=== PATIENT | female | born 1955 | race Caucasian/White ===

== ENCOUNTER 2020-05-04 14:34 | Emergency (ER) | payer MEDICARE, OTHER, SELFPAY ==
[2020-05-04 14:57] VITALS: BP 131/70; PULSE 69; RESP 28; TEMP 36.8; O2SAT 97; BMI 29.0
--- NOTE | 2020-05-04 15:19 | HMH.EDUTC ---
[facility] [place] Disposition Clinical Impression: Nausea UTI (urinary tract infection) Qualifiers: Urinary tract infection type: site unspecified Hematuria presence: with hematuria Qualified Code(s): N39.0 - Urinary tract infection, site not specified Disposition: Home, Self-Care Condition on Discharge: Good Instructions: Urinary Tract Infection, DI for Urinary Tract Infection (UTI) Additional Instructions: Drink plenty of fluids. Take tylenol or ibuprofen for pain or fever. Take the medications as directed. Follow up with your regular doctor. GO TO THE ER FOR ANY WORSENING SYMPTOMS IF YOU ARE NOT DOING BETTER WITH IN 24 TO 48 HOURS, THEN PLEASE RETURN MIR OR FOLLOW UP WITH YOUR REGULAR DOCTOR. IF YOUR SYMPTOMS GET ANY WORSE, GO TO THE ER. Prescriptions: Ciprofloxacin HCl [Cipro 500mg Tab] 500 mg PO BID 7 Days #14 tab Transmission Status: Received by [facility] #[id number] Referrals: Janes Clay PA [Primary Care Provider] - Time of Disposition: 15:50 Medical Decision Making - Medical Records Medical records reviewed: No: I reviewed the patient's medical records. - Mario Inquiry Pt receiving controlled substance: No Vital Signs: 05/04/20 14:57 05/04/20 16:06 Temperature 98.2 F 98.2 F Temperature Source Oral Oral Pulse Rate 70 Pulse Rate [Left Brachial] 69 Respiratory Rate 28 H 16 Blood Pressure 132/72 Blood Pressure [Left Arm] 131/70 Blood Pressure Mean [Left Arm] 90 Blood Pressure Source Automatic Cuff Blood Pressure Source [Left Arm] Automatic Cuff Blood Pressure Position Sitting Blood Pressure Position [Left Arm] Sitting 02 Sat by Pulse Oximetry 97 Oxygen Delivery Method Room Air Room Air - Lab Data Lab results reviewed: Yes: I reviewed the patient's lab results. Lab Results 05/04/20 15:48: Urine Color Yellow, Urine Appearance Clear, Urine pH 6.0, Ur Specific [place] 1.020, Urine Protein Negative, Urine Glucose (UA) Negative, Urine Ketones Negative, Urine Blood Trace, Urine Nitrate Positive A, Urine Bilirubin Negative, Urine Urobilinogen 0.2, Ur Leukocyte Esterase 1+ A [facility] [place] HPI - General Stated complaint: up set stomach Time Seen by Provider: 05/04/20 15:19 Mode of Arrival: Ambulatory Source of Information: Patient HEENT Symptoms (Recalled from RN notes): No Resp Symptoms (Recalled from RN notes): No Skin Symptoms (Recalled from RN notes): No MS Symptoms (Recalled from RN notes): No Functional Status (Recalled from RN notes): NA - History of Present Illness Provider Complaint: She c/o feeling bad and nauseated off and on over the past week. She denies any fever or chills. - Related Data Home Medications Medication Instructions Recorded Confirmed baclofen 10 mg tablet 10 mg PO BID PRN 30 Days tab 11/22/18 12/01/19 budesonide-formoterol HFA 160 2 puff INHALATION BID 11/22/18 12/01/19 mcg-4.5 mcg/actuation aerosol inhaler gabapentin 300 mg capsule 300 mg PO TID 30 Days cap 11/22/18 12/01/19 hydrocodone 7.5 mg-acetaminophen 1 tab PO QID 30 Days tab 11/22/18 12/01/19 325 mg tablet hydrocortisone acetate 25 mg 25 mg [place] DAILY PRN 11/22/18 12/01/19 rectal suppository hydrocortisone acetate 25 mg 25 mg [place] DAILY PRN 11/22/18 12/01/19 rectal suppository ibuprofen 800 mg tablet 800 mg PO TID 90 Days tab 11/22/18 12/01/19 levothyroxine 50 mcg tablet 50 mcg PO DAILY 90 Days tab 11/22/18 12/01/19 lidocaine 5 % topical patch 1 patch TRANSDERMA BID PRN 7 Days 11/22/18 12/01/19 #30 each montelukast 10 mg tablet 10 mg PO HS 90 Days tab 11/22/18 12/01/19 pantoprazole 40 mg tablet,delayed 40 mg PO DAILY 90 Days #90 tab 11/22/18 12/01/19 release simvastatin 20 mg tablet 20 mg PO DAILY 90 Days tab 11/22/18 12/01/19 terconazole 0.4 % vaginal cream 1 appful VAGINAL QHS PRN 11/22/18 12/01/19 metoprolol succinate 25 mg 25 mg PO DAILY #90 tab 06/25/19 12/01/19 tablet,extended release 24 hr Phenazopyridine HCl [Pyridium 200 pow PO
[2020-05-04 15:50] LABS: Apearance,Urine Clear (Clear); Blood, Urine Trace (Negative); Color,Urine Yellow (Yellow); Glucose,Urine (UA) Negative (Negative); Ketones,Urine Negative (Negative); Protein,Urine Negative (Negative)
[2020-05-04 15:51] LABS: Bilirubin,Urine Negative (Negative); UTC Leukocyte Esterase,Urine 1+ (Negative); UTC Nitrate,Urine Positive (Negative); Urobilinogen,Urine 0.2 EU/dl (0.2)
[2020-05-04 16:06] VITALS: BP 132/72; PULSE 70; RESP 16; TEMP 36.8; O2SAT 98
== END 2020-05-04 16:07 | disposition home or self-care (01) ==
PROVIDERS: Emergency Provider Nurse Practitioner Family; PCP Physician Assistant
DX: N30.00 Acute cystitis without hematuria (principal); J45.909 Unspecified asthma, uncomplicated; E78.5 Hyperlipidemia, unspecified; Z90.79 Acquired absence of other genital organ(s)
CPT/HCPCS: 81003; 87086; 87088; 87186; 99201

== ENCOUNTER 2020-05-09 14:42 | Emergency (ER) | payer MEDICARE, OTHER, SELFPAY ==
[2020-05-09 15:13] VITALS: BP 119/70; PULSE 67; RESP 20; TEMP 36.6; O2SAT 100; BMI 29.8
--- NOTE | 2020-05-09 15:19 | HMH.EDUTC ---
[facility] [place] Clinical Impression: UTI (urinary tract infection) Qualifiers: Urinary tract infection type: site unspecified Hematuria presence: with hematuria Qualified Code(s): N39.0 - Urinary tract infection, site not specified Disposition: Home, Self-Care Condition on Discharge: Good Instructions: DI for Urinary Tract Infection (UTI) Additional Instructions: Drink plenty of fluids. Take tylenol or ibuprofen for pain or fever. Take the medications as directed. Follow up with your regular doctor. GO TO THE ER FOR ANY WORSENING SYMPTOMS Prescriptions: Fluconazole [Diflucan 150mg tab] 150 mg PO ONCE #1 tab Transmission Status: Received by [facility] #[id number] Cefdinir [Omnicef 300mg Capsule] 300 mg PO BID #20 cap Transmission Status: Received by [facility] # Referrals: Janes Clay PA [Primary Care Provider] - Time of Disposition: 15:25 Medical Decision Making - Medical Records Medical records reviewed: No: I reviewed the patient's medical records. - Mario Inquiry Pt receiving controlled substance: No Vital Signs: 05/09/20 15:13 05/09/20 15:27 Temperature 97.9 F 97.9 F Temperature Source Oral Pulse Rate 67 Pulse Rate [Right Brachial] 67 Respiratory Rate 20 20 Blood Pressure 119/70 Blood Pressure [Right Arm] 119/70 Blood Pressure Mean [Right Arm] 86 Blood Pressure Source [Right Arm] Automatic Cuff Blood Pressure Position [Right Arm] Sitting 02 Sat by Pulse Oximetry 100 Oxygen Delivery Method Room Air - Lab Data Lab results reviewed: Yes: I reviewed the patient's lab results. Lab Results 05/09/20 15:05: Urine Color Yellow, Urine Appearance Clear, Urine pH 5.5, Ur Specific [place] 1.020, Urine Protein Negative, Urine Glucose (UA) Negative, Urine Ketones Negative, Urine Blood Trace, Urine Nitrate Negative, Urine Bilirubin Negative, Urine Urobilinogen 0.2, Ur Leukocyte Esterase Negative Orders (Tests/Meds): ORDERS Category Date Time Status Urine Culture Stat Micro 05/09/20 14:50 Received [facility] [place] - General Stated complaint: Bladder infection Time Seen by Provider: 05/09/20 15:19 Mode of Arrival: Ambulatory Source of Information: Patient Limitations: No Limitations Description of Symptoms (Recalled from Triage Doc. by RN): PATIENT RECENTLY TREATED FOR UTI, STATES IT IS NOT BETTER. C/O WORSENING BILATERAL FLANK AND PELVIC PAIN. HEENT Symptoms (Recalled from RN notes): No Resp Symptoms (Recalled from RN notes): No Skin Symptoms (Recalled from RN notes): No MS Symptoms (Recalled from RN notes): No Functional Status (Recalled from RN notes): WNL - History of Present Illness Provider Complaint: She is here with chief complaint of burning with urination. She states that in the past there were several antibiotics that would not help her utis. - Related Data Home Medications Medication Instructions Recorded Confirmed baclofen 10 mg tablet 10 mg PO BID PRN 30 Days tab 11/22/18 12/01/19 budesonide-formoterol HFA 160 2 puff INHALATION BID 11/22/18 12/01/19 mcg-4.5 mcg/actuation aerosol inhaler gabapentin 300 mg capsule 300 mg PO TID 30 Days cap 11/22/18 12/01/19 hydrocodone 7.5 mg-acetaminophen 1 tab PO QID 30 Days tab 11/22/18 12/01/19 325 mg tablet hydrocortisone acetate 25 mg 25 mg [place] DAILY PRN 11/22/18 12/01/19 rectal suppository hydrocortisone acetate 25 mg 25 mg [place] DAILY PRN 11/22/18 12/01/19 rectal suppository ibuprofen 800 mg tablet 800 mg PO TID 90 Days tab 11/22/18 12/01/19 levothyroxine 50 mcg tablet 50 mcg PO DAILY 90 Days tab 11/22/18 12/01/19 lidocaine 5 % topical patch 1 patch TRANSDERMA BID PRN 7 Days 11/22/18 12/01/19 #30 each montelukast 10 mg tablet 10 mg PO HS 90 Days tab 11/22/18 12/01/19 pantoprazole 40 mg tablet,delayed 40 mg PO DAILY 90 Days #90 tab 11/22/18 12/01/19 release simvastatin 20 mg tablet 20 mg PO DAILY 90 Days tab 11/22/18 12/01/19 terconazole 0.4 % vagina
[2020-05-09 15:27] VITALS: BP 119/70; PULSE 67; RESP 20; TEMP 36.6; O2SAT 100
[2020-05-09 16:48] LABS: Apearance,Urine Clear (Clear); Color,Urine Yellow (Yellow); Glucose,Urine (UA) Negative (Negative); PH,Urine 5.5 (5.0-8.5); Protein,Urine Negative (Negative)
[2020-05-09 16:49] LABS: Bilirubin,Urine Negative (Negative); Blood, Urine Trace (Negative); Ketones,Urine Negative (Negative); UTC Leukocyte Esterase,Urine Negative (Negative); UTC Nitrate,Urine Negative (Negative); Urobilinogen,Urine 0.2 EU/dl (0.2)
== END 2020-05-09 15:32 | disposition home or self-care (01) ==
PROVIDERS: Emergency Provider Nurse Practitioner Family; PCP Physician Assistant
DX: N30.00 Acute cystitis without hematuria (principal); E78.5 Hyperlipidemia, unspecified; J45.909 Unspecified asthma, uncomplicated; Z90.79 Acquired absence of other genital organ(s)
CPT/HCPCS: 81003; 87086; 99201

== ENCOUNTER 2020-05-30 15:45 | Emergency (ER) | payer MEDICARE, OTHER, SELFPAY ==
[2020-05-30 16:08] VITALS: BP 125/75; PULSE 72; RESP 14; TEMP 36.7; O2SAT 100; BMI 29.8
--- NOTE | 2020-05-30 16:47 | HMH.EDUTC ---
[facility] [place] Disposition Clinical Impression: Otitis media Qualifiers: Otitis media type: suppurative Chronicity: acute Laterality: bilateral Recurrence: non-recurrent Spontaneous tympanic membrane rupture: without spontaneous rupture Qualified Code(s): H66.003 - Acute suppurative otitis media without spontaneous rupture of ear drum, bilateral Disposition: Home, Self-Care Condition on Discharge: Good Instructions: Middle Ear Infection Additional Instructions: Drink plenty of fluids. Take tylenol or ibuprofen for pain or fever. Finish the antibiotics that you are on. Start the oral steroids tomorrow. Follow up with your regular doctor. GO TO THE ER FOR ANY WORSENING SYMPTOMS Don't start the oral steroids until tomorrow, since you had the shot here today. Prescriptions: predniSONE [Deltasone 10mg tablet] 10 mg PO BID 4 Days #8 tab Transmission Status: Received by [employer] [facility] #[id number] Referrals: Janes Clay PA [Primary Care Provider] - Time of Disposition: 16:55 Medical Decision Making - Medical Records Medical records reviewed: No: I reviewed the patient's medical records. - Mario Inquiry Pt receiving controlled substance: No Vital Signs: 05/30/20 16:08 05/30/20 17:14 Temperature 98.1 F 98.1 F Temperature Source Oral Pulse Rate 72 Pulse Rate [Right Brachial] 72 Respiratory Rate 14 14 Blood Pressure 125/75 Blood Pressure [Right Arm] 125/75 Blood Pressure Mean [Right Arm] 91 Blood Pressure Source [Right Arm] Automatic Cuff Blood Pressure Position [Right Arm] Sitting 02 Sat by Pulse Oximetry 100 Oxygen Delivery Method Room Air Orders (Tests/Meds): ED MEDICATIONS Discontinued Medications Generic Name Dose Route Start Last Admin Trade Name [place] PRN Reason Stop Dose Admin Ceftriaxone Sodium 1 gm 05/30/20 16:48 05/30/20 17:05 Rocephin 1gm Vial IM 05/30/20 16:49 1 gm ONCE ONE Administration Protocol Lidocaine HCl 0 ml 05/30/20 16:48 05/30/20 17:05 Lidocaine 1% 10ml Mdv IM 05/30/20 16:49 2.1 ml ONCE ONE Administration Methylprednisolone Sodium Succinate 125 mg 05/30/20 16:48 05/30/20 17:05 Solu-Medrol 125mg/2ml Vial IM 05/30/20 16:49 125 mg ONCE ONE Administration [facility] [place] HPI - General Stated complaint: ear pain, wheezing Time Seen by Provider: 05/30/20 16:30 Mode of Arrival: Ambulatory Source of Information: Patient Limitations: No Limitations Description of Symptoms (Recalled from Triage Doc. by RN): PATIENT C/O WHEEZING AND BILATERAL EAR PAIN HEENT Symptoms (Recalled from RN notes): Yes Resp Symptoms (Recalled from RN notes): Yes Skin Symptoms (Recalled from RN notes): No MS Symptoms (Recalled from RN notes): No Functional Status (Recalled from RN notes): WNL - History of Present Illness Provider Complaint: She c/o bilateral ear pain for the past 1 week. She is on augmentin for an ear infection. She states that it has helped some but not enough. - Related Data Home Medications Medication Instructions Recorded Confirmed baclofen 10 mg tablet 10 mg PO BID PRN 30 Days tab 11/22/18 12/01/19 budesonide-formoterol HFA 160 2 puff INHALATION BID 11/22/18 12/01/19 mcg-4.5 mcg/actuation aerosol inhaler gabapentin 300 mg capsule 300 mg PO TID 30 Days cap 11/22/18 12/01/19 hydrocodone 7.5 mg-acetaminophen 1 tab PO QID 30 Days tab 11/22/18 12/01/19 325 mg tablet hydrocortisone acetate 25 mg 25 mg [place] DAILY PRN 11/22/18 12/01/19 rectal suppository hydrocortisone acetate 25 mg 25 mg [place] DAILY PRN 11/22/18 12/01/19 rectal suppository ibuprofen 800 mg tablet 800 mg PO TID 90 Days tab 11/22/18 12/01/19 levothyroxine 50 mcg tablet 50 mcg PO DAILY 90 Days tab 11/22/18 12/01/19 lidocaine 5 % topical patch 1 patch TRANSDERMA BID PRN 7 Days 11/22/18 12/01/19 #30 each montelukast 10 mg tablet 10 mg PO HS 90 Days tab 11/22/18 12/01/19 pantoprazole 40 mg tablet,delayed 40 mg PO DAILY 90 Days #90 tab 11/22/18
[2020-05-30 17:14] VITALS: BP 125/75; PULSE 72; RESP 14; TEMP 36.7; O2SAT 100
== END 2020-05-30 17:20 | disposition home or self-care (01) ==
PROVIDERS: Emergency Provider Nurse Practitioner Family; PCP Physician Assistant
DX: H66.003 Acute suppurative otitis media without spontaneous rupture of ear drum, bilateral (principal); J45.909 Unspecified asthma, uncomplicated; E78.5 Hyperlipidemia, unspecified; Z90.79 Acquired absence of other genital organ(s); Z79.899 Other long term (current) drug therapy
CPT/HCPCS: G0463; 96372; 99201

== ENCOUNTER 2020-06-10 14:52 | Emergency (ER) | payer MEDICARE, OTHER, SELFPAY ==
[2020-06-10 15:07] VITALS: BP 133/70; PULSE 62; RESP 20; TEMP 36.6; O2SAT 97; BMI 29.0
--- NOTE | 2020-06-10 15:25 | HMH.EDUTC ---
[facility] [place] Disposition Clinical Impression: Bilateral serous otitis media Qualifiers: Chronicity: acute Recurrence: non-recurrent Qualified Code(s): H65.03 - Acute serous otitis media, bilateral Disposition: Home, Self-Care Condition on Discharge: Good Instructions: Middle Ear Infection Additional Instructions: You need to follow up with ENT. You are having too many issues with your ears recently. Follow up with your primary care physician. Take the medications as directed. Take a probiotic to help combat the side effects of all the antibiotics that you have been having to take. GO TO THE ER FOR ANY WORSENING SYMPTOMS OR CONCERNS Prescriptions: Amoxicillin [Amoxicillin 500mg Tab] 500 mg PO TID 10 Days #30 tab Transmission Status: Received by [facility] # predniSONE [Deltasone 10mg tablet] 10 mg PO DAILY 9 Days #21 tab Transmission Status: Received by [facility] # Referrals: Janes Clay PA [Primary Care Provider] - Ryan Jesus MD [Staff Physician] - Time of Disposition: 15:35 Medical Decision Making - Medical Records Medical records reviewed: No: I reviewed the patient's medical records. - Mario Inquiry Pt receiving controlled substance: No Vital Signs: 06/10/20 15:07 06/10/20 15:44 Temperature 97.8 F 97.8 F Temperature Source Oral Pulse Rate 62 Pulse Rate [Right Brachial] 62 Respiratory Rate 20 20 Blood Pressure 133/70 Blood Pressure [Right Arm] 133/70 Blood Pressure Mean [Right Arm] 91 Blood Pressure Source [Right Arm] Automatic Cuff Blood Pressure Position [Right Arm] Sitting 02 Sat by Pulse Oximetry 97 Oxygen Delivery Method Room Air Orders (Tests/Meds): ED MEDICATIONS Discontinued Medications Generic Name Dose Route Start Last Admin Trade Name Magdielq PRN Reason Stop Dose Admin Ceftriaxone Sodium 1 gm 06/10/20 15:25 06/10/20 15:36 Rocephin 1gm Vial IM 06/10/20 15:26 1 gm ONCE ONE Administration Protocol Lidocaine HCl 0 ml 06/10/20 15:25 06/10/20 15:36 Lidocaine 1% 10ml Mdv IM 06/10/20 15:26 2.1 ml ONCE ONE Administration Methylprednisolone Sodium Succinate 125 mg 06/10/20 15:25 06/10/20 15:36 Solu-Medrol 125mg/2ml Vial IM 06/10/20 15:26 125 mg ONCE ONE Administration [facility] [place] HPI - General Stated complaint: ear pain Time Seen by Provider: 06/10/20 15:25 Mode of Arrival: Ambulatory Source of Information: Patient Limitations: No Limitations Description of Symptoms (Recalled from Triage Doc. by RN): PATIENT C/O BILATERAL EAR PAIN. STATES SHE WAS RECENTLY TREATED FOR AN EAR INFECTION, HOWEVER IT HAS NOT GOTTEN BETTER HEENT Symptoms (Recalled from RN notes): Yes Resp Symptoms (Recalled from RN notes): No Skin Symptoms (Recalled from RN notes): No MS Symptoms (Recalled from RN notes): No Functional Status (Recalled from RN notes): WNL - History of Present Illness Provider Complaint: She c/o ear pain and pressure. She states that since the last time she was here she had got better for a few days, but the ear complaints are coming back now. She denies any dizziness. She denies headache, focal weakness, and chest pain or neck pain. - Related Data Home Medications Medication Instructions Recorded Confirmed baclofen 10 mg tablet 10 mg PO BID PRN 30 Days tab 11/22/18 12/01/19 budesonide-formoterol HFA 160 2 puff INHALATION BID 11/22/18 12/01/19 mcg-4.5 mcg/actuation aerosol inhaler gabapentin 300 mg capsule 300 mg PO TID 30 Days cap 11/22/18 12/01/19 hydrocodone 7.5 mg-acetaminophen 1 tab PO QID 30 Days tab 11/22/18 12/01/19 325 mg tablet hydrocortisone acetate 25 mg 25 mg [place] DAILY PRN 11/22/18 12/01/19 rectal suppository hydrocortisone acetate 25 mg 25 mg [place] DAILY PRN 11/22/18 12/01/19 rectal suppository ibuprofen 800 mg tablet 800 mg PO TID 90 Days tab 11/22/18 12/01/19 levothyroxine 50 mcg tablet 50 mcg PO DAILY 90 Days tab 11/22/18 12/01/19 lidocaine 5 % to
[2020-06-10 15:44] VITALS: BP 133/70; PULSE 62; RESP 20; TEMP 36.6; O2SAT 97
== END 2020-06-10 15:48 | disposition home or self-care (01) ==
PROVIDERS: Emergency Provider Nurse Practitioner; PCP Physician Assistant
DX: H65.03 Acute serous otitis media, bilateral (principal); J45.909 Unspecified asthma, uncomplicated; E78.5 Hyperlipidemia, unspecified; Z79.899 Other long term (current) drug therapy
CPT/HCPCS: G0463; 96372; 99201

== ENCOUNTER 2020-06-24 16:22 | Emergency (ER) | payer MEDICARE, OTHER, SELFPAY ==
[2020-06-24 17:08] VITALS: BP 143/71; PULSE 77; RESP 20; O2SAT 99; BMI 29.7
[2020-06-24 17:13] LABS: Apearance,Urine Clear (Clear); Color,Urine Yellow (Yellow)
[2020-06-24 17:14] LABS: Bilirubin,Urine Negative (Negative); Blood, Urine Trace (Negative); Glucose,Urine (UA) Negative (Negative); Ketones,Urine Negative (Negative); PH,Urine 5.5 (5.0-8.5); Protein,Urine Negative (Negative); Specific Gravity, Urine 1.025 (1.005-1.030); UTC Leukocyte Esterase,Urine Negative (Negative); UTC Nitrate,Urine Negative (Negative); Urobilinogen,Urine 0.2 EU/dl (0.2)
--- NOTE | 2020-06-24 17:36 | HMH.EDUTC ---
[facility] [place] Clinical Impression: Cystitis Left otitis media Qualifiers: Otitis media type: suppurative Chronicity: acute Recurrence: non-recurrent Spontaneous tympanic membrane rupture: without spontaneous rupture Qualified Code(s): H66.002 - Acute suppurative otitis media without spontaneous rupture of ear drum, left ear Disposition: Home, Self-Care Condition on Discharge: Good Instructions: DI for Interstitial Cystitis Additional Instructions: Drink plenty of fluids. Take tylenol or ibuprofen for pain or fever. Take the medications as directed. Follow up with your regular doctor. GO TO THE ER FOR ANY WORSENING SYMPTOMS Prescriptions: levoFLOXacin [Levaquin 500mg tab] 500 mg PO DAILY #7 tab Transmission Status: Received by [employer] #[id number] Referrals: Janes Clay PA [Primary Care Provider] - Time of Disposition: 17:46 Medical Decision Making - Medical Records Medical records reviewed: No: I reviewed the patient's medical records. - Mario Inquiry Pt receiving controlled substance: No Vital Signs: 06/24/20 17:08 06/24/20 17:49 Temperature 98.0 F Pulse Rate 77 Pulse Rate [Right Brachial] 77 Respiratory Rate 20 20 Blood Pressure 143/71 H Blood Pressure [Right Arm] 143/71 H Blood Pressure Mean [Right Arm] 95 Blood Pressure Source [Right Arm] Automatic Cuff Blood Pressure Position [Right Arm] Sitting 02 Sat by Pulse Oximetry 99 Oxygen Delivery Method Room Air - Lab Data Lab results reviewed: Yes: I reviewed the patient's lab results. Lab Results 06/24/20 17:12: Urine Color Yellow, Urine Appearance Clear, Urine pH 5.5, Ur Specific [place] 1.025, Urine Protein Negative, Urine Glucose (UA) Negative, Urine Ketones Negative, Urine Blood Trace, Urine Nitrate Negative, Urine Bilirubin Negative, Urine Urobilinogen 0.2, Ur Leukocyte Esterase Negative [facility] [place] - General Stated complaint: Possible bladder infection Time Seen by Provider: 06/24/20 17:38 Mode of Arrival: Ambulatory Source of Information: Patient Limitations: No Limitations Description of Symptoms (Recalled from Triage Doc. by RN): PATIENT C/O BURNING AND PAIN WITH URINATION AND LEFT FLANK PAIN X APPROX 1 WEEK. SHE WAS ALSO RECENTLY TREATED FOR AN EAR INFECTION AND CONTINUES TO HAVE PAIN IN RIGHT EAR HEENT Symptoms (Recalled from RN notes): Yes Resp Symptoms (Recalled from RN notes): No Skin Symptoms (Recalled from RN notes): No MS Symptoms (Recalled from RN notes): No Functional Status (Recalled from RN notes): WNL - History of Present Illness Provider Complaint: She states that she is having burning and urinary frequency. She states that she has a history of cystitis and frequent uti's. She thinks that this is a flareup of her cystitis, but usually it takes antibiotics and pyridiuim to get her symptoms to feeling better. She has also been having right ear pain for the past 3 days. - Related Data Home Medications Medication Instructions Recorded Confirmed baclofen 10 mg tablet 10 mg PO BID PRN 30 Days tab 11/22/18 12/01/19 budesonide-formoterol HFA 160 2 puff INHALATION BID 11/22/18 12/01/19 mcg-4.5 mcg/actuation aerosol inhaler gabapentin 300 mg capsule 300 mg PO TID 30 Days cap 11/22/18 12/01/19 hydrocodone 7.5 mg-acetaminophen 1 tab PO QID 30 Days tab 11/22/18 12/01/19 325 mg tablet hydrocortisone acetate 25 mg 25 mg [place] DAILY PRN 11/22/18 12/01/19 rectal suppository hydrocortisone acetate 25 mg 25 mg [place] DAILY PRN 11/22/18 12/01/19 rectal suppository ibuprofen 800 mg tablet 800 mg PO TID 90 Days tab 11/22/18 12/01/19 levothyroxine 50 mcg tablet 50 mcg PO DAILY 90 Days tab 11/22/18 12/01/19 lidocaine 5 % topical patch 1 patch TRANSDERMA BID PRN 7 Days 11/22/18 12/01/19 #30 each montelukast 10 mg tablet 10 mg PO HS 90 Days tab 11/22/18 12/01/19 pantoprazole 40 mg tablet,delayed 40 mg PO DAILY 90 Days #90 tab 11/22/18 12/01/19 release simvastatin 2
[2020-06-24 17:49] VITALS: BP 143/71; PULSE 77; RESP 20; TEMP 36.7; O2SAT 99
== END 2020-06-24 17:53 | disposition home or self-care (01) ==
PROVIDERS: Emergency Provider Nurse Practitioner Family; PCP Physician Assistant
DX: N30.01 Acute cystitis with hematuria (principal); H66.002 Acute suppurative otitis media without spontaneous rupture of ear drum, left ear; E78.5 Hyperlipidemia, unspecified; Z90.79 Acquired absence of other genital organ(s); Z79.899 Other long term (current) drug therapy
CPT/HCPCS: G0463; 81003; 99201

== ENCOUNTER 2020-07-13 16:29 | Emergency (ER) | payer MEDICARE, OTHER, SELFPAY ==
[2020-07-13 16:50] VITALS: BP 115/57; PULSE 74; RESP 19; TEMP 36.6; O2SAT 96; BMI 29.7
--- NOTE | 2020-07-13 17:18 | HMH.EDUTC ---
[facility] [place] Clinical Impression: Asthma Qualifiers: Asthma severity: moderate Asthma persistence: unspecified Asthma complication type: unspecified Qualified Code(s): J45.909 - Unspecified asthma, uncomplicated Disposition: Home, Self-Care Condition on Discharge: Good Instructions: DI for Asthma -- Adult Additional Instructions: Continue to take your inhalers and your medications. If you get worse, please follow up. Follow up with your primary care provider. GO TO THE ER FOR ANY WORSENING SYMPTOMS OR CONCERNS Referrals: Janes Clay PA [Primary Care Provider] - Time of Disposition: 17:29 Medical Decision Making - Medical Records Medical records reviewed: No: I reviewed the patient's medical records. - Mario Inquiry Pt receiving controlled substance: No Vital Signs: 07/13/20 16:50 07/13/20 17:28 Temperature 97.9 F 97.9 F Temperature Source Oral Pulse Rate 74 Pulse Rate [Left] 74 Respiratory Rate 19 19 Blood Pressure 115/57 L Blood Pressure [Right Arm] 115/57 L Blood Pressure Mean [Right Arm] 76 Blood Pressure Source [Right Arm] Automatic Cuff Blood Pressure Position [Right Arm] Sitting 02 Sat by Pulse Oximetry 96 Oxygen Delivery Method Room Air [facility] [place] - General Stated complaint: SOB Time Seen by Provider: 07/13/20 17:18 Mode of Arrival: Ambulatory Source of Information: Patient Limitations: No Limitations Description of Symptoms (Recalled from Triage Doc. by RN): Chest cold and asthma for 1 week HEENT Symptoms (Recalled from RN notes): No Resp Symptoms (Recalled from RN notes): Yes Skin Symptoms (Recalled from RN notes): No MS Symptoms (Recalled from RN notes): No Functional Status (Recalled from RN notes): stable - History of Present Illness Provider Complaint: She c/o of mild increase in her asthma symptoms for the past 2 days. She is worried because she has cataract surgery coming up in 3 days and she doesn't want to be sick and mess that up. She denies any fever or chills. She is coughing some but she states that it feels like her asthma symptoms. - Related Data Home Medications Medication Instructions Recorded Confirmed baclofen 10 mg tablet 10 mg PO BID PRN 30 Days tab 11/22/18 12/01/19 budesonide-formoterol HFA 160 2 puff INHALATION BID 11/22/18 12/01/19 mcg-4.5 mcg/actuation aerosol inhaler gabapentin 300 mg capsule 300 mg PO TID 30 Days cap 11/22/18 12/01/19 hydrocodone 7.5 mg-acetaminophen 1 tab PO QID 30 Days tab 11/22/18 12/01/19 325 mg tablet hydrocortisone acetate 25 mg 25 mg [place] DAILY PRN 11/22/18 12/01/19 rectal suppository hydrocortisone acetate 25 mg 25 mg [place] DAILY PRN 11/22/18 12/01/19 rectal suppository ibuprofen 800 mg tablet 800 mg PO TID 90 Days tab 11/22/18 12/01/19 levothyroxine 50 mcg tablet 50 mcg PO DAILY 90 Days tab 11/22/18 12/01/19 lidocaine 5 % topical patch 1 patch TRANSDERMA BID PRN 7 Days 11/22/18 12/01/19 #30 each montelukast 10 mg tablet 10 mg PO HS 90 Days tab 11/22/18 12/01/19 pantoprazole 40 mg tablet,delayed 40 mg PO DAILY 90 Days #90 tab 11/22/18 12/01/19 release simvastatin 20 mg tablet 20 mg PO DAILY 90 Days tab 11/22/18 12/01/19 terconazole 0.4 % vaginal cream 1 appful VAGINAL QHS PRN 11/22/18 12/01/19 metoprolol succinate 25 mg 25 mg PO DAILY #90 tab 06/25/19 12/01/19 tablet,extended release 24 hr Phenazopyridine HCl [Pyridium 200 pow PO TID PRN 12/01/19 12/01/19 200mg Tablet] Previous Rx's Medication Instructions Recorded Albuterol Sulfate [Albuterol 2.5 mg IH Q6HP PRN #120 neb 02/20/19 0.083% 2.5mg/3mL neb] Cefdinir [Omnicef 300mg Capsule] 300 mg PO BID #20 cap 12/01/19 predniSONE [Prednisone 5mg Tab 5 mg PO UD DOSE PK 6 Days #21 pack 12/09/19 Dose-Pack] Ciprofloxacin HCl [Cipro 500mg 500 mg PO BID 7 Days #14 tab 05/04/20 Tab] Cefdinir [Omnicef 300mg Capsule] 300 mg PO BID #20 cap 05/09/20 Fluconazole [Diflucan 150mg tab] 150 mg PO ONC
[2020-07-13 17:28] VITALS: BP 115/57; PULSE 74; RESP 19; TEMP 36.6; O2SAT 96
== END 2020-07-13 18:22 | disposition home or self-care (01) ==
PROVIDERS: Emergency Provider Nurse Practitioner Family; PCP Physician Assistant
DX: J45.909 Unspecified asthma, uncomplicated (principal); E78.5 Hyperlipidemia, unspecified; Z79.899 Other long term (current) drug therapy; Z90.79 Acquired absence of other genital organ(s)
CPT/HCPCS: 99201

== ENCOUNTER → 2020-07-18 11:37 | Outpatient (CLI) | payer MEDICARE, OTHER, SELFPAY ==
[2020-07-18 14:26] LABS: Coronavirus 19 IgG Antibody Negative (Negative); Coronavirus 19 IgM Antibody Negative (Negative)
== END ==
PROVIDERS: Visit Provider Ophthalmology
DX: Z01.818 Encounter for other preprocedural examination (principal)
CPT/HCPCS: 36415; 86328

== ENCOUNTER 2020-07-19 06:42 | Day surgery (SDC) | payer MEDICARE, OTHER, SELFPAY ==
[2020-07-14 10:52] VITALS: BMI 30.7
[2020-07-19 07:14] VITALS: BP 137/62; PULSE 78; RESP 18; O2SAT 96
[2020-07-19 08:18] VITALS: BP 131/60; PULSE 66; RESP 16; O2SAT 100
[2020-07-19 08:23] VITALS: BP 136/59; PULSE 66; RESP 16; O2SAT 100
[2020-07-19 08:28] VITALS: BP 112/60; PULSE 65; RESP 16; O2SAT 100
[2020-07-19 08:33] VITALS: BP 115/60; PULSE 66; RESP 16; O2SAT 100
[2020-07-19 08:38] VITALS: BP 126/63; PULSE 71; RESP 18; TEMP 36.4; O2SAT 94
== END 2020-07-19 08:42 | disposition home or self-care (01) ==
LOC: OR 06:47
PROVIDERS: PCP Physician Assistant; Visit Provider Ophthalmology
DX: H25.813 Combined forms of age-related cataract, bilateral (principal); H53.149 Visual discomfort, unspecified; Z79.899 Other long term (current) drug therapy; J44.9 Chronic obstructive pulmonary disease, unspecified
CPT/HCPCS: 66984; V2632

== ENCOUNTER 2020-07-27 15:07 | Emergency (ER) | payer MEDICARE, OTHER, SELFPAY ==
[2020-07-27 15:38] VITALS: BP 119/64; PULSE 76; RESP 18; TEMP 36.8; O2SAT 99; BMI 29.0
--- NOTE | 2020-07-27 16:11 | HMH.EDUTC ---
[facility] [place] Disposition Clinical Impression: Thrush Asthma exacerbation Qualifiers: Asthma severity: unspecified severity Asthma persistence: unspecified Qualified Code(s): J45.901 - Unspecified asthma with (acute) exacerbation Disposition: Home, Self-Care Condition on Discharge: Good Instructions: DI for Asthma -- Adult, DI for Thrush Additional Instructions: Drink plenty of fluids. Take tylenol for pain or fever. Take the medications as directed. Follow up with your regular doctor. GO TO THE ER FOR ANY WORSENING SYMPTOMS Referrals: Janes Clay PA [Primary Care Provider] - Time of Disposition: 16:25 Medical Decision Making - Medical Records Medical records reviewed: No: I reviewed the patient's medical records. - Mario Inquiry Pt receiving controlled substance: No Vital Signs: 07/27/20 15:38 07/27/20 16:47 Temperature 98.2 F 98.2 F Temperature Source Oral Oral Pulse Rate 76 Pulse Rate [Radial] 76 Respiratory Rate 18 18 Blood Pressure 119/64 Blood Pressure [Right Arm] 119/64 Blood Pressure Mean [Right Arm] 82 Blood Pressure Source Automatic Cuff Blood Pressure Source [Right Arm] Automatic Cuff Blood Pressure Position Sitting Blood Pressure Position [Right Arm] Sitting 02 Sat by Pulse Oximetry 99 Oxygen Delivery Method Room Air Room Air [facility] [place] HPI - General Stated complaint: Asthma flare up Time Seen by Provider: 07/27/20 16:11 Mode of Arrival: Ambulatory Source of Information: Patient Limitations: No Limitations Description of Symptoms (Recalled from Triage Doc. by RN): asthma flare up. wheezing HEENT Symptoms (Recalled from RN notes): No Resp Symptoms (Recalled from RN notes): Yes Skin Symptoms (Recalled from RN notes): No MS Symptoms (Recalled from RN notes): No Functional Status (Recalled from RN notes): wnl - History of Present Illness Provider Complaint: She c/o more wheezing and shortness of breath than normal. She thinks that her asthma is acting up. She has been taking her inhalers and other asthma medications as directed. - Related Data Home Medications Medication Instructions Recorded Confirmed baclofen 10 mg tablet 10 mg PO BID PRN 30 Days tab 11/22/18 07/28/20 budesonide-formoterol HFA 160 2 puff INHALATION BID 11/22/18 07/28/20 mcg-4.5 mcg/actuation aerosol inhaler gabapentin 300 mg capsule 300 mg PO TID 30 Days cap 11/22/18 07/28/20 hydrocodone 7.5 mg-acetaminophen 1 tab PO QID 30 Days tab 11/22/18 07/28/20 325 mg tablet ibuprofen 800 mg tablet 800 mg PO TIDP PRN 90 Days tab 11/22/18 07/28/20 levothyroxine 50 mcg tablet 50 mcg PO DAILY 90 Days tab 11/22/18 07/28/20 lidocaine 5 % topical patch 1 patch TRANSDERMA BID PRN 7 Days 11/22/18 07/28/20 #30 each montelukast 10 mg tablet 10 mg PO HS 90 Days tab 11/22/18 07/28/20 pantoprazole 40 mg tablet,delayed 40 mg PO DAILY 90 Days #90 tab 11/22/18 07/28/20 release simvastatin 20 mg tablet 20 mg PO DAILY 90 Days tab 11/22/18 07/28/20 metoprolol succinate 25 mg 25 mg PO DAILY #90 tab 06/25/19 07/28/20 tablet,extended release 24 hr Albuterol Sulfate [Proair 90 mcg IH TIDP PRN 07/28/20 07/28/20 Digihaler] Estrogens, Conjugated [Premarin] 1 appful * BID 07/28/20 07/28/20 Levocetirizine Dihydrochloride 5 mg PO DAILY 07/28/20 07/28/20 [Xyzal] Nystatin [Nystatin Susp 500,000 5 ml PO BID 07/28/20 07/28/20 Units/5mL Udc] Tiotropium [place] [Spiriva 2 puffs IH BID 07/28/20 07/28/20 18mcg/puff inhaler] Zolpidem Tartrate [Ambien 10mg 10 mg PO HS 07/28/20 07/28/20 tablet] bisacodyL [Dulcolax 5mg Tab] 5 mg PO DAILYP PRN 07/28/20 07/28/20 methylPREDNISolone [Medrol] 4 mg PO DIRECTED 07/28/20 07/28/20 Allergies Allergy/AdvReac Type Severity Reaction Status Date / Time No Known Allergies Allergy Verified 07/28/20 10:36 - Worker's Comp Is this a Worker's Comp case?: No [facility] History - Hepatitis A Screen Drug use history?: No High risk sexual behaviors
[2020-07-27 16:47] VITALS: BP 119/64; PULSE 76; RESP 18; TEMP 36.8; O2SAT 99
== END 2020-07-27 16:47 | disposition home or self-care (01) ==
PROVIDERS: Emergency Provider Nurse Practitioner Family; PCP Physician Assistant
DX: B37.0 Candidal stomatitis (principal); J45.901 Unspecified asthma with (acute) exacerbation; E78.5 Hyperlipidemia, unspecified; E03.9 Hypothyroidism, unspecified; Z90.79 Acquired absence of other genital organ(s); Z79.899 Other long term (current) drug therapy
CPT/HCPCS: G0463; 99201

== ENCOUNTER → 2020-08-08 14:21 | Outpatient (CLI) | payer MEDICARE, OTHER, SELFPAY ==
[2020-08-08 15:53] LABS: Coronavirus 19 IgG Antibody Negative (Negative); Coronavirus 19 IgM Antibody Negative (Negative)
== END ==
PROVIDERS: Visit Provider Ophthalmology
DX: Z01.89 Encounter for other specified special examinations (principal); H25.11 Age-related nuclear cataract, right eye
CPT/HCPCS: 36415; 86328

== ENCOUNTER 2020-08-09 06:27 | Day surgery (SDC) | payer MEDICARE, OTHER, SELFPAY ==
[2020-07-28 11:11] VITALS: BMI 29.0
[2020-08-09] VITALS (8 sets, daily range): BP systolic 101–124; BP diastolic 53–70; PULSE 63–78; RESP 18; TEMP 36.1–36.6; O2SAT 95–100
== END 2020-08-09 08:35 | disposition home or self-care (01) ==
LOC: OR 06:29
PROVIDERS: PCP Physician Assistant; Visit Provider Ophthalmology
DX: H25.813 Combined forms of age-related cataract, bilateral (principal); H53.149 Visual discomfort, unspecified; M19.90 Unspecified osteoarthritis, unspecified site; J45.909 Unspecified asthma, uncomplicated; E78.5 Hyperlipidemia, unspecified; E03.9 Hypothyroidism, unspecified; K21.9 Gastro-esophageal reflux disease without esophagitis
CPT/HCPCS: 66984; V2632

== ENCOUNTER 2020-10-04 15:27 | Emergency (ER) | payer MEDICARE, OTHER, SELFPAY ==
[2020-10-04 16:04] VITALS: BP 146/71; PULSE 68; RESP 18; O2SAT 98; BMI 30.8
--- NOTE | 2020-10-04 16:22 | HMH.EDUTC ---
[facility] [place]position Clinical Impression: Encounter for laboratory testing for COVID-19 virus Otitis media Qualifiers: Otitis media type: unspecified Laterality: bilateral Qualified Code(s): H66.93 - Otitis media, unspecified, bilateral Disposition: Home, Self-Care Condition on Discharge: Good Instructions: Middle Ear Infection, Cefdinir Additional Instructions: Start Cefdinir tomorrow Follow up with Family Doctor if no improvement or any worsening of symptoms Return if needed Straight to ER if any life threatening symptoms Prescriptions: Fluconazole [Diflucan 150mg tab] 150 mg PO ONCE #1 tab Transmission Status: Received by [facility] # Cefdinir [Omnicef 300mg Capsule] 300 mg PO BID #20 cap Transmission Status: Received by [facility] # Referrals: Janes Clay PA [Primary Care Provider] - Time of Disposition: 16:37 Medical Decision Making - Mario Inquiry Pt receiving controlled substance: No Mario was queried for this patient: No Vital Signs: 10/04/20 16:04 Pulse Rate [Radial] 68 Respiratory Rate 18 Blood Pressure [Right Arm] 146/71 H Blood Pressure Mean [Right Arm] 96 Blood Pressure Source [Right Arm] Automatic Cuff Blood Pressure Position [Right Arm] Sitting 02 Sat by Pulse Oximetry 98 Oxygen Delivery Method Room Air Orders (Tests/Meds): ED MEDICATIONS Discontinued Medications Generic Name Dose Route Start Last Admin Trade Name Magdielq PRN Reason Stop Dose Admin Ceftriaxone Sodium 1 gm 10/04/20 16:29 10/04/20 16:39 Ceftriaxone 1gm Vial IM 10/04/20 16:30 1 gm ONCE ONE Administration Protocol Lidocaine HCl 0 ml 10/04/20 16:29 10/04/20 16:40 Lidocaine 1% 5ml Pf Vial IM 10/04/20 16:30 2.1 ml ONCE ONE Administration ORDERS Category Date Time Status Covid-19 Nasal PCR Sendout [facility] 10/04/20 16:34 Ordered [facility] [place] HPI - General Stated complaint: covid exposure Time Seen by Provider: 10/04/20 16:23 Mode of Arrival: Ambulatory Source of Information: Patient Limitations: No Limitations Description of Symptoms (Recalled from Triage Doc. by RN): RASCON EAR PAIN HEENT Symptoms (Recalled from RN notes): Yes Resp Symptoms (Recalled from RN notes): No Skin Symptoms (Recalled from RN notes): No MS Symptoms (Recalled from RN notes): No Functional Status (Recalled from RN notes): WNL - History of Present Illness Provider Complaint: Patient states she was recently around family members that have tested positive for COVID States that she was tested about a week ago and was negative and was placed on azithromycin for ear infection States that her ears are no better and she takes her last dose of medication tomorrow and wants to have her ears rechecked and another COVID test - Related Data Home Medications Medication Instructions Recorded Confirmed baclofen 10 mg tablet 10 mg PO BID PRN 30 Days tab 11/22/18 07/28/20 budesonide-formoterol HFA 160 2 puff INHALATION BID 11/22/18 07/28/20 mcg-4.5 mcg/actuation aerosol inhaler gabapentin 300 mg capsule 300 mg PO TID 30 Days cap 11/22/18 07/28/20 hydrocodone 7.5 mg-acetaminophen 1 tab PO QID 30 Days tab 11/22/18 07/28/20 325 mg tablet ibuprofen 800 mg tablet 800 mg PO TIDP PRN 90 Days tab 11/22/18 07/28/20 levothyroxine 50 mcg tablet 50 mcg PO DAILY 90 Days tab 11/22/18 07/28/20 lidocaine 5 % topical patch 1 patch TRANSDERMA BID PRN 7 Days 11/22/18 07/28/20 #30 each montelukast 10 mg tablet 10 mg PO HS 90 Days tab 11/22/18 07/28/20 pantoprazole 40 mg tablet,delayed 40 mg PO DAILY 90 Days #90 tab 11/22/18 07/28/20 release simvastatin 20 mg tablet 20 mg PO DAILY 90 Days tab 11/22/18 07/28/20 metoprolol succinate 25 mg 25 mg PO DAILY #90 tab 06/25/19 07/28/20 tablet,extended release 24 hr Albuterol Sulfate [Proair 90 mcg IH TIDP PRN 07/28/20 07/28/20 Digihaler] Estrogens, Conjugated [Premarin] 1 appful * BID 07/28/20 07/28/20 Levocetirizine Dihydroc
[2020-10-04 17:06] VITALS: BP 146/71; PULSE 68; RESP 18; TEMP 36.7; O2SAT 98
[2020-10-06 12:34] LABS: Covid-19 Nasal PCR Sendout Lex Not Detected
== END 2020-10-04 17:07 | disposition home or self-care (01) ==
PROVIDERS: Emergency Provider Nurse Practitioner; PCP Physician Assistant
DX: Z20.828 Contact with and (suspected) exposure to other viral communicable diseases (principal); H66.93 Otitis media, unspecified, bilateral; J45.909 Unspecified asthma, uncomplicated; E78.5 Hyperlipidemia, unspecified; Z79.899 Other long term (current) drug therapy; Z90.79 Acquired absence of other genital organ(s)
CPT/HCPCS: G0463; 96372; 99202; U0004

== ENCOUNTER 2020-10-10 17:04 | Emergency (ER) | payer MEDICARE, OTHER, SELFPAY ==
[2020-10-10 17:15] VITALS: BP 125/63; PULSE 65; RESP 20; TEMP 36.4; O2SAT 99; BMI 30.8
--- NOTE | 2020-10-10 17:24 | HMH.EDUTC ---
[facility] [place] Clinical Impression: Otitis media Qualifiers: Otitis media type: suppurative Chronicity: acute Laterality: bilateral Recurrence: non-recurrent Spontaneous tympanic membrane rupture: without spontaneous rupture Qualified Code(s): H66.003 - Acute suppurative otitis media without spontaneous rupture of ear drum, bilateral Disposition: Home, Self-Care Condition on Discharge: Good Instructions: Middle Ear Infection Additional Instructions: Drink plenty of fluids. Take tylenol for pain or fever. Take the medications as directed. Follow up with your regular doctor. GO TO THE ER FOR ANY WORSENING SYMPTOMS Don't start the oral steroids until tomorrow, since you had the shot here today. Prescriptions: predniSONE [Prednisone 20mg Tab] 20 mg PO BID 4 Days #8 tab Transmission Status: Received by [facility] #[id number] Referrals: PCP,No [Primary Care Provider] - Time of Disposition: 18:33 Medical Decision Making - Medical Records Medical records reviewed: No: I reviewed the patient's medical records. - Mario Inquiry Pt receiving controlled substance: No Vital Signs: 10/10/20 17:15 10/10/20 18:40 Temperature 97.6 F 97.6 F Temperature Source Oral Pulse Rate 65 Pulse Rate [Left Brachial] 65 Respiratory Rate 20 20 Blood Pressure 125/63 Blood Pressure [Left Arm] 125/63 Blood Pressure Mean [Left Arm] 83 Blood Pressure Source [Left Arm] Automatic Cuff Blood Pressure Position [Left Arm] Sitting 02 Sat by Pulse Oximetry 99 Oxygen Delivery Method Room Air Orders (Tests/Meds): ED MEDICATIONS Discontinued Medications Generic Name Dose Route Start Last Admin Trade Name Magdielq PRN Reason Stop Dose Admin Methylprednisolone Sodium Succinate 125 mg 10/10/20 18:07 10/10/20 18:11 Methylprednisolone Sod Succ 125mg Vial IM 10/10/20 18:08 125 mg ONCE ONE Administration [facility] [place] HPI - General Stated complaint: wants ears checked Time Seen by Provider: 10/10/20 17:24 - History of Present Illness Provider Complaint: She c/o bilateral ear pain. She is on antibiotics for an ear infection, but she states that her ear pain and pressure is getting worse instead of better. - Related Data Home Medications Medication Instructions Recorded Confirmed baclofen 10 mg tablet 10 mg PO BID PRN 30 Days tab 11/22/18 07/28/20 budesonide-formoterol HFA 160 2 puff INHALATION BID 11/22/18 07/28/20 mcg-4.5 mcg/actuation aerosol inhaler gabapentin 300 mg capsule 300 mg PO TID 30 Days cap 11/22/18 07/28/20 hydrocodone 7.5 mg-acetaminophen 1 tab PO QID 30 Days tab 11/22/18 07/28/20 325 mg tablet ibuprofen 800 mg tablet 800 mg PO TIDP PRN 90 Days tab 11/22/18 07/28/20 levothyroxine 50 mcg tablet 50 mcg PO DAILY 90 Days tab 11/22/18 07/28/20 lidocaine 5 % topical patch 1 patch TRANSDERMA BID PRN 7 Days 11/22/18 07/28/20 #30 each montelukast 10 mg tablet 10 mg PO HS 90 Days tab 11/22/18 07/28/20 pantoprazole 40 mg tablet,delayed 40 mg PO DAILY 90 Days #90 tab 11/22/18 07/28/20 release simvastatin 20 mg tablet 20 mg PO DAILY 90 Days tab 11/22/18 07/28/20 metoprolol succinate 25 mg 25 mg PO DAILY #90 tab 06/25/19 07/28/20 tablet,extended release 24 hr Albuterol Sulfate [Proair 90 mcg IH TIDP PRN 07/28/20 07/28/20 Digihaler] Estrogens, Conjugated [Premarin] 1 appful * BID 07/28/20 07/28/20 Levocetirizine Dihydrochloride 5 mg PO DAILY 07/28/20 07/28/20 [Xyzal] Nystatin [Nystatin Susp 500,000 5 ml PO BID 07/28/20 07/28/20 Units/5mL Udc] Tiotropium [place] [Spiriva 2 puffs IH BID 07/28/20 07/28/20 18mcg/puff inhaler] Zolpidem Tartrate [Ambien 10mg 10 mg PO HS 07/28/20 07/28/20 tablet] bisacodyL [Dulcolax 5mg Tab] 5 mg PO DAILYP PRN 07/28/20 07/28/20 methylPREDNISolone [Medrol] 4 mg PO DIRECTED 07/28/20 07/28/20 Previous Rx's Medication Instructions Recorded Cefdinir [Omnicef 300mg Capsule] 300 mg PO BID #20 cap 10/04/20
[2020-10-10 18:40] VITALS: BP 125/63; PULSE 65; RESP 20; TEMP 36.4; O2SAT 99
== END 2020-10-10 18:48 | disposition home or self-care (01) ==
PROVIDERS: Emergency Provider Nurse Practitioner Family
DX: H66.003 Acute suppurative otitis media without spontaneous rupture of ear drum, bilateral (principal); J45.909 Unspecified asthma, uncomplicated; E78.5 Hyperlipidemia, unspecified; Z79.899 Other long term (current) drug therapy
CPT/HCPCS: G0463; 96372; 99201

== ENCOUNTER 2020-10-19 10:55 | Outpatient (CLI) | payer MEDICARE, OTHER, SELFPAY ==
[2020-10-19 11:30] VITALS: BP 146/75; PULSE 72; RESP 18; TEMP 35.9; O2SAT 98
== END 2020-10-19 11:50 | disposition home or self-care (01) ==
LOC: INF 11:00
PROVIDERS: Visit Provider Allergy & Immunology
DX: J45.909 Unspecified asthma, uncomplicated (principal)
CPT/HCPCS: 96372; J2182

== ENCOUNTER 2020-10-27 14:12 | Emergency (ER) | payer MEDICARE, OTHER, SELFPAY ==
[2020-10-27 14:20] VITALS: BP 141/53; PULSE 71; RESP 20; TEMP 36.4; O2SAT 100; BMI 29.7
--- NOTE | 2020-10-27 14:44 | HMH.EDUTC ---
[facility] [place] Clinical Impression: Urinary problem in female Disposition: Home, Self-Care Condition on Discharge: Good Instructions: DI for Urinary Tract Infection (UTI), Phenazopyridine Additional Instructions: Make sure that you are drinking plenty of water *Take macrobid as prescribed Follow up with Family doctor if no improvement or immediately if any worsening of symptoms Return if needed Straight to ER if any life threatening symptoms Referrals: Janes Clay PA [Primary Care Provider] - As needed Time of Disposition: 14:53 Medical Decision Making - Mario Inquiry Pt receiving controlled substance: No Mario was queried for this patient: No Vital Signs: 10/27/20 14:20 Temperature 97.6 F Temperature Source Oral Pulse Rate [Right Brachial] 71 Respiratory Rate 20 Blood Pressure [Right Arm] 141/53 H Blood Pressure Mean [Right Arm] 82 Blood Pressure Source [Right Arm] Automatic Cuff Blood Pressure Position [Right Arm] Sitting 02 Sat by Pulse Oximetry 100 Oxygen Delivery Method Room Air - Lab Data Lab results reviewed: Yes: I reviewed the patient's lab results. [facility] [place]PI - General Stated complaint: bladder infection Time Seen by Provider: 10/27/20 14:44 Mode of Arrival: Ambulatory Source of Information: Patient Limitations: No Limitations Description of Symptoms (Recalled from Triage Doc. by RN): PATIENT C/O LOWER BACK AND PELVIC PAIN WITH URINATION X 2 WEEKS HEENT Symptoms (Recalled from RN notes): No Resp Symptoms (Recalled from RN notes): No Skin Symptoms (Recalled from RN notes): No MS Symptoms (Recalled from RN notes): No Functional Status (Recalled from RN notes): WNL - History of Present Illness Provider Complaint: Patient states that she had been having burning with urination and pressure like feeling in her lower abdomen area when she would urinate State that she took Macrobid and it is feeling better but wanted to come in and get her urine checked to make sure she still didnt have UTI Denies fever, denies chills, denies abdominal pain - Related Data Home Medications Medication Instructions Recorded Confirmed baclofen 10 mg tablet 10 mg PO BID PRN 30 Days tab 11/22/18 10/19/20 budesonide-formoterol HFA 160 2 puff INHALATION BID 11/22/18 10/19/20 mcg-4.5 mcg/actuation aerosol inhaler gabapentin 300 mg capsule 300 mg PO TID 30 Days cap 11/22/18 10/19/20 hydrocodone 7.5 mg-acetaminophen 1 tab PO QID 30 Days tab 11/22/18 10/19/20 325 mg tablet ibuprofen 800 mg tablet 800 mg PO TIDP PRN 90 Days tab 11/22/18 10/19/20 levothyroxine 50 mcg tablet 25 mcg PO DAILY 90 Days tab 11/22/18 10/19/20 lidocaine 5 % topical patch 1 patch TRANSDERMA BID PRN 7 Days 11/22/18 10/19/20 #30 each montelukast 10 mg tablet 10 mg PO HS 90 Days tab 11/22/18 10/19/20 pantoprazole 40 mg tablet,delayed 40 mg PO DAILY 90 Days #90 tab 11/22/18 10/19/20 release simvastatin 20 mg tablet 20 mg PO DAILY 90 Days tab 11/22/18 10/19/20 metoprolol succinate 25 mg 25 mg PO DAILY #90 tab 06/25/19 10/19/20 tablet,extended release 24 hr Albuterol Sulfate [Proair 90 mcg IH TIDP PRN 07/28/20 10/19/20 Digihaler] Levocetirizine Dihydrochloride 5 mg PO DAILY 07/28/20 10/19/20 [Xyzal] Tiotropium [place] [Spiriva 2 puffs IH BID 07/28/20 10/19/20 18mcg/puff inhaler] Zolpidem Tartrate [Ambien 10mg 10 mg PO HS PRN 07/28/20 10/19/20 tablet] bisacodyL [Dulcolax 5mg Tab] 5 mg PO DAILYP PRN 07/28/20 10/19/20 Azelastine HCl [Azelastine Nasal 137 mcg NS BID 10/19/20 10/19/20 [place] 30mL Bottle] Estrogens, Conjugated [Premarin 0.625 mg PO DIRECTED 10/19/20 10/19/20 0.625mg tablet] Fluticasone Propionate [Flovent 50 mcg IH DAILY 10/19/20 10/19/20 Diskus] Nitrofurantoin Monohyd/M-Cryst 100 mg PO BIDP PRN 10/19/20 10/19/20 [Nitrofurantoin Granite-Mcr 100 mg] Phenazopyridine HCl [Pyridium] 200 mg PO BIDP PRN 10/19/20 10/19/20 terbinafine HCL [Terbinafine HCl] 250 mg PO DAILY 10/19/20 1
[2020-10-27 14:59] VITALS: BP 141/53; PULSE 71; RESP 20; TEMP 36.4; O2SAT 100
[2020-10-27 17:43] LABS: Color,Urine Yellow (Yellow)
[2020-10-27 17:44] LABS: Apearance,Urine Clear (Clear); Blood, Urine 1+ (Negative); Glucose,Urine (UA) Negative (Negative); Ketones,Urine Negative (Negative); Protein,Urine Negative (Negative)
[2020-10-27 17:45] LABS: Bilirubin,Urine Negative (Negative); UTC Leukocyte Esterase,Urine Negative (Negative); UTC Nitrate,Urine Negative (Negative); Urobilinogen,Urine 0.2 EU/dl (0.2)
== END 2020-10-27 15:00 | disposition home or self-care (01) ==
PROVIDERS: Emergency Provider Nurse Practitioner; PCP Physician Assistant
DX: N30.00 Acute cystitis without hematuria (principal); R10.2 Pelvic and perineal pain; E78.5 Hyperlipidemia, unspecified; E03.9 Hypothyroidism, unspecified; J45.909 Unspecified asthma, uncomplicated; Z79.899 Other long term (current) drug therapy
CPT/HCPCS: G0463; 81003; 99202

== ENCOUNTER 2020-11-16 10:55 | Outpatient (CLI) | payer MEDICARE, OTHER, SELFPAY ==
[2020-11-16 11:14] VITALS: BP 149/75; PULSE 78; RESP 18; TEMP 36.2; O2SAT 94
== END 2020-11-16 11:30 | disposition home or self-care (01) ==
LOC: INF 10:59
PROVIDERS: Visit Provider Allergy & Immunology
DX: J45.40 Moderate persistent asthma, uncomplicated (principal)
CPT/HCPCS: 96372; J2182

== ENCOUNTER 2020-12-14 12:43 | Outpatient (CLI) | payer MEDICARE, OTHER, SELFPAY ==
[2020-12-14 12:55] VITALS: BP 126/67; PULSE 62; RESP 18; TEMP 36.1; O2SAT 98
== END 2020-12-14 13:15 | disposition home or self-care (01) ==
LOC: INF 12:43
PROVIDERS: Visit Provider Allergy & Immunology
DX: J45.40 Moderate persistent asthma, uncomplicated (principal)
CPT/HCPCS: 96372; J2182

== ENCOUNTER 2021-01-03 13:49 | Emergency (ER) | payer MEDICARE, OTHER, SELFPAY ==
[2021-01-03 13:50] VITALS: BP 119/70; PULSE 74; RESP 20; TEMP 36.4; O2SAT 97; BMI 30.8
--- NOTE | 2021-01-03 14:19 | HMH.EDUTC ---
[facility] [place] Disposition Clinical Impression: Asthma exacerbation Qualifiers: Asthma severity: unspecified severity Asthma persistence: unspecified Qualified Code(s): J45.901 - Unspecified asthma with (acute) exacerbation Otitis media Qualifiers: Otitis media type: suppurative Chronicity: acute Laterality: bilateral Recurrence: non-recurrent Spontaneous tympanic membrane rupture: without spontaneous rupture Qualified Code(s): H66.003 - Acute suppurative otitis media without spontaneous rupture of ear drum, bilateral Disposition: Home, Self-Care Condition on Discharge: Good Instructions: DI for Asthma -- Adult Additional Instructions: Drink plenty of fluids. Take tylenol for pain or fever. Return if you begin to have difficulty breathing. Follow up with your regular doctor. GO TO THE ER FOR ANY WORSENING SYMPTOMS Don't start the oral steroids until tomorrow, since you had the shot here today. Prescriptions: cephALEXin [cephALEXin 500mg capsule] 500 mg PO Q6H 10 Days #40 cap Transmission Status: Received by [facility] #[id number] methylPREDNISolone [Medrol] 4 mg PO DIRECTED 6 Days #21 tab.ds.pk Transmission Status: Received by [facility] #[id number] Referrals: Janes Clay PA [Primary Care Provider] - Time of Disposition: 14:51 Medical Decision Making - Medical Records Medical records reviewed: No: I reviewed the patient's medical records. - Mario Inquiry Pt receiving controlled substance: No Vital Signs: 01/03/21 13:50 01/03/21 15:01 Temperature 97.5 F L 97.5 F L Temperature Source Oral Pulse Rate 74 Pulse Rate [Right Brachial] 74 Respiratory Rate 20 20 Blood Pressure 119/70 Blood Pressure [Right Arm] 119/70 Blood Pressure Mean [Right Arm] 86 Blood Pressure Source [Right Arm] Automatic Cuff Blood Pressure Position [Right Arm] Sitting 02 Sat by Pulse Oximetry 97 Oxygen Delivery Method Room Air Orders (Tests/Meds): ED MEDICATIONS Discontinued Medications Generic Name Dose Route Start Last Admin Trade Name Freq PRN Reason Stop Dose Admin Ceftriaxone Sodium 1 gm 01/03/21 14:34 01/03/21 14:40 Ceftriaxone 1gm Vial IM 01/03/21 14:35 1 gm ONCE ONE Administration Protocol Lidocaine HCl 0 ml 01/03/21 14:34 01/03/21 14:45 Lidocaine 1% 5ml Pf Vial IM 01/03/21 14:35 2.1 ml ONCE ONE Administration Methylprednisolone Sodium Succinate 125 mg 01/03/21 14:34 01/03/21 14:45 Methylprednisolone Sod Succ 125mg Vial IM 01/03/21 14:35 125 mg ONCE ONE Administration [facility] [place] HPI - General Stated complaint: Asthma Time Seen by Provider: 01/03/21 14:19 Mode of Arrival: Ambulatory Source of Information: Patient Limitations: No Limitations Description of Symptoms (Recalled from Triage Doc. by RN): PATIENT C/O SOA, STOPPED UP EARS, AND COUGH X 2 WEEKS HEENT Symptoms (Recalled from RN notes): Yes Resp Symptoms (Recalled from RN notes): Yes Skin Symptoms (Recalled from RN notes): No MS Symptoms (Recalled from RN notes): No Functional Status (Recalled from RN notes): WNL - History of Present Illness Provider Complaint: She reports that she has has worsening asthma symptoms (wheezing, shortness of breath) for the past 2 weeks. She has also had ear pain. - Related Data Home Medications Medication Instructions Recorded Confirmed baclofen 10 mg tablet 10 mg PO BID PRN 30 Days tab 11/22/18 12/14/20 budesonide-formoterol HFA 160 2 puff INHALATION BID 11/22/18 12/14/20 mcg-4.5 mcg/actuation aerosol inhaler gabapentin 300 mg capsule 300 mg PO TID 30 Days cap 11/22/18 12/14/20 hydrocodone 7.5 mg-acetaminophen 1 tab PO QID 30 Days tab 11/22/18 12/14/20 325 mg tablet ibuprofen 800 mg tablet 800 mg PO TIDP PRN 90 Days tab 11/22/18 12/14/20 levothyroxine 50 mcg tablet 25 mcg PO DAILY 90 Days tab 11/22/18 12/14/20 lidocaine 5 % topical patch 1 patch TRANSDERMA BID PRN 7 Days 11/22/18 12/14/20 #30 each montelukast 10 mg t
[2021-01-03 15:01] VITALS: BP 119/70; PULSE 74; RESP 20; TEMP 36.4; O2SAT 97
== END 2021-01-03 15:05 | disposition home or self-care (01) ==
PROVIDERS: Emergency Provider Nurse Practitioner Family; PCP Physician Assistant
DX: J45.901 Unspecified asthma with (acute) exacerbation (principal); H66.003 Acute suppurative otitis media without spontaneous rupture of ear drum, bilateral; E78.5 Hyperlipidemia, unspecified
CPT/HCPCS: G0463; 96372; 99202

== ENCOUNTER 2021-01-11 10:11 | Outpatient (CLI) | payer MEDICARE, OTHER, SELFPAY ==
[2021-01-11 10:33] VITALS: BP 128/62; PULSE 70; RESP 18; TEMP 36.4; O2SAT 99
== END 2021-01-11 10:50 | disposition home or self-care (01) ==
LOC: INF 10:11
PROVIDERS: Visit Provider Allergy & Immunology
DX: J45.40 Moderate persistent asthma, uncomplicated (principal)
CPT/HCPCS: 96372; J2182

== ENCOUNTER 2021-01-16 15:34 | Emergency (ER) | payer MEDICARE, OTHER, SELFPAY ==
[2021-01-16 15:50] VITALS: BP 119/65; PULSE 102; RESP 20; TEMP 36.7; O2SAT 99; BMI 29.7
[2021-01-16 16:09] LABS: Apearance,Urine Cloudy (Clear); Color,Urine Yellow (Yellow); PH,Urine 6.5 (5.0-8.5); Specific Gravity, Urine 1.025 (1.005-1.030)
[2021-01-16 16:10] LABS: Bilirubin,Urine Negative (Negative); Blood, Urine 3+ (Negative); Glucose,Urine (UA) Negative (Negative); Ketones,Urine Negative (Negative); Protein,Urine 2+ (Negative); UTC Leukocyte Esterase,Urine 1+ (Negative); UTC Nitrate,Urine Positive (Negative); Urobilinogen,Urine 0.2 EU/dl (0.2)
--- NOTE | 2021-01-16 16:20 | HMH.EDUTC ---
[facility] [place] Impression: UTI (urinary tract infection) Qualifiers: Urinary tract infection type: site unspecified Hematuria presence: with hematuria Qualified Code(s): N39.0 - Urinary tract infection, site not specified Disposition: Home, Self-Care Condition on Discharge: Good Instructions: Urinary Tract Infection, DI for Urinary Tract Infection (UTI) Additional Instructions: Drink plenty of fluids. Take tylenol for pain or fever. Take the medications as directed. Follow up with your regular doctor. GO TO THE ER FOR ANY WORSENING SYMPTOMS The pyridium will make your urine turn orange, this is an expected side effect. It will stain your clothes if it comes into contact with them. Prescriptions: Fluconazole [Diflucan 150mg tab] 150 mg PO ONCE #1 tab Transmission Status: Received by [facility] #[id number] levoFLOXacin [Levaquin 500mg tab] 500 mg PO DAILY #7 tab Transmission Status: Received by [facility] #[id number] Phenazopyridine HCl [Pyridium 200mg Tablet] 200 pow PO TID #6 tab Transmission Status: Received by [facility] #[id number] Referrals: Janes Clay PA [Primary Care Provider] - Time of Disposition: 16:37 Medical Decision Making - Medical Records Medical records reviewed: No: I reviewed the patient's medical records. - Mario Inquiry Pt receiving controlled substance: No Vital Signs: 01/16/21 15:50 01/16/21 16:38 Temperature 98.1 F 98.1 F Temperature Source Oral Pulse Rate 102 H Pulse Rate [Right Brachial] 102 H Respiratory Rate 20 20 Blood Pressure 119/65 Blood Pressure [Right Arm] 119/65 Blood Pressure Mean [Right Arm] 83 Blood Pressure Source [Right Arm] Automatic Cuff Blood Pressure Position [Right Arm] Sitting 02 Sat by Pulse Oximetry 99 Oxygen Delivery Method Room Air - Lab Data Lab results reviewed: Yes: I reviewed the patient's lab results. Lab Results 01/16/21 16:04: Urine Color Yellow, Urine Appearance Cloudy, Urine pH 6.5, Ur Specific [place] 1.025, Urine Protein 2+, Urine Glucose (UA) Negative, Urine Ketones Negative, Urine Blood 3+, Urine Nitrate Positive A, Urine Bilirubin Negative, Urine Urobilinogen 0.2, Ur Leukocyte Esterase 1+ A Orders (Tests/Meds): ORDERS Category Date Time Status Urine Culture Routine Micro 01/16/21 15:55 [place] [facility] [place] General Stated complaint: Possible bladder inf Time Seen by Provider: 01/16/21 16:20 Mode of Arrival: Ambulatory Source of Information: Patient Limitations: No Limitations Description of Symptoms (Recalled from Triage Doc. by RN): PATIENT C/O PAIN WITH URINATION AND FEELING SLUGGISH X 2 DAYS HEENT Symptoms (Recalled from RN notes): No Resp Symptoms (Recalled from RN notes): No Skin Symptoms (Recalled from RN notes): No MS Symptoms (Recalled from RN notes): No Functional Status (Recalled from RN notes): WNL - History of Present Illness Provider Complaint: She states that she has had low back pain, dysuria and feeling bad for the past 2 days. - Related Data Home Medications Medication Instructions Recorded Confirmed baclofen 10 mg tablet 10 mg PO BID PRN 30 Days tab 11/22/18 01/11/21 budesonide-formoterol HFA 160 2 puff INHALATION BID 11/22/18 01/11/21 mcg-4.5 mcg/actuation aerosol inhaler gabapentin 300 mg capsule 300 mg PO TID 30 Days cap 11/22/18 01/11/21 hydrocodone 7.5 mg-acetaminophen 1 tab PO QID 30 Days tab 11/22/18 01/11/21 325 mg tablet ibuprofen 800 mg tablet 800 mg PO TIDP PRN 90 Days tab 11/22/18 01/11/21 levothyroxine 50 mcg tablet 25 mcg PO DAILY 90 Days tab 11/22/18 01/11/21 lidocaine 5 % topical patch 1 patch TRANSDERMA BID PRN 7 Days 11/22/18 01/11/21 #30 each montelukast 10 mg tablet 10 mg PO HS 90 Days tab 11/22/18 01/11/21 pantoprazole 40 mg tablet,delayed 40 mg PO DAILY 90 Days #90 tab 11/22/18 01/11/21 release simvastatin 20 mg tablet 20 mg PO DAILY 90 Days tab 11/22/18 01/11/21
[2021-01-16 16:38] VITALS: BP 119/65; PULSE 102; RESP 20; TEMP 36.7; O2SAT 99
== END 2021-01-16 16:40 | disposition home or self-care (01) ==
PROVIDERS: Emergency Provider Nurse Practitioner Family; PCP Physician Assistant
DX: N30.00 Acute cystitis without hematuria (principal); E78.5 Hyperlipidemia, unspecified; J45.909 Unspecified asthma, uncomplicated; E03.9 Hypothyroidism, unspecified; Z79.899 Other long term (current) drug therapy
CPT/HCPCS: 81003; 87086; 87088; 87186; 99202; G0463

== ENCOUNTER 2021-01-21 18:05 | Outpatient (CLI) | payer MEDICARE, OTHER, SELFPAY ==
[2021-01-21 18:43] VITALS: BMI 37.4
== END 2021-01-21 18:32 | disposition home or self-care (01) ==
PROVIDERS: PCP Physician Assistant; Visit Provider Nurse Practitioner Family
DX: N39.0 Urinary tract infection, site not specified (principal)
CPT/HCPCS: 96372

== ENCOUNTER 2021-02-23 14:31 | Emergency (ER) | payer MEDICARE, OTHER, SELFPAY ==
[2021-02-23 14:39] VITALS: BP 127/68; PULSE 77; RESP 19; TEMP 36.9; O2SAT 98; BMI 29.0
--- NOTE | 2021-02-23 15:14 | HMH.EDUTC ---
[facility] [place] Disposition Clinical Impression: UTI (urinary tract infection) Qualifiers: Urinary tract infection type: site unspecified Hematuria presence: with hematuria Qualified Code(s): N39.0 - Urinary tract infection, site not specified Disposition: Home, Self-Care Condition on Discharge: Good Instructions: Urinary Tract Infection Additional Instructions: Drink plenty of fluids. Take tylenol or ibuprofen for pain or fever. Take the medications as directed. Follow up with your regular doctor. GO TO THE ER FOR ANY WORSENING SYMPTOMS Prescriptions: Fluconazole [Diflucan 150mg tab] 150 mg PO ONCE #1 tab Transmission Status: Received by [facility] # Cefdinir [Omnicef 300mg Capsule] 300 mg PO BID #20 cap Transmission Status: Received by [facility] # Referrals: Janes Clay PA [Primary Care Provider] - Time of Disposition: 15:22 Medical Decision Making - Medical Records Medical records reviewed: No: I reviewed the patient's medical records. - Mario Inquiry Pt receiving controlled substance: No Vital Signs: 02/23/21 14:39 02/23/21 15:34 Temperature 98.4 F 98 F Temperature Source Oral Pulse Rate 74 Pulse Rate [Right] 77 Respiratory Rate 19 14 Blood Pressure 122/72 Blood Pressure [Right Arm] 127/68 Blood Pressure Mean [Right Arm] 87 Blood Pressure Source [Right Arm] Automatic Cuff Blood Pressure Position [Right Arm] Sitting 02 Sat by Pulse Oximetry 98 Oxygen Delivery Method Room Air - Lab Data Lab results reviewed: Yes: I reviewed the patient's lab results. Lab Results 02/23/21 14:32: Urine Color Dark yellow, Urine Appearance Cloudy, Urine pH 5.5, Ur Specific [place] 1.030, Urine Protein 1+, Urine Glucose (UA) Negative, Urine Ketones Negative, Urine Blood 2+, Urine Nitrate Positive A, Urine Bilirubin Negative, Urine Urobilinogen 0.2, Ur Leukocyte Esterase 2+ A Orders (Tests/Meds): ED MEDICATIONS Discontinued Medications Generic Name Dose Route Start Last Admin Trade Name Freq PRN Reason Stop Dose Admin Ceftriaxone Sodium 1 gm 02/23/21 15:17 02/23/21 15:24 Ceftriaxone 1gm Vial IM 02/23/21 15:18 1 gm ONCE ONE Administration Protocol Lidocaine HCl 0 ml 02/23/21 15:17 02/23/21 15:24 Lidocaine 1% 5ml Pf Vial IM 02/23/21 15:18 2 ml ONCE ONE Administration ORDERS Category Date Time Status Urine Culture Stat Micro 02/23/21 14:50 Results [facility] [place] HPI - General Stated complaint: hurts when urinates,pain all over Time Seen by Provider: 02/23/21 15:14 Mode of Arrival: Ambulatory Source of Information: Patient Limitations: No Limitations Description of Symptoms (Recalled from Triage Doc. by RN): PT C/O PAIN WITH URINATION. X 3 DAYS HEENT Symptoms (Recalled from RN notes): No Resp Symptoms (Recalled from RN notes): No Skin Symptoms (Recalled from RN notes): No MS Symptoms (Recalled from RN notes): No Functional Status (Recalled from RN notes): NA - History of Present Illness Provider Complaint: She c/o dysuria and low back pain for the past 3 days. She has been getting very frequent uti's recently. She is being followed by urology. - Related Data Home Medications Medication Instructions Recorded Confirmed baclofen 10 mg tablet 10 mg PO BID PRN 30 Days tab 11/22/18 01/11/21 budesonide-formoterol HFA 160 2 puff INHALATION BID 11/22/18 01/11/21 mcg-4.5 mcg/actuation aerosol inhaler gabapentin 300 mg capsule 300 mg PO TID 30 Days cap 11/22/18 01/11/21 hydrocodone 7.5 mg-acetaminophen 1 tab PO QID 30 Days tab 11/22/18 01/11/21 325 mg tablet ibuprofen 800 mg tablet 800 mg PO TIDP PRN 90 Days tab 11/22/18 01/11/21 levothyroxine 50 mcg tablet 25 mcg PO DAILY 90 Days tab 11/22/18 01/11/21 lidocaine 5 % topical patch 1 patch TRANSDERMA BID PRN 7 Days 11/22/18 01/11/21 #30 each montelukast 10 mg tablet 10 mg PO HS 90 Days tab 11/22/18 01/11/21 pantoprazole 40 mg tablet,delayed 4
[2021-02-23 15:19] LABS: Apearance,Urine Cloudy (Clear); Bilirubin,Urine Negative (Negative); Blood, Urine 2+ (Negative); Color,Urine Dark Yellow (Yellow); Glucose,Urine (UA) Negative (Negative); Ketones,Urine Negative (Negative); PH,Urine 5.5 (5.0-8.5); Protein,Urine 1+ (Negative); UTC Leukocyte Esterase,Urine 2+ (Negative); UTC Nitrate,Urine Positive (Negative); Urobilinogen,Urine 0.2 EU/dl (0.2)
[2021-02-23 15:34] VITALS: BP 122/72; PULSE 74; RESP 14; TEMP 36.6
== END 2021-02-23 15:32 | disposition home or self-care (01) ==
PROVIDERS: Emergency Provider Nurse Practitioner Family; PCP Physician Assistant
DX: N30.00 Acute cystitis without hematuria (principal); B96.20 Unspecified Escherichia coli [E. coli] as the cause of diseases classified elsewhere; E78.5 Hyperlipidemia, unspecified; J45.909 Unspecified asthma, uncomplicated; E03.9 Hypothyroidism, unspecified; Z79.899 Other long term (current) drug therapy
CPT/HCPCS: G0463; 81003; 87086; 87088; 87186; 96372; 99202

== ENCOUNTER → 2021-03-23 14:12 | Outpatient (CLI) | payer MEDICARE, OTHER, SELFPAY | PROVIDERS: Visit Provider Nurse Practitioner Family | DX: R82.90 Unspecified abnormal findings in urine (principal) | CPT/HCPCS: 87086; 87088; 87186 ==

== ENCOUNTER 2021-03-26 18:45 | Emergency (ER) | payer MEDICARE, OTHER, SELFPAY ==
[2021-03-26 19:00] VITALS: BP 125/63; PULSE 86; RESP 19; TEMP 36.8; O2SAT 99; BMI 28.5
[2021-03-26 19:12] LABS: Apearance,Urine Clear (Clear); Bilirubin,Urine 1+ (Negative); Blood, Urine Negative (Negative); Color,Urine Dark Yellow (Yellow); Glucose,Urine (UA) Negative (Negative); Ketones,Urine Negative (Negative); Protein,Urine Trace (Negative); UTC Leukocyte Esterase,Urine Negative (Negative); UTC Nitrate,Urine Negative (Negative); Urobilinogen,Urine 0.2 EU/dl (0.2)
--- NOTE | 2021-03-26 19:41 | HMH.EDUTC ---
[facility] [place] Clinical Impression: Burning with urination Disposition: Home, Self-Care Condition on Discharge: Good Instructions: Levofloxacin Additional Instructions: *Increase fluids. Water not Soda or Tea *Continue taking prescribed Medication Make sure to drink plenty of fluids Return if needed Call your doctor office and make appointment for 48 hours (2 days from today) to follow up and get the results of your urine culture and further treatment Referrals: Chapincito Espinoza APRN [Primary Care Provider] - As needed Time of Disposition: 19:49 Medical Decision Making - Mario Inquiry Pt receiving controlled substance: No Mario was queried for this patient: No Vital Signs: 03/26/21 19:00 Temperature 98.3 F Temperature Source Oral Pulse Rate [Right Brachial] 86 Respiratory Rate 19 Blood Pressure [Right Arm] 125/63 Blood Pressure Mean [Right Arm] 83 Blood Pressure Source [Right Arm] Automatic Cuff Blood Pressure Position [Right Arm] Sitting 02 Sat by Pulse Oximetry 99 Oxygen Delivery Method Room Air - Lab Data Lab results reviewed: Yes: I reviewed the patient's lab results. Lab Results 03/26/21 18:47: Urine Color Dark yellow, Urine Appearance Clear, Urine pH 6.0, Ur Specific [place] 1.030, Urine Protein Trace, Urine Glucose (UA) Negative, Urine Ketones Negative, Urine Blood Negative, Urine Nitrate Negative, Urine Bilirubin 1+ A, Urine Urobilinogen 0.2, Ur Leukocyte Esterase Negative Medical Decision Narrative: Discussed urine culture with patient and informed her that her infection is susceptible to Levaquin and she no longer has Nitrates or Leukocytes so infection is clearing discussed with patient and she advised that sometimes she gets yeast infections that have burning and she has medication at home for it Declined physical exam Patient advised to follow up with PCP as planned no changes in treatment and continue taking Levaquin as prescribed [facility] [place] HPI - General Stated complaint: burning,frequency,hurting in bladder Time Seen by Provider: 03/26/21 19:41 Mode of Arrival: Ambulatory Source of Information: Patient Limitations: No Limitations Description of Symptoms (Recalled from Triage Doc. by RN): PATIENT C/O BLADDER PAIN AND BURNING WITH URINATION. CURRENTLY TAKING LEVAQUIN AND PYRIDIUM FOR UTI HEENT Symptoms (Recalled from RN notes): No Resp Symptoms (Recalled from RN notes): No Skin Symptoms (Recalled from RN notes): No MS Symptoms (Recalled from RN notes): No Functional Status (Recalled from RN notes): WNL - History of Present Illness Provider Complaint: Patient states that she had a UTI on 03/23 and they did a urine culture States that she come in today to make sure she was on the right medication State that she is feeling a little better but still having some burning at times with urination and wasnt sure if the medication wasnt treating the infection or if she may have just been irritated - Related Data Home Medications Medication Instructions Recorded Confirmed baclofen 10 mg tablet 10 mg PO BID PRN 30 Days tab 11/22/18 03/23/21 budesonide-formoterol HFA 160 2 puff INHALATION BID 11/22/18 03/23/21 mcg-4.5 mcg/actuation aerosol inhaler gabapentin 300 mg capsule 300 mg PO TID 30 Days cap 11/22/18 03/23/21 hydrocodone 7.5 mg-acetaminophen 1 tab PO QID 30 Days tab 11/22/18 03/23/21 325 mg tablet lidocaine 5 % topical patch 1 patch TRANSDERMA BID PRN 7 Days 11/22/18 03/23/21 #30 each metoprolol succinate 25 mg 25 mg PO DAILY #90 tab 06/25/19 03/23/21 tablet,extended release 24 hr Levocetirizine Dihydrochloride 5 mg PO DAILY 07/28/20 03/23/21 [Xyzal] Zolpidem Tartrate [Ambien 10mg 10 mg PO HS PRN 07/28/20 03/23/21 tablet] bisacodyL [Dulcolax 5mg Tab] 5 mg PO DAILYP PRN 07/28/20 03/23/21 Azelastine HCl [Azelastine Nasal 137 mcg NS BID 10/19/20 03/23/21 [place] 30mL Bottle] Fluticasone Propionate [Flovent 50 mcg IH DAILY 10/19/20 03/23/21 Diskus] ti
[2021-03-26 19:50] VITALS: BP 125/63; PULSE 86; RESP 19; TEMP 36.8; O2SAT 99
== END 2021-03-26 19:55 | disposition home or self-care (01) ==
PROVIDERS: Emergency Provider Nurse Practitioner; PCP Nurse Practitioner Family
DX: N30.00 Acute cystitis without hematuria (principal); E11.9 Type 2 diabetes mellitus without complications; E78.5 Hyperlipidemia, unspecified; E03.9 Hypothyroidism, unspecified; Z79.899 Other long term (current) drug therapy
CPT/HCPCS: G0463; 81003; 99202

== ENCOUNTER → 2021-05-10 12:29 | Outpatient (CLI) | payer MEDICARE, OTHER, SELFPAY ==
[2021-05-10 13:28] LABS: Basophils % 0.7 % (0.1-2.0); Eosinophils # 0.1 K/mm3 (0.0-0.4); Hemoglobin 12.2 g/dL (12.2-16.2); Lymphocytes # 2.5 K/mm3 (0.7-4.5); Lymphocytes % 44.7 % (10-50); Mean Corpuscular Hemoglobin 28.2 pg (27.0-31.2); Mean Corpuscular Volume 85.6 fl (81-99); Mean Platelet Volume 8.8 fl (7.4-10.4); Monocytes # 0.3 K/mm3 (0.1-1.0); Monocytes % 4.5 % (1.7-9.3); Neutrophils # 2.7 K/mm3 (1.8-7.8); Neutrophils % 49.2 % (37.0-80.0); Platelet Count 217 K/mm3 (142-424); Red Blood Count 4.33 M/mm3 (4.20-5.40); White Blood Count 5.6 K/mm3 (4.8-10.8)
[2021-05-10 13:53] LABS: Chloride 104 mmol/L (98-107); Potassium 4.2 mmoL/L (3.5-5.1); Sodium 141 mmol/L (136-145)
[2021-05-10 13:56] LABS: Alanine Aminotransferase 31 U/L (12-78); Albumin Level 4.5 g/dl (3.5-5.0); Albumin/Globulin Ratio 1.5 (1.1-1.8); Alkaline Phosphatase 113 U/L (38-126); Anion Gap 12.2 mEq/L (5-15); Aspartate Amino Transferase 42 U/L (14-36); Bilirubin,Total 0.4 mg/dl (0.2-1.3); Blood Urea Nitrogen 10 mg/dl (7-17); Carbon Dioxide 29 mmol/L (22.0-30.0); Cholesterol 200 mg/dl (140-200); Estimated Glomerular Filt Rate 84 ml/min (>60); GFR (African American) 101 ML/MIN (>60); Total Protein,Serum 7.5 g/dl (6.3-8.2); Triglycerides 314 mg/dl (30-150); VLDL Cholesterol 63 mg/dL (0-40)
[2021-05-10 13:57] LABS: Calcium 9.5 mg/dl (8.4-10.2); Chol/HDL Ratio 4.3 (1-3.5); Glucose 103 mg/dl (74-100); HDL Cholesterol 46 mg/dl (40-60)
[2021-05-10 14:11] LABS: Direct LDL Cholesterol 92.37 mg/dL (100-129)
[2021-05-10 14:15] LABS: 25-OH Vitamin D, Total 21.3 ng/mL (30-100); T4 (Thyroxine) 13.3 ug/dl (5.53-11.0)
[2021-05-10 14:28] LABS: Thyroid Stimulating Hormone 1.66 uIU/mL (0.465-4.68)
== END ==
PROVIDERS: Visit Provider Nurse Practitioner Family
DX: E03.9 Hypothyroidism, unspecified (principal); E55.9 Vitamin D deficiency, unspecified; E78.5 Hyperlipidemia, unspecified; I10 Essential (primary) hypertension
CPT/HCPCS: 36415; 80053; 80061; 82306; 84436; 84443; 85025

== ENCOUNTER → 2021-05-23 18:39 | Outpatient (CLI) | payer MEDICARE, OTHER, SELFPAY ==
[2021-05-23 19:01] LABS: Magnesium 1.9 mg/dl (1.6-2.3)
[2021-05-23 19:35] LABS: Hemoglobin A1C 6.2 % (4.0-6.0)
[2021-05-23 19:51] LABS: Vitamin B12 354 pg/mL (239-931)
== END ==
PROVIDERS: Nurse Practitioner Family; Visit Provider Family Medicine
DX: R73.09 Other abnormal glucose (principal); R53.83 Other fatigue
CPT/HCPCS: 82607; 83036; 83735

== ENCOUNTER → 2021-07-07 18:06 | Outpatient (CLI) | payer MEDICARE, OTHER, SELFPAY | PROVIDERS: Visit Provider Nurse Practitioner Family | DX: R10.9 Unspecified abdominal pain (principal) | CPT/HCPCS: 87086; 87088; 87186 ==

== ENCOUNTER 2021-08-04 09:25 | Outpatient (CLI) | payer MEDICARE, OTHER, SELFPAY ==
[2021-08-04 09:45] VITALS: BP 119/63; PULSE 63; RESP 18; O2SAT 97
== END 2021-08-04 10:05 | disposition home or self-care (01) ==
LOC: INF 09:26
PROVIDERS: PCP Nurse Practitioner Family; Visit Provider Allergy & Immunology
DX: J45.50 Severe persistent asthma, uncomplicated (principal)
CPT/HCPCS: 96372; J2182

== ENCOUNTER 2021-08-04 10:13 | Emergency (ER) | payer MEDICARE, OTHER, SELFPAY ==
[2021-08-04 10:15] VITALS: BP 123/65; PULSE 70; RESP 20; TEMP 36.6; O2SAT 98; BMI 29.5
[2021-08-04 11:05] VITALS: BP 123/65; PULSE 70; RESP 20; TEMP 36.6; O2SAT 98
--- NOTE | 2021-08-04 11:22 | HMH.EDUTC ---
[facility] Disposition Clinical Impression: Otitis media Qualifiers: Otitis media type: suppurative Chronicity: acute Laterality: bilateral Recurrence: non-recurrent Spontaneous tympanic membrane rupture: without spontaneous rupture Qualified Code(s): H66.003 - Acute suppurative otitis media without spontaneous rupture of ear drum, bilateral UTI (urinary tract infection) Qualifiers: Urinary tract infection type: acute cystitis Hematuria presence: with hematuria Qualified Code(s): N30.01 - Acute cystitis with hematuria Disposition: Home, Self-Care Condition on Discharge: Good Instructions: Middle Ear Infection, DI for Urinary Tract Infection (UTI) Additional Instructions: Drink plenty of fluids. Take tylenol or ibuprofen for pain or fever. Take the medications as directed. Follow up with your regular doctor. GO TO THE ER FOR ANY WORSENING SYMPTOMS The pyridium will make your urine turn orange, this is an expected side effect. It will stain your clothes if it comes into contact with them. Referrals: Chapincito Espinoza APRN [Primary Care Provider] - Time of Disposition: 11:27 Medical Decision Making - Medical Records Medical records reviewed: No: I reviewed the patient's medical records. - Mario Inquiry Pt receiving controlled substance: No Vital Signs: 08/04/21 10:15 08/04/21 11:05 Temperature 97.8 F 97.8 F Temperature Source Oral Pulse Rate 70 Pulse Rate [Right Brachial] 70 Respiratory Rate 20 20 Blood Pressure 123/65 Blood Pressure [Right Arm] 123/65 Blood Pressure Mean [Right Arm] 84 Blood Pressure Source [Right Arm] Automatic Cuff Blood Pressure Position [Right Arm] Sitting 02 Sat by Pulse Oximetry 98 Oxygen Delivery Method Room Air - Lab Data Lab results reviewed: Yes: I reviewed the patient's lab results. Lab Results 08/04/21 10:48: Urine Color Yellow, Urine Appearance Clear, Urine pH 6.0, Ur Specific [place] 1.020, Urine Protein Negative, Urine Glucose (UA) Negative, Urine Ketones Negative, Urine Blood Trace, Urine Nitrate Negative, Urine Bilirubin Negative, Urine Urobilinogen 0.2, Ur Leukocyte Esterase Negative Orders (Tests/Meds): ED MEDICATIONS Discontinued Medications Generic Name Dose Route Start Last Admin Trade Name Freq PRN Reason Stop Dose Admin Ceftriaxone Sodium 1 gm 08/04/21 10:54 08/04/21 11:03 Ceftriaxone 1gm Vial IM 08/04/21 10:55 1 gm ONCE ONE Administration Lidocaine HCl 0 ml 08/04/21 10:54 08/04/21 11:03 Lidocaine 1% 5ml Pf Vial IM 08/04/21 10:55 2.1 ml ONCE ONE Administration ORDERS Category Date Time Status Urine Culture Stat Micro 08/03/21 11:23 Ordered [facility] HPI - General Stated complaint: ear pain, bladder issue Time Seen by Provider: 08/04/21 10:30 Mode of Arrival: Ambulatory Source of Information: Patient Limitations: No Limitations Description of Symptoms (Recalled from Triage Doc. by RN): PATIENT C/O HEADACHE, EARS FEEL FULL, AND LOWER BACK PAIN X 1 WEEK HEENT Symptoms (Recalled from RN notes): Yes Resp Symptoms (Recalled from RN notes): No Skin Symptoms (Recalled from RN notes): No MS Symptoms (Recalled from RN notes): No Functional Status (Recalled from RN notes): WNL - History of Present Illness Provider Complaint: She states she is having bilateral ear pain, sinus congestion and pressure for the past 3 days. She is also having some low back pain and dysuria. She does get uti's kind of frequently. - Related Data Home Medications Medication Instructions Recorded Confirmed baclofen 10 mg tablet 10 mg PO BID PRN 30 Days tab 11/22/18 08/02/21 gabapentin 300 mg capsule 300 mg PO TID 30 Days cap 11/22/18 08/02/21 hydrocodone 7.5 mg-acetaminophen 1 tab PO QID 30 Days tab 11/22/18 08/02/21 325 mg tablet lidocaine 5 % topical patch 1 patch TRANSDERMA BID PRN 7 Days 11/22/18 08/02/21 #30 each Levocetirizine Dihydrochloride 5 mg PO DAILY 07/28/20 08/02/21 [Xyzal] Zolpidem Tartr
[2021-08-04 11:40] LABS: Apearance,Urine Clear (Clear); Color,Urine Yellow (Yellow)
[2021-08-04 11:41] LABS: Bilirubin,Urine Negative (Negative); Blood, Urine Trace (Negative); Glucose,Urine (UA) Negative (Negative); Ketones,Urine Negative (Negative); Protein,Urine Negative (Negative); UTC Leukocyte Esterase,Urine Negative (Negative); UTC Nitrate,Urine Negative (Negative); Urobilinogen,Urine 0.2 EU/dl (0.2)
== END 2021-08-04 11:30 | disposition home or self-care (01) ==
PROVIDERS: Emergency Provider Nurse Practitioner Family; PCP Nurse Practitioner Family
DX: H66.003 Acute suppurative otitis media without spontaneous rupture of ear drum, bilateral (principal); N30.01 Acute cystitis with hematuria; E11.9 Type 2 diabetes mellitus without complications; E78.5 Hyperlipidemia, unspecified; E03.9 Hypothyroidism, unspecified; Z79.899 Other long term (current) drug therapy
CPT/HCPCS: G0463; 81003; 87086; 96372; 99202; J2182

== ENCOUNTER → 2021-08-09 07:46 | Outpatient (CLI) | payer MEDICARE, OTHER, SELFPAY ==
[2021-08-09 08:40] VITALS: PULSE 55; PULSE 63
[2021-08-09 11:37] LABS: 25-OH Vitamin D, Total 33.6 ng/mL (30-100)
== END ==
PROVIDERS: PCP Nurse Practitioner Family; Visit Provider Internal Medicine Pulmonary Disease
DX: R06.00 Dyspnea, unspecified (principal); E66.3 Overweight; Z68.29 Body mass index [BMI] 29.0-29.9, adult
CPT/HCPCS: 36415; 82306; 94060; 94618; 94640; 94727; 94729

== ENCOUNTER → 2021-08-14 13:19 | Outpatient (CLI) | payer MEDICARE, OTHER, SELFPAY | PROVIDERS: Visit Provider Orthopaedic Surgery | DX: Z01.818 Encounter for other preprocedural examination (principal); Z11.52 Encounter for screening for COVID-19 | CPT/HCPCS: C9803; U0003; U0005 ==

== ENCOUNTER 2021-09-01 09:52 | Outpatient (CLI) | payer MEDICARE, OTHER, SELFPAY ==
[2021-09-01 10:36] VITALS: BP 107/64; PULSE 74; RESP 18; O2SAT 98
== END 2021-09-01 10:36 | disposition home or self-care (01) ==
LOC: INF 09:54
PROVIDERS: PCP Nurse Practitioner Family; Visit Provider Allergy & Immunology
DX: J45.50 Severe persistent asthma, uncomplicated (principal)
CPT/HCPCS: 96372; J2182

== ENCOUNTER 2021-09-29 08:55 | Outpatient (CLI) | payer MEDICARE, OTHER, SELFPAY ==
[2021-09-29 09:30] VITALS: BP 114/54; PULSE 69; RESP 18; TEMP 36.8; O2SAT 97
== END 2021-09-29 09:30 | disposition home or self-care (01) ==
LOC: INF 08:57
PROVIDERS: PCP Nurse Practitioner Family; Visit Provider Allergy & Immunology
DX: J45.50 Severe persistent asthma, uncomplicated (principal)
CPT/HCPCS: 96372; J2182

== ENCOUNTER → 2021-10-19 14:30 | Outpatient (CLI) | payer MEDICARE, OTHER, SELFPAY ==
[2021-10-25 15:25] LABS: D001-IgE D pteronyssinus <0.10 kU/L (Class 0); D002-IgE D farinae <0.10 kU/L (Class 0); E001-IgE Cat Dander <0.10 kU/L (Class 0); E005-IgE Dog Dander <0.10 kU/L (Class 0); E072-IgE Mouse Urine <0.10 kU/L (Class 0); G002-IgE Bermuda Grass <0.10 kU/L (Class 0); G006-IgE Timothy Grass <0.10 kU/L (Class 0); I006-IgE Cockroach, German <0.10 kU/L (Class 0); Immunoglobulin E, Total 7 IU/mL (6-495); M001-IgE Penicillium chrysogen <0.10 kU/L (Class 0); M002-IgE Cladosporium herbarum <0.10 kU/L (Class 0); M003-IgE Aspergillus fumigatus <0.10 kU/L (Class 0); M006-IgE Alternaria alternata <0.10 kU/L (Class 0); T001-IgE Maple/Box Elder <0.10 kU/L (Class 0); T003-IgE Common Silver Birch <0.10 kU/L (Class 0); T006-IgE Cedar, Mountain <0.10 kU/L (Class 0); T007-IgE Oak, White <0.10 kU/L (Class 0); T008-IgE Elm, American <0.10 kU/L (Class 0); T010-IgE Walnut <0.10 kU/L (Class 0); T011-IgE Maple Leaf Sycamore <0.10 kU/L (Class 0); T014-IgE Cottonwood <0.10 kU/L (Class 0); T015-IgE Ash, White <0.10 kU/L (Class 0); T022-IgE Pecan, Hickory <0.10 kU/L (Class 0); T070-IgE White Mulberry <0.10 kU/L (Class 0); W001-IgE Ragweed, Short <0.10 kU/L (Class 0); W011-IgE Thistle, Russian <0.10 kU/L (Class 0); W014-IgE Pigweed, Common <0.10 kU/L (Class 0); W018-IgE Sheep Sorrel <0.10 kU/L (Class 0)
== END ==
PROVIDERS: Visit Provider Internal Medicine Pulmonary Disease
DX: J45.909 Unspecified asthma, uncomplicated (principal)
CPT/HCPCS: 36415; 82785; 86003

== ENCOUNTER 2021-11-03 11:04 | Outpatient (CLI) | payer MEDICARE, OTHER, SELFPAY ==
[2021-11-03 11:35] VITALS: BP 150/74; PULSE 70; RESP 18; O2SAT 97
== END 2021-11-03 11:50 | disposition home or self-care (01) ==
LOC: INF 11:05
PROVIDERS: PCP Nurse Practitioner Family; Visit Provider Allergy & Immunology
DX: J45.50 Severe persistent asthma, uncomplicated (principal)
CPT/HCPCS: 96372; J2182

== ENCOUNTER 2021-11-28 17:37 | Emergency (ER) | payer MEDICARE, OTHER, SELFPAY ==
[2021-11-28 18:30] VITALS: BP 112/76; PULSE 76; RESP 19; TEMP 36.8; O2SAT 100; BMI 29.8
--- NOTE | 2021-11-28 18:51 | HMH.EDUTC ---
[facility] [place] Disposition Clinical Impression: Burning with urination Asthma exacerbation Qualifiers: Asthma severity: unspecified severity Asthma persistence: unspecified Qualified Code(s): J45.901 - Unspecified asthma with (acute) exacerbation Disposition: Home, Self-Care Condition on Discharge: Good Additional Instructions: Make sure that you are drinking plenty of water to help to flush out kidneys Continue to use your Inhalers as prescribed Watch urine for worsening of symptoms and return or follow up with your Family Doctor if symptoms worsen Straight to ER if any life threatening symptoms Prescriptions: predniSONE [Deltasone 10mg tablet] 10 mg PO BID 5 Days #10 tab Transmission Status: Received by [id number] Phenazopyridine HCl [Pyridium 200mg Tablet] 200 pow PO TID #6 tab Transmission Status: Received by [id number] Referrals: Chapincito Espinoza APRN [Primary Care Provider] - As needed Time of Disposition: 19:09 Medical Decision Making - Mario Inquiry Pt receiving controlled substance: No Mario was queried for this patient: No Vital Signs: 11/28/21 18:30 11/28/21 19:07 Temperature 98.3 F 98.3 F Temperature Source Oral Pulse Rate 76 Pulse Rate [Right Brachial] 76 Respiratory Rate 19 19 Blood Pressure 112/76 Blood Pressure [Right Arm] 112/76 Blood Pressure Mean [Right Arm] 88 Blood Pressure Source [Right Arm] Automatic Cuff Blood Pressure Position [Right Arm] Sitting 02 Sat by Pulse Oximetry 100 Oxygen Delivery Method Room Air - Lab Data Lab results reviewed: Yes: I reviewed the patient's lab results. Lab Results 11/28/21 18:29: Urine Color Yellow, Urine Appearance Clear, Urine pH 6.0, Ur Specific [place] 1.020, Urine Protein Negative, Urine Glucose (UA) Negative, Urine Ketones Negative, Urine Blood Trace, Urine Nitrate Negative, Urine Bilirubin Negative, Urine Urobilinogen 0.2, Ur Leukocyte Esterase Negative Medical Decision Narrative: Patient states that she has taken prednisone and pyridium in the past without complications or reactions [facility] [place] HPI - General Stated complaint: chest congestion,achey,? bladder infection Time Seen by Provider: 11/28/21 18:51 Mode of Arrival: Ambulatory Source of Information: Patient Limitations: No Limitations Description of Symptoms (Recalled from Triage Doc. by RN): PATIENT C/O POSSIBLE BLADDER INFECTION, BODY ACHES, AND ASTHMA FLARE UP HEENT Symptoms (Recalled from RN notes): No Resp Symptoms (Recalled from RN notes): Yes Skin Symptoms (Recalled from RN notes): No MS Symptoms (Recalled from RN notes): No Functional Status (Recalled from RN notes): WNL - History of Present Illness Provider Complaint: Patient state that she has history of UTI States that she started having some burning when she urinates and feeling of urgency and frequency States that she feels like she does when she has a UTI States that also she thinks she is having an asthma flare States that when this happens she usually gets some prednisone and it helps with the use of inhalers - Related Data Home Medications Medication Instructions Recorded Confirmed baclofen 10 mg tablet 10 mg PO BID PRN 30 Days tab 11/22/18 11/03/21 gabapentin 300 mg capsule 300 mg PO TID 30 Days cap 11/22/18 11/03/21 hydrocodone 7.5 mg-acetaminophen 1 tab PO QID 30 Days tab 11/22/18 11/03/21 325 mg tablet lidocaine 5 % topical patch 1 patch TRANSDERMA BID PRN 7 Days 11/22/18 11/03/21 #30 each Levocetirizine Dihydrochloride 5 mg PO DAILY 07/28/20 11/03/21 [Xyzal] Zolpidem Tartrate [Ambien 10mg 10 mg PO HS PRN 07/28/20 11/03/21 tablet] bisacodyL [Dulcolax 5mg Tab] 5 mg PO DAILYP PRN 07/28/20 11/03/21 Azelastine HCl [Azelastine Nasal 137 mcg NS BID 10/19/20 11/03/21 [place] 30mL Bottle] fluticasone fur. 200 mcg-umeclid 1 inh INHALATION DIRECTED each 08/02/21 11/03/21 62.5 mcg-vilant 25 mcg inhalat.powder mepolizumab 100 mg/mL subcutaneous 100 mg SQ Q
[2021-11-28 18:53] LABS: Apearance,Urine Clear (Clear); Color,Urine Yellow (Yellow)
[2021-11-28 18:54] LABS: Bilirubin,Urine Negative (Negative); Blood, Urine Trace (Negative); Glucose,Urine (UA) Negative (Negative); Ketones,Urine Negative (Negative); Protein,Urine Negative (Negative); UTC Leukocyte Esterase,Urine Negative (Negative); UTC Nitrate,Urine Negative (Negative); Urobilinogen,Urine 0.2 EU/dl (0.2)
[2021-11-28 19:07] VITALS: BP 112/76; PULSE 76; RESP 19; TEMP 36.8; O2SAT 100
== END 2021-11-28 19:10 | disposition home or self-care (01) ==
PROVIDERS: Emergency Provider Nurse Practitioner; PCP Nurse Practitioner Family
DX: R05.9 Cough, unspecified (principal); Z79.899 Other long term (current) drug therapy; E11.9 Type 2 diabetes mellitus without complications; E03.9 Hypothyroidism, unspecified; Z79.890 Hormone replacement therapy; J45.901 Unspecified asthma with (acute) exacerbation; Z79.51 Long term (current) use of inhaled steroids
CPT/HCPCS: G0463; 81003; 99202

== ENCOUNTER 2021-12-06 13:33 | Outpatient (CLI) | payer MEDICARE, OTHER, SELFPAY ==
[2021-12-06 13:54] VITALS: BP 127/69; PULSE 58; RESP 18; TEMP 36.3; O2SAT 98
== END 2021-12-06 13:54 | disposition home or self-care (01) ==
LOC: INF 13:34
PROVIDERS: PCP Nurse Practitioner Family; Visit Provider Allergy & Immunology
DX: J45.50 Severe persistent asthma, uncomplicated (principal)
CPT/HCPCS: 96372; J2182

== ENCOUNTER 2021-12-23 15:45 | Emergency (ER) | payer MEDICARE, OTHER, SELFPAY ==
[2021-12-23 16:39] VITALS: BP 136/61; PULSE 78; RESP 18; TEMP 36.4; O2SAT 95; BMI 30.3
--- NOTE | 2021-12-23 17:53 | HMH.EDUTC ---
[facility] [place] Disposition Clinical Impression: Otitis media Qualifiers: Otitis media type: suppurative Chronicity: acute Laterality: bilateral Recurrence: recurrent Spontaneous tympanic membrane rupture: without spontaneous rupture Qualified Code(s): H66.006 - Acute suppurative otitis media without spontaneous rupture of ear drum, recurrent, bilateral Disposition: Home, Self-Care Condition on Discharge: Good Instructions: Middle Ear Infection Additional Instructions: Drink plenty of fluids. Take tylenol for pain or fever. Follow up with your regular doctor. GO TO THE ER FOR ANY WORSENING SYMPTOMS Referrals: Chapincito Espinoza APRN [Primary Care Provider] - Time of Disposition: 18:30 Medical Decision Making - Medical Records Medical records reviewed: No: I reviewed the patient's medical records. - Mario Inquiry Pt receiving controlled substance: No Vital Signs: 12/23/21 16:39 12/23/21 18:37 Temperature 97.6 F 97.6 F Temperature Source Oral Pulse Rate 78 Pulse Rate [Left] 78 Respiratory Rate 18 18 Blood Pressure 136/61 Blood Pressure [Right Arm] 136/61 Blood Pressure Mean [Right Arm] 86 02 Sat by Pulse Oximetry 95 Orders (Tests/Meds): ED MEDICATIONS Discontinued Medications Generic Name Dose Route Start Last Admin Trade Name Freq PRN Reason Stop Dose Admin Ceftriaxone Sodium 1 gm 12/23/21 18:05 12/23/21 18:13 Ceftriaxone 1gm Vial IM 12/23/21 18:06 1 gm ONCE ONE Administration Lidocaine HCl 0 ml 12/23/21 18:05 12/23/21 18:14 Lidocaine 1% 5ml Pf Vial IM 12/23/21 18:06 2 ml ONCE ONE Administration Methylprednisolone Sodium Succinate 125 mg 12/23/21 18:05 12/23/21 18:09 Methylprednisolone Sod Succ 125mg Vial IM 12/23/21 18:06 125 mg ONCE ONE Administration [facility] [place] HPI - General Stated complaint: both ears pain Time Seen by Provider: 12/23/21 17:53 Mode of Arrival: Ambulatory Source of Information: Patient Limitations: No Limitations Description of Symptoms (Recalled from Triage Doc. by RN): pt c/o a severe RASCON, wheezing, and bilateral ear aches. pt was seen here two weeks ago for her ears but they never got all the way better. HEENT Symptoms (Recalled from RN notes): Yes Resp Symptoms (Recalled from RN notes): Yes Skin Symptoms (Recalled from RN notes): No MS Symptoms (Recalled from RN notes): No Functional Status (Recalled from RN notes): wnl - History of Present Illness Provider Complaint: She states that for the past 2 days she has had worsening bilateral ear pain. She was treated for an ear infection around 2 weeks ago. It got better while she was on the medication, but returned once she finished the meds. - Related Data Home Medications Medication Instructions Recorded Confirmed baclofen 10 mg tablet 10 mg PO BID PRN 30 Days tab 11/22/18 11/03/21 gabapentin 300 mg capsule 300 mg PO TID 30 Days cap 11/22/18 11/03/21 hydrocodone 7.5 mg-acetaminophen 1 tab PO QID 30 Days tab 11/22/18 11/03/21 325 mg tablet lidocaine 5 % topical patch 1 patch TRANSDERMA BID PRN 7 Days 11/22/18 11/03/21 #30 each Levocetirizine Dihydrochloride 5 mg PO DAILY 07/28/20 11/03/21 [Xyzal] Zolpidem Tartrate [Ambien 10mg 10 mg PO HS PRN 07/28/20 11/03/21 tablet] bisacodyL [Dulcolax 5mg Tab] 5 mg PO DAILYP PRN 07/28/20 11/03/21 Azelastine HCl [Azelastine Nasal 137 mcg NS BID 10/19/20 11/03/21 [place] 30mL Bottle] fluticasone fur. 200 mcg-umeclid 1 inh INHALATION DIRECTED each 08/02/21 11/03/21 62.5 mcg-vilant 25 mcg inhalat.powder mepolizumab 100 mg/mL subcutaneous 100 mg SQ Q4W 08/02/21 11/03/21 auto-injector Flash Glucose Scanning [place] See Rx Instructions MISCELLANE 11/03/21 11/03/21 [FreeStyle Carm[place] 14 Day [place]] .MEDSUPPLY Flash Glucose Sensor [FreeStyle See Rx Instructions MISCELLANE 11/03/21 11/03/21 [place] 14 Day Sensor] .MEDSUPPLY Metoprolol Succinate [Metoprolol See Rx Instructions .ROUTE .COMPLEX 11/03/21
[2021-12-23 18:37] VITALS: BP 136/61; PULSE 78; RESP 18; TEMP 36.4
== END 2021-12-23 18:40 | disposition home or self-care (01) ==
PROVIDERS: Emergency Provider Nurse Practitioner Family; PCP Nurse Practitioner Family
DX: H66.006 Acute suppurative otitis media without spontaneous rupture of ear drum, recurrent, bilateral (principal); E11.9 Type 2 diabetes mellitus without complications; E78.5 Hyperlipidemia, unspecified; Z79.899 Other long term (current) drug therapy
CPT/HCPCS: G0463; 96372; 99202; J0696

== ENCOUNTER 2022-01-05 10:23 | Outpatient (CLI) | payer MEDICARE, OTHER, SELFPAY ==
[2022-01-05 10:45] VITALS: BP 134/73; PULSE 79; RESP 20; TEMP 36.9; O2SAT 95
[2022-01-05 11:06] LABS: Basophils # 0.1 K/mm3 (0-0.2); Eosinophils # 0.1 K/mm3 (0.0-0.4); Eosinophils % 1.3 % (0.1-12.0); Hematocrit 39.3 % (37.0-47.0); Hemoglobin 12.4 g/dL (12.2-16.2); Lymphocytes # 2.6 K/mm3 (0.7-4.5); Lymphocytes % 41.6 % (10-50); Mean Corpuscular HGB Conc 31.6 g/dL (31.8-35.4); Mean Corpuscular Hemoglobin 30.1 pg (27.0-31.2); Mean Corpuscular Volume 95.1 fl (81-99); Mean Platelet Volume 9.5 fl (7.4-10.4); Monocytes # 0.3 K/mm3 (0.1-1.0); Monocytes % 4.3 % (1.7-9.3); Neutrophils # 3.2 K/mm3 (1.8-7.8); Neutrophils % 51.9 % (37.0-80.0); Platelet Count 198 K/mm3 (142-424); Red Blood Count 4.13 M/mm3 (4.20-5.40); Red Cell Distribution Width 13.8 % (11.5-17.5); White Blood Count 6.1 K/mm3 (4.8-10.8)
--- NOTE | 2022-01-05 11:07 | ECG_ITS ---
APPROVED REPORT Exam: Resting ECG HR:72 bpm ECG Measurements Heart Rate 72 AXES CA 187 P 54 QRSd 90 QRS -23 QT 382 T 59 QTc 406 Conclusion SINUS RHYTHM LOW QRS VOLTAGE IN PRECORDIAL LEADS [QRS DEFLECTION < 1.0 mV IN CHEST LEADS] POSSIBLE ANTERIOR MYOCARDIAL INFARCTION , PROBABLY OLD [30 ms Q WAVE IN V3/V4, OR R < 0.2 mV IN V4] BORDERLINE ECG UNCONFIRMED REPORT Electronically signed by : Bayron Armenta MD 01/05/2022 15:01:00
[2022-01-05 11:24] LABS: Chloride 99 mmol/L (98-107); Potassium 4.2 mmoL/L (3.5-5.1); Sodium 136 mmol/L (136-145)
[2022-01-05 11:26] LABS: Blood Urea Nitrogen 10 mg/dl (7-17); Creatinine Clearance Estimated 2 mL/min (50-200); Estimated Glomerular Filt Rate 84 ml/min (>60); GFR (African American) 101 ML/MIN (>60)
[2022-01-05 11:27] LABS: Alanine Aminotransferase 50 U/L (12-78); Albumin Level 4.2 g/dl (3.5-5.0); Albumin/Globulin Ratio 1.3 (1.1-1.8); Alkaline Phosphatase 102 U/L (38-126); Aspartate Amino Transferase 67 U/L (14-36); Bilirubin,Total 0.4 mg/dl (0.2-1.3); Carbon Dioxide 31 mmol/L (22.0-30.0); Globulin 3.2 g/dL (1.3-3.2); Total Protein,Serum 7.4 g/dl (6.3-8.2)
[2022-01-05 11:28] LABS: Calcium 8.4 mg/dl (8.4-10.2); Glucose 112 mg/dl (74-100)
[2022-01-05 11:31] LABS: Anion Gap 10.2 mEq/L (5-15)
== END 2022-01-05 11:00 | disposition home or self-care (01) ==
LOC: INF 10:25
PROVIDERS: Student in an Organized Health Care Education/Training Program; PCP Nurse Practitioner Family; Visit Provider Allergy & Immunology
DX: Z01.818 Encounter for other preprocedural examination (principal); J45.50 Severe persistent asthma, uncomplicated
CPT/HCPCS: 80053; 85025; 93005; 96372; J2182

== ENCOUNTER 2022-01-18 19:25 | Emergency (ER) | payer MEDICARE, OTHER, SELFPAY ==
[2022-01-18 20:00] VITALS: BP 115/59; PULSE 78; RESP 22; TEMP 36.6; O2SAT 97; BMI 32.3
[2022-01-18 20:53] VITALS: BP 115/59; PULSE 78; RESP 22; TEMP 36.6; O2SAT 97
--- NOTE | 2022-01-18 21:01 | HMH.EDUTC ---
[facility] [place] Clinical Impression: Encounter for laboratory testing for COVID-19 virus Disposition: Home, Self-Care Condition on Discharge: Good Instructions: DI for COVID-19 (Suspected or Confirmed ), Preventing the Spread of Coronavirus Discharge Instructions Referrals: Chapincito Espinoza APRN [Primary Care Provider] - As needed Time of Disposition: 21:03 Medical Decision Making - Mario Inquiry Pt receiving controlled substance: No Mario was queried for this patient: No Vital Signs: 01/18/22 20:00 01/18/22 20:53 Temperature 97.9 F 97.9 F Temperature Source Oral Pulse Rate 78 Pulse Rate [Left Brachial] 78 Respiratory Rate 22 22 Blood Pressure 115/59 L Blood Pressure [Left Arm] 115/59 L Blood Pressure Mean [Left Arm] 77 Blood Pressure Source [Left Arm] Automatic Cuff Blood Pressure Position [Left Arm] Sitting 02 Sat by Pulse Oximetry 97 Oxygen Delivery Method Room Air Orders (Tests/Meds): ORDERS Category Date Time Status Covid-19 Nasal PCR ([facility]) Routine Lab 01/18/22 19:39 Received [facility] [place] HPI - General Stated complaint: covid test Time Seen by Provider: 01/18/22 21:01 Mode of Arrival: Ambulatory Source of Information: Patient Limitations: No Limitations Description of Symptoms (Recalled from Triage Doc. by RN): NEEDS COVID TEST FOR PROCEDURE HEENT Symptoms (Recalled from RN notes): No Resp Symptoms (Recalled from RN notes): No Skin Symptoms (Recalled from RN notes): No MS Symptoms (Recalled from RN notes): No Functional Status (Recalled from RN notes): WNL - History of Present Illness Provider Complaint: Patient state that she just needs to get COVID test for procedure that she is having Saturday States that she is not having any symptoms just needed a negative test - Related Data Home Medications Medication Instructions Recorded Confirmed baclofen 10 mg tablet 10 mg PO BID PRN 30 Days tab 11/22/18 01/05/22 gabapentin 300 mg capsule 300 mg PO TID 30 Days cap 11/22/18 01/05/22 hydrocodone 7.5 mg-acetaminophen 1 tab PO QID 30 Days tab 11/22/18 01/05/22 325 mg tablet lidocaine 5 % topical patch 1 patch TRANSDERMA BID PRN 7 Days 11/22/18 01/05/22 #30 each Levocetirizine Dihydrochloride 5 mg PO DAILY 07/28/20 01/05/22 [Xyzal] Zolpidem Tartrate [Ambien 10mg 10 mg PO HS PRN 07/28/20 01/05/22 tablet] bisacodyL [Dulcolax 5mg Tab] 5 mg PO DAILYP PRN 07/28/20 01/05/22 Azelastine HCl [Azelastine Nasal 137 mcg NS BID 10/19/20 01/05/22 [place] 30mL Bottle] mepolizumab 100 mg/mL subcutaneous 100 mg SQ Q4W 08/02/21 01/05/22 auto-injector Flash Glucose Scanning [place] See Rx Instructions MISCELLANE 11/03/21 01/05/22 [FreeStyle Carmine 14 Day [place]] .MEDSUPPLY Flash Glucose Sensor [FreeStyle See Rx Instructions MISCELLANE 11/03/21 01/05/22 [place] 14 Day Sensor] .MEDSUPPLY Metoprolol Succinate [Metoprolol See Rx Instructions .ROUTE .COMPLEX 11/03/21 01/05/22 Succinate 25mg Tablet*] budesonide-formoterol HFA 160 2 inh INHALATION BID g 01/04/22 01/05/22 mcg-4.5 mcg/actuation aerosol inhaler Cefdinir [Omnicef 300mg Capsule] 300 mg PO Q12H 01/05/22 01/05/22 Flash Glucose Scanning [place] See Rx Instructions MISCELLANE 01/05/22 01/05/22 [FreeStyle [place]ine 14 Day [place]] .MEDSUPPLY Flash Glucose Sensor [FreeStyle See Rx Instructions MISCELLANE 01/05/22 01/05/22 [place] 14 Day Sensor] .MEDSUPPLY Phenazopyridine HCl [Pyridium 200 pow PO TID 01/05/22 01/05/22 200mg Tablet] predniSONE [Deltasone 20mg 20 mg PO BID 01/05/22 01/05/22 tablet] Previous Rx's Medication Instructions Recorded albuterol sulfate 90 mcg/actuation 90 mcg INHALATION TIDP PRN #1 each 03/08/21 breath activated powder inhaler,sensor conjugated estrogens 0.625 mg 0.625 mg PO DIRECTED #60 tab 03/08/21 tablet ibuprofen 800 mg tablet 800 mg PO TIDP PRN 90 Days #90 tab 03/08/21 levothyroxine 50 mcg tablet 50 mcg PO DAILY 90 Days #90 tab 03/08/21 montelukast 10 mg tabl
== END 2022-01-18 21:05 | disposition home or self-care (01) ==
PROVIDERS: Emergency Provider Nurse Practitioner; PCP Nurse Practitioner Family
DX: Z03.89 Encounter for observation for other suspected diseases and conditions ruled out (principal); I10 Essential (primary) hypertension; M54.2 Cervicalgia; G89.29 Other chronic pain; I49.9 Cardiac arrhythmia, unspecified; E78.5 Hyperlipidemia, unspecified; E11.9 Type 2 diabetes mellitus without complications; E03.9 Hypothyroidism, unspecified; M19.90 Unspecified osteoarthritis, unspecified site; J32.9 Chronic sinusitis, unspecified; J45.909 Unspecified asthma, uncomplicated; Z20.822 Contact with and (suspected) exposure to COVID-19; Z79.51 Long term (current) use of inhaled steroids; Z79.899 Other long term (current) drug therapy; Z82.49 Family history of ischemic heart disease and other diseases of the circulatory system; Z80.9 Family history of malignant neoplasm, unspecified; Z84.1 Family history of disorders of kidney and ureter; Z82.5 Family history of asthma and other chronic lower respiratory diseases
CPT/HCPCS: 99212; C9803; G0463; U0003; U0005

== ENCOUNTER → 2022-01-25 09:17 | Outpatient (CLI) | payer MEDICARE, OTHER, SELFPAY ==
[2022-01-25 10:08] LABS: Basophils % 0.4 % (0.1-2.0); Eosinophils # 0.1 K/mm3 (0.0-0.4); Eosinophils % 0.7 % (0.1-12.0); Hematocrit 39.7 % (37.0-47.0); Hemoglobin 12.7 g/dL (12.2-16.2); Lymphocytes # 3.7 K/mm3 (0.7-4.5); Lymphocytes % 37.9 % (10-50); Mean Corpuscular HGB Conc 32.1 g/dL (31.8-35.4); Mean Corpuscular Hemoglobin 29.8 pg (27.0-31.2); Mean Corpuscular Volume 93.1 fl (81-99); Mean Platelet Volume 10.2 fl (7.4-10.4); Monocytes # 0.5 K/mm3 (0.1-1.0); Monocytes % 5.3 % (1.7-9.3); Neutrophils # 5.4 K/mm3 (1.8-7.8); Neutrophils % 55.6 % (37.0-80.0); Platelet Count 203 K/mm3 (142-424); Red Blood Count 4.26 M/mm3 (4.20-5.40); Red Cell Distribution Width 13.9 % (11.5-17.5); White Blood Count 9.7 K/mm3 (4.8-10.8)
[2022-01-25 10:30] LABS: Chloride 105 mmol/L (98-107); Potassium 4.4 mmoL/L (3.5-5.1); Sodium 140 mmol/L (136-145)
[2022-01-25 10:32] LABS: Blood Urea Nitrogen 15 mg/dl (7-17); Estimated Glomerular Filt Rate 100 ml/min (>60); GFR (African American) 121 ML/MIN (>60)
[2022-01-25 10:33] LABS: Alanine Aminotransferase 56 U/L (12-78); Albumin Level 3.9 g/dl (3.5-5.0); Albumin/Globulin Ratio 1.4 (1.1-1.8); Alkaline Phosphatase 109 U/L (38-126); Anion Gap 12.4 mEq/L (5-15); Aspartate Amino Transferase 55 U/L (14-36); Bilirubin,Total 0.4 mg/dl (0.2-1.3); Carbon Dioxide 27 mmol/L (22.0-30.0); Cholesterol 175 mg/dl (140-200); Globulin 2.8 g/dL (1.3-3.2); Total Protein,Serum 6.7 g/dl (6.3-8.2); Triglycerides 258 mg/dl (30-150); VLDL Cholesterol 52 mg/dL (0-40)
[2022-01-25 10:34] LABS: Calcium 8.5 mg/dl (8.4-10.2); Chol/HDL Ratio 4.1 (1-3.5); Glucose 92 mg/dl (74-100); HDL Cholesterol 43 mg/dl (40-60); Hemoglobin A1C 6.2 % (4.0-6.0)
[2022-01-25 10:45] LABS: Direct LDL Cholesterol 85.18 mg/dL (100-129)
[2022-01-25 10:51] LABS: T4 (Thyroxine) 12.8 ug/dl (5.53-11.0)
[2022-01-25 11:05] LABS: Thyroid Stimulating Hormone 2.64 uIU/mL (0.465-4.68)
[2022-01-25 11:24] LABS: 25-OH Vitamin D, Total 20.7 ng/mL (30-100)
== END ==
PROVIDERS: PCP Nurse Practitioner Family; Visit Provider Physician Assistant
DX: E03.9 Hypothyroidism, unspecified (principal); E78.5 Hyperlipidemia, unspecified; I10 Essential (primary) hypertension; J44.1 Chronic obstructive pulmonary disease with (acute) exacerbation; I49.9 Cardiac arrhythmia, unspecified; E11.9 Type 2 diabetes mellitus without complications; E55.9 Vitamin D deficiency, unspecified; J06.9 Acute upper respiratory infection, unspecified
CPT/HCPCS: 36415; 80053; 80061; 82306; 83036; 84436; 84443; 85025; 93225

== ENCOUNTER 2022-01-26 12:50 | Outpatient (CLI) | payer MEDICARE, OTHER, SELFPAY ==
--- NOTE | 2022-01-26 12:52 | CA_ITS ---
APPROVED REPORT EXAM: Comprehensive 2D, Doppler, and color-flow Echocardiogram Web Production Artist: Zaynab Lincoln RVT Ht: 5 ft 6 in Wt: 188lbs BSA: 1.95 BP: 132/71 mmHg Indications: PALPS,ABN EKG,HTN,HLD 2D Dimensions LVOT 1.94 cm (M/F) 1.5-2.5 LA Volume 20.10 mL LA Volume Index 10.36 mL/m2 (M/F) 16-34 M-Mode Dimensions RVDd 2.54 cm (0.9-2.6) LA Diam 3.85 cm (1.9-4.0) LVDd 5.31 cm (3.5-5.7) Ao Diam 3.28 cm (2.0-3.7) LVDs 2.88 cm (3.5-5.7) IVSd 0.95 cm (0.6-1.1) PWd 0.76 cm (0.6-1.1) EF (Teich) 76.70% FS 45.80% EDV (Teich) 135.90 mL TAPSE 1.60 (<1.7) ESV (Teich) 31.70 mL LV Diastology E Decel Time 233.00 (160-240 msec) E/A Ratio 0.8 MED E' 6.20 (< 7 cm/sec) E'/MED E' Ratio 11.34 (>14) LAT E' 6.60 (<10 cm/sec) E/LAT E' Ratio 10.65 (>14) Aortic Valve AO Peak GR. 3.30 mmHg Mitral Valve MV E Max Refugio. 70.00 (40-130 cm/s) MV A Velocity 93.00 (40-130 cm/s) E/A Ratio 0.75 MV Decel. Time 233.00 (160-240 ms) MV PHT 68.00 ms Pulmonary Valve PV Peak Velocity 82.00 (50-150 cm/s) Tricuspid Valve TR P. Velocity 182.00 cm/s RAP Estimate 10.00 mmHg RVSP 23.20 mmHg Left Ventricle Left atrium is mildly enlarged, left ventricle is normal size, mild concentric left ventricular hypertrophy, estimated ejection fraction 55% with no regional wall motion abnormality, grade 1 diastolic dysfunction seen without tissue Doppler evidence of raise left atrial pressure. Right Ventricle Right atrium and right ventricle are mildly enlarged with normal contractility. Aortic Valve Aortic valve is minimally thickened and fibrosed, there is no aortic stenosis or aortic insufficiency. Mitral Valve Mitral valve grossly normal, there is trace mitral regurgitation. Tricuspid Valve Tricuspid grossly normal, there is trace tricuspid regurgitation. Tricuspid regurgitation jet velocity is inadequate for calculation of the right ventricular systolic pressure. Pulmonic Valve Pulmonic valve is poorly visualized. Great Vessels Aortic root is normal size. Inferior vena cava is poorly visualized. Pericardium No significant pericardial effusion noted. Conclusion 1. Mild biatrial enlargement, normal left ventricular size, mild concentric left ventricular hypertrophy, estimated ejection fraction 55% with no regional wall motion abnormality, grade 1 diastolic dysfunction seen without tissue Doppler evidence of raise left atrial pressure. 2. Mildly enlarged right ventricle with normal contractility. 3. Trace mitral and tricuspid regurgitation. 4. No significant pericardial effusion. 5. Inferior vena cava is poorly visualized. Electronically signed by : Balwinder Schilling MD 01/26/2022 16:06:37
[2022-01-26 13:15] VITALS: BP 142/70; PULSE 83; RESP 20; TEMP 36.9; O2SAT 95
== END 2022-01-26 13:30 | disposition home or self-care (01) ==
LOC: INF 12:52
PROVIDERS: PCP Nurse Practitioner Family; Referring Provider Allergy & Immunology; Visit Provider Physician Assistant
DX: E03.9 Hypothyroidism, unspecified (principal); E78.2 Mixed hyperlipidemia; I10 Essential (primary) hypertension; R00.2 Palpitations; R94.31 Abnormal electrocardiogram [ECG] [EKG]; J45.50 Severe persistent asthma, uncomplicated
CPT/HCPCS: 93306; 96372; J2182

== ENCOUNTER 2022-01-29 12:40 | Emergency (ER) | payer MEDICARE, OTHER, SELFPAY ==
[2022-01-29 12:41] VITALS: BP 152/78; PULSE 79; RESP 18; TEMP 36.8; O2SAT 94; BMI 30.3
[2022-01-29 13:33] LABS: UTC Influenza A Antigen Negative (Negative); UTC Influenza B Antigen Negative (Negative)
[2022-01-29 13:38] LABS: Strep Scrn Group A (Rapid) Negative (Negative)
--- NOTE | 2022-01-29 13:47 | HMH.EDUTC ---
[facility] [place] Clinical Impression: Thrush of mouth and esophagus Serous otitis media Qualifiers: Chronicity: acute Laterality: bilateral Recurrence: non-recurrent Qualified Code(s): H65.03 - Acute serous otitis media, bilateral Disposition: Home, Self-Care Condition on Discharge: Good Instructions: Nystatin, Thrush-Adult Additional Instructions: Drink plenty of fluids. Take tylenol for pain or fever. Take the medications as directed. Follow up with your regular doctor. GO TO THE ER FOR ANY WORSENING SYMPTOMS Prescriptions: methylPREDNISolone [Medrol] 4 mg PO DIRECTED 6 Days #21 packet Transmission Status: Received by [facility] # Nystatin [Nystatin Susp 500,000 Units/5mL Udc] 5 ml PO QID 14 Days #280 ml Transmission Status: Received by [facility] # Referrals: Chapincito Espinoza APRN [Primary Care Provider] - Time of Disposition: 14:15 Medical Decision Making - Medical Records Medical records reviewed: No: I reviewed the patient's medical records. - Mario Inquiry Pt receiving controlled substance: No Vital Signs: 01/29/22 12:41 01/29/22 14:30 Temperature 98.2 F 98.2 F Temperature Source Oral Oral Pulse Rate 79 Pulse Rate [Right Radial] 79 Respiratory Rate 18 19 Blood Pressure 152/78 H Blood Pressure [Right Arm] 152/78 H Blood Pressure Mean [Right Arm] 102 Blood Pressure Source Automatic Cuff Blood Pressure Source [Right Arm] Automatic Cuff Blood Pressure Position Sitting Blood Pressure Position [Right Arm] Sitting 02 Sat by Pulse Oximetry 94 L Oxygen Delivery Method Room Air Room Air - Lab Data Lab Results 01/29/22 13:17: Influenza Type A Ag Negative, Influenza Type B Ag Negative 01/29/22 13:19: Group A Strep Rapid Negative Orders (Tests/Meds): ED MEDICATIONS Discontinued Medications Generic Name Dose Route Start Last Admin Trade Name Freq PRN Reason Stop Dose Admin Methylprednisolone Sodium Succinate 125 mg 01/29/22 13:58 01/29/22 14:00 Methylprednisolone Sod Succ 125mg Vial IM 01/29/22 13:59 125 mg ONCE ONE Administration ORDERS Category Date Time Status Strep Screen Confirmation Stat Micro 01/29/22 13:19 Received [facility] [place] - General Stated complaint: bilateral ear ache, head congestion Time Seen by Provider: 01/29/22 13:47 Mode of Arrival: Ambulatory Source of Information: Patient Limitations: No Limitations Description of Symptoms (Recalled from Triage Doc. by RN): Pt states has bilateral ear pain, head cold, and has green nasal drainage HEENT Symptoms (Recalled from RN notes): Yes Resp Symptoms (Recalled from RN notes): No Skin Symptoms (Recalled from RN notes): No MS Symptoms (Recalled from RN notes): No Functional Status (Recalled from RN notes): n/a - History of Present Illness Provider Complaint: She states that for the past 3 days she has been having worsening bilateral ear pressure. She also has a white coating on her tongue and her tongue feel irritated. - Related Data Home Medications Medication Instructions Recorded Confirmed baclofen 10 mg tablet 10 mg PO BID PRN 30 Days tab 11/22/18 01/26/22 gabapentin 300 mg capsule 300 mg PO TID 30 Days cap 11/22/18 01/26/22 hydrocodone 7.5 mg-acetaminophen 1 tab PO QID 30 Days tab 11/22/18 01/26/22 325 mg tablet lidocaine 5 % topical patch 1 patch TRANSDERMA BID PRN 7 Days 11/22/18 01/26/22 #30 each Levocetirizine Dihydrochloride 5 mg PO DAILY 07/28/20 01/26/22 [Xyzal] Zolpidem Tartrate [Ambien 10mg 10 mg PO HS PRN 07/28/20 01/26/22 tablet] bisacodyL [Dulcolax 5mg Tab] 5 mg PO DAILYP PRN 07/28/20 01/26/22 Azelastine HCl [Azelastine Nasal 137 mcg NS BID 10/19/20 01/26/22 Lisman 30mL Bottle] mepolizumab 100 mg/mL subcutaneous 100 mg SQ Q4W 08/02/21 01/26/22 auto-injector Flash Glucose Scanning [place] See Rx Instructions MISCELLANE 11/03/21 01/26/22 [FreeStyle Carmine 14 Day [place]] .MEDSUPPLY Flash Gluc
[2022-01-29 14:30] VITALS: BP 152/78; PULSE 79; RESP 19; TEMP 36.8; O2SAT 94
== END 2022-01-29 14:30 | disposition home or self-care (01) ==
PROVIDERS: Emergency Provider Nurse Practitioner Family; PCP Nurse Practitioner Family
DX: H65.03 Acute serous otitis media, bilateral (principal); B37.9 Candidiasis, unspecified; E11.9 Type 2 diabetes mellitus without complications; E78.5 Hyperlipidemia, unspecified; E03.9 Hypothyroidism, unspecified; Z79.899 Other long term (current) drug therapy
CPT/HCPCS: 87430; 87804; 96372; 99213; G0463

== ENCOUNTER 2022-02-07 10:44 | Outpatient (CLI) | payer MEDICARE, OTHER, SELFPAY ==
[2022-02-07 11:02] VITALS: BP 120/61; PULSE 75; RESP 18; TEMP 36.2; O2SAT 95
== END 2022-02-07 11:19 | disposition home or self-care (01) ==
LOC: INF 10:45
PROVIDERS: PCP Nurse Practitioner Family; Visit Provider Allergy & Immunology
DX: J45.50 Severe persistent asthma, uncomplicated (principal)
CPT/HCPCS: 96372; J2182

== ENCOUNTER 2022-03-07 10:27 | Outpatient (CLI) | payer MEDICARE, OTHER, SELFPAY ==
--- NOTE | 2022-03-07 10:40 | PC.NURSE ---
1040-collected blood work via peripheral stick in right ac.
[2022-03-07 10:45] VITALS: BP 148/70; PULSE 72; RESP 18; TEMP 36.6; O2SAT 98
[2022-03-15 21:13] LABS: M003-IgE Aspergillus fumigatus <0.10 kU/L (Class 0)
== END 2022-03-07 10:45 | disposition home or self-care (01) ==
LOC: INF 10:28
PROVIDERS: PCP Nurse Practitioner Family; Referring Provider Internal Medicine Pulmonary Disease; Visit Provider Allergy & Immunology
DX: J44.9 Chronic obstructive pulmonary disease, unspecified (principal); J45.909 Unspecified asthma, uncomplicated
CPT/HCPCS: 36415; 86003; 96372; J2182

== ENCOUNTER 2022-04-04 10:27 | Outpatient (CLI) | payer MEDICARE, OTHER, SELFPAY ==
[2022-04-04 10:48] VITALS: BP 139/70; PULSE 67; RESP 18; O2SAT 100
[2022-04-04 10:51] VITALS: BP 128/69; PULSE 68; RESP 18; O2SAT 100
== END 2022-04-04 10:51 | disposition home or self-care (01) ==
LOC: INF 10:28
PROVIDERS: PCP Nurse Practitioner Family; Visit Provider Allergy & Immunology
DX: J45.50 Severe persistent asthma, uncomplicated (principal)
CPT/HCPCS: 96372; J2182

== ENCOUNTER 2022-05-09 09:53 | Outpatient (CLI) | payer MEDICARE, OTHER, SELFPAY ==
[2022-05-09 10:30] VITALS: BP 137/73; PULSE 72; RESP 18; TEMP 36.4; O2SAT 99
== END 2022-05-09 10:30 | disposition home or self-care (01) ==
LOC: INF 09:55
PROVIDERS: Visit Provider Allergy & Immunology
DX: J45.50 Severe persistent asthma, uncomplicated (principal)
CPT/HCPCS: 96372; J2182

== ENCOUNTER 2022-06-27 16:57 | Emergency (ER) | payer MEDICARE, OTHER, SELFPAY ==
--- NOTE | 2022-06-27 17:27 | EXP.UTC ---
Discharge Plan Disposition Patient Disposition: Home, Self-Care Condition: Good Prescriptions Prescriptions: New azithromycin [Zithromax] 250 mg tablet 250 mg PO UD DOSE PK Qty: 6 0RF Rx Instructions: Take two (2) tablets today, then one (1) tablet days #2 thru #5 methylprednisolone 4 mg Tablets,Dose Pack 4 mg PO DIRECTED Qty: 21 0RF No Action montelukast 10 mg tablet 10 mg PO HS 90 Days Qty: 90 2RF albuterol sulfate 90 mcg/actuation aero powdr breath act w/sensor 90 mcg INHALATION TIDP PRN (Reason: asthma) Qty: 1 3RF ergocalciferol (vitamin D2) 1,250 mcg (50,000 unit) capsule 1,250 mcg PO WEEKLY metoprolol succinate 25 mg tablet extended release 24 hr 37.5 mg PO DAILY Qty: 120 3RF ondansetron 4 mg tablet,disintegrating 4 mg PO Q8H PRN (Reason: nausea and vomiting) Qty: 30 0RF cholecalciferol (vitamin D3) 50 mcg (2,000 unit) capsule 50 mcg PO DAILY Qty: 30 4RF baclofen 10 mg tablet 10 mg PO BID PRN (Reason: PAIN) 30 Days Label Comments: TK 1 T PO Q 12 H gabapentin 300 mg capsule 300 mg PO TID 30 Days Label Comments: TK 1 C PO Q 8 H hydrocodone-acetaminophen 7.5-325 mg tablet 1 tab PO QID 30 Days lidocaine 5 % adhesive patch,medicated 1 patch TRANSDERMA BID PRN (Reason: PAIN) 7 Days Qty: 30 Label Comments: APPLY ONE PATCH Q 12 H AND LEAVE OFF FOR 12 H Nucala 100 mg/mL auto-injector 100 mg SQ Q4W Advair HFA 230-21 mcg/actuation HFA aerosol inhaler 2 puff IH BID budesonide-formoterol 160-4.5 mcg/actuation HFA aerosol inhaler 2 inh INHALATION BID levothyroxine [Synthroid] 50 mcg tablet See Rx Instructions .ROUTE .COMPLEX Qty: 90 3RF Dose Instruction: TAKE 1 TABLET DAILY FOR THYROID Rx Instructions: TAKE 1 TABLET DAILY FOR THYROID simvastatin 20 mg tablet See Rx Instructions .ROUTE .COMPLEX Qty: 90 3RF Dose Instruction: TAKE 1 TABLET DAILY FOR CHOLESTEROL Rx Instructions: TAKE 1 TABLET DAILY FOR CHOLESTEROL ibuprofen 800 mg tablet See Rx Instructions .ROUTE .COMPLEX Qty: 90 3RF Dose Instruction: TAKE 1 TABLET THREE TIMES A DAY NEEDED FOR PAIN Rx Instructions: TAKE 1 TABLET THREE TIMES A DAY NEEDED FOR PAIN pantoprazole 40 mg tablet,delayed release (DR/EC) See Rx Instructions .ROUTE .COMPLEX Qty: 90 3RF Dose Instruction: TAKE 1 TABLET DAILY FOR GASTROESOPHAGEAL REFLUX DISEASE Rx Instructions: TAKE 1 TABLET DAILY FOR GASTROESOPHAGEAL REFLUX DISEASE bisacodyl 5 MG tablet,delayed release (DR/EC) 5 mg PO DAILYP PRN (Reason: bowels) zolpidem 10 MG tablet 10 mg PO HS PRN (Reason: Sleep) levocetirizine 5 MG tablet 5 mg PO DAILY azelastine 137 MCG/0.137 ML bottle 137 mcg NS BID phenazopyridine 200 mg tablet 200 mg PO TID PRN (Reason: URINE) (DME) flash glucose sensor 1 EACH kit See Rx Instructions MISCELLANE .MEDSUPPLY Rx Instructions: As directed (DME) flash glucose scanning reader 1 EACH misc See Rx Instructions MISCELLANE .MEDSUPPLY Rx Instructions: As directed nystatin 500,000 UNIT/5 ML suspension 5 ml PO QID (DME) blood-glucose meter 1 EACH misc See Rx Instructions .Route NEEDED Rx Instructions: As directed (DME) blood sugar diagnostic 1 EACH strip See Rx Instructions .Route NEEDED Rx Instructions: As directed (DME) lancets 1 EACH misc 1 lancet SQ NEEDED Rx Instructions: As directed Referrals Follow up/Referrals: Félix Joshua APRN [Primary Care Provider] - See instructions Activity Restrictions/Add. Instructions Additional Instructions/Restrictions: Drink plenty of fluids. Take tylenol or ibuprofen for pain or fever. Take the medications as directed. Follow up with your regular doctor. GO TO THE ER FOR ANY WORSENING SYMPTOMS Don't start the oral steroids until tomorrow, si
[2022-06-27 17:32] VITALS: BP 112/60; PULSE 67; RESP 19; TEMP 36.4; O2SAT 97; BMI 29.5
[2022-06-27 17:56] VITALS: BP 112/60; PULSE 67; RESP 16; TEMP 36.4
== END 2022-06-27 18:05 | disposition home or self-care (01) ==
PROVIDERS: Emergency Provider Nurse Practitioner Family; PCP Nurse Practitioner Family
DX: H92.03 Otalgia, bilateral (principal); R09.81 Nasal congestion
CPT/HCPCS: 96372; 99212; G0463; J0696

== ENCOUNTER 2022-10-01 14:28 | Emergency (ER) | payer MEDICARE, OTHER, SELFPAY ==
[2022-10-01 15:35] VITALS: BP 141/70; PULSE 61; RESP 19; TEMP 36.5; O2SAT 98; BMI 29.8
--- NOTE | 2022-10-01 16:01 | EXP.UTC ---
Discharge Plan Disposition Patient Disposition: Home, Self-Care Condition: Good Prescriptions Prescriptions: New amoxicillin-pot clavulanate 875-125 mg Tablet 1 tab PO Q12H 5 Days Qty: 10 0RF No Action albuterol sulfate 90 mcg/actuation aero powdr breath act w/sensor 90 mcg INHALATION TIDP PRN (Reason: asthma) Qty: 1 3RF ondansetron 4 mg tablet,disintegrating 4 mg PO Q8H PRN (Reason: nausea and vomiting) Qty: 30 0RF albuterol sulfate 2.5 mg /3 mL (0.083 %) solution for nebulization 2.5 mg inhalation ONCE PRN nystatin 100,000 unit/mL suspension 5 ml PO QID PRN (Reason: yeast) metoprolol succinate 25 mg tablet extended release 24 hr 37.5 mg PO DAILY Qty: 120 3RF fluticasone propionate 50 mcg/actuation spray,suspension intranasal montelukast 10 mg tablet 10 mg PO HS 90 Days Qty: 90 2RF Premarin 0.625 mg tablet See Rx Instructions .ROUTE .COMPLEX Qty: 30 4RF Rx Instructions: two tablets every week; baclofen 10 mg tablet 10 mg PO BID PRN (Reason: PAIN) 30 Days Label Comments: TK 1 T PO Q 12 H gabapentin 300 mg capsule 300 mg PO TID 30 Days Label Comments: TK 1 C PO Q 8 H hydrocodone-acetaminophen 7.5-325 mg tablet 1 tab PO QID 30 Days lidocaine 5 % adhesive patch,medicated 1 patch TRANSDERMA BID PRN (Reason: PAIN) 7 Days Qty: 30 Label Comments: APPLY ONE PATCH Q 12 H AND LEAVE OFF FOR 12 H Nucala 100 mg/mL auto-injector 100 mg SQ Q4W Advair HFA 230-21 mcg/actuation HFA aerosol inhaler 2 puff IH BID levothyroxine [Synthroid] 50 mcg tablet See Rx Instructions .ROUTE .COMPLEX Qty: 90 3RF Dose Instruction: TAKE 1 TABLET DAILY FOR THYROID Rx Instructions: TAKE 1 TABLET DAILY FOR THYROID simvastatin 20 mg tablet See Rx Instructions .ROUTE .COMPLEX Qty: 90 3RF Dose Instruction: TAKE 1 TABLET DAILY FOR CHOLESTEROL Rx Instructions: TAKE 1 TABLET DAILY FOR CHOLESTEROL ibuprofen 800 mg tablet See Rx Instructions .ROUTE .COMPLEX Qty: 90 3RF Dose Instruction: TAKE 1 TABLET THREE TIMES A DAY NEEDED FOR PAIN Rx Instructions: TAKE 1 TABLET THREE TIMES A DAY NEEDED FOR PAIN pantoprazole 40 mg tablet,delayed release (DR/EC) See Rx Instructions .ROUTE .COMPLEX Qty: 90 3RF Dose Instruction: TAKE 1 TABLET DAILY FOR GASTROESOPHAGEAL REFLUX DISEASE Rx Instructions: TAKE 1 TABLET DAILY FOR GASTROESOPHAGEAL REFLUX DISEASE bisacodyl 5 MG tablet,delayed release (DR/EC) 5 mg PO DAILYP PRN (Reason: bowels) zolpidem 10 MG tablet 10 mg PO HS PRN (Reason: Sleep) levocetirizine 5 MG tablet 5 mg PO DAILY azelastine 137 MCG/0.137 ML bottle 137 mcg NS BID (DME) lancets 1 EACH misc 1 lancet SQ NEEDED Rx Instructions: As directed Referrals Follow up/Referrals: Jayden Atkinson MD [Primary Care Provider] - See instructions Activity Restrictions/Add. Instructions Additional Instructions/Restrictions: Stop the Amoxicillin and switch to the Augmentin for the next 5 days Use your Flonase as directed daily Follow up with ENT if no improvement or any worsening of symptoms Clinical Impressions Clinical Impression: Sinusitis Instructions Patient Instructions: DI for Sinusitis, DI for Ear Pain-Adult Discharge ED Provider: Leigh Hopper [facility] [place] HPI General Stated complaint: ear pain Mode of Arrival: Ambulatory Source of Information: Patient Limitations: No Limitations Time Seen by Provider: 10/01/22 16:01 Description of Symptoms (Recalled from Triage Doc. by RN): PATIENT C/O RUNNY NOSE, EAR PAIN AND HEADACHE X 3 DAYS HEENT Symptoms (Recalled from RN notes): Yes Resp Symptoms (Recalled from RN notes): No Skin Symptoms (Recalled from RN notes): No MS Symptoms (Recalled from RN notes): No Functional Status (Recalled from RN notes): WNL History of Present Illness Provider Complaint: Patient states that she
[2022-10-01 16:05] VITALS: BP 141/70; PULSE 61; RESP 19; TEMP 36.5; O2SAT 98
== END 2022-10-01 16:23 | disposition home or self-care (01) ==
PROVIDERS: Emergency Provider Nurse Practitioner; PCP Family Medicine
DX: J32.9 Chronic sinusitis, unspecified (principal)
CPT/HCPCS: 99212; G0463

== ENCOUNTER 2022-10-04 16:28 | Emergency (ER) | payer MEDICARE, OTHER, SELFPAY ==
--- NOTE | 2022-10-04 18:42 | EXP.UTC ---
Discharge Plan Disposition Patient Disposition: Home, Self-Care Condition: Good Prescriptions Prescriptions: New ofloxacin 0.3 % drops 10 drp otic (ear) DAILY 7 Days Qty: 5 0RF No Action albuterol sulfate 90 mcg/actuation aero powdr breath act w/sensor 90 mcg INHALATION TIDP PRN (Reason: asthma) Qty: 1 3RF ondansetron 4 mg tablet,disintegrating 4 mg PO Q8H PRN (Reason: nausea and vomiting) Qty: 30 0RF albuterol sulfate 2.5 mg /3 mL (0.083 %) solution for nebulization 2.5 mg inhalation ONCE PRN nystatin 100,000 unit/mL suspension 5 ml PO QID PRN (Reason: yeast) metoprolol succinate 25 mg tablet extended release 24 hr 37.5 mg PO DAILY Qty: 120 3RF fluticasone propionate 50 mcg/actuation spray,suspension intranasal montelukast 10 mg tablet 10 mg PO HS 90 Days Qty: 90 2RF Premarin 0.625 mg tablet See Rx Instructions .ROUTE .COMPLEX Qty: 30 4RF Rx Instructions: two tablets every week; baclofen 10 mg tablet 10 mg PO BID PRN (Reason: PAIN) 30 Days Label Comments: TK 1 T PO Q 12 H gabapentin 300 mg capsule 300 mg PO TID 30 Days Label Comments: TK 1 C PO Q 8 H hydrocodone-acetaminophen 7.5-325 mg tablet 1 tab PO QID 30 Days lidocaine 5 % adhesive patch,medicated 1 patch TRANSDERMA BID PRN (Reason: PAIN) 7 Days Qty: 30 Label Comments: APPLY ONE PATCH Q 12 H AND LEAVE OFF FOR 12 H Nucala 100 mg/mL auto-injector 100 mg SQ Q4W Advair HFA 230-21 mcg/actuation HFA aerosol inhaler 2 puff IH BID levothyroxine [Synthroid] 50 mcg tablet See Rx Instructions .ROUTE .COMPLEX Qty: 90 3RF Dose Instruction: TAKE 1 TABLET DAILY FOR THYROID Rx Instructions: TAKE 1 TABLET DAILY FOR THYROID simvastatin 20 mg tablet See Rx Instructions .ROUTE .COMPLEX Qty: 90 3RF Dose Instruction: TAKE 1 TABLET DAILY FOR CHOLESTEROL Rx Instructions: TAKE 1 TABLET DAILY FOR CHOLESTEROL ibuprofen 800 mg tablet See Rx Instructions .ROUTE .COMPLEX Qty: 90 3RF Dose Instruction: TAKE 1 TABLET THREE TIMES A DAY NEEDED FOR PAIN Rx Instructions: TAKE 1 TABLET THREE TIMES A DAY NEEDED FOR PAIN pantoprazole 40 mg tablet,delayed release (DR/EC) See Rx Instructions .ROUTE .COMPLEX Qty: 90 3RF Dose Instruction: TAKE 1 TABLET DAILY FOR GASTROESOPHAGEAL REFLUX DISEASE Rx Instructions: TAKE 1 TABLET DAILY FOR GASTROESOPHAGEAL REFLUX DISEASE bisacodyl 5 MG tablet,delayed release (DR/EC) 5 mg PO DAILYP PRN (Reason: bowels) zolpidem 10 MG tablet 10 mg PO HS PRN (Reason: Sleep) levocetirizine 5 MG tablet 5 mg PO DAILY azelastine 137 MCG/0.137 ML bottle 137 mcg NS BID (DME) lancets 1 EACH misc 1 lancet SQ NEEDED Rx Instructions: As directed amoxicillin-pot clavulanate 875-125 mg Tablet 1 tab PO Q12H 5 Days Qty: 10 0RF Referrals Follow up/Referrals: Jayden Atkinson MD [Primary Care Provider] - See instructions Activity Restrictions/Add. Instructions Additional Instructions/Restrictions: Drink plenty of fluids. Take tylenol or ibuprofen for pain or fever. Finish the medication that you are already on. Follow up with your regular doctor. GO TO THE ER FOR ANY WORSENING SYMPTOMS Clinical Impressions Clinical Impression: Otitis media Instructions Patient Instructions: Middle Ear Infection, How to Use Ear Drops Discharge ED Provider: Bill Mejía [facility] [place] General Stated complaint: ear pain, runny nose Time Seen by Provider: 10/04/22 18:42 History of Present Illness Provider Complaint: She states that for the past 2 days she has had sore throat, chills, body aches and low grade fever. Related Data Home Medications Medication Instructions Recorded Confirmed baclofen 10 mg tablet 10 mg PO BID PRN PAIN 30 days 11/22/18 08/13/22 gabapentin 300 mg capsule 300 mg PO TID Pain 30 days 11/22/18
[2022-10-04 18:44] VITALS: BP 115/60; PULSE 58; RESP 18; TEMP 36.6; O2SAT 98; BMI 29.0
[2022-10-04 19:11] VITALS: BP 115/60; PULSE 58; RESP 18; TEMP 36.6
[2022-10-04 19:46] LABS: Coronavirus 19, PCR Not Detected (NotDetected); Influenza A, PCR Not Detected (NotDetected); Influenza B, PCR Not Detected (NotDetected)
== END 2022-10-04 19:17 | disposition home or self-care (01) ==
PROVIDERS: Emergency Provider Nurse Practitioner Family; PCP Family Medicine
DX: J02.9 Acute pharyngitis, unspecified (principal); R50.9 Fever, unspecified; M79.10 Myalgia, unspecified site; R09.81 Nasal congestion; R11.2 Nausea with vomiting, unspecified; Z20.822 Contact with and (suspected) exposure to COVID-19; I10 Essential (primary) hypertension; K21.9 Gastro-esophageal reflux disease without esophagitis; E78.5 Hyperlipidemia, unspecified; E03.9 Hypothyroidism, unspecified; M54.2 Cervicalgia; G89.29 Other chronic pain; J45.30 Mild persistent asthma, uncomplicated; Z79.1 Long term (current) use of non-steroidal anti-inflammatories (NSAID); Z79.51 Long term (current) use of inhaled steroids; Z79.52 Long term (current) use of systemic steroids; Z79.899 Other long term (current) drug therapy; Z82.49 Family history of ischemic heart disease and other diseases of the circulatory system; Z82.5 Family history of asthma and other chronic lower respiratory diseases; Z80.9 Family history of malignant neoplasm, unspecified; Z84.1 Family history of disorders of kidney and ureter; Z79.890 Hormone replacement therapy
CPT/HCPCS: 96372; 99213; C9803; G0463; J0696; U0003; U0005

== ENCOUNTER 2023-02-21 15:40 | Emergency (ER) | payer MEDICARE, OTHER, SELFPAY ==
[2023-02-21 16:00] VITALS: BP 120/62; PULSE 75; RESP 18; TEMP 37.1; O2SAT 98; BMI 29.3
[2023-02-21 16:19] LABS: UTC Strep Screen (Rapid) Negative (Negative)
--- NOTE | 2023-02-21 16:39 | EXP.UTC ---
Discharge Plan Disposition Patient Disposition: Home, Self-Care Condition: Good Prescriptions Prescriptions: New amoxicillin [amoxicillin] 875 mg tablet 875 mg PO Q12H Qty: 20 0RF methylprednisolone 4 mg Tablets,Dose Pack 4 mg PO DIRECTED Qty: 21 0RF fluconazole [Diflucan] 150 mg tablet 150 mg PO ONCE Qty: 1 2RF No Action albuterol sulfate 90 mcg/actuation aero powdr breath act w/sensor 90 mcg INHALATION TIDP PRN (Reason: asthma) Qty: 1 3RF ondansetron 4 mg tablet,disintegrating 4 mg PO Q8H PRN (Reason: nausea and vomiting) Qty: 30 0RF albuterol sulfate 2.5 mg /3 mL (0.083 %) solution for nebulization 2.5 mg inhalation ONCE PRN fluticasone propionate 50 mcg/actuation spray,suspension 1 spray intranasal DAILY montelukast 10 mg tablet 10 mg PO HS 90 Days Qty: 90 2RF baclofen 10 mg tablet 10 mg PO BID PRN (Reason: PAIN) 30 Days Label Comments: TK 1 T PO Q 12 H gabapentin 300 mg capsule 300 mg PO TID 30 Days Label Comments: TK 1 C PO Q 8 H hydrocodone-acetaminophen 7.5-325 mg tablet 1 tab PO QID 30 Days lidocaine 5 % adhesive patch,medicated 1 patch TRANSDERMA BID PRN (Reason: PAIN) 7 Days Qty: 30 Label Comments: APPLY ONE PATCH Q 12 H AND LEAVE OFF FOR 12 H Nucala 100 mg/mL auto-injector 100 mg SQ Q4W Advair HFA 230-21 mcg/actuation HFA aerosol inhaler 2 puff IH BID metoprolol succinate 25 mg tablet extended release 24 hr 37.5 mg PO DAILY 180 Days Qty: 270 3RF bisacodyl 5 MG tablet,delayed release (DR/EC) 5 mg PO DAILYP PRN (Reason: bowels) zolpidem 10 MG tablet 10 mg PO HS PRN (Reason: Sleep) levocetirizine 5 MG tablet 5 mg PO DAILY azelastine 137 MCG/0.137 ML bottle 137 mcg NS BID ibuprofen 800 mg tablet See Rx Instructions .ROUTE .COMPLEX Rx Instructions: TAKE 1 TABLET THREE TIMES A DAY NEEDED FOR PAIN levothyroxine [Synthroid] 50 mcg tablet See Rx Instructions .ROUTE .COMPLEX Rx Instructions: TAKE 1 TABLET DAILY FOR THYROID pantoprazole 40 mg tablet,delayed release (DR/EC) See Rx Instructions .ROUTE .COMPLEX Rx Instructions: TAKE 1 TABLET DAILY FOR GASTROESOPHAGEAL REFLUX DISEASE simvastatin 20 mg tablet See Rx Instructions .ROUTE .COMPLEX Rx Instructions: TAKE 1 TABLET DAILY FOR CHOLESTEROL Premarin 0.625 mg tablet See Rx Instructions .ROUTE .COMPLEX Rx Instructions: two tablets every week; (DME) lancets 1 EACH misc 1 lancet SQ NEEDED Rx Instructions: As directed Referrals Follow up/Referrals: Jayden Atkinson MD [Primary Care Provider] - See instructions Activity Restrictions/Add. Instructions Additional Instructions/Restrictions: Drink plenty of fluids. Take tylenol or ibuprofen for pain or fever. Take the medications as directed. Follow up with your regular doctor. GO TO THE ER FOR ANY WORSENING SYMPTOMS Throw your tooth brush away and get a new one. Quarantine until you know the results of your covid-19 test. Notify your school or workplace of your results and follow their instructions regarding return to work/school. Don't start the oral steroids until tomorrow, since you had the shot here today. Clinical Impressions Clinical Impression: Pharyngitis Instructions Patient Instructions: DI for Pharyngitis/Tonsillopharyngitis -- Adult, Ceftriaxone Injection, Methylprednisolone Injection Discharge ED Provider: Bill Mejía [facility] General Stated complaint: sore throat, back pain Mode of Arrival: Ambulatory Source of Information: Patient Limitations: No Limitations Time Seen by Provider: 02/21/23 16:30 Description of Symptoms (Recalled from Triage Doc. by RN): sore throat, back pain HEENT Symptoms (Recalled from RN notes): Yes Resp Symptoms (Recalled from RN notes): No Skin Symptoms (Recalled from RN notes): No MS Symptoms (Recalled from R
[2023-02-21 17:33] VITALS: BP 120/62; PULSE 75; RESP 18; TEMP 37.1; O2SAT 98
== END 2023-02-21 17:33 | disposition home or self-care (01) ==
PROVIDERS: Emergency Provider Nurse Practitioner Family; PCP Family Medicine
DX: J02.9 Acute pharyngitis, unspecified (principal); M54.9 Dorsalgia, unspecified; I10 Essential (primary) hypertension; E78.5 Hyperlipidemia, unspecified; E03.9 Hypothyroidism, unspecified
CPT/HCPCS: 87880; 96372; 99212; 99214; G0463; J0696

== ENCOUNTER → 2023-04-15 15:07 | Outpatient (CLI) | payer MEDICARE, OTHER, SELFPAY ==
[2023-04-15 15:57] LABS: Basophils % 0.5 % (0.1-2.0); Eosinophils # 0.1 K/mm3 (0.0-0.4); Eosinophils % 0.9 % (0.1-12.0); Hematocrit 40.4 % (37.0-47.0); Hemoglobin 13.1 g/dL (12.2-16.2); Lymphocytes % 47.7 % (10-50); Mean Corpuscular HGB Conc 32.6 g/dL (31.8-35.4); Mean Corpuscular Hemoglobin 29.6 pg (27.0-31.2); Mean Corpuscular Volume 90.9 fl (81-99); Mean Platelet Volume 9.5 fl (7.4-10.4); Monocytes # 0.4 K/mm3 (0.1-1.0); Monocytes % 5.7 % (1.7-9.3); Neutrophils # 2.8 K/mm3 (1.8-7.8); Neutrophils % 45.2 % (37.0-80.0); Platelet Count 197 K/mm3 (142-424); Red Blood Count 4.44 M/mm3 (4.20-5.40); Red Cell Distribution Width 13.4 % (11.5-17.5); White Blood Count 6.2 K/mm3 (4.8-10.8)
[2023-04-15 16:16] LABS: Alanine Aminotransferase 86 U/L (12-78); Albumin Level 4.4 g/dl (3.5-5.0); Albumin/Globulin Ratio 1.4 (1.1-1.8); Alkaline Phosphatase 90 U/L (38-126); Anion Gap 14.5 mEq/L (5-15); Aspartate Amino Transferase 129 U/L (14-36); Bilirubin,Total 0.5 mg/dl (0.2-1.3); Blood Urea Nitrogen 12 mg/dl (7-17); Calcium 9.4 mg/dl (8.4-10.2); Carbon Dioxide 31 mmol/L (22.0-30.0); Chloride 100 mmol/L (98-107); Chol/HDL Ratio 3.5 (1-3.5); Cholesterol 188 mg/dl (140-200); Estimated Glomerular Filt Rate 99 ml/min (>60); GFR (African American) 120 ML/MIN (>60); Globulin 3.2 g/dL (1.3-3.2); Glucose 103 mg/dl (74-100); HDL Cholesterol 53 mg/dl (40-60); Potassium 4.5 mmoL/L (3.5-5.1); Sodium 141 mmol/L (136-145); Total Protein,Serum 7.6 g/dl (6.3-8.2); Triglycerides 230 mg/dl (30-150); VLDL Cholesterol 46 mg/dL (0-40)
[2023-04-15 16:27] LABS: Direct LDL Cholesterol 84.96 mg/dL (100-129)
[2023-04-15 16:35] LABS: 25-OH Vitamin D, Total 28.3 ng/mL (30-100)
[2023-04-15 16:48] LABS: Thyroid Stimulating Hormone 0.98 uIU/mL (0.465-4.68)
== END ==
PROVIDERS: PCP Family Medicine; Visit Provider Family Medicine
DX: E55.9 Vitamin D deficiency, unspecified (principal); E78.2 Mixed hyperlipidemia; R73.03 Prediabetes; E03.9 Hypothyroidism, unspecified
CPT/HCPCS: 36415; 80053; 80061; 82306; 83036; 84443; 85025

== ENCOUNTER → 2023-05-03 07:55 | Outpatient (CLI) | payer MEDICARE, OTHER, SELFPAY ==
--- NOTE | 2023-05-03 07:56 | US_ITS ---
FINAL REPORT CLINICAL HISTORY: elevated LFT s COMPARISON: None FINDINGS: Sonographic images of the right upper quadrant were obtained. The pancreas is partially obscured. There is mild fatty infiltration of the liver noted. There is echogenic material in the dependent part of the gallbladder on several images, which may represent tumefactive sludge versus stones with poor shadowing. There is no evidence of biliary ductal dilatation.The common duct measures 3 mm. Limited images of the right kidney are unremarkable. IMPRESSION: Echogenic material in the dependent portion of the gallbladder that poorly shadow, suggesting tumefactive sludge versus nonshadowing stones. Would consider repeat ultrasound for further evaluation. Fatty infiltration of the liver is present. Reviewed, Interpreted and Dictated by Marquez Graham III, MD Transcribed by Vanna Silva Authenticated and [facility]
== END ==
PROVIDERS: PCP Family Medicine; Visit Provider Family Medicine
DX: R79.89 Other specified abnormal findings of blood chemistry (principal); R94.5 Abnormal results of liver function studies
CPT/HCPCS: 76705

== ENCOUNTER → 2023-07-23 11:54 | Outpatient (CLI) | payer MEDICARE, OTHER, SELFPAY ==
[2023-07-23 13:42] LABS: 25-OH Vitamin D, Total 33.5 ng/mL (30-100)
== END ==
PROVIDERS: Nurse Practitioner; PCP Family Medicine; Visit Provider Allergy & Immunology
DX: E55.9 Vitamin D deficiency, unspecified (principal)
CPT/HCPCS: 36415; 82306

== ENCOUNTER 2023-09-09 14:59 | Emergency (ER) | payer MEDICARE, OTHER, SELFPAY ==
[2023-09-09 15:10] VITALS: BP 128/61; PULSE 66; RESP 18; TEMP 36.6; O2SAT 98; BMI 29.8
--- NOTE | 2023-09-09 15:21 | EXP.UTC ---
Discharge Plan Disposition Patient Disposition: Home, Self-Care Condition: Good Prescriptions Prescriptions: New fluconazole 150 mg tablet 150 mg PO ONCE 1 Days Qty: 1 2RF phenazopyridine [Pyridium] 200 mg tablet 200 mg PO Q8H 2 Days Qty: 6 0RF levofloxacin [levofloxacin] 500 mg tablet 500 mg PO DAILY Qty: 5 0RF methylprednisolone 4 mg Tablets,Dose Pack 4 mg PO DIRECTED Qty: 21 0RF No Action fluticasone propionate 50 mcg/actuation spray,suspension 1 spray intranasal DAILY ibuprofen 800 mg tablet See Rx Instructions .ROUTE .COMPLEX Qty: 90 6RF Rx Instructions: TAKE 1 TABLET THREE TIMES A DAY NEEDED FOR PAIN albuterol sulfate 90 mcg/actuation aero powdr breath act w/sensor 90 mcg INHALATION TIDP PRN (Reason: asthma) Qty: 4 10RF albuterol sulfate 2.5 mg /3 mL (0.083 %) solution for nebulization 2.5 mg inhalation Q4-6H PRN (Reason: shortness of breath or wheezing) Qty: 180 3RF azelastine 137 mcg (0.1 %) aerosol,spray 137 mcg NS BID Qty: 180 10RF baclofen 10 mg tablet 10 mg PO DAILY PRN (Reason: PAIN) 30 Days Qty: 90 3RF Premarin 0.625 mg tablet See Rx Instructions .ROUTE .COMPLEX Qty: 24 6RF Rx Instructions: two tablets every week; Advair HFA 230-21 mcg/actuation HFA aerosol inhaler 2 puff IH BID Qty: 72 3RF pantoprazole 40 mg tablet,delayed release (DR/EC) See Rx Instructions .ROUTE .COMPLEX Qty: 90 3RF Rx Instructions: TAKE 1 TABLET DAILY FOR GASTROESOPHAGEAL REFLUX DISEASE levocetirizine 5 mg tablet 5 mg PO DAILY Qty: 90 3RF nystatin 100,000 unit/mL suspension 5 ml PO DAILY Qty: 480 3RF Rx Instructions: swish and swallow ondansetron 4 mg tablet,disintegrating 4 mg PO Q8H PRN (Reason: nausea and vomiting) Qty: 45 6RF montelukast 10 mg tablet 10 mg PO HS 90 Days Qty: 90 2RF levothyroxine [Synthroid] 50 mcg tablet See Rx Instructions .ROUTE .COMPLEX Qty: 90 0RF Rx Instructions: TAKE 1 TABLET DAILY FOR THYROID metoprolol succinate 25 mg tablet extended release 24 hr 37.5 mg PO DAILY 180 Days Qty: 270 3RF ergocalciferol (vitamin D2) 1,250 mcg (50,000 unit) capsule 1,250 mcg PO DAILY fluticasone propion-salmeterol [Wixela Inhub] 500-50 mcg/dose blister with device 1 inh inhalation ONCE gabapentin 300 mg capsule 300 mg PO TID 30 Days Patient Comments: TK 1 C PO Q 8 H hydrocodone-acetaminophen 7.5-325 mg tablet 1 tab PO QID 30 Days lidocaine 5 % adhesive patch,medicated 1 patch TRANSDERMA BID PRN (Reason: PAIN) 7 Days Qty: 30 Patient Comments: APPLY ONE PATCH Q 12 H AND LEAVE OFF FOR 12 H Nucala 100 mg/mL auto-injector 100 mg SQ Q4W bisacodyl 5 MG tablet,delayed release (DR/EC) 5 mg PO DAILYP PRN (Reason: bowels) zolpidem 10 MG tablet 10 mg PO HS PRN (Reason: Sleep) (DME) lancets 1 EACH misc 1 lancet SQ NEEDED Rx Instructions: As directed Referrals Follow up/Referrals: Jayden Atkinson MD [Primary Care Provider] - See instructions Activity Restrictions/Add. Instructions Additional Instructions/Restrictions: Drink plenty of fluids. Take tylenol or ibuprofen for pain or fever. Take the medications as directed. Follow up with your regular doctor. GO TO THE ER FOR ANY WORSENING SYMPTOMS Don't start the oral steroids until tomorrow, since you had the shot here today. The pyridium will make your urine turn orange, this is an expected side effect. It will stain your clothes if it comes into contact with them. We will culture the urine. That will tell what bacteria is causing your infection and which antibiotics will treat it best. Sometimes the first antibiotic we prescribe turns out to not work against different bacteria. So, make sure you follow up within 3 days if you are not getting better. Clinical Impressions Clinical Impression: UTI (urinary tract infection) Instruc
[2023-09-09 15:52] LABS: Apearance,Urine Clear (Clear); Color,Urine Yellow (Yellow)
[2023-09-09 15:53] LABS: Bilirubin,Urine Negative (Negative); Blood, Urine Trace (Negative); Glucose,Urine (UA) Negative (Negative); Ketones,Urine Negative (Negative); Protein,Urine Negative (Negative); UTC Leukocyte Esterase,Urine Negative (Negative); UTC Nitrate,Urine Negative (Negative); Urobilinogen,Urine 0.2 EU/dl (0.2)
[2023-09-09 16:08] VITALS: BP 128/61; PULSE 66; RESP 18; TEMP 36.6; O2SAT 98
== END 2023-09-09 16:08 | disposition home or self-care (01) ==
PROVIDERS: Emergency Provider Nurse Practitioner Family; PCP Family Medicine
DX: N39.0 Urinary tract infection, site not specified (principal); B95.2 Enterococcus as the cause of diseases classified elsewhere; M54.59 Other low back pain; J01.90 Acute sinusitis, unspecified; R51.9 Headache, unspecified; H92.03 Otalgia, bilateral; R09.81 Nasal congestion; J45.909 Unspecified asthma, uncomplicated; I10 Essential (primary) hypertension; E78.5 Hyperlipidemia, unspecified; E03.9 Hypothyroidism, unspecified
CPT/HCPCS: 81003; 87086; 96372; 99212; 99214; G0463; J0696

== ENCOUNTER → 2023-09-26 07:54 | Outpatient (CLI) | payer MEDICARE, OTHER, SELFPAY ==
--- NOTE | 2023-09-26 07:54 | US_ITS ---
FINAL REPORT CLINICAL HISTORY: HX OF GALLSTONES COMPARISON: 05/03/2023 FINDINGS: Sonographic images of the right upper quadrant were obtained. The pancreas is partially obscured. Mild fatty infiltration of the liver is present. There are linear echogenic mural based hyperechoic foci, with poor shadowing, also present on the prior ultrasound of May 03. There is no evidence of biliary ductal dilatation.The common duct measures 5 mm. Limited images of the right kidney are unremarkable. IMPRESSION: Linear echogenic narrow based hyperechoic foci with poor acoustical shadowing, also seen on the prior ultrasound of May 03. Favor tumefactive sludge as the etiology rather than gallstones. Would recommend follow-up ultrasound in 6 to 12 months for further evaluation. Mild fatty infiltration of the liver. Reviewed, Interpreted and Dictated by Rogelio Marrero MD Transcribed by Vanna Silva Authenticated and [facility]
== END ==
PROVIDERS: PCP Family Medicine; Visit Provider Family Medicine
DX: R11.0 Nausea (principal)
CPT/HCPCS: 76705

== ENCOUNTER 2023-12-14 16:32 | Emergency (ER) | payer MEDICARE, OTHER, SELFPAY ==
[2023-12-14 16:50] VITALS: BP 144/69; PULSE 62; RESP 20; TEMP 36.4; O2SAT 98; BMI 30.7
--- NOTE | 2023-12-14 17:43 | EXP.UTC ---
Discharge Plan Disposition Patient Disposition: Home, Self-Care Condition: Good Prescriptions Prescriptions: New methylprednisolone [Medrol (Darci)] 4 mg tablets,dose pack See Rx Instructions .ROUTE .COMPLEX 6 Days Qty: 21 0RF Rx Instructions: 4 mg orally ;Medrol dose taper darci No Action fluticasone propionate 50 mcg/actuation spray,suspension 1 spray intranasal DAILY ibuprofen 800 mg tablet See Rx Instructions .ROUTE .COMPLEX Qty: 90 6RF Rx Instructions: TAKE 1 TABLET THREE TIMES A DAY NEEDED FOR PAIN albuterol sulfate 90 mcg/actuation aero powdr breath act w/sensor 90 mcg INHALATION TIDP PRN (Reason: asthma) Qty: 4 10RF azelastine 137 mcg (0.1 %) aerosol,spray 137 mcg NS BID Qty: 180 10RF Premarin 0.625 mg tablet See Rx Instructions .ROUTE .COMPLEX Qty: 24 6RF Rx Instructions: two tablets every week; Advair HFA 230-21 mcg/actuation HFA aerosol inhaler 2 puff IH BID Qty: 72 3RF pantoprazole 40 mg tablet,delayed release (DR/EC) See Rx Instructions .ROUTE .COMPLEX Qty: 90 3RF Rx Instructions: TAKE 1 TABLET DAILY FOR GASTROESOPHAGEAL REFLUX DISEASE levocetirizine 5 mg tablet 5 mg PO DAILY Qty: 90 3RF nystatin 100,000 unit/mL suspension 5 ml PO DAILY Qty: 480 3RF Rx Instructions: swish and swallow ondansetron 4 mg tablet,disintegrating 4 mg PO Q8H PRN (Reason: nausea and vomiting) Qty: 45 6RF albuterol sulfate 2.5 mg /3 mL (0.083 %) solution for nebulization 2.5 mg inhalation Q4-6H PRN (Reason: shortness of breath or wheezing) Qty: 180 3RF baclofen 10 mg tablet 10 mg PO DAILY PRN (Reason: PAIN) 30 Days Qty: 90 3RF levothyroxine [Synthroid] 50 mcg tablet See Rx Instructions .ROUTE .COMPLEX Qty: 90 0RF Rx Instructions: TAKE 1 TABLET DAILY FOR THYROID metoprolol succinate 25 mg tablet extended release 24 hr 37.5 mg PO DAILY 180 Days Qty: 270 3RF montelukast 10 mg tablet 10 mg PO HS 90 Days Qty: 90 2RF ergocalciferol (vitamin D2) 1,250 mcg (50,000 unit) capsule 1,250 mcg PO DAILY fluticasone propion-salmeterol [Wixela Inhub] 500-50 mcg/dose blister with device 1 inh inhalation ONCE gabapentin 300 mg capsule 300 mg PO TID 30 Days Patient Comments: TK 1 C PO Q 8 H hydrocodone-acetaminophen 7.5-325 mg tablet 1 tab PO QID 30 Days lidocaine 5 % adhesive patch,medicated 1 patch TRANSDERMA BID PRN (Reason: PAIN) 7 Days Qty: 30 Patient Comments: APPLY ONE PATCH Q 12 H AND LEAVE OFF FOR 12 H Nucala 100 mg/mL auto-injector 100 mg SQ Q4W bisacodyl 5 MG tablet,delayed release (DR/EC) 5 mg PO DAILYP PRN (Reason: bowels) (DME) lancets 1 EACH misc 1 lancet SQ NEEDED Rx Instructions: As directed Referrals Follow up/Referrals: Jayden Atkinson MD [Primary Care Provider] - See instructions Clinical Impressions Clinical Impression: Sinusitis, acute frontal Qualifiers: Recurrence: not specified as recurrent Qualified Code(s): J01.10 - Acute frontal sinusitis, unspecified Instructions Patient Instructions: DI for Sinusitis Discharge ED Provider: Amanda Lugo [facility] General Stated complaint: ear pain in both ears, headache , runny nose Mode of Arrival: Ambulatory Source of Information: Patient Limitations: No Limitations Time Seen by Provider: 12/14/23 17:42 Description of Symptoms (Recalled from Triage Doc. by RN): PATIENT C/O BILATERAL EAR PAIN/FULLNESS, HEADACHE, AND RUNNY NOSE X 5 DAYS HEENT Symptoms (Recalled from RN notes): Yes Resp Symptoms (Recalled from RN notes): No Skin Symptoms (Recalled from RN notes): No MS Symptoms (Recalled from RN notes): No Functional Status (Recalled from RN notes): WNL History of Present Illness Provider Complaint: Pt relates that she has had a horrible headache with ear pain and a runny nose for 5 days. She takes pain medication as prescribed, but relates that she is not getting any relief. Related Data Home Medications Medication Instructions Recorded Confirmed gabapentin 300 mg capsule 300 mg PO TID Pain 30 days 11/22/18 11/21/23 hydrocodone 7.5 mg-acetaminophen 1 tab PO QID Pain 30 days 11/22/18 11/21/23 325 mg tablet lidocaine 5 % topical patch 1 patch transdermal BID PRN PAIN 7 11/22/18 11/21/23 days #30 ea bisacodyl 5 mg tablet,delayed 5 mg PO DAILYP PRN bowels 07/28/20 11/21/23 release mepolizumab 100 mg/mL subcutaneous 100 mg SQ Q4W ASTHMA; ALLERGIES 08/02/21 11/21/23 auto-injector (Nucala) lancets 02/07/22 11/21/23 fluticasone propionate 50 1 spray intranasal DAILY allergies 07/10/22 11/21/23 mcg/actuation nasal spray,suspension ergocalciferol (vitamin D2) 1,250 1,250 mcg PO DAILY 08/15/23 11/21/23 mcg (50,000 unit) capsule fluticasone 500 mcg-salmeterol 50 1 inh inhalation ONCE 08/15/23 11/21/23 mcg/dose blistr powdr for inhalation (Wixela Inhub) Previous Rx's Medication Instructions Recorded albuterol sulfate 90 mcg/actuation 90 mcg inhalation TIDP PRN asthma 04/16/23 breath activated powder #4 ea inhaler,sensor azelastine 137 mcg (0.1 %) nasal 137 mcg (0.137 mL) intranasal BID 04/16/23 spray aerosol Asthma #180 mL conjugated estrogens 0.625 mg See Rx Instructions .Route 04/16/23 tablet (Premarin) .COMPLEX . #24 tabs fluticasone propionate 230 2 puff inhalation BID . #72 grams 04/16/23 mcg-salmeterol 21 mcg/actuation HFA inhaler (Advair HFA) ibuprofen 800 mg tablet See Rx Instructions .Route 04/16/23 .COMPLEX . #90 tabs levocetirizine 5 mg tablet 5 mg PO DAILY Allergy symptoms #90 04/16/23 tabs nystatin 100,000 unit/mL oral 5 ml PO DAILY #480 mL 04/16/23 suspension pantoprazole 40 mg tablet,delayed See Rx Instructions .Route 04/16/23 release .COMPLEX gerd #90 tabs ondansetron 4 mg disintegrating 4 mg PO Q8H PRN nausea and 05/29/23 tablet vomiting #45 tabs albuterol sulfate 2.5 mg/3 mL 2.5 mg (3 mL) inhalation Q4-6H PRN 09/23/23 (0.083 %) solution for nebulization shortness of breath or wheezing #180 mL baclofen 10 mg tablet 10 mg PO DAILY PRN PAIN 30 days 09/23/23 #90 tabs levothyroxine 50 mcg tablet See Rx Instructions .Route 09/23/23 (Synthroid) .COMPLEX thyroid #90 tabs metoprolol succinate 25 mg 37.5 mg PO DAILY Hypertension 6 09/23/23 tablet,extended release 24 hr months #270 tabs montelukast 10 mg tablet 10 mg PO HS ALLERGIES 90 days #90 09/23/23 tabs methylprednisolone 4 mg tablets in See Rx Instructions .Route 12/14/23 a dose pack (Medrol (Darci)) .COMPLEX 6 days #21 tabs Allergies Allergy/AdvReac Type Severity Reaction Status Date / Time No Known Allergies Allergy Verified 11/21/23 13:53 Worker's Comp Is this a Worker's Comp case?: No [facility] Disclaimer: The information contained in this section may have been updated after the patient was seen, as this information can be updated by other users. Medical History Allergic rhinitis, unspecified Asthma Basal cell carcinoma of helix Chronic neck pain Dyspnea on exertion Hyperlipidemia Hypertension Hypothyroidism Severe persistent asthma Surgical History History of arthroscopy of shoulder History of cataract surgery History of hysterectomy History of placement of ear tubes Previous back surgery Family History Other Asthma Cancer Coronary artery disease Kidney disease Stroke Social History Smoking Status: Never smoker second hand exposure: Yes alcohol intake: never substance use type: denies use current occupational status: disabled Travel in the last 8 weeks: None household members: spouse housing: house current occupational exposures/hazards: No caffeine: No ROS Obtained: Yes All systems reviewed & no additional complaints except as documented Constitutional Constitutional: Reports system reviewed and no additional complaints, except as documented and Reports headache(s) Eyes Eyes: Reports system reviewed and no additional complaints, except as documented ENT Ears, Nose, Mouth, and Throat: Reports system reviewed and no additional complaints, except as documented, Reports headache(s), Reports nasal discharge, Reports sinus pain and Reports sinus pressure Cardiovascular Cardiovascular: Reports system reviewed and no additional complaints, except as documented Respiratory Respiratory: Reports system reviewed and no additional complaints, except as documented Gastrointestinal Gastrointestingal: Reports system reviewed and no additional complaints, except as documented Genitourinary Female Genitourinary: Reports system reviewed and no additional complaints, except as documented Musculoskeletal Musculoskeletal: Reports system reviewed and no additional complaints, except as documented Integumentary/Breasts Skin/Breast: Reports system reviewed and no additional complaints, except as documented Neurologic Neurologic: Reports system reviewed and no additional complaints, except as documented and Reports headache(s) Endocrine Endocrine: Reports system reviewed and no additional complaints, except as documented Hematologic/Lymphatic Henatologic/Lymphatic: Reports system reviewed and no additional complaints, except as documented Allergic/Immunologic Allergic/Immunologic: Reports system reviewed and no additional complaints, except as documented Physical Exam General General appearance: alert and in no apparent distress Head Head exam: atraumatic and normocephalic Eye Eye exam: Present normal appearance ENT ENT exam: Present mucous membranes moist Expanded ENT Exam External ear exam: Present normal external inspection TM/Canal exam: Bilateral TM: foreign body (Tubes present and patent) Nose exam: Present sinus tenderness (frontal lobe) Nasal speculum exam: Bilateral: other (clear drainage noted) Mouth exam: Present normal external inspection Teeth exam: Present normal inspection Throat exam: Present normal inspection Neck Neck exam: Present normal inspection Chest Chest inspection: Present normal inspection and symmetric chest wall rise Respiratory Respiratory exam: Present normal lung sounds bilaterally Cardiovascular Cardiovascular exam: Present regular rate and normal rhythm Abdominal Exam Abdominal exam: Present soft and normal bowel sounds Extremities Exam Extremities exam: Present normal inspection Back Exam Back exam: Present normal inspection Neurological Exam Neurological exam: Present alert Psychiatric Psychiatric exam: Present normal affect and normal mood Skin Skin exam: Present warm, dry and intact Lymphatic Lymphatic Findings: no adenopathy Medical Decision Making Mario Inquiry Pt receiving controlled substance: No Mario was queried for this patient: No Vital Signs: 12/14/23 16:50 Temperature 97.6 F Temperature Source Oral Pulse Rate [Left Brachial] 62 Respiratory Rate 20 Blood Pressure [Left Arm] 144/69 H Blood Pressure Mean [Left Arm] 94 Blood Pressure Source [Left Arm] Automatic Cuff Blood Pressure Position [Left Arm] Sitting 02 Sat by Pulse Oximetry 98 Oxygen Delivery Method Room Air
[2023-12-14 17:55] VITALS: BP 144/69; PULSE 62; RESP 20; TEMP 36.4; O2SAT 98
== END 2023-12-14 17:58 | disposition home or self-care (01) ==
PROVIDERS: Emergency Provider Nurse Practitioner Family; PCP Family Medicine
DX: J01.10 Acute frontal sinusitis, unspecified (principal); R51.9 Headache, unspecified; R09.81 Nasal congestion; I10 Essential (primary) hypertension; E78.5 Hyperlipidemia, unspecified; E03.9 Hypothyroidism, unspecified
CPT/HCPCS: 99212; 99214; G0463

== ENCOUNTER 2024-01-02 13:33 | Emergency (ER) | payer MEDICARE, OTHER, SELFPAY ==
[2024-01-02 13:45] VITALS: BP 138/66; PULSE 63; RESP 20; TEMP 36.6; O2SAT 96; BMI 29.9
--- NOTE | 2024-01-02 14:15 | EXP.UTC ---
Discharge Plan Disposition Patient Disposition: Home, Self-Care Condition: Good Prescriptions Prescriptions: New amoxicillin 500 mg capsule 500 mg PO TID 7 Days Qty: 21 0RF No Action fluticasone propionate 50 mcg/actuation spray,suspension 1 spray intranasal DAILY ibuprofen 800 mg tablet See Rx Instructions .ROUTE .COMPLEX Qty: 90 6RF Rx Instructions: TAKE 1 TABLET THREE TIMES A DAY NEEDED FOR PAIN azelastine 137 mcg (0.1 %) aerosol,spray 137 mcg NS BID Qty: 180 10RF Premarin 0.625 mg tablet See Rx Instructions .ROUTE .COMPLEX Qty: 24 6RF Rx Instructions: two tablets every week; Advair HFA 230-21 mcg/actuation HFA aerosol inhaler 2 puff IH BID Qty: 72 3RF pantoprazole 40 mg tablet,delayed release (DR/EC) See Rx Instructions .ROUTE .COMPLEX Qty: 90 3RF Rx Instructions: TAKE 1 TABLET DAILY FOR GASTROESOPHAGEAL REFLUX DISEASE levocetirizine 5 mg tablet 5 mg PO DAILY Qty: 90 3RF nystatin 100,000 unit/mL suspension 5 ml PO DAILY Qty: 480 3RF Rx Instructions: swish and swallow ondansetron 4 mg tablet,disintegrating 4 mg PO Q8H PRN (Reason: nausea and vomiting) Qty: 45 6RF albuterol sulfate 2.5 mg /3 mL (0.083 %) solution for nebulization 2.5 mg inhalation Q4-6H PRN (Reason: shortness of breath or wheezing) Qty: 180 3RF baclofen 10 mg tablet 10 mg PO DAILY PRN (Reason: PAIN) 30 Days Qty: 90 3RF metoprolol succinate 25 mg tablet extended release 24 hr 37.5 mg PO DAILY 180 Days Qty: 270 3RF ergocalciferol (vitamin D2) 1,250 mcg (50,000 unit) capsule 1,250 mcg PO DAILY fluticasone propion-salmeterol [Wixela Inhub] 500-50 mcg/dose blister with device 1 inh inhalation ONCE gabapentin 300 mg capsule 300 mg PO TID 30 Days Patient Comments: TK 1 C PO Q 8 H hydrocodone-acetaminophen 7.5-325 mg tablet 1 tab PO QID 30 Days lidocaine 5 % adhesive patch,medicated 1 patch TRANSDERMA BID PRN (Reason: PAIN) 7 Days Qty: 30 Patient Comments: APPLY ONE PATCH Q 12 H AND LEAVE OFF FOR 12 H Nucala 100 mg/mL auto-injector 100 mg SQ Q4W montelukast 10 mg tablet 10 mg PO HS 90 Days Qty: 90 2RF fexofenadine [Allergy Relief (fexofenadine)] 180 mg tablet 180 mg PO DAILY Qty: 90 0RF albuterol sulfate 90 mcg/actuation aero powdr breath act w/sensor 90 mcg INHALATION TIDP PRN (Reason: asthma) Qty: 4 10RF levothyroxine [Synthroid] 50 mcg tablet See Rx Instructions .ROUTE .COMPLEX Qty: 90 0RF Rx Instructions: TAKE 1 TABLET DAILY FOR THYROID bisacodyl 5 MG tablet,delayed release (DR/EC) 5 mg PO DAILYP PRN (Reason: bowels) methylprednisolone [Medrol (Darci)] 4 mg tablets,dose pack See Rx Instructions .ROUTE .COMPLEX 6 Days Qty: 21 0RF Rx Instructions: 4 mg orally ;Medrol dose taper darci (DME) lancets 1 EACH misc 1 lancet SQ NEEDED Rx Instructions: As directed Referrals Follow up/Referrals: Jayden Atkinson MD [Primary Care Provider] - See instructions Activity Restrictions/Add. Instructions Additional Instructions/Restrictions: Start oral antibiotic tomorrow Use prescribed ear drops as prescribed Follow up with your Family Doctor and ENT for further evaluation and treatment Clinical Impressions Clinical Impression: Otitis media Qualifiers: Otitis media type: suppurative Chronicity: acute Laterality: right Recurrence: not specified as recurrent Spontaneous tympanic membrane rupture: without spontaneous rupture Qualified Code(s): H66.001 - Acute suppurative otitis media without spontaneous rupture of ear drum, right ear Instructions Patient Instructions: Middle Ear Infection Discharge ED Provider: Leigh Hopper [facility] General Stated complaint: Pain in both ears, headache Mode of Arrival: Ambulatory Source of Information: Patient Limitations: No Limitations Time Seen by Provider: 01/02/24 14:15 Description of Symptoms (Recalled from Triage Doc. by RN): PATIENT C/O EAR PAIN AND HEADACHE X 3-4 WEEKS HEENT Symptoms (Recalled from RN notes): Yes Resp Symptoms (Recalled from RN notes): No Skin Symptoms (Recalled from RN notes): No MS Symptoms (Recalled from RN notes): No Functional Status (Recalled from RN notes): WNL History of Present Illness Provider Complaint: Patient states that she has been having pain in both ears worse in her right that causes her to have a headache at times States that if she uses her ear drops she doesnt have a headache but is she doesnt use it the congestion and pressure builds up and causes her head to hurt Related Data Home Medications Medication Instructions Recorded Confirmed gabapentin 300 mg capsule 300 mg PO TID Pain 30 days 11/22/18 11/21/23 hydrocodone 7.5 mg-acetaminophen 1 tab PO QID Pain 30 days 11/22/18 11/21/23 325 mg tablet lidocaine 5 % topical patch 1 patch transdermal BID PRN PAIN 7 11/22/18 11/21/23 days #30 ea bisacodyl 5 mg tablet,delayed 5 mg PO DAILYP PRN bowels 07/28/20 11/21/23 release mepolizumab 100 mg/mL subcutaneous 100 mg SQ Q4W ASTHMA; ALLERGIES 08/02/21 11/21/23 auto-injector (Nucala) lancets 02/07/22 11/21/23 fluticasone propionate 50 1 spray intranasal DAILY allergies 07/10/22 11/21/23 mcg/actuation nasal spray,suspension ergocalciferol (vitamin D2) 1,250 1,250 mcg PO DAILY 08/15/23 11/21/23 mcg (50,000 unit) capsule fluticasone 500 mcg-salmeterol 50 1 inh inhalation ONCE 08/15/23 11/21/23 mcg/dose blistr powdr for inhalation (Wixela Inhub) Previous Rx's Medication Instructions Recorded azelastine 137 mcg (0.1 %) nasal 137 mcg (0.137 mL) intranasal BID 04/16/23 spray aerosol Asthma #180 mL conjugated estrogens 0.625 mg See Rx Instructions .Route 04/16/23 tablet (Premarin) .COMPLEX . #24 tabs fluticasone propionate 230 2 puff inhalation BID . #72 grams 04/16/23 mcg-salmeterol 21 mcg/actuation HFA inhaler (Advair HFA) ibuprofen 800 mg tablet See Rx Instructions .Route 04/16/23 .COMPLEX . #90 tabs levocetirizine 5 mg tablet 5 mg PO DAILY Allergy symptoms #90 04/16/23 tabs nystatin 100,000 unit/mL oral 5 ml PO DAILY #480 mL 04/16/23 suspension pantoprazole 40 mg tablet,delayed See Rx Instructions .Route 04/16/23 release .COMPLEX gerd #90 tabs ondansetron 4 mg disintegrating 4 mg PO Q8H PRN nausea and 05/29/23 tablet vomiting #45 tabs albuterol sulfate 2.5 mg/3 mL 2.5 mg (3 mL) inhalation Q4-6H PRN 09/23/23 (0.083 %) solution for nebulization shortness of breath or wheezing #180 mL baclofen 10 mg tablet 10 mg PO DAILY PRN PAIN 30 days 09/23/23 #90 tabs metoprolol succinate 25 mg 37.5 mg (1.5 x 25 mg) PO DAILY 09/23/23 tablet,extended release 24 hr Hypertension 6 months #270 tabs methylprednisolone 4 mg tablets in See Rx Instructions .Route 12/14/23 a dose pack (Medrol (Darci)) .COMPLEX 6 days #21 tabs montelukast 10 mg tablet 10 mg PO HS ALLERGIES 90 days #90 12/27/23 tabs fexofenadine 180 mg tablet 180 mg PO DAILY #90 tabs 01/01/24 (Allergy Relief (fexofenadine)) albuterol sulfate 90 mcg/actuation 90 mcg inhalation TIDP PRN asthma 01/02/24 breath activated powder #4 ea inhaler,sensor amoxicillin 500 mg capsule 500 mg PO TID 7 days #21 caps 01/02/24 levothyroxine 50 mcg tablet See Rx Instructions .Route 01/02/24 (Synthroid) .COMPLEX thyroid #90 tabs Allergies Allergy/AdvReac Type Severity Reaction Status Date / Time No Known Allergies Allergy Verified 11/21/23 13:53 Worker's Comp Is this a Worker's Comp case?: No [facility] Disclaimer: The information contained in this section may have been updated after the patient was seen, as this information can be updated by other users. Medical History Allergic rhinitis, unspecified Asthma Basal cell carcinoma of helix Chronic neck pain Dyspnea on exertion Hyperlipidemia Hypertension Hypothyroidism Severe persistent asthma Surgical History History of arthroscopy of shoulder History of cataract surgery History of hysterectomy History of placement of ear tubes Previous back surgery Family History Other Asthma Cancer Coronary artery disease Kidney disease Stroke Social History Smoking Status: Never smoker second hand exposure: Yes alcohol intake: never substance use type: denies use current occupational status: disabled Travel in the last 8 weeks: None household members: spouse housing: house current occupational exposures/hazards: No caffeine: No ROS Obtained: Yes All systems reviewed & no additional complaints except as documented and Yes Systems reviewed as appropriate & no additional complaints except as documented Constitutional Constitutional: Reports system reviewed and no additional complaints, except as documented, Reports as per HPI and Reports headache(s) ENT Ears, Nose, Mouth, and Throat: Reports system reviewed and no additional complaints, except as documented, Reports as per HPI, Reports otalgia and Reports headache(s) Cardiovascular Cardiovascular: Reports system reviewed and no additional complaints, except as documented and Reports as per HPI Respiratory Respiratory: Reports system reviewed and no additional complaints, except as documented and Reports as per HPI Gastrointestinal Gastrointestingal: Reports system reviewed and no additional complaints, except as documented and as per HPI Neurologic Neurologic: Reports headache(s) Physical Exam General General appearance: alert and in no apparent distress ENT ENT exam: Present mucous membranes moist Expanded ENT Exam TM/Canal exam: Right TM: erythema (tube noted) Respiratory Respiratory exam: Present normal lung sounds bilaterally; Absent respiratory distress or wheezes Cardiovascular Cardiovascular exam: Present regular rate, normal rhythm and normal heart sounds Neurological Exam Neurological exam: Present alert, oriented X3 and normal gait Medical Decision Making Mario Inquiry Pt receiving controlled substance: No Mario was queried for this patient: No Vital Signs: 01/02/24 13:45 Temperature 97.8 F Temperature Source Oral Pulse Rate [Right Brachial] 63 Respiratory Rate 20 Blood Pressure [Right Arm] 138/66 Blood Pressure Mean [Right Arm] 90 Blood Pressure Source [Right Arm] Automatic Cuff Blood Pressure Position [Right Arm] Sitting 02 Sat by Pulse Oximetry 96 Oxygen Delivery Method Room Air Medical Decision Narrative: Requesting injection
[2024-01-02 14:17] VITALS: BP 138/66; PULSE 63; RESP 20; TEMP 36.6; O2SAT 96
[2024-01-02] MEDS: LIDOCAINE 1% 5ML PF VIAL IM (14:36)
[2024-01-02] MEDS: cefTRIAXone 1GM VIAL 1 GM IM (14:36)
== END 2024-01-02 14:53 | disposition home or self-care (01) ==
PROVIDERS: Emergency Provider Nurse Practitioner; PCP Family Medicine
DX: H66.001 Acute suppurative otitis media without spontaneous rupture of ear drum, right ear (principal); R51.9 Headache, unspecified; R09.81 Nasal congestion; I10 Essential (primary) hypertension; E78.5 Hyperlipidemia, unspecified; E03.9 Hypothyroidism, unspecified
CPT/HCPCS: 96372; 99212; 99214; G0463; J0696

== ENCOUNTER 2024-03-09 07:30 | Outpatient (CLI) | payer MEDICARE, OTHER, SELFPAY ==
[2024-03-09] VITALS (7 sets, daily range): BP systolic 91–147; BP diastolic 50–79; PULSE 55–68; RESP 16–18; TEMP 36.6; O2SAT 97–98; BMI 30.7
--- NOTE | 2024-03-09 07:30 | CT_ITS ---
APPROVED REPORT [employer] Executive Director: CLINICAL INDICATION Chest Pain TECHNIQUE Image Acquisition: A 128 slice MDCT scanner ([employer]a View) was used for data acquisition. A noncontrast coronary calcium scan was performed. A CT attenuation threshold of 130 Hounsfield units (HU) was used for the detection of calcium in contiguous voxels of 1 sq mm in area to be counted as individual lesions. Bolus tracking in the ascending aorta with a threshold of 180 HU was performed. Immediately afterwards, ECG synchronized cardiac CT was then performed from the cardiac base to apex using retrospective gating with ECG tube current modulation. A total of 85 mL of Isovue 370 mg/mL contrast medium was administered at 5 mL/sec followed by a saline flush using a biphasic injection protocol. A tube voltage of 120 KVp was used. The patient received the following medications prior to the cardiac CT. 25 mg of oral metoprolol 0.8 mg of sublingual nitroglycerin The average heart rate at the time of acquisition was 49 bpm and regular. Image Reconstruction Transaxial images were reconstructed at 0.67 mm slide thickness. Data was reviewed interactively on an advanced workstation capable of 2 and 3-dimensional displays in all conventional reconstruction formats, including multiplanar reformations, maximum intensity projections, curved multiplanar reformations, and volume rendered reconstructions. When applicable, selected routine images describing the relevant coronary anatomy and pathology were saved and sent to PACS. Complications None Technical Quality Overall image quality was good. Coronary artery opacification was adequate. Total DLP (Dose-Length Product) is 3165.5 mGy-cm. The reported value represents the total of one or more individual components during the CT acquisition of this date and at this time, and as such, the same value may appear in more than one CT report depending on the interpreting/reporting physicians. COMPARISON None FINDINGS CT Coronary Calcium Scoring LMA (Left Main Artery) = 0 LAD (Left Anterior Descending) = 89 LCX (Left Coronary Circumflex) = 40 RCA (Right Coronary Artery) = 47 Total Calcium Score = 176 using the AJ-130 method. The observed calcium score of 176 is at 82nd percentile for subjects of the same age, sex, and race/ethnicity. The interpretation of the calcium heart score is based on the following continuum*: 0 = no calcified plaque detected (risk of coronary artery disease is very low ??? less than 5%) 1-10 = calcium detected in extremely minimal levels (risk of coronary diseases is still low ??? less than 10%) 11-100 = mild levels of plaque detected with certainty (mild or minimal narrowing of heart arteries is likely) 101-400 = definite,at least moderate levels of plaque detected (relatively high risk of a heart attack within 3-5 years) >401-999 = extensive levels of plaque detected (high risk of heart attack, high levels of vascular disease are present, high likelihood of at least one significant coronary narrowing) *The calcium heart score quantifies the burden of coronary calcification/plaque in the coronary arteries. The calcium heart score is not able to evaluate the presence or burden of non-calcified (i.e. soft) plaque. There is also calcification in the ascending and descending thoracic aorta. Coronary CT Angiography The coronary arterial system is right dominant. Quantitative Stenosis Grading: Left Main (LM): The left main originates normally from the left sinus of Valsalva. The LM bifurcates into the left anterior descending artery and left circumflex artery. The LM is patent with no evidence of atherosclerosis. Left Anterior Descending (LAD) and Diagonal Branches: The LAD gives off 2 diagonal branch(es). There is mixed calcified/noncalcified plaque in the proximal LAD and first diagonal branch, with 25-49% luminal stenosis. There is no evidence of LAD-myocardial bridge. Left Circumflex (LCX) and Obtuse Marginals (OM): The LCX gives off 2 Obtuse Marginal (OM) branch(es). There is mixed calcified/noncalcified plaque in the proximal LCx, with 25-49% luminal stenosis. Right Coronary Artery (RCA): The RCA originates normally from the right sinus of Valsalva. The RCA gives off a posterior descending artery (PDA) and posterolateral (PL) branches. There is calcified plaque noted in the proximal RCA, with no luminal stenosis. Non-Coronary Cardiac Findings: Analysis of the left ventricular (LV) structure and function was performed after 3-D reconstruction of the LV from axial images, with user-corrected automatic contouring for assessment of LV volumes and user-defined reconstruction from oblique planes for measurement of 3-D cardiac structure and function. -The left ventricle systolic function is normal. -There is no left atrial appendage filling defect. Two right pulmonary veins and two left pulmonary veins drain normally into the left atrium. -No pericardial thickening or calcification. -Central and branch pulmonary arteries in the [id number] are unremarkable. -Thoracic aorta within the visualized thoracic aortic-branches in the [id number] is unremarkable. Extracardiac Structures No significant extra-cardiac findings. Note, however, that this study is focused on the cardiac findings. IMPRESSION -Presence of coronary calcification with an Agatston score = 176 using the AJ-130 method. -The observed calcium score of 176 is at 82nd percentile for subjects of the same age, sex, and race/ethnicity. -Multivessel atherosclerosis present, but no evidence of significant flow-limiting atherosclerosis of the coronary arteries. -CAD-RADS 2 . Management recommendations per ACC/AHA guidelines*, as clinically appropriate. *Recommendations: CAD RADS 0: Reassurance. Consider non-atherosclerotic causes of chest pain. CAD RADS 1: Consider non-atherosclerotic causes of chest pain. Consider preventive therapy and risk factor modification. CAD RADS 2: Consider non-atherosclerotic causes of chest pain. Consider preventive therapy and risk factor modification, particularly for patients with nonobstructive plaque in multiple segments. CAD RADS 3: Consider further functional testing. Consider symptom-guided anti-ischemic and preventive pharmacotherapy as well as risk factor modification per published guideline statements. CAD RADS 4A: Consider further functional testing or invasive coronary angiography with revascularization per published guideline statements. Consider symptom-guided anti-ischemic and preventive pharmacotherapy as well as risk factor modification per published guideline statements. CAD RADS 4B: Invasive coronary angiography recommended with revascularization per published guideline statements. Consider symptom-guided anti-ischemic and preventive pharmacotherapy as well as risk factor modification per published guideline statements. CAD RADS 5: Consider invasive angiography and/or viability assessment with revascularization per published guideline statements. Consider symptom-guided anti-ischemic and preventive pharmacotherapy as well as risk factor modification per published guideline statements. CRITICAL RESULT None COMMUNICATION Per this written report The coronary and cardiac findings of this CCTA were reviewed, reported, and signed by Castillo Carreon MD (Truck Driver Instructor) Conclusion Electronically signed by : Earnestine Carreon MD 03/11/2024 12:40:15
[2024-03-09] MEDS: METOPROLOL TARTRATE 25MG TABLET 25 MG (07:59)
[2024-03-09 08:11] LABS: Blood Urea Nitrogen 13 mg/dl (7-17); Calcium 9.2 mg/dl (8.4-10.2); Carbon Dioxide 32 mmol/L (22.0-30.0); Chloride 100 mmol/L (98-107); Creatinine Clearance Estimated 72 mL/min (50-200); Estimated Glomerular Filt Rate 62 ml/min (>60); GFR (African American) 75 ML/MIN (>60); Glucose 103 mg/dl (74-100); Sodium 140 mmol/L (136-145)
[2024-03-09] MEDS: NITROGLYCERIN 0.4MG SL TABLET SL (08:40)
[2024-03-09] MEDS: 0.9 % SODIUM CHLORIDE 50 ML VIAL IV (08:51)
[2024-03-09] MEDS: SODIUM CHLORIDE 0.9% 10ML SYR (RAD ONLY) 10 ML IV (08:51)
[2024-03-09] MEDS: IOPAMIDOL-370 (76%);100ML BOTTLE 85 ML IV (08:51)
== END 2024-03-09 09:20 | disposition home or self-care (01) ==
PROVIDERS: PCP Family Medicine; Visit Provider Nurse Practitioner Family
DX: R07.89 Other chest pain (principal); Z13.6 Encounter for screening for cardiovascular disorders
CPT/HCPCS: 75571; 75574; 80048; Q9967

== ENCOUNTER 2024-03-19 09:44 | Outpatient (CLI) | payer MEDICARE, OTHER, SELFPAY ==
[2024-03-19 10:10] LABS: Basophils % 0.7 % (0.1-2.0); Eosinophils # 0.1 K/mm3 (0.0-0.4); Eosinophils % 0.8 % (0.1-12.0); Hematocrit 41.9 % (37.0-47.0); Hemoglobin 13.4 g/dL (12.2-16.2); Lymphocytes # 2.9 K/mm3 (0.7-4.5); Lymphocytes % 46.4 % (10-50); Mean Corpuscular Hemoglobin 30.4 pg (27.0-31.2); Mean Corpuscular Volume 94.8 fl (81-99); Mean Platelet Volume 10.8 fl (7.4-10.4); Monocytes # 0.4 K/mm3 (0.1-1.0); Monocytes % 5.7 % (1.7-9.3); Neutrophils # 2.9 K/mm3 (1.8-7.8); Neutrophils % 46.4 % (37.0-80.0); Platelet Count 201 K/mm3 (142-424); Red Blood Count 4.42 M/mm3 (4.20-5.40); White Blood Count 6.2 K/mm3 (4.8-10.8)
[2024-03-19 11:39] LABS: Alanine Aminotransferase 46 U/L (12-78); Albumin Level 4.1 g/dl (3.5-5.0); Albumin/Globulin Ratio 1.2 (1.1-1.8); Alkaline Phosphatase 84 U/L (38-126); Aspartate Amino Transferase 70 U/L (14-36); Bilirubin,Total 0.4 mg/dl (0.2-1.3); Blood Urea Nitrogen 12 mg/dl (7-17); Calcium 9.5 mg/dl (8.4-10.2); Carbon Dioxide 33 mmol/L (22.0-30.0); Chloride 100 mmol/L (98-107); Chol/HDL Ratio 5.1 (1-3.5); Cholesterol 277 mg/dl (140-200); Estimated Glomerular Filt Rate 71 ml/min (>60); GFR (African American) 86 ML/MIN (>60); Globulin 3.5 g/dL (1.3-3.2); Glucose 104 mg/dl (74-100); HDL Cholesterol 54 mg/dl (40-60); Sodium 140 mmol/L (136-145); Total Protein,Serum 7.6 g/dl (6.3-8.2); Triglycerides 233 mg/dl (30-150); VLDL Cholesterol 47 mg/dL (0-40)
[2024-03-19 12:09] LABS: Thyroid Stimulating Hormone 1.94 uIU/mL (0.465-4.68)
== END 2024-03-19 23:59 | disposition home or self-care (01) ==
LOC: LAB 09:45
PROVIDERS: PCP Family Medicine; Visit Provider Family Medicine
DX: K76.0 Fatty (change of) liver, not elsewhere classified (principal); E03.9 Hypothyroidism, unspecified
CPT/HCPCS: 36415; 80053; 80061; 84443; 85025

== ENCOUNTER 2024-06-17 12:38 | Outpatient (CLI) | payer MEDICARE, OTHER, SELFPAY ==
[2024-06-17 19:47] LABS: 25-OH Vitamin D, Total 23.2 ng/mL (30-100)
== END 2024-06-17 23:59 | disposition home or self-care (01) ==
LOC: LAB.DROPOF 06-18 12:47
PROVIDERS: PCP Family Medicine; Visit Provider Family Medicine
DX: E55.9 Vitamin D deficiency, unspecified (principal)
CPT/HCPCS: 82306

== ENCOUNTER 2024-09-17 14:24 | Outpatient (CLI) | payer MEDICARE, OTHER, SELFPAY ==
[2024-09-17 19:02] LABS: Erythrocyte Sedimentation Rate 18 mm/hr (0-30)
[2024-09-17 19:27] LABS: Chol/HDL Ratio 4.5 (1-3.5); Cholesterol 192 mg/dl (140-200); HDL Cholesterol 43 mg/dl (40-60); Triglycerides 302 mg/dl (30-150); Uric Acid 5.6 mg/dl (2.5-6.2); VLDL Cholesterol 60 mg/dL (0-40)
[2024-09-17 19:39] LABS: Direct LDL Cholesterol 104.89 mg/dL (100-129)
[2024-09-19 09:24] LABS: RA Latex Turbid. 17.5 IU/mL (<14.0)
[2024-09-23 10:18] LABS: Antinuclear Antibodies, IFA POSITIVE
== END 2024-09-17 23:59 | disposition home or self-care (01) ==
LOC: LAB.DROPOF 09-18 09:28
PROVIDERS: PCP Family Medicine; Visit Provider Family Medicine
DX: I10 Essential (primary) hypertension (principal)
CPT/HCPCS: 80061; 84550; 85651; 86038; 86431

== ENCOUNTER 2024-09-28 12:11 | Emergency (ER) | payer MEDICARE, OTHER, SELFPAY ==
[2024-09-28 12:25] VITALS: BP 139/72; PULSE 62; RESP 17; TEMP 37; O2SAT 97; BMI 31.7
[2024-09-28 12:44] LABS: UTC Strep Screen (Rapid) Negative (Negative)
--- NOTE | 2024-09-28 12:57 | EXP.UTC ---
Discharge Plan Disposition Patient Disposition: Home, Self-Care Condition: Good Prescriptions Prescriptions: New nystatin 100,000 unit/mL suspension 4 ml buccal QID 10 Days Qty: 160 0RF Rx Instructions: administer 1/2 of dose in each side of the mouth swish and spit No Action albuterol sulfate 2.5 mg /3 mL (0.083 %) solution for nebulization 2.5 mg inhalation Q4-6H PRN (Reason: shortness of breath or wheezing) Qty: 180 3RF levothyroxine [Synthroid] 50 mcg tablet See Rx Instructions .ROUTE .COMPLEX Qty: 90 3RF Rx Instructions: TAKE 1 TABLET DAILY FOR THYROID gabapentin 300 mg capsule 300 mg PO TID 30 Days Patient Comments: TK 1 C PO Q 8 H hydrocodone-acetaminophen 7.5-325 mg tablet 1 tab PO QID 30 Days lidocaine 5 % adhesive patch,medicated 1 patch TRANSDERMA BID PRN (Reason: PAIN) 7 Days Qty: 30 Patient Comments: APPLY ONE PATCH Q 12 H AND LEAVE OFF FOR 12 H fluticasone propion-salmeterol [Advair HFA] 230-21 mcg/actuation HFA aerosol inhaler 2 puff IH BID Qty: 72 3RF azelastine 137 mcg (0.1 %) aerosol,spray 137 mcg NS BID Qty: 180 10RF albuterol sulfate 90 mcg/actuation aero powdr breath act w/sensor 90 mcg INHALATION TIDP PRN (Reason: asthma) Qty: 4 10RF levocetirizine 5 mg tablet 5 mg PO DAILY Qty: 90 3RF aspirin [Adult Aspirin Regimen] 81 mg tablet,delayed release (DR/EC) 81 mg PO DAILY Qty: 90 1RF metoprolol succinate 50 mg tablet extended release 24 hr 50 mg PO DAILY Qty: 180 1RF pantoprazole 40 mg tablet,delayed release (DR/EC) See Rx Instructions .ROUTE .COMPLEX Qty: 90 3RF Rx Instructions: TAKE 1 TABLET DAILY FOR GASTROESOPHAGEAL REFLUX DISEASE ibuprofen 800 mg tablet See Rx Instructions .ROUTE .COMPLEX Qty: 90 6RF Rx Instructions: TAKE 1 TABLET THREE TIMES A DAY NEEDED FOR PAIN montelukast 10 mg tablet 10 mg PO HS 90 Days Qty: 90 2RF baclofen 10 mg tablet 10 mg PO DAILY PRN (Reason: PAIN) 30 Days Qty: 90 3RF Praluent Pen 75 mg/mL pen injector 75 mg SQ Q14D Qty: 9 2RF ergocalciferol (vitamin D2) [Drisdol] 1,250 mcg (50,000 unit) capsule 1,250 mcg PO WEEKLY Qty: 14 12RF ondansetron 4 mg tablet,disintegrating 4 mg PO Q8H PRN (Reason: nausea and vomiting) Qty: 45 6RF bisacodyl 5 MG tablet,delayed release (DR/EC) 5 mg PO DAILYP PRN (Reason: bowels) (DME) lancets 1 EACH misc 1 lancet SQ NEEDED Rx Instructions: As directed Referrals Follow up/Referrals: Jayden Atkinson MD [Primary Care Provider] - See instructions Activity Restrictions/Add. Instructions Additional Instructions/Restrictions: *Monitor Temp, Over the counter Motrin or Tylenol as directed/as needed Tylenol every 4 hours and Motrin every 6 hours (as long as your family doctor has told you that you can take it) for fever or pain. and straight to ER if unable to lower temp less than 101.0 after medication given *Warm salt water gargles may help to soothe the throat *Throat Lozenges? *Warm fluids like tea with honey may help to soothe the throat? *Sleep elevated *Humidifier/Vaporizer Use Nystatin as prescribed Your throat swab was sent for culture. Those results are typically sent to your primary care. Be sure to follow up in 2-3 days with your family doctor/primary care physician if no improvement so they can review those result and treat if necessary. If you don?t have a primary care doctor, I recommend you get one but in the mean time, you will have to return to a walk in clinic Follow up IMMEDIATELY for new or worsening symptoms or no Noticeable improvement over the next 48-72 hours. 911 for difficulty breathing or swallowing Clinical Impressions Clinical Impression: Thrush Instructions Patient Instructions: DI for Thrush, Sore Throat Print Language Print Language: Amharic Discharge ED Provider: Leigh Hopper [facility] [place] General Stated complaint: sore throat Mode of Arrival: Ambulatory Source of Information: Patient Limitations: No Limitations Time Seen by Provider: 09/28/24 13:03 Description of Symptoms (Recalled from Triage Doc. by RN): PATIENT C/O SORE THROAT WITH POSSIBLE YEAST FOR APPROX 1 WEEK HEENT Symptoms (Recalled from RN notes): Yes Resp Symptoms (Recalled from RN notes): No Skin Symptoms (Recalled from RN notes): No MS Symptoms (Recalled from RN notes): No Functional Status (Recalled from RN notes): WNL History of Present Illness Provider Complaint: Patient states that she has been having a sore scratchy throat for about a week States that she noticed white film on her tongue like she gets when she has yeast in her mouth from prednisone States that she wasnt sure if she may have yeast or strep throat so she came in Related Data Home Medications ?Medication ?Instructions ?Recorded ?Confirmed gabapentin 300 mg capsule 300 mg PO TID Pain 30 days 11/22/18 09/28/24 hydrocodone 7.5 mg-acetaminophen 1 tab PO QID Pain 30 days 11/22/18 09/28/24 325 mg tablet lidocaine 5 % topical patch 1 patch transdermal BID PRN PAIN 7 11/22/18 09/28/24 days #30 ea bisacodyl 5 mg tablet,delayed 5 mg PO DAILYP PRN bowels 07/28/20 09/28/24 release lancets 02/07/22 09/28/24 Previous Rx's ?Medication ?Instructions ?Recorded albuterol sulfate 2.5 mg/3 mL 2.5 mg (3 mL) inhalation Q4-6H PRN 09/23/23 (0.083 %) solution for nebulization shortness of breath or wheezing #180 mL albuterol sulfate 90 mcg/actuation 90 mcg inhalation TIDP PRN asthma 01/02/24 breath activated powder #4 ea inhaler,sensor levocetirizine 5 mg tablet 5 mg PO DAILY Allergy symptoms #90 03/11/24 tabs azelastine 137 mcg (0.1 %) nasal 137 mcg (0.137 mL) intranasal BID 03/20/24 spray Asthma #180 mL fluticasone propionate 230 2 puff inhalation BID . #72 grams 03/20/24 mcg-salmeterol 21 mcg/actuation HFA inhaler (Advair HFA) aspirin 81 mg tablet,delayed 81 mg PO DAILY #90 tabs 05/12/24 release (Adult Aspirin Regimen) ibuprofen 800 mg tablet See Rx Instructions .Route 05/12/24 .COMPLEX . #90 tabs metoprolol succinate 50 mg 50 mg PO DAILY Hypertension #180 05/12/24 tablet,extended release 24 hr tabs montelukast 10 mg tablet 10 mg PO HS ALLERGIES 90 days #90 05/12/24 tabs pantoprazole 40 mg tablet,delayed See Rx Instructions .Route 05/12/24 release .COMPLEX gerd #90 tabs baclofen 10 mg tablet 10 mg PO DAILY PRN PAIN 30 days 05/13/24 #90 tabs alirocumab 75 mg/mL subcutaneous 75 mg SQ Q14D #9 mL 06/10/24 pen injector (Praluent Pen) levothyroxine 50 mcg tablet See Rx Instructions .Route 06/17/24 (Synthroid) .COMPLEX thyroid #90 tabs ergocalciferol (vitamin D2) 1,250 1,250 mcg PO WEEKLY #14 caps 06/25/24 mcg (50,000 unit) capsule (Drisdol) ondansetron 4 mg disintegrating 4 mg PO Q8H PRN nausea and 09/03/24 tablet vomiting #45 tabs nystatin 100,000 unit/mL oral 4 ml buccal QID 10 days #160 mL 09/28/24 suspension Allergies Allergy/AdvReac Type Severity Reaction Status Date / Time No Known Allergies Allergy Verified 09/17/24 11:40 Worker's Comp Is this a Worker's Comp case?: No [facility] Disclaimer: The information contained in this section may have been updated after the patient was seen, as this information can be updated by other users. Medical History COPD exacerbation Burning with urination Thrush of mouth and esophagus Ear pain Encounter for laboratory testing for COVID-19 virus Urinary problem in female Cystitis Thrush Asthma exacerbation Left otitis media Bilateral serous otitis media Serous otitis media Nausea Otitis media UTI (urinary tract infection) Otitis media Sinusitis Wheezing Pharyngitis Sinusitis, acute frontal Palpitations Elevated liver enzymes CAD in [place] artery Basal cell carcinoma of helix Allergic rhinitis, unspecified Severe persistent asthma Dyspnea on exertion Hyperlipidemia Hypertension Hypothyroidism Chronic neck pain Asthma Surgical History History of hysterectomy History of placement of ear tubes History of cataract surgery Previous back surgery History of arthroscopy of shoulder Family History Coronary artery disease Kidney disease Cancer Stroke Asthma Social History (Updated 09/17/24 @ 16:44 by Jayden Atkinson MD) Smoking Status: Never smoker second hand exposure: Yes alcohol intake: never substance use type: denies use current occupational status: disabled household members: spouse housing: house current occupational exposures/hazards: No caffeine: No ROS Obtained: Yes All systems reviewed & no additional complaints except as documented and Yes Systems reviewed as appropriate & no additional complaints except as documented Constitutional Constitutional: Reports system reviewed and no additional complaints, except as documented and Reports as per HPI ENT Ears, Nose, Mouth, and Throat: Reports system reviewed and no additional complaints, except as documented, Reports as per HPI and Reports sore throat Cardiovascular Cardiovascular: Reports system reviewed and no additional complaints, except as documented and Reports as per HPI Respiratory Respiratory: Reports system reviewed and no additional complaints, except as documented and Reports as per HPI Gastrointestinal Gastrointestingal: Reports system reviewed and no additional complaints, except as documented and as per HPI Physical Exam General General appearance: alert and in no apparent distress ENT ENT exam: Present mucous membranes moist Expanded ENT Exam Mouth exam: Present other (white patchy like area on tongue that does not scrap off) Throat exam: Present other (Mild pharyngeal erythema noted) Respiratory Respiratory exam: Present normal lung sounds bilaterally; Absent respiratory distress or wheezes Cardiovascular Cardiovascular exam: Present regular rate, normal rhythm and normal heart sounds Neurological Exam Neurological exam: Present alert, oriented X3 and normal gait Medical Decision Making Medical Records Screening: Per USPSTF and CDC recommendations, given the prevalence of disease in our region, it is our hospital?s policy to screen for HIV and viral Hepatitis for all patients aged 18 and over and those with ongoing risk factors. Mario Inquiry Pt receiving controlled substance: No Mario was queried for this patient: No Vital Signs: 09/28/24 12:25 Temperature 98.6 F Temperature Source Oral Pulse Rate [Left Brachial] 62 Respiratory Rate 17 Blood Pressure [Left Arm] 139/72 Blood Pressure Mean [Left Arm] 94 Blood Pressure Source [Left Arm] Automatic Cuff Blood Pressure Position [Left Arm] Sitting 02 Sat by Pulse Oximetry 97 Oxygen Delivery Method Room Air Lab Data Lab results reviewed: Yes I reviewed the patient's lab results. Lab Results 09/28/24 12:26: Strep Scn Rapid Clinic Negative Orders (Tests/Meds): ORDERS Category Date Time Status Strep Screen Confirmation Stat Micro 09/28/24 12:26 Received
[2024-09-28 13:15] VITALS: BP 139/72; PULSE 62; RESP 17; TEMP 37; O2SAT 97
== END 2024-09-28 13:17 | disposition home or self-care (01) ==
PROVIDERS: Emergency Provider Nurse Practitioner; PCP Family Medicine
DX: B37.0 Candidal stomatitis (principal); J02.9 Acute pharyngitis, unspecified
CPT/HCPCS: 87880; 99212; G0381

== ENCOUNTER 2024-10-14 11:00 | Outpatient (RCR) | payer MEDICARE, OTHER, SELFPAY | END 2024-10-14 23:59 | disposition home or self-care (01) | LOC: PT 11:00 | PROVIDERS: PCP Family Medicine; Visit Provider Clinical Nurse Specialist Family Health | DX: M54.2 Cervicalgia (principal); M54.6 Pain in thoracic spine; G89.29 Other chronic pain | CPT/HCPCS: 97014; 97035; 97110; 97140; 97163; G0283 ==

== ENCOUNTER 2024-11-19 13:58 | Outpatient (CLI) | payer MEDICARE, OTHER, SELFPAY ==
[2024-11-20 09:28] LABS: Coronavirus 19, PCR Not Detected (NotDetected); Human Rhinovirus Not Detected (NotDetected); Influenza A, PCR Not Detected (NotDetected); Influenza B, PCR Not Detected (NotDetected); Respiratory Syncytial Virus Not Detected (NotDetected)
== END 2024-11-19 23:59 | disposition home or self-care (01) ==
LOC: LAB.DROPOF 11-23 13:59
PROVIDERS: PCP Nurse Practitioner; Visit Provider Nurse Practitioner
DX: J06.9 Acute upper respiratory infection, unspecified (principal)
CPT/HCPCS: 87631

== ENCOUNTER 2024-12-06 17:39 | Emergency (ER) | payer MEDICARE, OTHER, SELFPAY ==
--- NOTE | 2024-12-06 18:28 | EXP.UTC ---
Discharge Plan Disposition Patient Disposition: Home, Self-Care Condition: Good Prescriptions Prescriptions: New prednisone 10 mg tablet 10 mg PO BID 5 Days Qty: 10 0RF azithromycin [Zithromax] 250 mg tablet 250 mg PO UD DOSE PK Qty: 6 0RF Rx Instructions: Take two (2) tablets today, then one (1) tablet days #2 thru #5 No Action albuterol sulfate 2.5 mg /3 mL (0.083 %) solution for nebulization 2.5 mg inhalation Q4-6H PRN (Reason: shortness of breath or wheezing) Qty: 180 3RF albuterol sulfate 90 mcg/actuation HFA aerosol inhaler inhalation cholecalciferol (vitamin D3) 1,250 mcg (50,000 unit) capsule PO Patient Comments: TAKE ONE CAPSULE BY MOUTH EVERY WEEK levothyroxine [Synthroid] 50 mcg tablet See Rx Instructions .ROUTE .COMPLEX Qty: 90 3RF Rx Instructions: TAKE 1 TABLET DAILY FOR THYROID dextromethorphan-guaifenesin 60-1,200 mg tablet extended release 12 hr 1 tab PO Q12H Qty: 60 0RF fluconazole 150 mg tablet 150 mg PO QWEEK Qty: 2 1RF amoxicillin-pot clavulanate 875-125 mg tablet 1 tab PO BID Qty: 20 0RF dexamethasone 4 mg tablet 4 mg PO BID Qty: 10 0RF fluticasone propionate 50 mcg/actuation spray,suspension 1 spray intranasal DAILY Qty: 16 2RF Rx Instructions: administer into each nostril gabapentin 300 mg capsule 300 mg PO TID 30 Days Patient Comments: TK 1 C PO Q 8 H hydrocodone-acetaminophen 7.5-325 mg tablet 1 tab PO QID 30 Days lidocaine 5 % adhesive patch,medicated 1 patch TRANSDERMA BID PRN (Reason: PAIN) 7 Days Qty: 30 Patient Comments: APPLY ONE PATCH Q 12 H AND LEAVE OFF FOR 12 H fluticasone propion-salmeterol [Advair HFA] 230-21 mcg/actuation HFA aerosol inhaler 2 puff IH BID Qty: 72 3RF azelastine 137 mcg (0.1 %) aerosol,spray 137 mcg NS BID Qty: 180 10RF albuterol sulfate 90 mcg/actuation aero powdr breath act w/sensor 90 mcg INHALATION TIDP PRN (Reason: asthma) Qty: 4 10RF levocetirizine 5 mg tablet 5 mg PO DAILY Qty: 90 3RF aspirin [Adult Aspirin Regimen] 81 mg tablet,delayed release (DR/EC) 81 mg PO DAILY Qty: 90 1RF metoprolol succinate 50 mg tablet extended release 24 hr 50 mg PO DAILY Qty: 180 1RF pantoprazole 40 mg tablet,delayed release (DR/EC) See Rx Instructions .ROUTE .COMPLEX Qty: 90 3RF Rx Instructions: TAKE 1 TABLET DAILY FOR GASTROESOPHAGEAL REFLUX DISEASE ibuprofen 800 mg tablet See Rx Instructions .ROUTE .COMPLEX Qty: 90 6RF Rx Instructions: TAKE 1 TABLET THREE TIMES A DAY NEEDED FOR PAIN montelukast 10 mg tablet 10 mg PO HS 90 Days Qty: 90 2RF baclofen 10 mg tablet 10 mg PO DAILY PRN (Reason: PAIN) 30 Days Qty: 90 3RF Praluent Pen 75 mg/mL pen injector 75 mg SQ Q14D Qty: 9 2RF ergocalciferol (vitamin D2) [Drisdol] 1,250 mcg (50,000 unit) capsule 1,250 mcg PO WEEKLY Qty: 14 12RF ondansetron 4 mg tablet,disintegrating 4 mg PO Q8H PRN (Reason: nausea and vomiting) Qty: 45 6RF aspirin 81 mg capsule 81 mg PO DAILY Qty: 30 2RF bisacodyl 5 MG tablet,delayed release (DR/EC) 5 mg PO DAILYP PRN (Reason: bowels) (DME) lancets 1 EACH misc 1 lancet SQ NEEDED Rx Instructions: As directed Referrals Follow up/Referrals: Jayden Atkinson MD [Primary Care Provider] - See instructions Activity Restrictions/Add. Instructions Additional Instructions/Restrictions: Drink plenty of fluids. Take tylenol for pain or fever. Take the medications as directed. Follow up with your regular doctor. GO TO THE ER FOR ANY WORSENING SYMPTOMS Clinical Impressions Clinical Impression: Otitis media Instructions Patient Instructions: Middle Ear Infection, Ceftriaxone Injection Print Language Print Language: Bengali Discharge ED Provider: Blil Mejía [facility] [place] HPI General Stated complaint: both ears, nausea,neck pain Time Seen by Provider: 12/06/24 18:28 Related Data Home Medications ?Medication ?Instructions ?Recorded ?Confirmed gabapentin 300 mg capsule 300 mg PO TID Pain 30 days 11/22/18 11/24/24 hydrocodone 7.5 mg-acetaminophen 1 tab PO QID Pain 30 days 11/22/18 11/24/24 325 mg tablet lidocaine 5 % topical patch 1 patch transdermal BID PRN PAIN 7 11/22/18 11/24/24 days #30 ea bisacodyl 5 mg tablet,delayed 5 mg PO DAILYP PRN bowels 07/28/20 11/24/24 release lancets 02/07/22 11/24/24 albuterol sulfate 90 mcg/actuation inhalation 10/14/24 11/24/24 aerosol inhaler cholecalciferol (vitamin D3) 1,250 PO 10/14/24 11/24/24 mcg (50,000 unit) capsule Previous Rx's ?Medication ?Instructions ?Recorded albuterol sulfate 2.5 mg/3 mL 2.5 mg (3 mL) inhalation Q4-6H PRN 09/23/23 (0.083 %) solution for nebulization shortness of breath or wheezing #180 mL albuterol sulfate 90 mcg/actuation 90 mcg inhalation TIDP PRN asthma 01/02/24 breath activated powder #4 ea inhaler,sensor levocetirizine 5 mg tablet 5 mg PO DAILY Allergy symptoms #90 03/11/24 tabs azelastine 137 mcg (0.1 %) nasal 137 mcg (0.137 mL) intranasal BID 03/20/24 spray Asthma #180 mL fluticasone propionate 230 2 puff inhalation BID . #72 grams 03/20/24 mcg-salmeterol 21 mcg/actuation HFA inhaler (Advair HFA) aspirin 81 mg tablet,delayed 81 mg PO DAILY #90 tabs 05/12/24 release (Adult Aspirin Regimen) ibuprofen 800 mg tablet See Rx Instructions .Route 05/12/24 .COMPLEX . #90 tabs metoprolol succinate 50 mg 50 mg PO DAILY Hypertension #180 05/12/24 tablet,extended release 24 hr tabs montelukast 10 mg tablet 10 mg PO HS ALLERGIES 90 days #90 05/12/24 tabs pantoprazole 40 mg tablet,delayed See Rx Instructions .Route 05/12/24 release .COMPLEX gerd #90 tabs baclofen 10 mg tablet 10 mg PO DAILY PRN PAIN 30 days 05/13/24 #90 tabs alirocumab 75 mg/mL subcutaneous 75 mg SQ Q14D #9 mL 06/10/24 pen injector (Praluent Pen) levothyroxine 50 mcg tablet See Rx Instructions .Route 06/17/24 (Synthroid) .COMPLEX thyroid #90 tabs ergocalciferol (vitamin D2) 1,250 1,250 mcg PO WEEKLY #14 caps 06/25/24 mcg (50,000 unit) capsule (Drisdol) ondansetron 4 mg disintegrating 4 mg PO Q8H PRN nausea and 09/03/24 tablet vomiting #45 tabs dextromethorphan-guaifenesin ER 60 1 tab PO Q12H #60 tabs 10/19/24 mg-1,200 mg tab,extend release,12hr amoxicillin 875 mg-potassium 1 tab PO BID #20 tabs 11/19/24 clavulanate 125 mg tablet dexamethasone 4 mg tablet 4 mg PO BID #10 tabs 11/19/24 fluconazole 150 mg tablet 150 mg PO QWEEK #2 tabs 11/19/24 fluticasone propionate 50 1 spray intranasal DAILY #16 grams 11/19/24 mcg/actuation nasal spray,suspension aspirin 81 mg capsule 81 mg PO DAILY #30 caps 12/01/24 azithromycin 250 mg tablet 250 mg PO UD DOSE PK #6 tabs 12/06/24 (Zithromax) prednisone 10 mg tablet 10 mg PO BID 5 days #10 tabs 12/06/24 Allergies Allergy/AdvReac Type Severity Reaction Status Date / Time No Known Allergies Allergy Verified 11/24/24 14:06 [facility] Disclaimer: The information contained in this section may have been updated after the patient was seen, as this information can be updated by other users. Medical History COPD exacerbation Burning with urination Thrush of mouth and esophagus Ear pain Encounter for laboratory testing for COVID-19 virus Urinary problem in female Cystitis Thrush Asthma exacerbation Left otitis media Bilateral serous otitis media Serous otitis media Nausea Otitis media UTI (urinary tract infection) Otitis media Sinusitis Wheezing Pharyngitis Sinusitis, acute frontal Palpitations Elevated liver enzymes CAD in [place] artery Basal cell carcinoma of helix Allergic rhinitis, unspecified Severe persistent asthma Dyspnea on exertion Hyperlipidemia Hypertension Hypothyroidism Chronic neck pain Asthma Surgical History History of hysterectomy History of placement of ear tubes History of cataract surgery Previous back surgery History of arthroscopy of shoulder Family History Other Asthma Cancer Coronary artery disease Kidney disease Stroke Social History Smoking Status: Never smoker second hand exposure: Yes alcohol intake: never substance use type: denies use current occupational status: disabled Travel in the last 8 weeks: None household members: spouse housing: house current occupational exposures/hazards: No caffeine: No Have you lived/traveled outside [place] in past 30 days?: No Contact w/someone who lives/traveled outside [place] past 30 days?: No Exposure to someone with infectious disease in past 14 days?: No Do you have a fever (greater than 100.4 F or 38 C)?: No Have you tested positive for COVID-19: No Exposed to someone with COVID-19 in past 14 days?: No Do you have a sore throat?: No Do you have a cough?: Yes Do you have any weakness?: No Do you have any diarrhea?: No Are you experiencing any unusual bleeding?: No Do you have any muscle aches/pain?: No Do you have any abdominal pain?: No Are you experiencing loss of taste or smell?: No ROS Obtained: Yes All systems reviewed & no additional complaints except as documented Constitutional Constitutional: Denies chills, Reports fever(s) and Reports poor appetite Eyes Eyes: Denies eye discharge ENT Ears, Nose, Mouth, and Throat: Denies ear discharge, Reports otalgia, Denies hearing loss, Denies sinus pain and Reports sore throat Cardiovascular Cardiovascular: Denies chest pain and Denies dyspnea Respiratory Respiratory: Denies chest congestion, Reports cough and Denies dyspnea Gastrointestinal Gastrointestingal: Denies abdominal pain, diarrhea, nausea or vomiting Musculoskeletal Musculoskeletal: Denies arthralgias Integumentary/Breasts Skin/Breast: Denies rash Physical Exam General General appearance: alert and in no apparent distress Head Head exam: atraumatic, normocephalic and normal inspection Eye Eye exam: Present normal appearance; Absent PERRL or EOMI ENT ENT exam: Present mucous membranes moist and normal external ear exam Expanded ENT Exam TM/Canal exam: Bilateral TM: erythema, bulging and effusion Nose exam: Absent sinus tenderness Nasal speculum exam: Bilateral: normal Mouth exam: Present normal external inspection and other; Absent drooling Teeth exam: Present normal inspection Throat exam: Present tonsillar erythema and tonsillomegaly Neck Neck exam: Present normal inspection, full ROM and trachea midline; Absent tenderness, meningismus or lymphadenopathy Chest Chest inspection: Present normal inspection and symmetric chest wall rise; Absent tenderness Respiratory Respiratory exam: Present normal lung sounds bilaterally; Absent respiratory distress, wheezes or stridor Cardiovascular Cardiovascular exam: Present regular rate, normal rhythm and normal heart sounds; Absent tachycardia or irregular rhythm Abdominal Exam Abdominal exam: Present soft and normal bowel sounds; Absent distention, tenderness, guarding, rebound or rigidity Extremities Exam Extremities exam: Present normal inspection and normal capillary refill; Absent tenderness, joint swelling or calf tenderness Back Exam Back exam: Present normal inspection and full ROM; Absent tenderness, CVA tenderness (R) or CVA tenderness (L) Neurological Exam Neurological exam: Present alert, oriented X3, CN II-XII intact, normal gait and reflexes normal; Absent motor sensory deficit Psychiatric Psychiatric exam: Present normal affect and normal mood Skin Skin exam: Present warm, dry, intact and normal color Lymphatic Lymphatic Findings: no adenopathy Medical Decision Making Medical Records Medical records reviewed: No I reviewed the patient's medical records. Screening: Per USPSTF and CDC recommendations, given the prevalence of disease in our region, it is our hospital?s policy to screen for HIV and viral Hepatitis for all patients aged 18 and over and those with ongoing risk factors. Mario Inquiry Pt receiving controlled substance: No
[2024-12-06 18:31] VITALS: BP 140/50; PULSE 68; RESP 18; TEMP 36.5; O2SAT 97; BMI 32.3
[2024-12-06 18:41] LABS: Apearance,Urine Clear (Clear); Bilirubin,Urine Negative (Negative); Blood, Urine Negative (Negative); Color,Urine Yellow (Yellow); Glucose,Urine (UA) Negative (Negative); Ketones,Urine Negative (Negative); PH,Urine 5.5 (5.0-8.5); Protein,Urine Negative (Negative); Specific Gravity, Urine 1.005 (1.005-1.030); UTC Leukocyte Esterase,Urine Negative (Negative); UTC Nitrate,Urine Negative (Negative); Urobilinogen,Urine 0.2 EU/dl (0.2)
[2024-12-06 18:42] LABS: UTC Strep Screen (Rapid) Negative (Negative)
[2024-12-06] MEDS: LIDOCAINE 1% 5ML PF VIAL IM (19:05)
[2024-12-06] MEDS: cefTRIAXone 1GM VIAL 1 GM IM (19:05)
[2024-12-06 19:25] VITALS: BP 140/50; PULSE 68; RESP 18; TEMP 36.5
== END 2024-12-06 19:28 | disposition home or self-care (01) ==
PROVIDERS: Emergency Provider Nurse Practitioner Family; PCP Family Medicine
DX: H66.90 Otitis media, unspecified, unspecified ear (principal)
CPT/HCPCS: 81003; 87880; 99212; G0381; J0696

== ENCOUNTER 2024-12-21 17:02 | Emergency (ER) | payer MEDICARE, OTHER, SELFPAY ==
[2024-12-21 17:22] VITALS: BP 139/83; PULSE 89; RESP 15; TEMP 36.7; O2SAT 96; BMI 30.7
--- NOTE | 2024-12-21 17:28 | XR_ITS ---
PROCEDURE INFORMATION: Exam: XR Left Knee Exam date and time: 12/21/2024 6:58 PM Age: 69 years old Clinical indication: Injury or trauma TECHNIQUE: Imaging protocol: Radiologic exam of the left knee. Views: 1 or 2 views. Total images: 2 COMPARISON: No relevant prior studies available. FINDINGS: Bones/joints: No acute fracture, joint dislocation, or joint effusion. Mild osteopenia. Joint spaces are well maintained and appropriate for age. No concerning bone lesions or calcifications. Soft tissues: Unremarkable soft tissues. IMPRESSION: Negative left knee.
--- NOTE | 2024-12-21 21:04 | XR_ITS ---
PROCEDURE INFORMATION: Exam: XR Left Hip Exam date and time: 12/21/2024 9:03 PM Age: 69 years old Clinical indication: Injury or trauma; Fall; Blunt trauma (contusions or hematomas); Left; Hip; Additional info: Fall, pain TECHNIQUE: Imaging protocol: Radiologic exam of the left hip. Views: 2 or 3 views hip with pelvis when performed. Total images: 3 COMPARISON: No relevant prior studies available. FINDINGS: Bones/joints: Osteopenia. No acute fracture or joint dislocation. Joint spaces are appropriate for age. No significant degenerative arthropathy. Small enthesophytes bilateral greater trochanters. No concerning bone lesions. Pelvic ring is maintained. No widening of the pubic symphysis. Postsurgical changes lower lumbar spine. Soft tissues: Unremarkable soft tissues. Gastrointestinal tract: Nonobstructive bowel gas pattern. Vasculature: Pelvic phleboliths. IMPRESSION: 1. Negative left hip and pelvis. 2. Chronic findings.
--- NOTE | 2024-12-21 21:04 | XR_ITS ---
PROCEDURE INFORMATION: Exam: XR Left Femur Exam date and time: 12/21/2024 9:06 PM Age: 69 years old Clinical indication: Injury or trauma; Fall; Blunt trauma; Thigh or upper leg; Left; Additional info: Fall, pain TECHNIQUE: Imaging protocol: Radiologic exam of the left femur. Views: 2 views. Total images: 4 COMPARISON: CR XR HIP LT 2-3V W/PELVIS 12/21/2024 9:03 PM FINDINGS: Bones/joints: No acute fracture or joint dislocation. Age-appropriate joint spaces. No concerning bone lesions or calcifications. No suprapatellar joint effusion. Soft tissues: Unremarkable soft tissues. IMPRESSION: Negative left femur.
--- NOTE | 2024-12-21 21:16 | ED_ITS ---
Discharge Plan Disposition Patient Disposition: Home, Self-Care Condition: Good Prescriptions Prescriptions: No Action albuterol sulfate 2.5 mg /3 mL (0.083 %) solution for nebulization 2.5 mg inhalation Q4-6H PRN (Reason: shortness of breath or wheezing) Qty: 180 3RF albuterol sulfate 90 mcg/actuation HFA aerosol inhaler inhalation cholecalciferol (vitamin D3) 1,250 mcg (50,000 unit) capsule PO Patient Comments: TAKE ONE CAPSULE BY MOUTH EVERY WEEK levothyroxine [Synthroid] 50 mcg tablet See Rx Instructions .ROUTE .COMPLEX Qty: 90 3RF Rx Instructions: TAKE 1 TABLET DAILY FOR THYROID dextromethorphan-guaifenesin 60-1,200 mg tablet extended release 12 hr 1 tab PO Q12H Qty: 60 0RF amoxicillin-pot clavulanate 875-125 mg tablet 1 tab PO BID Qty: 20 0RF dexamethasone 4 mg tablet 4 mg PO BID Qty: 10 0RF fluticasone propionate 50 mcg/actuation spray,suspension 1 spray intranasal DAILY Qty: 16 2RF Rx Instructions: administer into each nostril gabapentin 300 mg capsule 300 mg PO TID 30 Days Patient Comments: TK 1 C PO Q 8 H hydrocodone-acetaminophen 7.5-325 mg tablet 1 tab PO QID 30 Days lidocaine 5 % adhesive patch,medicated 1 patch TRANSDERMA BID PRN (Reason: PAIN) 7 Days Qty: 30 Patient Comments: APPLY ONE PATCH Q 12 H AND LEAVE OFF FOR 12 H fluticasone propion-salmeterol [Advair HFA] 230-21 mcg/actuation HFA aerosol inhaler 2 puff IH BID Qty: 72 3RF azelastine 137 mcg (0.1 %) aerosol,spray 137 mcg NS BID Qty: 180 10RF albuterol sulfate 90 mcg/actuation aero powdr breath act w/sensor 90 mcg INHALATION TIDP PRN (Reason: asthma) Qty: 4 10RF levocetirizine 5 mg tablet 5 mg PO DAILY Qty: 90 3RF aspirin [Adult Aspirin Regimen] 81 mg tablet,delayed release (DR/EC) 81 mg PO DAILY Qty: 90 1RF metoprolol succinate 50 mg tablet extended release 24 hr 50 mg PO DAILY Qty: 180 1RF pantoprazole 40 mg tablet,delayed release (DR/EC) See Rx Instructions .ROUTE .COMPLEX Qty: 90 3RF Rx Instructions: TAKE 1 TABLET DAILY FOR GASTROESOPHAGEAL REFLUX DISEASE ibuprofen 800 mg tablet See Rx Instructions .ROUTE .COMPLEX Qty: 90 6RF Rx Instructions: TAKE 1 TABLET THREE TIMES A DAY NEEDED FOR PAIN montelukast 10 mg tablet 10 mg PO HS 90 Days Qty: 90 2RF baclofen 10 mg tablet 10 mg PO DAILY PRN (Reason: PAIN) 30 Days Qty: 90 3RF Praluent Pen 75 mg/mL pen injector 75 mg SQ Q14D Qty: 9 2RF ergocalciferol (vitamin D2) [Drisdol] 1,250 mcg (50,000 unit) capsule 1,250 mcg PO WEEKLY Qty: 14 12RF ondansetron 4 mg tablet,disintegrating 4 mg PO Q8H PRN (Reason: nausea and vomiting) Qty: 45 6RF aspirin 81 mg capsule 81 mg PO DAILY Qty: 30 2RF fluconazole 150 mg tablet 150 mg PO QWEEK Qty: 2 1RF bisacodyl 5 MG tablet,delayed release (DR/EC) 5 mg PO DAILYP PRN (Reason: bowels) prednisone 10 mg tablet 10 mg PO BID 5 Days Qty: 10 0RF azithromycin [Zithromax] 250 mg tablet 250 mg PO UD DOSE PK Qty: 6 0RF Rx Instructions: Take two (2) tablets today, then one (1) tablet days #2 thru #5 (DME) lancets 1 EACH misc 1 lancet SQ NEEDED Rx Instructions: As directed Referrals Follow up/Referrals: Oz Maurer DO [Staff Physician] - See instructions Jayden Atkinson MD [Primary Care Provider] - See instructions Activity Restrictions/Add. Instructions Additional Instructions/Restrictions: You were evaluated in the emergency department today. X-rays do not demonstrate any broken bones. please follow-up very closely with your primary care provider as well as with orthopedics. Take Tylenol and ibuprofen every 4-6 hours at home as needed for pain. Rest, ice, elevate your leg to reduce pain and swelling Clinical Impressions Clinical Impression: Fall, Knee pain, left Stand Alone Forms Stand Alone Forms: Work/School Release Instructions Patient Instructions: DI for Knee Pain Print Language Print Language: Sinhala Discharge ED Provider: Shy Goel General Adult HPI General Chief complaint: Extremity Injury, Lower Stated complaint: AO 12/20/24 injury left knee Time Seen by Provider: 12/21/24 20:54 Mode of Arrival: Ambulatory Source of Information: Patient Limitations: No Limitations Description of Symptoms (Recalled from ER Triage Doc. by RN): c/o left knee pain after falling on concrete yesterday. Abrasions noted on knee and left forearm. Denies hitting her head or other injury History of Present Illness HPI narrative: This patient is a 69-year-old female with history of hypertension, h yperlipidemia, CAD, prior neck surgery presenting with concern for left knee pain after a mechanical ground-level fall that happened yesterday. Patient reports that she got her foot caught up in a plastic tarp, tripping and landing on her left knee. She also had some abrasions to her left arm. She states she has left knee pain and bruising. She still ambulatory. No numbness, tingling, or other concerns. She did not hit her head or lose consciousness and denies use of anticoagulation Related Data Home Medications ?Medication ?Instructions ?Recorded ?Confirmed gabapentin 300 mg capsule 300 mg PO TID Pain 30 days 11/22/18 11/24/24 hydrocodone 7.5 mg-acetaminophen 1 tab PO QID Pain 30 days 11/22/18 11/24/24 325 mg tablet lidocaine 5 % topical patch 1 patch transdermal BID PRN PAIN 7 11/22/18 11/24/24 days #30 ea bisacodyl 5 mg tablet,delayed 5 mg PO DAILYP PRN bowels 07/28/20 11/24/24 release lancets 02/07/22 11/24/24 albuterol sulfate 90 mcg/actuation inhalation 10/14/24 11/24/24 aerosol inhaler cholecalciferol (vitamin D3) 1,250 PO 10/14/24 11/24/24 mcg (50,000 unit) capsule Previous Rx's ?Medication ?Instructions ?Recorded albuterol sulfate 2.5 mg/3 mL 2.5 mg (3 mL) inhalation Q4-6H PRN 09/23/23 (0.083 %) solution for nebulization shortness of breath or wheezing #180 mL albuterol sulfate 90 mcg/actuation 90 mcg inhalation TIDP PRN asthma 01/02/24 breath activated powder #4 ea inhaler,sensor levocetirizine 5 mg tablet 5 mg PO DAILY Allergy symptoms #90 03/11/24 tabs azelastine 137 mcg (0.1 %) nasal 137 mcg (0.137 mL) intranasal BID 03/20/24 spray Asthma #180 mL fluticasone propionate 230 2 puff inhalation BID . #72 grams 03/20/24 mcg-salmeterol 21 mcg/actuation HFA inhaler (Advair HFA) aspirin 81 mg tablet,delayed 81 mg PO DAILY #90 tabs 05/12/24 release (Adult Aspirin Regimen) ibuprofen 800 mg tablet See Rx Instructions .Route 05/12/24 .COMPLEX . #90 tabs metoprolol succinate 50 mg 50 mg PO DAILY Hypertension #180 05/12/24 tablet,extended release 24 hr tabs montelukast 10 mg tablet 10 mg PO HS ALLERGIES 90 days #90 05/12/24 tabs pantoprazole 40 mg tablet,delayed See Rx Instructions .Route 05/12/24 release .COMPLEX gerd #90 tabs baclofen 10 mg tablet 10 mg PO DAILY PRN PAIN 30 days 05/13/24 #90 tabs alirocumab 75 mg/mL subcutaneous 75 mg SQ Q14D #9 mL 06/10/24 pen injector (Praluent Pen) levothyroxine 50 mcg tablet See Rx Instructions .Route 06/17/24 (Synthroid) .COMPLEX thyroid #90 tabs ergocalciferol (vitamin D2) 1,250 1,250 mcg PO WEEKLY #14 caps 06/25/24 mcg (50,000 unit) capsule (Drisdol) ondansetron 4 mg disintegrating 4 mg PO Q8H PRN nausea and 09/03/24 tablet vomiting #45 tabs dextromethorphan-guaifenesin ER 60 1 tab PO Q12H #60 tabs 10/19/24 mg-1,200 mg tab,extend release,12hr amoxicillin 875 mg-potassium 1 tab PO BID #20 tabs 11/19/24 clavulanate 125 mg tablet dexamethasone 4 mg tablet 4 mg PO BID #10 tabs 11/19/24 fluticasone propionate 50 1 spray intranasal DAILY #16 grams 11/19/24 mcg/actuation nasal spray,suspension aspirin 81 mg capsule 81 mg PO DAILY #30 caps 12/01/24 azithromycin 250 mg tablet 250 mg PO UD DOSE PK #6 tabs 12/06/24 (Zithromax) prednisone 10 mg tablet 10 mg PO BID 5 days #10 tabs 12/06/24 fluconazole 150 mg tablet 150 mg PO QWEEK #2 tabs 12/17/24 Allergies Allergy/AdvReac Type Severity Reaction Status Date / Time No Known Allergies Allergy Verified 11/24/24 14:06 [facility] Disclaimer: The information contained in this section may have been updated after the patient was seen, as this information can be updated by other users. Medical History COPD exacerbation Burning with urination Thrush of mouth and esophagus Ear pain Encounter for laboratory testing for COVID-19 virus Urinary problem in female Cystitis Thrush Asthma exacerbation Left otitis media Bilateral serous otitis media Serous otitis media Nausea Otitis media UTI (urinary tract infection) Otitis media Sinusitis Wheezing Pharyngitis Sinusitis, acute frontal Palpitations Elevated liver enzymes CAD in [place] artery Basal cell carcinoma of helix Allergic rhinitis, unspecified Severe persistent asthma Dyspnea on exertion Hyperlipidemia Hypertension Hypothyroidism Chronic neck pain Asthma Surgical History History of hysterectomy History of placement of ear tubes History of cataract surgery Previous back surgery History of arthroscopy of shoulder Family History Other Asthma Cancer Coronary artery disease Kidney disease Stroke Social History Smoking Status: Never smoker second hand exposure: Yes alcohol intake: never substance use type: denies use current occupational status: disabled Travel in the last 8 weeks: None household members: spouse housing: house current occupational exposures/hazards: No caffeine: No Have you lived/traveled outside [place] in past 30 days?: No Contact w/someone who lives/traveled outside [place] past 30 days?: No Exposure to someone with infectious disease in past 14 days?: No Do you have a fever (greater than 100.4 F or 38 C)?: No Have you tested positive for COVID-19: No Exposed to someone with COVID-19 in past 14 days?: No Do you have a sore throat?: No Do you have a cough?: No Do you have any weakness?: No Do you have any diarrhea?: No Are you experiencing any unusual bleeding?: No Do you have any muscle aches/pain?: No Do you have any abdominal pain?: No Are you experiencing loss of taste or smell?: No Other Medical History Have you received the Flu Vaccine for this season: No Have you received the Pneumonia Vaccine: Yes ROS Obtained: Yes All systems reviewed & no additional complaints except as documented Physical Exam General General appearance: alert and in no apparent distress Head Head exam: atraumatic and normocephalic Eye Eye exam: Present normal appearance, PERRL and EOMI ENT ENT exam: Present normal exam, normal oropharynx, mucous membranes moist and normal external ear exam Neck Neck exam: Present normal inspection, full ROM and trachea midline; Absent tenderness Chest Chest inspection: Present normal inspection and symmetric chest wall rise; Absent tenderness Respiratory Respiratory exam: Present normal lung sounds bilaterally; Absent respiratory distress, wheezes, stridor or accessory muscle use Cardiovascular Cardiovascular exam: Present regular rate and normal rhythm Abdominal Exam Abdominal exam: Present soft; Absent distention, tenderness or guarding Extremities Exam Extremities exam: Present full ROM, tenderness, normal capillary refill and other (Bruising and tenderness to the left knee. All compartments soft. Neurovascularly intact.); Absent edema Back Exam Back exam: Present normal inspection and full ROM; Absent tenderness Neurological Exam Neurological exam: Present alert, oriented X3, CN II-XII intact and normal gait; Absent motor sensory deficit Psychiatric Psychiatric exam: Present normal affect and normal mood Skin Skin exam: Present warm and dry Medical Decision Making Medical Records Medical records reviewed: Yes I reviewed the patient's medical records. Screening: Per USPSTF and CDC recommendations, given the prevalence of disease in our region, it is our hospital?s policy to screen for HIV and viral Hepatitis for all patients aged 18 and over and those with ongoing risk factors. Mario Inquiry Pt receiving controlled substance: No Vital Signs: 12/21/24 17:22 12/21/24 21:46 Temperature 98.0 F 98.3 F Temperature Source Oral Oral Pulse Rate 78 Pulse Rate [Left Radial] 89 Respiratory Rate 15 18 Blood Pressure 139/82 Blood Pressure [Right Arm] 139/83 Blood Pressure Mean [Right Arm] 101 Blood Pressure Source Automatic Cuff Blood Pressure Position Sitting 02 Sat by Pulse Oximetry 96 Oxygen Delivery Method Room Air Room Air Lab Data Lab results reviewed: Yes I reviewed the patient's lab results. Orders (Tests/Meds): ORDERS Category Date Time Status Femur XR left 2 views [XR femur LT 2V] Stat Exams 12/21/24 21:04 Completed Hip XR left minimum 2 views [XR hip LT 2-3V w/pelvis] Exams 12/21/24 21:04 Completed Stat XR knee LT 2V Stat Exams 12/21/24 17:28 Completed Medical Decision Narrative: In summary, this patient is a 69-year-old female presenting to the Emergency Department for evaluation of left knee pain after mechanical ground-level fall. Differential diagnoses considered include but are not limited to, contusion, strain/sprain, cartilaginous, neurovascular injury. Ruling out the most morbid conditions drove assessment. It should be noted patient's history includes hypertension, hyperlipidemia, CAD which may or may not be at goal therapy. This complicates all aspects of care by increasing patient's risk for morbidity. I reviewed patient's past medical records and noted prior cardiology evaluations for CAD. On exam, the patient is sitting upright in no acute distress. She has bruising to the left knee but all compartments are soft, she is neurovascularly intact. She is still able to bear weight. No significant ligamentous laxity noted on exam. Workup included x-rays of the left hip, femur, knee. I wanted to obtain CT head and C-spine given fall over 65 with distracting injury, however patient states that she does not want this because she has a history of chronic neck issues and has difficulty getting Medicare to pay for visits when she has imaging of her neck with her chronic issues. After shared decision making and explanation of risk versus benefit of this and potential injury, patient does not want to obtain CT head and C-spine. I independently interpreted x-ray prior to the radiologist read and noted no acute fracture. Please see their read for final interpretation. On reassessment, patient is resting comfortably. I feel she is appropriate for discharge home with close follow-up with orthopedics and primary care. Strict return precautions given. Critical Care Critical Care Time Critical Care Time: No
[2024-12-21 21:46] VITALS: BP 139/82; PULSE 78; RESP 18; TEMP 36.8; O2SAT 96
== END 2024-12-21 21:47 | disposition home or self-care (01) ==
PROVIDERS: Emergency Provider Emergency Medicine; PCP Family Medicine
DX: M25.562 Pain in left knee (principal); S40.812A Abrasion of left upper arm, initial encounter; S80.212A Abrasion, left knee, initial encounter; W01.0XXA Fall on same level from slipping, tripping and stumbling without subsequent striking against object, initial encounter; Y93.89 Activity, other specified; Y92.9 Unspecified place or not applicable
CPT/HCPCS: 73502; 73552; 73560; 99283

== ENCOUNTER 2025-01-05 08:54 | Outpatient (CLI) | payer MEDICARE, OTHER, SELFPAY ==
--- NOTE | 2025-01-05 08:55 | US_ITS ---
PROCEDURE INFORMATION: Exam: US Right Breast, Complete US Left Breast, Complete MG Bilateral Diagnostic Breast Tomosynthesis Exam date and time: 01/05/2025 9:49 AM Age: 69 years old Clinical indication: Callback for abnormal findings on mammography. TECHNIQUE: Imaging protocol: Complete ultrasound of all four quadrants of the right breast and the retroareolar regions, including ultrasound of the axilla when performed. Complete ultrasound of all four quadrants of the left breast and the retroareolar regions, including ultrasound of the axilla when performed. Bilateral Diagnostic tomosynthesis and 2D mammography including computer-aided detection (CAD) when performed. Unilateral or bilateral exam. COMPARISON: MG MM DIG MAMM BI DX W/CAD 01/05/2025 9:22 AM FINDINGS: MAMMOGRAPHY: Breast composition: There are scattered areas of fibroglandular density. Breast mammogram findings: In the upper outer right breast at the anterior depth, there is a persistent focal asymmetry which measures approximately 0.8 cm. This will be evaluated with ultrasound. No definitive abnormal asymmetry, mass, or distortion persists on additional views of the left breast. ULTRASOUND: Breast ultrasound findings: Scanning of the right breast demonstrates a corresponding mass at the 11 o'clock axis, 2 cm from the nipple that measures 1.1 x 0.9 x 0.7 cm. This is considered indeterminate and ultrasound-guided biopsy is recommended. Scanning of the left breast demonstrates no dominant or suspicious mass. There is a complicated cyst at the 11 o'clock axis, 3 cm from the nipple just beneath the skin surface measuring 0.3 x 0.3 x 0.3 cm, and this is considered probably benign. No axillary adenopathy. Mild duct ectasia. IMPRESSION: 1. Mass in the left breast 11 o'clock axis 2 cm from the nipple correlates to the mammogram finding and is indeterminate. Ultrasound-guided needle biopsy is recommended. 2. Complicated cyst in the left breast at the 11 o'clock axis, 3 cm from the nipple is probably benign. Six-month follow-up left breast diagnostic mammogram and left breast ultrasound is recommended for close surveillance. ASSESSMENT: BI-RADS Category 4: Suspicious.
== END 2025-01-05 23:59 | disposition home or self-care (01) ==
LOC: RAD 08:55
PROVIDERS: PCP Family Medicine; Visit Provider Nurse Practitioner
DX: R92.8 Other abnormal and inconclusive findings on diagnostic imaging of breast (principal)
CPT/HCPCS: 76641; 77062; 77066; G0279

== ENCOUNTER 2025-06-23 14:51 | Outpatient (CLI) | payer MEDICARE, OTHER, SELFPAY ==
--- OUTSIDE RECORDS SUMMARY | 2025-06-23 14:53 | XMS_ITS | Continuity of Care Document ---
Author Name [facility] Organization [facility] Care Team Providers [employer] Driver Name Role Phone [facility] Unavailable Unavailable Medications Combined list of outpatient medications from Department of Defense and Veterans Affairs facilities.Medications provided include 1) outpatient medications from the last 15 months, and 2) patient-reported medications. Medication Details Route Status Patient Instructions Prescription Expires Prescription Number Last Dispense Date Ordering Provider Order Date Order Qty Source Advair HFA 230-21 mcg inhaler (12g) = 2 puff(s), Inhale, BID, # 36 g, 3 total refill(s ), Hard Stop Inhala tion (breat he in) Discont inued 05/18/2024 3 2023 36.0 Ambulat ory Pharmac y Advair HFA 230-21 mcg inhaler (12g) = 2 puff(s), Inhale, BID, # 36 g, 3 total refill(s ), Hard Stop Inhala tion (breat he in) Complet ed 04/15/2024 4 2023 36.0 Ambulat ory Pharmac y Advair HFA 230-21 mcg inhaler (12g) See Instruct ions, # 12 g, 1 total refill(s ), Hard Stop Discont inued 05/18/2024 3 2023 12.0 Ambulat ory Pharmac y albuterol 0.63 mg/3 mL (0.021%) inhale soln (3mL) See Instruct ions, # 270 mL, 1 total refill(s ), Hard Stop Discont inued 04/02/2025 5 2024 270.0 Ambulat ory Pharmac y albuterol 0.63 mg/3 mL (0.021%) inhale soln (3mL) See Instruct ions, every 4 hr, # 90 mL, 0 total refill(s ), Hard Stop Complet ed 05/18/2024 4 2023 90.0 Ambulat ory Pharmac y albuterol 2.5mg/3mL (0.083%) inhalation soln (3mL) See Instruct ions, # 180 mL, 3 total refill(s ), Soft Stop Discont inued 06/11/2025 5 2024 180.0 Ambulat ory Pharmac y albuterol 2.5mg/3mL (0.083%) inhalation soln (3mL) See Instruct ions, # 720 mL, 0 total refill(s ), Soft Stop Ordered 5 2024 720.0 Ambulat ory Pharmac y albuterol 2.5mg/3mL (0.083%) inhalation soln (3mL) [id number] 3 mg, See Instruct ions, # 180 mL, 3 total refill(s ), Hard Stop Complet ed 04/15/2024 3 2023 180.0 Ambulat ory Pharmac y albuterol 2.5mg/3mL (0.083%) inhalation soln (3mL) See Instruct ions, 0, # 180 mL, 3 total refill(s ), Hard Stop Complet ed 09/22/2024 4 2023 180.0 Ambulat ory Pharmac y albuterol 90 mcg inhaler [8.5g] See Instruct ions, Inhale, # 25.5 g, 0 total refill(s ), Hard Stop Inhala tion (breat he in) Discont inued 01/01/2024 3 2023 25.5 Ambulat ory Pharmac y albuterol 90 mcg inhaler [8.5g] = 2 inh(s), Inhale, QID, # 25.5 g, 2 total refill(s ), Soft Stop Inhala tion (breat he in) Ordered 5 2024 25.5 Ambulat ory Pharmac y albuterol 90 mcg inhaler [8.5g] See Instruct ions, # 8.5 g, 3 total refill(s ), Hard Stop Complet ed 07/22/2024 4 2023 8.5 Ambulat ory Pharmac y albuterol 90 mcg inhaler [8.5g] See Instruct ions, Inhale, # 25.5 g, 0 total refill(s ), Hard Stop Inhala tion (breat he in) Complet ed 03/11/2025 4 2024 25.5 Ambulat ory Pharmac y albuterol 90 mcg inhaler [8.5g] See Instruct ions, Inhale, # 8.5 g, 3 total refill(s ), Hard Stop Inhala tion (breat he in) Complet ed 05/12/2025 5 2024 8.5 Ambulat ory Pharmac y alirocumab 75 mg/mL inj-pen [1mL] See Instruct ions, # 6 mL, 3 total refill(s ), Hard Stop Complet ed 06/17/2025 5 2024 6.0 Ambulat ory Pharmac y aspirin EC 81 mg tablet = 1 tab(s), Oral, Daily, # 100 EA, 2 total refill(s ), Soft Stop Oral (given by mouth) Ordered 5 2024 100.0 Ambulat ory Pharmac y aspirin EC 81 mg tablet 81 mg, Oral, Daily, # 90 EA, 1 total refill(s ), Hard Stop Oral (given by mouth) Complet ed 04/29/2025 5 2024 90.0 Ambulat ory Pharmac y aspirin EC 81 mg tablet 81 mg, Oral, Daily, # 90 EA, 1 total refill(s ), Hard Stop Oral (given by mouth) Complet ed 05/12/2025 4 2024 90.0 Ambulat ory Pharmac y azelastine 137 mcg/inh nasal spray [30mL] See Instruct ions, # 90 mL, 3 total refill(s ), Soft Stop Ordered 5 2024 90.0 Ambulat ory Pharmac y azelastine 137 mcg/inh nasal spray [30mL] See Instruct ions, Nostril- Both, BID, # 90 mL, 3 total refill(s ), Hard Stop Nostri l-Both (into the nose) Complet ed 04/15/2024 4 2023 90.0 Ambulat ory Pharmac y azelastine 137 mcg/inh nasal spray [30mL] See Instruct ions, # 30 mL, 3 total refill(s ), Hard Stop Discont inued 05/18/2024 3 2023 30.0 Ambulat ory Pharmac y azelastine 137 mcg/inh nasal spray [30mL] 274 mcg, Nostril- Both, BID, # 90 mL, 6 total refill(s ), Hard Stop Nostri l-Both (into the nose) Complet ed 05/12/2025 5 2024 90.0 Ambulat ory Pharmac y azelastine 137 mcg/inh nasal spray [30mL] See Instruct ions, Nostril- Both, # 30 mL, 10 total refill(s ), Hard Stop Nostri l-Both (into the nose) Discont inued 05/18/20242023 30.0 Ambulat ory Pharmac y baclofen 10 mg tablet See Instruct ions, Oral, # 90 EA, 3 total refill(s ), Soft Stop Oral (given by mouth) Ordered 5 2024 90.0 Ambulat ory Pharmac y baclofen 10 mg tablet 10 mg, Oral, Daily, # 90 EA, 3 total refill(s ), Hard Stop Oral (given by mouth) Complet ed 05/13/2025 5 2024 90.0 Ambulat ory Pharmac y baclofen 10 mg tablet 10 mg, Oral, Daily, # 90 EA, 3 total refill(s ), Hard Stop Oral (given by mouth) Complet ed 04/15/2024 4 2023 90.0 Ambulat ory Pharmac y baclofen 10 mg tablet 10 mg, Oral, Daily, # 90 EA, 3 total refill(s ), Hard Stop Oral (given by mouth) Discont inued 05/18/2024 4 2023 90.0 Ambulat ory Pharmac y conjugated estrogens 0.625 mg tablet 0.625 mg, Oral, Daily, # 90 EA, 3 total refill(s ), Hard Stop Oral (given by mouth) Complet ed 06/17/2025 5 2024 90.0 Ambulat ory Pharmac y EPINEPHrine (eqv-epi-pe n) 0.3mg autoinjecto r kit [2EA] See Instruct ions, # 2 EA, 3 total refill(s ), Soft Stop Ordered 5 2024 2.0 Ambulat ory Pharmac y ergocalcife rol 1.25 mg (50,000 units) capsule = 1 cap(s), Oral, every week, # 14 EA, 12 total refill(s ), Hard Stop Oral (given by mouth) Ordered 06/25/2025 5 2024 14.0 Ambulat ory Pharmac y fexofenadin e 180 mg tablet 180 mg, Oral, Daily, # 90 EA, 0 total refill(s ), Hard Stop Oral (given by mouth) Complet ed 12/31/2024 4 2024 90.0 Ambulat ory Pharmac y fluconazole 150 mg tablet See Instruct ions, Oral, # 2 EA, 0 total refill(s ), Hard Stop Oral (given by mouth) Complet ed 04/19/2024 3 2023 2.0 Ambulat ory Pharmac y fluticasone 50 mcg/inh nasal spray [16g] See Instruct ions, Nostril- Both, # 16 g, 10 total refill(s ), Hard Stop Nostri l-Both (into the nose) Complet ed 03/20/2025 5 2024 16.0 Ambulat ory Pharmac y fluticasone 50 mcg/inh nasal spray [16g] = 1 spray(s) , Nostril- Both, Daily, # 32 g, 0 total refill(s ), Soft Stop Nostri l-Both (into the nose) Ordered 5 2024 32.0 Ambulat ory Pharmac y fluticasone 50 mcg/inh nasal spray [16g] 100 mcg, Nostril- Both, Daily, # 16 g, 3 total refill(s ), Hard Stop Nostri l-Both (into the nose) Complet ed 05/12/2025 5 2024 16.0 Ambulat ory Pharmac y fluticasone -salmeterol 230-21 mcg inhaler (12g) = 2 inh(s), Inhale, BID, # 36 g, 3 total refill(s ), Soft Stop Inhala tion (breat he in) Ordered 5 2024 36.0 Ambulat ory Pharmac y fluticasone -salmeterol 230-21 mcg inhaler (12g) = 2 puff(s), Inhale, BID, # 36 g, 3 total refill(s ), Hard Stop Inhala tion (breat he in) Complet ed 05/12/2025 5 2024 36.0 Ambulat ory Pharmac y GABAPENTIN (GABAPENTIN ), 300 MG, CAPSULE, ORAL, [employer] PHARMA,, 500 ea. BOTTLE Cancele d [id number] 4 [id number] : 2023 0 Pharmac y Data Trans[employer] y HYDROCODONE -ACETAMINOP HEN (HYDROCODON E/ACETAMINO PHEN), 7.5-325MG, TABLET, ORAL, MALLINCKROD T PH, 500 ea. BOTTLE Cancele d [id number] 4 [id number] : 2023 0 Pharmac y [employer] y ibuprofen 800 mg tablet See Instruct ions, Oral, # 270 EA, 1 total refill(s ), Soft Stop Oral (given by mouth) Ordered 5 2024 270.0 Ambulat ory Pharmac y ibuprofen 800 mg tablet 800 mg, Oral, TID, # 90 EA, 6 total refill(s ), Hard Stop Oral (given by mouth) Complet ed 04/15/2024 4 2023 90.0 Ambulat ory Pharmac y ibuprofen 800 mg tablet 800 mg, Oral, TID, # 90 EA, 6 total refill(s ), Hard Stop Oral (given by mouth) Complet ed 05/12/2025 5 2024 90.0 Ambulat ory Pharmac y levocetiriz ine 5 mg tablet See Instruct ions, Oral, # 90 EA, 3 total refill(s ), Soft Stop Oral (given by mouth) Ordered 5 2024 90.0 Ambulat ory Pharmac y levocetiriz ine 5 mg tablet 5 mg, Oral, Daily, # 90 EA, 3 total refill(s ), Hard Stop Oral (given by mouth) Complet ed 03/11/2025 5 2024 90.0 Ambulat ory Pharmac y levocetiriz ine 5 mg tablet See Instruct ions, # 90 EA, 1 total refill(s ), Hard Stop Discont inued 03/17/2024 3 2023 90.0 Ambulat ory Pharmac y levocetiriz ine 5 mg tablet See Instruct ions, # 90 EA, 3 total refill(s ), Hard Stop Discont inued 07/11/2023 3 2022 90.0 Ambulat ory Pharmac y levothyroxi ne (Synthroid) 50 mcg tablet See Instruct ions, Oral, # 90 EA, 3 total refill(s ), Soft Stop Oral (given by mouth) Ordered 5 2024 90.0 Ambulat ory Pharmac y levothyroxi ne (Synthroid) 50 mcg tablet See Instruct ions, Oral, # 90 EA, 0 total refill(s ), Hard Stop Oral (given by mouth) Discont inued 05/18/2024 4 2023 90.0 Ambulat ory Pharmac y levothyroxi ne (Synthroid) 50 mcg tablet See Instruct ions, # 90 EA, 3 total refill(s ), Hard Stop Discont inued 06/11/2025 5 2024 90.0 Ambulat ory Pharmac y levothyroxi ne (Synthroid) 50 mcg tablet 50 mcg, Oral, Daily, # 90 EA, 0 total refill(s ), Hard Stop Oral (given by mouth) Discont inued 01/01/2024 3 2023 90.0 Ambulat ory Pharmac y levothyroxi ne (Synthroid) 50 mcg tablet See Instruct ions, Oral, # 90 EA, 0 total refill(s ), Hard Stop Oral (given by mouth) Discont inued 01/01/2024 3 2023 90.0 Ambulat ory Pharmac y levothyroxi ne (Synthroid) 50 mcg tablet See Instruct ions, Oral, # 90 EA, 3 total refill(s ), Hard Stop Oral (given by mouth) Complet ed 03/20/2025 4 2024 90.0 Ambulat ory Pharmac y LIDOCAINE (lidocaine) , 5 %, ADH. PATCH, TOPICAL, YARAL PHARMA, I, 30 ea. BOX Cancele d [id number] 4 [id number] : 2023 0 Pharmac y Data Trans[employer] tion Service Facilit y LIDOCAINE (lidocaine) , 5 %, ADH. PATCH, TOPICAL, YARAL PHARMA, I, 30 ea. BOX Cancele d [id number] 4 [id number] : 2023 0 Pharmac y Data Transac tion Service Facilit y LIDOCAINE (LIDOCAINE) , 5%(700MG), ADH. PATCH, TOPICAL, ACTAVIS PHARMA,, 30 ea. BOX Cancele d [id number] 4 [id number] : 2023 0 Pharmac y Data Transac tion Service Facilit y METHYLPREDN ISOLONE (methylpred nisolone), 4 MG, TAB DS PK, ORAL, G3, 21 ea. DOSE-PACK Active [id number] 4 2023 21 Pharmac y Data Trans[employer] tion Service Facilit y metoprolol succinate ER 25 mg/24 hour tablet 37.5 mg, # 135 EA, 3 total refill(s ), Hard Stop Complet ed 09/22/2024 4 2023 135.0 Ambulat ory Pharmac y metoprolol succinate ER 25 mg/24 hour tablet 37.5 mg, Oral, # 135 EA, 3 total refill(s ), Hard Stop Oral (given by mouth) Complet ed 05/28/2024 3 2023 135.0 Ambulat ory Pharmac y metoprolol succinate ER 50 mg/24 hour tablet = 1 tab(s), Oral, Daily, # 90 EA, 3 total refill(s ), Soft Stop Oral (given by mouth) Ordered 5 2024 90.0 Ambulat ory Pharmac y metoprolol succinate ER 50 mg/24 hour tablet 50 mg, Oral, Daily, # 90 EA, 1 total refill(s ), Hard Stop Oral (given by mouth) Complet ed 03/19/20252024 90.0 Ambulat ory Pharmac y metoprolol succinate ER 50 mg/24 hour tablet 50 mg, Oral, Daily, # 90 EA, 1 total refill(s ), Hard Stop Oral (given by mouth) Complet ed 03/20/2025 4 2024 90.0 Ambulat ory Pharmac y metoprolol succinate ER 50 mg/24 hour tablet 50 mg, Oral, Daily, # 90 EA, 3 total refill(s ), Hard Stop Oral (given by mouth) Complet ed 05/12/2025 5 2024 90.0 Ambulat ory Pharmac y metoprolol succinate ER 50 mg/24 hour tablet 50 mg, Oral, Daily, # 90 EA, 3 total refill(s ), Hard Stop Oral (given by mouth) Complet ed 05/12/20252024 90.0 Ambulat ory Pharmac y montelukast 10 mg tablet 10 mg, Oral, every evening, # 90 EA, 3 total refill(s ), Hard Stop Oral (given by mouth) Discont inued 05/18/2024 3 2023 90.0 Ambulat ory Pharmac y montelukast 10 mg tablet See Instruct ions, # 90 EA, 2 total refill(s ), Soft Stop Ordered 5 2024 90.0 Ambulat ory Pharmac y montelukast 10 mg tablet See Instruct ions, Oral, # 90 EA, 2 total refill(s ), Soft Stop Oral (given by mouth) Discont inued 06/11/2025 5 2024 90.0 Ambulat ory Pharmac y montelukast 10 mg tablet See Instruct ions, # 90 EA, 2 total refill(s ), Hard Stop Complet ed 04/30/2024 3 2023 90.0 Ambulat ory Pharmac y montelukast 10 mg tablet 10 mg, Oral, every evening, # 90 EA, 3 total refill(s ), Hard Stop Oral (given by mouth) Discont inued 08/28/20232022 90.0 Ambulat ory Pharmac y montelukast 10 mg tablet See Instruct ions, Oral, # 90 EA, 2 total refill(s ), Hard Stop Oral (given by mouth) Discont inued 04/02/2025 5 2024 90.0 Ambulat ory Pharmac y ondansetron 4 mg ODT = 1 tab(s), every 8 hr, # 45 EA, 6 total refill(s ), Hard Stop Ordered 09/03/2025 5 2024 45.0 Ambulat ory Pharmac y ondansetron 4 mg ODT See Instruct ions, # 30 EA, 6 total refill(s ), Hard Stop Complet ed 04/15/2024 4 2023 30.0 Ambulat ory Pharmac y ondansetron 4 mg ODT See Instruct ions, # 45 EA, 6 total refill(s ), Hard Stop Complet ed 05/28/2024 4 2023 45.0 Ambulat ory Pharmac y pantoprazol e EC 40 mg tablet = 1 tab(s), Oral, Daily, # 90 EA, 3 total refill(s ), Soft Stop Oral (given by mouth) Ordered 5 2024 90.0 Ambulat ory Pharmac y pantoprazol e EC 40 mg tablet 40 mg, Oral, Daily, # 90 EA, 3 total refill(s ), Hard Stop Oral (given by mouth) Complet ed 04/15/2024 4 2023 90.0 Ambulat ory Pharmac y pantoprazol e EC 40 mg tablet 40 mg, Oral, Daily, # 90 EA, 3 total refill(s ), Hard Stop Oral (given by mouth) Complet ed 05/12/2025 5 2024 90.0 Ambulat ory Pharmac y Praluent 75 mg/mL inj-pen [2EA] See Instruct ions, # 6 mL, 3 total refill(s ), Hard Stop Discont inued 09/10/2024 4 2023 6.0 Ambulat ory Pharmac y predniSONE 10 mg tablet = 2 tab(s), Oral, BID, # 20 EA, 0 total refill(s ), Soft Stop Oral (given by mouth) Ordered 5 2024 20.0 Ambulat ory Pharmac y Premarin 0.625 mg tablet See Instruct ions, Oral, # 24 EA, 6 total refill(s ), Hard Stop Oral (given by mouth) Complet ed 04/15/2024 4 2023 24.0 Ambulat ory Pharmac y ProAir RespiClick 90 mcg inhaler [200] See Instruct ions, Inhale, 0, # 1 EA, 10 total refill(s ), Hard Stop Inhala tion (breat he in) Complet ed 04/15/2024 3 2023 1.0 Ambulat ory Pharmac y simvastatin 20 mg tablet See Instruct ions, # 90 EA, 3 total refill(s ), Hard Stop Complet ed 04/15/2024 3 2023 90.0 Ambulat ory Pharmac y Immunizations Combined list of available immunizations from the Department of Defense and Veterans Affairs facilities. Immunization Series Date Given Administered By Site Reaction Lot Number CVX Code Drug Mva Operator Status Comments Source zoster live 2016 ALEXEI, () Not Given zoster live DoD Procedures Combined list of: 1) Procedures from Department of Veterans Affairs facilities going back up to thelast 18 months, not all VA non-surgical procedures are included; 2) All procedures from the Department of Defense facilities. Procedure Procedure Type Code Date Perfomer Comments Sourc e No data available for this section Ambulatory P harmacy Social History Combined list of available smoking, tobacco, and other social history from Department of Defense and Veterans Affairs facilities. Social History Type Response Date Comment Sourc e This section is an empty soc ial history section. DoD Sexual Orientation Ambula tory Pharmacy Gender identity Ambulator y Pharmacy Sex Representation Female (finding) Unknown Organization Assessment and Plan Combined list of future care activities from Department of Defense and Veterans Affairs facilities (e.g., assessment and plan notes, appointments, orders, and referrals). Additional future care activities may be listed in the Plan of Care section. Result Assessment and Plan Date Source Assessment and Plan No data available for this section 06/23/2025 Ambulatory Pharmacy Functional Status Combined list of recent functional and cognitive assessments recorded at [facility] of Defense and [facility] ([facility] Functional Hardy Measurement (FIM) Scale: 1 = Total Assistance (Subject = 0% +), 2 = Maximal Assistance (Subject = 25% +), 3 = Moderate Assistance (Subject = 50% +), 4 = Minimal Assistance (Subject = 75% +), 5 = Supervision, 6 = Modified Hardy (Device), 7 = Complete Hardy (Timely, Safely). Assessment Date/Time Source Assessment Type Assessment Skill Assessment Score Assessment Details No data available for this section
--- OUTSIDE RECORDS SUMMARY | 2025-06-23 14:54 | XMS_ITS | Clinical Summary ---
Author Organization [facility] Address [address] [place] [id number] Phone Care Team Providers Care Van Helper Name Role Phone Babatunde CLARK, Dior Reynaga [ ] Conditions or Problems Problem Name Problem Code Onset Date Status Entry Date Provider Comment Standard Description Annotate Lumbar disc disease with myelopathy 41097091 (SNOMED CT) 12/10 Active 12/11 Dior Fine MD Intervertebral disc disorder of lumbar region with myelopathy Cystitis, chronic interstitial 591453163 (SNOMED CT) 12/10 Active 12/11 Dior Fine MD Chronic interstitial cystitis Hypothyroidism 79354989 (SNOMED CT) 12/10 Active 12/10 Dior Fine MD Hypothyroidism Asthma 410174815 (SNOMED CT) 12/10 Active 12/10 Dior Fine MD Asthma (History of) E. coli infection B96.29 (ICD-10-CM ) 12/09 Active 12/09 Maris Mora Other Escherichia coli [E. coli] as the cause of diseases classified elsewhere UTI 90986186 (SNOMED CT) 12/09 Active 12/09 Maris Mora Urinary tract infectious disease Medications Medication Instructions Start Date Stop Date Generic Name [facility] Provider TERAZOL 7 0.4 % VAGINAL CREAM TERCONAZOLE 29605818062 Shameka Corona ZOCOR 20 MG TABS SIMVASTATIN 38882422865 Shameka Corona PYRIDIUM 200 MG TABS PHENAZOPYRIDINE HCL 59577168313 Shameka Corona ELMIRON 100 MG CAPS PENTOSAN POLYSULFATE SODIUM 12590748463 Shameka Corona PROTONIX 40 MG PACK PANTOPRAZOLE SODIUM 78545589703 Shameka Corona NYSTATIN [id number] UNIT/GM OINT NYSTATIN 20494422155 Shameka Corona NITROFURANTOIN MACROCRYSTAL 100 MG CAPS NITROFURANTOIN MACROCRYSTAL 09208264163 Shameka Corona SINGULAIR 10 MG TABS MONTELUKAST SODIUM 74511020541 Shameka Corona ANECREAM5 5 % CREA LIDOCAINE (ANORECTAL) 97416216586 Shameka Corona ANUCORT-HC 25 MG SUPP HYDROCORTISONE ACETATE 03743145549 Shameka Corona NORCO 7.5-325 MG ORAL TABLET HYDROCODONE-ACETAM INOPHEN 85122944627 Shameka Corona SYMBICORT 160-4.5 MCG/ACT AERO BUDESONIDE-FORMOTE ROL FUMARATE 25119314249 Shameka Corona DULCOLAX 5 MG TBEC BISACODYL 63269450687 Shameka Corona BIOTIN 5000 MCG TABS BIOTIN 52075295446 Shameka Corona BACLOFEN 10 MG TABS BACLOFEN 26378807114 Shameka Corona PROVENTIL HFA 108 (90 BASE) MCG/ACT INHALATION AEROSOL SOLUTION ALBUTEROL SULFATE 90160509369 Shameka Corona Medications Administered No information available. 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 Lab Report: URINALYSIS, MICR OSCOPIC ONLY ZZ-GE-[id number] Automated Microscopy GE use only - fo r LinkLogic import when terms are not otherwise specified HYAL CAST UR 0-6 /[LPF] 0-6 Hyaline casts [#/area] in Urine sediment by Microscopy low power field Lab Report: URINALYSIS WITHO UT MICROSOPIC UROBILINOGEN 0.2 E.U./dL 0.2 - 1.0 Ur obilinogen [Presence] in Urine by Test strip NITRITE URN Negative Negative Nitrite [Presence] in Urine by Test strip WBC DIPSTK U Negative Negative Leukoc yte esterase [Presence] in Urine by Test strip PROTEIN, URN Negative Negative protei n, urine, semiquantitative (dipstick) BILIRUBIN UR Negative Negative Biliru bin.total [Presence] in Urine by Test strip KETONES URN Negative Negative Ketones [Mass/volume] in Urine by Test strip GLUCOSE, URN Negative Negative Glucos e [Mass/volume] in Urine by Test strip SPEC GR URIN 1.018 1.001-1.03 Speci fic gravity of Urine by Test strip PH URINE 6.0 5.0-8.0 pH of Urine by Test strip APPEARANCE U Clear Clear Appearan ce of Urine UA COLOR Yellow Yellow, St Color of Urine Plan of Care Type Date Detail Pending order Urinalysis with microscopic exam Pending order Urine Culture & Sensitivity Procedures Code Procedure Name Date Entry Date CPT-73810 Urinalysis with microscopic exam CPT-31526 Urine Culture & Sensitivity Vital Signs Date Name Value Unit Description BMI (Body Mass Index) 30.31 kg/m2 Bod y Mass Index (Ratio) Body Temperature 97.9 [degF] temperat ure E&M BP Diastolic 71 mm[Hg] blood pressu re, diastolic BP Systolic 125 mm[Hg] blood pressur e, systolic Heart Rate 85 /min pulse rate Height 66 [in_us] height E&M Respiratory Rate 16 /min respirat ory rate E&M Weight Measured 187.8 [lb_av] weight E& M Weight Measured 187.8 [lb_av] weight E& M Immunizations No information available. Advance Directives Directive Description Start Date DISCUSSED - NO DECISION MADE
[2025-06-23 14:55] LABS: Influenza A, PCR Not Detected (NotDetected); Influenza B, PCR Not Detected (NotDetected)
--- OUTSIDE RECORDS SUMMARY | 2025-06-23 14:55 | XMS_ITS | Clinical Summary ---
Author Organization [facility] Address [address] [place] [address] Care Team Providers Care Business Integration Manager Name Role Phone Melvi Caballero APRN Primary Care Provider [phone] Allergies No known active allergies Medications HYDROcodone-acet aminophen (NORCO) 7.5-325 MG per tablet Take 1 tablet by mouth Every 6 (Six) Hours As Needed for Moderate Pain (4-6). Active baclofen (LIORESAL) 10 MG tablet Take 10 mg by mouth 2 (Two) Times a Day As Needed. Active gabapentin (NEURONTIN) 300 MG capsule Take 300 mg by mouth 3 (Three) Times a Day. Active lidocaine (LIDODERM) 5 % Place 2 patches on the skin as directed by provider Daily. Remove & Discard patch within 12 hours or as directed by MD Active bisacodyl (DULCOLAX) 5 MG EC tablet Take 5 mg by mouth As Needed. Active hydrocortisone (ANUCORT-HC) 25 MG suppository Insert 1 suppository into the rectum As Needed for Hemorrhoids. 90 suppository 2 12/09/19 18 Active fluticasone (FLONASE) 50 MCG/ACT nasal sprayIndications :ETD (Eustachian tube dysfunction), bilateral 2 sprays into the nostril(s) as directed by provider Daily. 3 bottle 2 06/20/20 18 Active ibuprofen (ADVIL,MOTRIN) 800 MG tabletIndication s:Interstitial cystitis Take 1 tablet by mouth 3 (Three) Times a Day. 270 tablet 1 09/04/20 18 Active hydrocortisone (PROCTOSOL HC) 2.5 % rectal creamIndications :Grade I hemorrhoids Insert into the rectum Daily. 3 each 1 09/04/20 18 Active ipratropium-albu terol (DUO-NEB) 0.5-2.5 mg/3 ml nebulizerIndicat ions:Mild persistent asthma with acute exacerbation Take 3 mL by nebulization Every 4 (Four) Hours As Needed for Wheezing or Shortness of Air. 360 mL 11/20/19 19 Active loratadine (CLARITIN) 10 MG tablet Take 10 mg by mouth Daily. Active budesonide-formo terol (SYMBICORT) 160-4.5 MCG/ACT inhalerIndicatio ns:Moderate persistent asthma without complication Inhale 2 puffs 2 (Two) Times a Day. 3 inhaler 2 03/04/20 19 Active montelukast (SINGULAIR) 10 MG tabletIndication s:Mild intermittent asthma, unspecified whether complicated Take 1 tablet by mouth Every Night. 90 tablet 1 04/14/20 19 Active phenazopyridine (PYRIDIUM) 200 MG tablet Take 1 tablet by mouth 2 (Two) Times a Day As Needed for bladder spasms. 180 tablet 1 04/14/20 19 Active azelastine (ASTELIN) 0.1 % nasal spray 1 spray As Needed. 08/26/20 19 Active levocetirizine (XYZAL) 5 MG tablet Take 5 mg by mouth Every Evening. Active albuterol sulfate HFA (PROAIR HFA) 108 (90 Base) MCG/ACT inhalerIndicatio ns:Mild intermittent asthma without complication Inhale 2 puffs Every 4 (Four) Hours As Needed for Wheezing. 3 inhaler 3 10/29/19 20 Active albuterol (PROVENTIL) (2.5 MG/3ML) 0.083% nebulizer solutionIndicati ons:Moderate persistent asthma without complication Take 2.5 mg by nebulization Every 4 (Four) Hours As Needed for Wheezing. 300 mL 3 10/29/19 20 Active Multiple Vitamins-Mineral s (V-C FORTE) capsuleIndicatio ns:Medication monitoring encounter Take 1 capsule by mouth Daily. 90 each 1 10/29/19 20 Active zolpidem (AMBIEN) 10 MG tablet TK 1 T PO HS 11/11/19 20 Active nystatin (MYCOSTATIN) 396934 UNIT/ML suspension Swish and swallow 5 mL 4 (Four) Times a Day. 473 mL 3 11/24/19 20 Active clobetasol (TEMOVATE) 0.05 % cream 01/12/20 20 Active conjugated estrogens (Premarin) 0.625 MG/GM vaginal creamIndications :Vaginal atrophy Insert into the vagina Daily. 30 g 2 03/07/20 20 Active metoprolol succinate XL (Toprol XL) 25 MG 24 hr tablet TAKE 1 TABLET DAILY 90 tablet 3 04/14/20 20 Active Additional Information Patient taking differently: TAKE 1 TABLET 1/2 DAILY, Reported on 01/17/2022 SPIRIVA RESPIMAT 1.25 MCG/ACT aerosol solution inhaler INL 2 INHALATIONS PO QD FOR ASTHMA 03/29/20 20 Active ondansetron (ZOFRAN) 4 MG tabletIndication s:Nausea TAKE 1 TABLET EVERY 8 HOURS NEEDED FOR NAUSEA OR VOMITING 90 tablet 11 09/18/20 20 Active simvastatin (ZOCOR) 20 MG tabletIndication s:Medicare annual wellness visit, subsequent TAKE 1 TABLET EVERY NIGHT 90 tablet 3 12/01/19 21 Active levothyroxine (SYNTHROID, LEVOTHROID) 50 MCG tabletIndication s:Acquired hypothyroidism,[facility] annual wellness visit, subsequent TAKE 1 TABLET DAILY 90 tablet 3 12/01/19 21 Active Mepolizumab (Nucala) 100 MG/ML solution auto-injectorInd ications:Moderat e persistent asthma without complication Inject under the skin into the appropriate area as directed. Active ciclopirox (Penlac) 8 % solutionIndicati ons:Onychomycosi s Apply topically to the appropriate area as directed Every Night. 6 mL 1 01/14/20 21 Active terbinafine (lamiSIL) 250 MG tabletIndication s:Onychomycosis TAKE 1 TABLET DAILY 90 tablet 3 02/14/20 21 Active pantoprazole (PROTONIX) 40 MG EC tabletIndication s:Gastroesophage al reflux disease TAKE 1 TABLET DAILY 90 tablet 3 02/14/20 21 Active methenamine (HIPREX) 1 g tablet Take 1 g by mouth 2 (Two) Times a Day. 04/19/20 21 Active Active Problems Problem Noted Date Diagnosed Date Onychomycosis 01/13/2021 Environmental and seasonal allergies 01/13/2021 Dysfunction of both eustachian tubes 05/22/2019 Cough 01/09/2019 GERD (gastroesophageal reflux disease) 9 Palpitations 03/14/2018 Overview (12/05/2018): Echocardiogram 12/05/18: EF 60%, cardiac valves anatomically and functionally normal BMI 30.0-30.9,adult 02/27/2018 Other chest pain 09/10/2017 Mixed hyperlipidemia 09/02/2017 Moderate persistent asthma without complication 09/02/2017 Other specified hypothyroidism 09/02/2017 Vitamin D deficiency 09/02/2017 Cervical pain (neck) 09/02/2017 Other chronic pain 09/02/2017 Chronic interstitial cystitis 06/27/2015 Resolved Problems Problem Noted Date Diagnosed Date Resolved Date Bronchiectasis without complication 01/09/2019 03/07/2020 Immunizations Immunization Administration Dates Next Due COVID-19 ([employer]) Purple Cap Monovalent 01/19/20 21,12/28/2020 Flu Vaccine Quad PF >36MO 09/02/2017 Fluzone (or Fluarix & Flulaval for VFC) >6mos Fluzone Quad >6mos (Multi-dose) 09/01/2019 Hep A, Unspecified 11/03/2018 Hep B, Unspecified 03/31/1996 Hepatitis A 10/31/2018 Hepatitis B 01/19/1999,05/07/1996 Pneumococcal Conjugate 13-Valent (PCV13) 018 Pneumococcal Polysaccharide (PPSV23) 03/07/2020 Tdap 11/13/2016 Zostavax 12/27/2016 Zoster, Unspecified 09/04/2018 Family History Medical History Relation Name Comments Heart attack Brother 1 Heart disease Brother 2 Hypertension Brother 2 Arthritis Father Diabetes Father Hyperlipidemia Father Hypertension Father Stroke Father Throat cancer Father Arthritis Mother Bleeding Disorder Mother Diabetes Mother Heart attack Mother Hypertension Mother Kidney disease Mother Liver disease Mother Migraines Mother Heart failure Sister Breast cancer Neg Hx Ovarian cancer Neg Hx Relation Name Status Comments Brother 1 Brother 2 Alive Father Mother Sister Alive Social History Tobacco Use Types Packs/Day Years Used Date Smoking Tobacco: Former Smokeless Tobacco: Never Tobacco Cessation:Counseling Given: Yes Alcohol Use Standard Drinks/Week Comments No 0 (1 standard drink = 0.6 oz pur e alcohol) Humiliation, Afraid, Rape, and Kick questionnair e Answer Date Recorded Fear of Current or Ex-Partner No Emotionally Abused No 11/28/2018 Physically Abused No 11/28/2018 Sexually Abused No 11/28/2018 Social Connection and Isolat ion Panel [NHANES] Answer Date Recorded Frequency of Communication w ith Friends and Family More than three times a week 11/28/2018 Frequency of Social Gatherin gs with Friends and Family Twice a week 11/28/2018 Attends Mandaeism Services More than 4 times per year 11/28/2018 Active Member of Clubs or Organizations No 11/28/2018 Attends Club or Organization Meetings Never 11/28/2018 Marital Status 11/28/2018 Overall Financial Resource Strain (CARDIA) Answe r Date Recorded Difficulty of Paying Living Expenses Not very [address] 11/28/2018 PHQ-2 Answer Date Recorded Retired Total Score 0 03/07/2020 [employer] [facility] - Occupational Stress Questionnaire Answer Date Recorded Feeling of Stress Not at all 11/28/2018 Exercise Vital Sign Answer Date Recorde d Days of Exercise per Week 0 days 2018 Minutes of Exercise per Session 0 min 11/28/2018 Hunger Vital Sign Answer Date Recorded Worried About Running Out of Food in the Last Ye ar Never true 11/28/2018 Ran Out of Food in the Last Year Never true 11/28/2018 PRAPARE - Transportation Answer Date Re corded Lack of Transportation (Medical) No 11/28/2018 Lack of Transportation (Non-Medical) No 11/28/2018 Comments No Sex and Gender Information Value Date Recorded Sex Assigned at Not on file Legal Sex Female 10:08 AM EDT Gender Identity Not on file Sexual Orientation Not on file Occupation Industry Job Start Date Job End Date Retired Not on file Not on file Not on file Last Filed Vital Signs Vital Sign Reading Time Taken Comments Blood Pressure 102/54 01/17/2022 2:57 PM EDT Pulse 66 01/17/2022 2:57 PM EDT Temperature 36.2 C (97.1 F) 04/26/2021 1:57 PM EDT Respiratory Rate 18 03/29/2021 11:01 AM EDT Oxygen Saturation 98% 01/17/2022 2:57 PM EDT Inhaled Oxygen Concentration - - Weight 85.3 kg (188 lb) 01/17/2022 2:57 PM EDT Height 170.2 cm (5' 7 ) 01/17/2022 2:57 PM EDT Body Mass Index 29.44 01/17/2022 2:57 PM EDT Plan of Treatment Health Maintenance Due Date Last Done Comments DXA SCAN 1955 COLOGUARD 02/12/2000 COLON CANCER SCREENING 5 YEA R SIGMOIDOSCOPY 02/12/2000 CT COLONOGRAPHY 02/12/2000 FECAL OCCULT BLOOD TEST 02/12/2000 FIT Testing (1 year) 02/12/2000 ANNUAL WELLNESS VISIT 03/07/2021 03/07/2020 , 03/07/2020, 03/04/2019, Additional history exists LIPID PANEL 01/25/2023 01/25/2022, 04/27, 03/07/2020, Additional history exists COVID-19 Vaccine (2023-2 5 season) 2024 09/26/2021, 01/18/2021, 12/28/2020 INFLUENZA VACCINE 07/28/2025 09/17/2024, , 10/16/2022, Additional history exists TDAP/TD VACCINES (2 - Td or Tdap) 11/13/2026 017 MAMMOGRAM 03/04/2027 03/04/2025, 12/26, 01/05/2025, Additional history exists COLONOSCOPY 03/19/2027 03/19/2017, 02/26, 10/28/2015 (Patient-Reported (Performed Externally)), Additional history exists COLORECTAL CANCER SCREENING 03/19/2027 HEPATITIS C SCREENING Completed 09/02/2017, 017 ZOSTER VACCINE Completed 09/04/2018, 10/2016 (Patient-Reported (Performed Externally)), 12/27/2016 Pneumococcal Vaccine 50+ Completed 03/07/2020, 05/2018 HEMOGLOBIN A1C Discontinued 01/25/2022, 04/28, 03/07/2020, Additional history exists Procedures Procedure Name Priority Date/Time Associated Diagnosis Comments MAMMO OUTSIDE FILMS Routine 01/05/2025 1 2:00 AM EDT H/O mammogram HEMOGLOBIN A1C Routine 03/07/2020 10:02 AM EDT Pre-diabetes Medicare annual wellness visit, subsequent LIPID PANEL Routine 03/07/2020 10:02 AM EDT Mixed hyperlipidemia Medicare annual wellness visit, subsequent HEPATITIS C ANTIBODY Routine 09/02/2017 10:05 AM EST Need for hepatitis C screening test from Last 3 Months or Most Recently Relevant to Health Maintenance Results * MAMMO Outside Films (01/05/2025 12:00 AM EDT) Narrative SYSTEMGENERATED, DOCUMENTATION - 01/14/2025 1:07 PM EDT This procedure was auto-finalized with no dictation required. Jayden Atkinson MD IMG MAMMOGRAPHY ORDERABLES Final Result * (ABNORMAL) Hemoglobin A1c (03/07/2020 10:02 AM EDT) Hemoglobin A1C 5.80(H) 4.80 - 5.60 % [facility] Comment: Hemoglobin A1C Ranges: Increased Risk for Diabetes 5.7% to 6.4% Diabetes >= 6.5% Diabetic Goal < 7.0% Blood 03/07/2020 10:0 2 AM EDT 03/07/2020 Narrative [facility] ([facility]) - 03/09/2020 4:09 PM EDT Performed at: [address] [place] [id number] Shorthand Teacher: David Varela MD, Phone: [phone] Patient Fasting: Y Janes STORY LAB BLOOD ORDERABLES Final Res ult [facility] ([facility]) [address] [place] [address], [place] [phone] [facility] [address] [place] [address], [place] [phone] * (ABNORMAL) Lipid Panel (03/07/2020 10:02 AM EDT) Total Cholesterol 199 0 - 200 mg/dL [facility] Triglycerides 246(H) 0 - 150 mg/dL [facility] HDL Cholesterol 46 40 - 60 mg/dL [facility] VLDL Cholesterol 49.2 mg/dL [facility] LDL Cholesterol 104(H) 0 - 100 mg/dL [facility] Blood 03/07/2020 10:0 2 AM EDT 03/07/2020 Narrative [facility] ([facility]) - 03/09/2020 4:09 PM EDT Performed at: [address] [id number] Shorthand Teacher: David Varela MD, Phone: [phone] Patient Fasting: Y Janes STORY LAB BLOOD ORDERABLES Final Res ult Performing Organization Address City/[facility]/ZIP Co de Phone Number [facility] ([facility]BUL[facility]) [address] [place] [address], [facility] [address] [place] [id number], * Hepatitis C Antibody (09/02/2017 10:05 AM EST) Pathologist [facility] Hep C Virus Ab <0.1 0.0 - 0.9 s/co ratio [facility] Comment: Negative: < 0.8 Indeterminate: 0.8 - 0.9 Positive: > 0.9 The CDC recommends that a positive HCV antibody result be followed up with a HCV Nucleic Acid Amplification test (205967). Blood 09/02/2017 10:0 5 AM EST 09/02/2017 Narrative [facility] ([facility]) - 09/03/2017 5:10 AM EST Performed at: [address] [id number] Shorthand Teacher: Mickey Hartman PhD, Phone: [phone] Patient Fasting: N Janes STORY LAB BLOOD ORDERABLES Final Res ult Performing Organization Address City/[facility]/ZIP Co de Phone Number [facility] [address] [place] [address], [facility] [address] [place] [address], from Last 3 Months or Most Recently Relevant to Health Maintenance Insurance MEDICARE A & B Member Subscriber Plan / Payer (Ef fective 2000-Present) Name:Gerda Browne Member ID:[id number] Relation to Subscriber:Self Name:Gerda Browne Subscriber ID:[id number] Payer ID:[id number] Group ID:Not on file Type:Not on file Address: [facility] [id number] [address] Care Teams Business Integration Manager Relationship Specialty Start Date End Date Melvi Caballero APRN [address] [place] [address] PCP - General Family Medicine 01/09/22
--- OUTSIDE RECORDS SUMMARY | 2025-06-23 14:55 | XMS_ITS | Encounter Summary ---
Author Organization [facility] [facility] ([place], [place], [place], [place]) Address [address] [place] [address] Care Team Providers Care Plugger Name Role Phone Unavailable Primary Care Provider Unavailabl e Encounter Details Date Type Department Care Team (Late st Contact Info) Description 05/15/2019 Transcribed Document [facility] Family Medicine [address] [place] [address] ProviderIlya MD [address] [place] [address] Social History Tobacco Use Types Packs/Day Years Used Date Smoking Tobacco: Never Assessed Comments Unknown Sex and Gender Information Value Date Recorded Sex Assigned at Not on file Legal Sex Female 2:08 PM CDT Gender Identity Not on file Sexual Orientation Not on file documented as of this encounter Miscellaneous Notes * Cerner Conversion Note - Ilya Garcia MD - 05/15/2019 12:32 PM CDT Patient: GERDA BROWNE Age: 64 Years Sex: Female : 1955 CHIEF COMPLAINT: Low back pain. HISTORY OF PRESENT ILLNESS: Mrs. Browne is a 64 y/o female who presents with a 20 plus year history of pain. Today she is describing low back pain into bilateral lower extremities all the way to her feet. She states prolonged standing and walking increases her pain while rest and heat decrease her pain. She is describing her pain as constant, aching, burning, radiating, numbness, tingling and dull. Severity of pain today is a 5/10 on the pain scale. She states 75% relief with her current medication. We currently prescribed [place] 7.5 / 325 1 p.o. q 6 hours, Neurontin 300 mg 1 p.o. q 8 hours, Ambien 10 mg 1 p.o. q h.s., Baclofen 10 mg 1 p.o. q 12 hours, Lidoderm patch 5% on for 12 hours, off for 12 hours. Nursing intake is reviewed. Medication list is reviewed. Fall risk info sheet has been provided. HISTORY: Allergies: Mrs. Browne states no known drug allergies. Social History: Reviewed. Marital status: . Current work status: Disabled. Current tobacco use: Denies. Illicit drug use: Denies. Alcohol use: Denies. Caffeine use: _ Past Medical History: Anemia. Arthritis. Asthma. Heartburn. High cholesterol. Thyroid disease. Past Surgical History: Positive for bladder tack. Hysterectomy. SInus surgery. Lumbar spine surgery. Cervical spine surgery. Past Family History: Reviewed with the patient as noted. REVIEW OF SYSTEMS: Complete ten system review performed and noted below. General: Negative. Respiratory: Asthma. Neurological: Headache, numbness, tingling. Gastrointestinal: Constipation, acid reflux. Musculoskeletal: Joint pain, stiffness, neck pain, back pain, muscle weakness, muscle aches and pains. Cardiovascular: Negative Psychiatric: Negative HEENT: Negative Endocrine: Easy bruising. Hematology: Negative Skin: Negative Genitourinary: Negative VITAL SIGNS: Vital signs are reviewed. BP 131/74, heart rate 74, respiratory rate 19, O2 SATs 97%, height 5???7?? , weight 185 lb PHYSICAL EXAMINATION: General: She is conversant, well-nourished. Integumentary: Deferred. HEENT: Deferred. Neck: Deferred. Chest and Lung: Deferred. Cardiovascular: Deferred. Abdomen: Deferred. Peripheral Vascular: Deferred Neurologic: Deferred. Neuropsychiatric: Alert and oriented x3. Normal mood and affect. She scores a 2 on her depression questionnaire. Musculoskeletal: Deferred. DIAGNOSTIC STUDIES: Not present MEDICAL DECISION MAKING: EKASPER has been reviewed and is appropriate. ASSESSMENT: Stable. 1. Chronic pain syndrome. 2. Post laminectomy pain syndrome lumbar spine. 3. Lumbar spondylosis. 4. Lumbar facet arthropathy. 5. Lumbar radiculitis bilateral lower extremities. 6. Lumbar degenerative disc disease. 7. Restless leg syndrome. 8. Opiod induced constipation. PROCEDURE/TEST ORDERED: Not present. CURRENT PLAN: This patient is stable. We are not going to make any changes today. We will continue her current medication in the form of Laporte 7.5 / 325 1 p.o. q 6 hours, Neurontin 300 mg 1 p.o. q 8 hours, Ambien 10 mg 1 p.o q h.s., Baclofen 10 mg 1 p.o. q 12 hours, Lidoderm patch 5%. We will see this patient back in Clinic in two months. Zoey Bejarano, RN acting as scribe for Kerry Coelho M.D. I, Kerry Coelho M.D., personally performed the service described in this documentation, as scribed by, Zoey Bejarano RN in my presence, and it is both accurate and complete. Kelsey Alvarez/gu[place]/unique Electronically signed by [facility] Conversion Ring Facer Cerner at 02/14/2023 11:45 AM CDT documented in this encounter Plan of Treatment Not on file documented as of this encounter Visit Diagnoses Not on filedocumented in this encounter
--- OUTSIDE RECORDS SUMMARY | 2025-06-23 14:55 | XMS_ITS | Encounter Summary ---
Author Organization [employer] ([place], [place], [place], [place]) Address [address] [place] [address] Care Team Providers Care Admitting Counselor Name Role Phone Unavailable Primary Care Provider Unavailabl e Encounter Details Date Type Department Care Team (Late st Contact Info) Description 09/13/2020 Transcribed Document [facility] [place] [address] [place] [address] ProviderIlya MD [address] [place] [address] Social History Tobacco Use Types Packs/Day Years Used Date Smoking Tobacco: Never Assessed Comments Unknown Sex and Gender Information Value Date Recorded Sex Assigned at Not on file Legal Sex Female 2:08 PM CDT Gender Identity Not on file Sexual Orientation Not on file documented as of this encounter Miscellaneous Notes * Cerner Conversion Note - Ilya Garcia MD - 09/13/2020 2:03 PM GANG BOSS Patient: GERDA RUDD Age: 65 Years Sex: Female : 1955 FOLLOWUP DATE OF SERVICE: 08/26/2020 CHIEF COMPLAINT: Low back pain, leg pain. HISTORY OF PRESENT ILLNESS: The patient is a 65-year-old female who returns to the clinic for followup on her 22-year history of low back pain that goes to her bilateral lower extremities into her feet. She rates her pain as 7/10 on the pain scale. Quality is aching, burning, radiating, numbness/tingling, dull and constant. She gets 75% relief with her current medication. She has increased pain with walking, sitting for long periods and decreased pain with heat and ice patches. Fall risk information sheet provided. HISTORY: Allergies: No known drug allergies. Social History: Marital status: . Current work status: Not answered. Current tobacco use: Denies. Illicit drug use: Denies. Alcohol use: Denies. Caffeine use: Not answered. Past Medical History: Anemia. Arthritis. Asthma. Heartburn/GERD. High cholesterol. Thyroid disease. Past Surgical History: Hysterectomy. Sinus. Spinal surgery of the back. Spinal surgery of the neck. Past Family History: Throat cancer. Skin cancer. Lung disease. Rheumatoid arthritis. Diabetes. Stroke. Kidney disease. Peptic ulcer. Heart disease. Seizures. Acid-reflux. REVIEW OF SYSTEMS: The patient's ten system Review of Systems was reviewed. General: Negative. Respiratory: Asthma. Neurological: Headaches, numbness/tingling. Gastrointestinal: Constipation, acid-reflux. Musculoskeletal: Joint pain/stiffness, neck pain, back pain, muscle weakness, muscle aches and pains. Cardiovascular: Palpitations. Psychiatric: Negative. HEENT: Negative. Endocrine: Increased urination. Hematology: Easy bruising. Skin: Negative. Genitourinary: Negative. VITAL SIGNS: Vital signs are reviewed. BP 134/80, heart rate 84, respiratory rate 20, O2 SATs 99%, height 5'6 , weight 190 lb. PHYSICAL EXAMINATION: Constitutional: Freely conversant and in no acute distress. Integumentary: Deferred. HEENT: Deferred. Neck: Deferred. Chest and Lung: Deferred. Cardiovascular: Deferred. Abdomen: Deferred. Peripheral Vascular: Deferred Neurologic: Deferred. Neuropsychiatric: Alert and oriented x3. Normal mood and affect. She scored a 1 on her depression questionnaire. Musculoskeletal: Deferred. MEDICAL DECISION MAKING: KARSON is reviewed and is appropriate. Patient???s medications are reviewed. See list in patient???s file. ASSESSMENT: Stable. 1. Chronic pain syndrome. 2. Lumbar degenerative disc disease. 3. 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 4. Lumbar spondylosis. 5. Lumbar facet arthropathy. 6. Lumbar radiculitis to the bilateral lower extremities. 7. Opioid-induced constipation. CURRENT PLAN: I am going to continue Ms. Rudd on her current medication of [place] 7.5 mg q.6h, Baclofen 10 mg q.12h, Neurontin 300 mg q.8h, Lidocaine Patch 5% 12 hours on and 12 hours off, Ambien 10 mg q.h.s. She takes Dulcolax. She is in agreement with the above plan. We will see her back in followup in two months. Kerry Meliton, M.D. KELVIN/garo documented in this encounter Plan of Treatment Not on file documented as of this encounter Visit Diagnoses Not on filedocumented in this encounter
--- OUTSIDE RECORDS SUMMARY | 2025-06-23 14:55 | XMS_ITS | Clinical Summary ---
Author Organization [facility] Address [address] [place] [address] Care Team Providers Care Tar Roofer Name Role Phone Chapincito Espinoza NP Primary Care Provider [phone] Jay Patino MD Unavailable [phone] Allergies No known active allergies Medications metoprolol succinate XL (Toprol-XL) 25 MG 24 hr tablet TAKE 1 TABLET BY MOUTH DAILY FOR IRREGULAR HEARTBEAT. 1 Active ProAir HFA 108 (90 Base) MCG/ACT inhaler 0 Active albuterol (2.5 MG/3ML) 0.083% nebulizer solution 1 Active montelukast (Singulair) 10 MG tablet 1 Active pantoprazole (ProtoNix) 40 MG EC tablet at bed time. 1 Active levothyroxine (Synthroid, Levoxyl) 25 MCG tablet at bed time. Active simvastatin (Zocor) 20 MG tablet at bed time. 1 Active Spiriva Respimat 2.5 MCG/ACT aerosol solution 1 Active levocetirizine (Xyzal) 5 MG tablet 1 Active HYDROcodone-clotilde taminophen (Bethpage) 7.5-325 MG tablet every 6 (six) hours. Active baclofen (Lioresal) 10 MG tablet Take 10 mg by mouth every 12 (twelve) hours. 1 Active lidocaine (Lidoderm) 5 % patch PLACE ONE PATCH ONTO THE SKIN FOR 12 HOURS AND REMOVE FOR 12 HOURS 1 Active ibuprofen 800 MG tablet 1 Active phenazopyridine (Pyridium) 200 MG tablet Take 200 mg by mouth 3 (three) times a day if needed. 1 Active nitrofurantoin, macrocrystal-mo nohydrate, (Macrobid) 100 MG capsule 0 Active Premarin 0.625 MG tablet 1 Active bisacodyl (Dulcolax) 5 MG EC tablet at bed time. Active zolpidem (Ambien) 10 MG tablet Take 10 mg by mouth every night. 1 Active terbinafine (LamISIL) 250 MG tablet at bed time. 1 Active mepolizumab (Nucala) 100 mg/mL solution auto-injector Nucala 100 mg/mL subcutaneous auto-injector Inject by subcutaneous route. Active Azelastine HCl 137 MCG/SPRAY solution 1 Active budesonide-form oterol (Symbicort) 160-4.5 MCG/ACT inhaler Inhale 2 puffs 2 (two) times a day. Rinse mouth with water after use to reduce aftertaste and incidence of candidiasis. Do not swallow. Active gabapentin (Neurontin) 300 MG capsule Take 300 mg by mouth 3 (three) times a day. Active Active Problems No known active problems Social History Tobacco Use Types Packs/Day Years Used Date Smoking Tobacco: Never Smokeless Tobacco: Never Alcohol Use Standard Drinks/Week Comments Never 0 (1 standard drink = 0.6 oz pur e alcohol) AUDIT-C Answer Date Recorded Q1: How often do you have a drink containing alc ohol? Never 06/30/2021 Q2: How many drinks containi ng alcohol do you have on a typical day when you are drinking? Not asked 06/30/2021 Q3: How often do you have six or more drinks on one occasion? Never 06/30/2021 Comments Unknown Sex and Gender Information Value Date Recorded Sex Assigned at Not on file Legal Sex Female 10:05 PM EDT Gender Identity Not on file Sexual Orientation Not on file Last Filed Vital Signs Vital Sign Reading Time Taken Comments Blood Pressure - - Pulse - - Temperature - - Respiratory Rate - - Oxygen Saturation - - Inhaled Oxygen Concentration - - Weight 83.9 kg (185 lb) 05/14/2022 11:24 AM EDT Height 167.6 cm (5' 6 ) 05/14/2022 11:24 AM EDT Body Mass Index 29.86 05/14/2022 11:24 AM EDT Plan of Treatment Health Maintenance Due Date Last Done Comments Bone Density Scan 1955 CT Colonography 1955 Colonoscopy 1955 Colorectal Cancer Screening 1955 FIT-DNA (Cologuard) 1955 FIT 1955 FOBT 1955 Hepatitis C Screening 1955 Medicare Annual Wellness (AWV) 1955 Sigmoidoscopy 1955 Hepatitis B Screening 1973 DTaP/Tdap/Td Vaccines (1 - Tdap) 1974 Pneumococcal Vaccine: 50+ Years (1 of 2 - PCV) 1974 Mammogram 1995 Zoster Vaccines (1 of 2) 2005 Diabetes Screening 03/07/2021 03/07/2020, 10/29/2019, 03/04/2019 COVID-19 Vaccine (2023-2 5 season) 2024 09/26/2021, 01/18/2021, 12/28/2020 Depression Risk Screening 10/28/2024 Fall Risk Screening 10/28/2024 SDOH Screening 10/28/2024 Influenza Vaccine (#1) 2025 , 09/01/2019, 09/02/2017 HIB Vaccines Aged Out No longer eligi ble based on patient's age to complete this topic HPV Vaccines Aged Out No longer eligi ble based on patient's age to complete this topic Hepatitis A Vaccines Aged Out No long er eligible based on patient's age to complete this topic Hepatitis B Vaccines Aged Out No long er eligible based on patient's age to complete this topic IPV Vaccines Aged Out No longer eligi ble based on patient's age to complete this topic Meningococcal B Vaccine Aged Out No l onger eligible based on patient's age to complete this topic Meningococcal Vaccine Aged Out No joanna jay jay eligible based on patient's age to complete this topic Rotavirus Vaccines Aged Out No longer eligible based on patient's age to complete this topic Insurance MEDICARE [facility] Care Teams Tar Roofer Relationship Specialty Start Date End Date Chapincito Espinoza NP [address] [address] PCP - General Family Medicine 06/30/21 Jay Patino MD [address] [place] [address] Consulting Physician Orthopaedic Surgery 05/10/22
--- OUTSIDE RECORDS SUMMARY | 2025-06-23 14:55 | XMS_ITS | Encounter Summary ---
Author Organization [employer] ([place], [place], [place], [place]) Address [address] [place] [address] Care Team Providers Care Loss Prevention Auditor Name Role Phone Unavailable Primary Care Provider Unavailabl e Encounter Details Date Type Department Care Team (Late st Contact Info) Description 01/09/2021 Transcribed Document [facility] [place] [facility] [place] [address] ProviderIlya MD [address] [place] [address] Social History Tobacco Use Types Packs/Day Years Used Date Smoking Tobacco: Never Assessed Comments Unknown Sex and Gender Information Value Date Recorded Sex Assigned at Not on file Legal Sex Female 2:08 PM CDT Gender Identity Not on file Sexual Orientation Not on file documented as of this encounter Miscellaneous Notes * Cerner Conversion Note - Ilya Garcia MD - 01/09/2021 9:44 AM CDT Patient: GERDA BROWNE Age: 65 Years Sex: Female : 1955 FOLLOW-UP DATE OF SERVICE: 12/21/2020 CHIEF COMPLAINT: Low back pain, legs with numbness, pain and burning. HISTORY OF PRESENT ILLNESS: The patient is a 65 y/o female who returns to the clinic for follow-up on her 22 year history of low back pain that goes to her legs to her feet with numbness and tingling. She rates her pain as 6/10 on the pain scale. Quality is aching, burning, radiating, numbness, tingling, dull and constant. She has increased pain with prolonged activity and decreased pain with heat, rest and medication. The patient gets 75% relief with her current medication of [place] 7.5 mg every 6 hours, baclofen 10 mg every 12 hours, Neurontin 300 mg every 8 hours, lidocaine patches 5% 12 hours on and 12 hours off, Ambien 10 mg q.h.s. Fall risk info sheet has been provided. SOCIAL HISTORY: Allergies: No known drug allergies. Marital status: The patient is . Current work status: She does not work. Illicit drug use: Denies. Alcohol use: Denies. Current tobacco use: Denies. Caffeine use: Denies. Past Medical History: Anemia. Arthritis. Asthma. Heartburn and GERD. High cholesterol. Thyroid disease. Past Surgical History: Hysterectomy. Sinus. Spinal surgery of the back. Spinal surgery of the neck. Past Family History: Throat cancer. Skin cancer. Lung disease. Rheumatoid arthritis. Thyroid disease. Diabetes. Stroke. Kidney disease. Osteoporosis. Peptic ulcer. Heart disease. Seizures. Acid reflux. REVIEW OF SYSTEMS: Complete ten system review was performed and noted to be positive for the following: General: Fatigue. Respiratory: Asthma. Neurological: Headache, numbness and tingling. Gastrointestinal: Constipation. Acid reflux. Musculoskeletal: Joint pain, stiffness, neck pain, back pain, muscle weakness, muscle aches and pains. Cardiovascular: Negative. Psychiatric: Negative. HEENT: Negative. Endocrine: Negative. Hematology: Negative. VITAL SIGNS: Vital signs are reviewed. BP is 118/68, heart rate 76, respiratory rate 16, O2 SATs 98%, height 5???6?? , weight 191 lbs. PHYSICAL EXAMINATION: Constitutional: The patient is freely conversant, no acute distress. Integumentary: Deferred. HEENT: Deferred. Neck: Deferred. Chest and Lung: Deferred. Cardiovascular: Deferred. Abdomen: Deferred. Peripheral Vascular: Deferred Neurologic: Deferred. Psychiatric: Alert and oriented x 3 with normal mood and affect. She scored a 1 on the depression questionnaire. Musculoskeletal: Deferred. Established patient exam is deferred. DIAGNOSTIC STUDIES: Not present. MEDICAL DECISION MAKING: The patient's KARSON has been reviewed and is appropriate. The patient's tox screen on 10/14 is positive for active Hydrocodone, negative for metabolite, positive for Neurontin, positive for Ambien. Patient's medications are reviewed and are listed in the patient's file. ASSESSMENT: Stable. 1. Chronic pain syndrome. 2. Lumbar degenerative disc disease. 3. Lumbar spondylosis. 4. Lumbar facet arthropathy. 5. 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 6. Opioid induced constipation. 7. Lumbar radiculitis, bilateral lower extremities. 8. Insomnia. PROCEDURE/TEST ORDERED: Not present. CURRENT PLAN: We will continue Ms. Browne on her current medication. She takes a stool softener. She is in agreement with the above plan. We will see her back in follow-up in 2 months. Kerry Coelho M.D. SOFYA/salina documented in this encounter Plan of Treatment Not on file documented as of this encounter Visit Diagnoses Not on filedocumented in this encounter
--- OUTSIDE RECORDS SUMMARY | 2025-06-23 14:55 | XMS_ITS | Encounter Summary ---
Author Organization [email or web address] ([place], [place], [place], [place]) Address [address] [place] [address] Care Team Providers Care Mill Tender Washing Name Role Phone Unavailable Primary Care Provider Unavailabl e Encounter Details Date Type Department Care Team (Late st Contact Info) Description 11/07/2020 Transcribed Document [facility] [place] [facility] [place] [address] ProviderIlya MD [address] [place] [address] Social History Tobacco Use Types Packs/Day Years Used Date Smoking Tobacco: Never Assessed Comments Unknown Sex and Gender Information Value Date Recorded Sex Assigned at Not on file Legal Sex Female 2:08 PM CDT Gender Identity Not on file Sexual Orientation Not on file documented as of this encounter Miscellaneous Notes * Cerner Conversion Note - Ilya Garcia MD - 11/07/2020 4:07 PM OPTOMETRY ASSISTANT Patient: GERDA RUDD Age: 65 Years Sex: Female : 1955 FOLLOWUP DATE OF SERVICE: 10/14/2020 CHIEF COMPLAINT: Low back pain, bilateral leg pain, bilateral foot pain. HISTORY OF PRESENT ILLNESS: The patient is a 65-year-old female who returns to the clinic today with a 22-year history significant for low back pain, bilateral leg and foot pain. The patient describes her pain level today as 5/10 on the numerical pain scale rating. The patient reports that the pain is worse with bending at the waist, twisting. Sitting and standing for long durations of time aggravates her pain. She does get relief with rest as well as medication use from our facility. She is reporting 75% pain relief at this time with the use of [place] 7.5/325 mg four times daily dosing, Baclofen 10 mg twice daily dosing, Neurontin 300 mg three times daily dosing, Ambien 10 mg one at bedtime for sleep hygiene and Lidocaine Patches 5% that the patient applies one Patch on for 12 hours and off for 12 hours. Nursing intake is reviewed and noted on today's visit this individual is 5'6 and weighs 191 lb. HISTORY: Allergies: None reported. Social History: Marital status: . Current work status: Disabled. Current tobacco use: Denies. Illicit drug use: Denies. Alcohol use: Denies. Caffeine use: Denies. Past Medical History: Anemia. Osteoarthritis. Asthma. Heartburn. Hyperlipidemia. Thyroid disease. Past Surgical History: Complete hysterectomy. Sinus surgery. Spinal surgery of the lumbar spine. Spinal surgery of the cervical spine. Bladder tack procedure. Past Family History: Cancer. Lung disease. Rheumatoid arthritis. Strokes. Kidney disease. Peptic ulcer disease. Heart disease. Seizure activity. Acid-reflux disease. REVIEW OF SYSTEMS: The patient's ten system Review of Systems was reviewed and on today's visit this individual has complaints of the following: General: Negative. Respiratory: Asthma. Neurological: Headaches, numbness/tingling. Gastrointestinal: Constipation, acid-reflux. Musculoskeletal: Joint pain/stiffness, neck pain, back pain, muscle weakness, muscle aches and pains. Cardiovascular: Negative. Psychiatric: Negative. HEENT: Negative. Endocrine: Increased urination. Hematology: Easy bruising. Skin: Negative. Genitourinary: Negative. PHYSICAL EXAMINATION: Constitutional: Conversant and well-nourished. Vital signs were reviewed today. Integumentary: Deferred. HEENT: Deferred. Neck: Deferred. Chest and Lung: Deferred. Cardiovascular: Deferred. Abdomen: Deferred. Peripheral Vascular: Deferred. Neurologic: Deferred. Psychiatric: The patient is alert and oriented to self, time and place today. The patient has a normal mood and affect at today's visit and there is minimal evidence of depression on the depression questionnaire that was completed today. Musculoskeletal: Deferred. ASSESSMENT: 1. Chronic pain syndrome. 2. Lumbar degenerative disc disease. 3. Lumbar spondylosis. 4. Lumbar facet arthropathy. 5. 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 6. Opioid-induced constipation. 7. Lumbar radiculitis involving the bilateral lower extremities. 8. Insomnia. CURRENT PLAN: I am going to continue Ms. Rudd on her current medication regimen from our facility at this time. Her KARSON report was appropriate upon review today. We will see the patient back in the clinic in two months for a followup appointment. The patient is undergoing a urine tox screen today to confirm compliance with medication management from our facility. LORI Chris/garo Electronically signed by Pavithra [facility] Conversion Medical Technologist Microbiology Cerner at 02/14/2023 11:33 AM CDT documented in this encounter Plan of Treatment Not on file documented as of this encounter Visit Diagnoses Not on filedocumented in this encounter
--- OUTSIDE RECORDS SUMMARY | 2025-06-23 14:55 | XMS_ITS | Encounter Summary ---
Author Organization [facility] Address [address] [place] [address] Care Team Providers Care Interlocker Name Role Phone Melvi Caballero APRN Primary Care Provider Encounter Details Date Type Department Care Team (Late st Contact Info) Description 01/22/2020 Telephone [facility] FAMILY MEDICINE [address] [place] [address] Janes Lopez PA [address] [place] [address] Social History Tobacco Use Types Packs/Day Years Used Date Smoking Tobacco: Never Smokeless Tobacco: Never Alcohol Use Standard Drinks/Week Comments No 0 [...] and Family Twice a week 11/28/2018 Attends Holiness Services More than 4 times per year 11/28/2018 Active Member of Clubs or Organizations No 11/28/2018 Attends Club or Organization Meetings Never 11/28/2018 Marital Status 11/28/2018 Overall Financial Resource Strain (CARDIA) Answe r Date Recorded Difficulty of Paying Living Expenses Not very [address] 11/28/2018 PHQ-2 Answer Date Recorded PHQ-2 Score 0 03/05/2019 [facility] Occupat ional Health - Occupational Stress [...] file Not on file Not on file documented as of this encounter Plan of Treatment Not on file documented as of this encounter Visit Diagnoses Not on filedocumented in this encounter Additional Health Concerns Infection Onset Date Last Indicated Resolved Time COVID (rule out) 09/30/2020 09/30/2020 10/07/2020 9:10 PM EST COVID Screen (preop/placement) 01/20/2021 01/20/2021 01/21/2021 5:13 PM EDT documented as of this encounter Care Teams Interlocker Relationship Specialty Start Date End Date Melvi Caballero APRN [address] [place] [address] PCP - General Family Medicine 01/09/22 documented as of this encounter
--- OUTSIDE RECORDS SUMMARY | 2025-06-23 14:55 | XMS_ITS | Encounter Summary ---
Author Organization [employer] ([place], [place], [place], [place]) Address [address] [place] [address] Care Team Providers Care Horologist Name Role Phone Unavailable Primary Care Provider Unavailabl e Encounter Details Date Type Department Care Team (Late st Contact Info) Description 03/30/2020 Transcribed Document [facility] [place] [address] [place] [address] ProviderIlya MD [address] [place] [address] Social History Tobacco Use Types Packs/Day Years Used Date Smoking Tobacco: Never Assessed Comments Unknown Sex and Gender Information Value Date Recorded Sex Assigned at Not on file Legal Sex Female 2:08 PM CDT Gender Identity Not on file Sexual Orientation Not on file documented as of this encounter Miscellaneous Notes * Cerner Conversion Note - Ilya Garcia MD - 03/30/2020 11:57 AM CDT Patient: GERDA RUDD Age: 65 Years Sex: Female : 1955 FOLLOW-UP Date of Service: 03/03/2020 CHIEF COMPLAINT: Low back pain, bilateral leg and foot pain. HISTORY OF PRESENT ILLNESS: The patient is a 65 y/o female who returns to the Clinic today with a 22 year history significant for low back pain with bilateral leg and foot pain involvement. 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 She does get relief with resting as well as the application of heat. Her pain level today is a 5/10 on the numerical pain scale rating. She is reporting 50% pain relief at this time with [place] 7.5/325 mg four times daily dosing, Baclofen 10 mg twice daily dosing, Neurontin 300 mg three times daily dosing, and Lidocaine patches 5% that the patient applies one patch on for 12 hours, off for 12 hours and Ambien 10 mg one at bedtime for sleep hygiene. Nursing intake was reviewed and noted on today's visit. VITAL SIGNS: Vital signs are reviewed today. Height 5???7?? , weight 188 lbs HISTORY: Allergies: She reports none. Social History: Marital status: The patient is . Current work status: The patient does not list occupation at this time. Illicit drug use: Denies. Current tobacco use: Denies. Alcohol use: Denies. Caffeine use: Not reported. Past Medical History: Anemia. Osteoarthritis Asthma. Chicken pox Heartburn Hyperlipidemia. Thyroid disease. Past Surgical History: Complete hysterectomy Sinus surgery Spinal surgery, lumbar spine Spinal surgery, cervical spine Bladder tack procedure Past Family History: Cancer Lung disease. Migraine headaches Rheumatoid arthritis Type 2 diabetes. Strokes Kidney disease. Peptic ulcer disease. Heart disease Acid reflux disease. REVIEW OF SYSTEMS: The patient's ten system review of systems was reviewed and on today's visit this individual has complaints of the following: General: Negative. Respiratory: Asthma. Neurological: Headaches, numbness and tingling Gastrointestinal: Constipation Musculoskeletal: Joint pain, stiffness, neck pain, back pain, muscle weakness, muscle aches and pains. Cardiovascular: Negative. Psychiatric: Negative. HEENT: Negative. Endocrine: Negative. Hematology: Negative. Skin: Negative. Genitourinary: Negative. PHYSICAL EXAMINATION: Constitutional: The patient is conversant and well-nourished. Vital signs are reviewed today. Integumentary: Deferred. HEENT: Deferred. Neck: Deferred. Chest and Lung: Deferred. Cardiovascular: Deferred. Abdomen: Deferred. Peripheral Vascular: Deferred Neurologic: Deferred. Musculoskeletal: Deferred. Psychiatric: The patient is alert and oriented to self, time, and place today. The patient has a normal mood and affect on today's visit and there is minimal evidence of depression on the depression questionnaire that was completed today. DIAGNOSTIC STUDIES: Not present MEDICAL DECISION MAKING: Stable. ASSESSMENT: 1. Chronic pain syndrome. 2. Lumbar degenerative disc disease. 3. Post laminectomy pain syndrome lumbar spine. 4. Lumbar spondylosis. 5. Lumbar facet arthropathy. 6. Lumbar radiculitis involving the bilateral lower extremities. 7. Opioid induced constipation. PROCEDURE/TEST ORDERED: Not present. CURRENT PLAN: I am going to continue Ms. Rudd on her current medication regimen from our facility at this time. Her KARSON report was appropriate upon review today. The patient has undergone a urine tox screen today to confirm compliance with medication management from our facility. We will see the patient back in the Clinic in two months for a follow-up appointment. LORI Chris/unique documented in this encounter Plan of Treatment Not on file documented as of this encounter Visit Diagnoses Not on filedocumented in this encounter
--- OUTSIDE RECORDS SUMMARY | 2025-06-23 14:55 | XMS_ITS | Encounter Summary ---
Author Organization [facility] Address [address] [place] [address] Care Team Providers Care Scientist Name Role Phone Melvi Caballero APRN Primary Care Provider [phone] Encounter Details Date Type Department Care Team (Late st Contact Info) Description 05/25/2015 External CPT II PIERCING ARTIST - [employer] [facility] Social History Tobacco Use Types Packs/Day Years [...] documented as of this encounter Care Teams Scientist Relationship Specialty Start Date End Date Melvi Caballero APRN [address] [place], [place] [id number] PCP - General Family Medicine 01/09/22 documented as of this encounter
--- OUTSIDE RECORDS SUMMARY | 2025-06-23 14:55 | XMS_ITS | Encounter Summary ---
Author Organization [facility] Address [address] [place] [address] Care Team Providers Care Traffic Investigator Name Role Phone Riccardo Varner MD Primary Care Provider [phone] None, None Primary Care Provider UnavailJanes Quick Primary Care Provider [phone] Vadim Rico PA-C Unavailable [phone] Nigel Kwon MD Unavailable [phone] Encounter Details Date Type Department Care Team (Late st Contact Info) Description 06/08/2013 Abstract [facility] Physicians - Urogynecology, [place] [address] [place] [address] Kerry Butt PA [address] [facility] [place] [address] Social History Tobacco Use Types Packs/Day Years Used Date Smoking Tobacco: Former Comments:as a teen Alcohol Use Standard Drinks/Week Comments No 0 (1 standard drink = 0.6 oz pur e alcohol) Comments No Sex and Gender Information Value Date Recorded Sex Assigned at Female 01/20/2020 11:50 AM EDT Legal Sex Female 3:07 PM EST Gender Identity Female 01/20/2020 11:50 AM EDT Sexual Orientation Straight 01/20/2020 11 :50 AM EDT Occupation Industry Job Start Date Job End Date disable Not on file Not on file Not on file documented as of this encounter Plan of Treatment Not on file documented as of this encounter Visit Diagnoses Not on filedocumented in this encounter Care Teams Traffic Investigator Relationship Specialty Start Date End Date Riccardo Varner MD [address] [place] [address] PCP - General Building Superintendent 05/22/13 07/04/17 None, None [address] [place] [address] PCP - General 07/05/17 01/19/20 Janes Clay PA [address] [place] [address] PCP - General 01/20/20 Vadim Rico PA-C [address] [facility] [place] [address] Physician Brattice Builder Physician Brattice Builder, Surgical 03/02/21 Nigel Kwon MD [address] [facility] [facility] [address] [place] [address] Female Pelvic Medicine and Reconstructive Surgery 11/04/22 documented as of this encounter
--- OUTSIDE RECORDS SUMMARY | 2025-06-23 14:55 | XMS_ITS | Encounter Summary ---
Author Organization Healthcare Address [address] [place] [address] Care Team Providers Care Ground Defence Officer Name Role Phone Janes Lopez Primary Care Provider [phone] Encounter Details Date Type Department Care Team ([facility] st Contact Info) Description 01/05/2025 Orders Only External Location [address] [place] [address] Provider, External Social History Tobacco Use Types Packs/Day Years Used Date Smoking Tobacco: Never Smokeless Tobacco: Never Alcohol Use Standard Drinks/Week Comments No 0 (1 standard drink = 0.6 oz pur e alcohol) PHQ-2 Answer Date Recorded Patient Health Questionnaire-2 Score 0 08/26/2024 Comments Unknown Sex and Gender Information Value Date Recorded Sex Assigned at Not on file Legal Sex Female 8:29 PM EDT Gender Identity Not on file Sexual Orientation Not on file documented as of this encounter Plan of Treatment Not on file documented as of this encounter Procedures Procedure Name Priority Date/Time Associated Diagnosis Comments US BREAST OUTSIDE IMAGES 01/05/2025 9:38 AM EDT documented in this encounter Results * US BREAST OUTSIDE IMAGES (01/05/2025 9:38 AM EDT) Anatomical Region Laterality Modality Breast Mammography 01/05/2025 9:38 AM EDT us External Provider IMG BI PROCEDURES Final Result documented in this encounter Visit Diagnoses Not on filedocumented in this encounter Additional Health Concerns Assessment Noted Time A fall risk assessment has been complete d for the patient 09/30/2024 9:02 AM EST A Body Mass Index follow-up plan has been documented for the patient 10/03/2024 5:52 PM EST documented as of this encounter Care Teams Ground Defence Officer Relationship Specialty Start Date End Date Janes Lopez PA [address] [place] [address] PCP - General 03/10/21 documented as of this encounter
--- OUTSIDE RECORDS SUMMARY | 2025-06-23 14:55 | XMS_ITS | Encounter Summary ---
Author Organization Healthcare Address [address] [place] [address] Care Team Providers Care Structural Architect Name Role Phone Janes Lopez Primary Care Provider Encounter Details Date Type Department Care Team ([facility] st Contact Info) Description 11/25/2024 Orders Only External Location [address] [place] [address] Provider, External Social History Tobacco Use Types [...] Procedure Name Priority Date/Time Associated Diagnosis Comments MAMMOGRAPHY OUTSIDE IMAGES 11/25/2024 10:45 AM EST documented in this encounter Results * MAMMOGRAPHY OUTSIDE IMAGES (11/25/2024 10:45 AM EST) Anatomical Region Laterality Modality Breast Mammography 11/25/2024 10:4 5 AM EST us External Provider IMG BI PROCEDURES Final [...] documented as of this encounter Care Teams Structural Architect Relationship Specialty Start Date End Date Janes Lopez PA [address] [place] [address] PCP - General 03/10/21 documented as of this encounter
--- OUTSIDE RECORDS SUMMARY | 2025-06-23 14:55 | XMS_ITS | Clinical Summary ---
Author Organization [facility] Address [address] [place] [address] Care Team Providers Care Supervisor Electrolytic Tinning Name Role Phone Janes Clay Primary Care Provider [phone] Vadim Rico PA-C Unavailable Nigel Kwon MD Unavailable [phone] Allergies No known active allergies Medications PHENAZOPYRIDINE 200 mg PO tablet Take 200 mg by mouth 3 times daily as needed. Active ALBUTEROL IN Take by inhalation 4 times daily as needed. Active esomeprazole (NEXIUM) 40 mg PO CpDR Take 40 mg by mouth every morning (before breakfast). Active albuterol (PROVENTIL) 2.5 mg /3 mL (0.083 %) IN nebulization 2.5 mg by Nebulization route 4 times daily as needed. Active budesonide-formo terol (SYMBICORT) 160-4.5 mcg/Actuation IN HFAA Take by inhalation 2 times daily as needed. 0 Active CASANTHRANOL/DOC USATE SODIUM (STOOL SOFTENER PO) Take by mouth daily. Active bisacodyl (DULCOLAX) 5 mg PO EC tablet Take 5 mg by mouth daily as needed. Active gabapentin (NEURONTIN) 300 mg PO capsule Active SENNOSIDES (LAXATIVE PO) Active BISACODYL (GENTLE LAXATIVE PO) Active lidocaine (LIDODERM) 5% Adhesive Patch, Medicated Apply 2 Patches to skin. Active hydrocortisone-p ramoxine (PROCTOFOAM-HC) 1-1 % Foam Insert 1 Applicator into rectum as needed. Active montelukast (SINGULAIR) 10 mg Tablet Take 10 mg by mouth nightly at bedtime. Active simvastatin (ZOCOR) 20 mg tablet Take 20 mg by mouth nightly at bedtime. Active Magnesium 250 mg Tablet Take by mouth. Activ e fluconazole (DIFLUCAN) 100 mg tablet Take 100 mg by mouth daily. Active Mth-Me Blue-Sod Nnfl-ZxYtt-Ztp (URIBEL) 118-10-40.8-36 mg Capsule Take 1 Cap by mouth 3 times daily. 21 Cap 1 5 Active estrogens, conjugated, (PREMARIN) 0.625 mg/gram Cream Insert 1 g into vagina Every Saturday, , Saturday. 2 Tube 3 7 Active Active Problems Problem Noted Date Diagnosed Date Urinary tract infection 05/26/2013 Overview (07/29/2017): Replaced inactive diagnosis via diagnosis import Bladder pain 05/26/2013 Urinary urgency 05/26/2013 Urinary tract infection, recurrent 05/26/2013 Atrophic vaginitis 05/26/2013 Family History Medical History Relation Name Comments Cancer Father throat Diabetes Father Heart Problems Father Asthma Mother Bleeding Problem Mother bowels Diabetes Mother Heart Problems Mother CHF Anesthesia Complications Neg Hx Relation Name Status Comments Father Mother Social History Tobacco Use Types Packs/Day Years [...] Sign Reading Time Taken Comments Blood Pressure 133/52 08/15/2017 10:42 AM EDT Pulse 68 08/15/2017 10:42 AM EDT Temperature 36.7 C (98.1 F) 08/15/2017 9:26 AM EDT Respiratory Rate 16 08/15/2017 10:42 AM EDT Oxygen Saturation 97% 08/15/2017 10:42 AM EDT Inhaled Oxygen Concentration - - Weight 86.2 kg (190 lb) 07/08/2017 10:53 AM EDT Height 170.2 cm (5' 7 ) 07/08/2017 10:53 AM EDT Body Mass Index 29.76 07/08/2017 10:53 AM EDT Plan of Treatment Health Maintenance Due Date Last Done Comments Cologuard 1955 Colonoscopy 1955 Colorectal Cancer Screening 1955 FIT 1955 Lipid Monitoring 02/12/1972 Hepatitis C Virus (HCV) Screening 02/12/1976 Breast Cancer Screening 2005 Pneumococcal Vaccine: 50+ Years (1 of 1 - PCV) 005 Zoster-RZV(Shingrix) (1 of 2) 2005 Fall Risk Assessment 02/12/2020 Osteoporosis Screening 02/12/2020 COVID-19 Vaccine ( - season) 2024 Advance Care Planning 10/28/2024 Depression Screening 10/28/2024 Influenza Vaccination (#1) 2025 Tetanus Vaccination (Every 10 Years) 11/13/202610/28 RSV Vaccines (1 - 1-dose 75+ series) 2030 Medical Devices Implanted Type Area Behavioral Health Consultant Device Identifier Shelf Expiration Date Model / Serial / Lot Elevate System With Intepro Lite Implanted:Qty: 1 on 02/25/2009 at [facility] 8 OR N/A: Vagina * AMS [id number] / / [id number] Insurance FOR LIFE SUPPLEMENT MEDICARE MEDICARE FOR LIFE SUPPLEMENT FOR LIFE SUPPLEMENT MEDICARE Care Teams Supervisor Electrolytic Tinning Relationship Specialty Start Date End Date Janes lCay PA [facility] [place] [address] PCP - General 01/20/20 Vadim Rico PA-C [address] [place] [address] Physician Infrastructure Engineer Physician Infrastructure Engineer, Surgical 03/02/21 [place] [address] [place] [address] [address] [place] [address] Female Pelvic Medicine and Reconstructive Surgery 11/04/22
--- OUTSIDE RECORDS SUMMARY | 2025-06-23 14:55 | XMS_ITS | Encounter Summary ---
Author Organization [employer] ([place], [place], [place], [place]) Address [address] [place] [address] Care Team Providers Care Certified Ophthalmic Technologist Name Role Phone Unavailable Primary Care Provider Unavailabl e Encounter Details Date Type Department Care Team (Late st Contact Info) Description 07/12/2020 Transcribed Document [facility] Family Medicine [address] [place] [address] ProviderIlya MD [address] [place] [address] Social History Tobacco Use Types Packs/Day Years Used Date Smoking Tobacco: Never Assessed Comments Unknown Sex and Gender Information Value Date Recorded Sex Assigned at Not on file Legal Sex Female 2:08 PM CDT Gender Identity Not on file Sexual Orientation Not on file documented as of this encounter Miscellaneous Notes * Cerner Conversion Note - Ilya Garcia MD - 07/12/2020 4:18 PM CDT Patient: GERDA RUDD Age: 65 Years Sex: Female : 1955 FOLLOW-UP Date of Service: 06/28/2020 CHIEF COMPLAINT: Low back pain, bilateral leg and foot pain. HISTORY OF PRESENT ILLNESS: The patient is a 65 y/o female who returns to the Clinic today with a 22 year history significant for both low back pain as well as leg and foot pain, being equal in severity. The patient states that the pain level today is a 5/10 on the numerical pain scale rating. The patient reports the pain as being worse with sitting for too long, standing for too long or walking long distances. The patient does report 75% pain relief at this time with the use of pain medication from our facility in the form of [place] 7.5/325 mg 4 times daily dosing along with baclofen 10 mg twice daily dosing, Neurontin 300 mg 3 times daily dosing, lidocaine patches 5% that the patient applies 1 patch on for 12 hours and off for 12 hours, and Ambien 10 mg 1 at bedtime for sleep hygiene. Nursing intake was reviewed and noted on today's visit. VITAL SIGNS: Vital signs are reviewed today. B/P: 117/72; Heart rate: 72; Respirations: 18; Oxygen saturation is 95% on room air; Height 5???6?? , weight 190 lbs. HISTORY: Allergies to medications: None reported. Social History: Marital status: The patient is currently . Current work status: Not listed at this time. Illicit drug use: Denies. Current tobacco use: Denies. Alcohol use: Denies. Caffeine use: Not reported. Past Medical History: Anemia. Osteoarthritis. Asthma. Chickenpox. Heartburn. Hyperlipidemia. Thyroid disease. Past Surgical History: Complete hysterectomy. Sinus surgery. Spinal surgery of the lumbar spine. Spinal surgery of the cervical spine. Bladder tack procedure. Past Family History: Cancer. Lung disease. Rheumatoid arthritis. Strokes. Kidney disease. Peptic ulcer disease. Heart disease. Seizure activity. Acid reflux disease. REVIEW OF SYSTEMS: The patient's ten system review of systems was reviewed and on today's visit this individual has complaints of the following: General: Negative. Respiratory: Asthma. Neurological: Headaches, numbness and tingling. Gastrointestinal: Constipation, acid reflux. Musculoskeletal: Joint pain, stiffness, neck pain, back pain, muscle weakness, muscle aches and pains. Cardiovascular: Negative. Psychiatric: Negative. HEENT: Negative. Endocrine: Negative. Hematology: Negative. PHYSICAL EXAMINATION: Constitutional: The patient is [...] that was completed today. DIAGNOSTIC STUDIES: Not present. MEDICAL DECISION MAKING: Stable. ASSESSMENT: 1. Chronic pain syndrome. 2. Lumbar degenerative disc disease. 3. 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 4. Lumbar spondylosis. 5. Lumbar facet arthropathy. 6. Lumbar radiculitis involving the bilateral lower extremities. 7. Opioid induced constipation. PROCEDURE/TEST ORDERED: Not present. CURRENT PLAN: I am going to continue this individual on her current medication regimen from our facility at this time. KARSON report was appropriate upon review today. We will see the patient back in the Clinic in 2 months for a follow-up appointment. The patient has an understanding and agrees with the above plans. LORI Chris/salina Electronically signed by Pavithra [facility] Conversion Outboard Technician Gayle at 02/14/2023 11:39 AM CDT documented in this encounter Plan of Treatment Not on file documented as of this encounter Visit Diagnoses Not on filedocumented in this encounter
--- OUTSIDE RECORDS SUMMARY | 2025-06-23 14:55 | XMS_ITS | Encounter Summary ---
Author Organization [employer] ([place], [place], [place], [place]) Address [address] [place] [address] Care Team Providers Care Materials Handling Equipment Operator Name Role Phone Unavailable Primary Care Provider Unavailabl e Encounter Details Date Type Department Care Team (Late st Contact Info) Description 01/15/2020 Transcribed Document [facility] Family Medicine [address] [place] [address] ProviderIlya MD [address] [place] [address] Social History Tobacco Use Types Packs/Day Years Used Date Smoking Tobacco: Never Assessed Comments Unknown Sex and Gender Information Value Date Recorded Sex Assigned at Not on file Legal Sex Female 2:08 PM CDT Gender Identity Not on file Sexual Orientation Not on file documented as of this encounter Miscellaneous Notes * Cerner Conversion Note - Ilya Garcia MD - 01/15/2020 10:48 AM CDT Patient: GERDA BROWNE Age: 64 Years Sex: Female : 1955 FOLLOW-UP DATE OF SERVICE: 01/06/2020 CHIEF COMPLAINT: Low back pain, legs burning, numbness and pain. HISTORY OF PRESENT ILLNESS: The patient is a 64 y/o female who returns to the clinic for follow-up on her low back pain, bilateral lower extremity pain left greater than right. She rates the pain as 5/10 on the pain scale. Quality is aching, burning, radiating, numbness and tingling and dull. The pain is constant. She has tried heat and ice therapy. She has had the pain for 22 years. She has decreased pain with heat, rest and medication. She gets 75% relief with her current medication. Fall risk info sheet has been provided. SOCIAL HISTORY: Allergies: No known drug allergies. Marital status: The patient is . Current work status: Not answered. Illicit drug use: Denies. Alcohol use: Denies. Current tobacco use: Denies. Caffeine use: Not answered. Past Medical History: Anemia. Arthritis Asthma. Heartburn. Gastroesophageal reflux disease. High cholesterol Thyroid disease. Past Surgical History: Hysterectomy Sinus Spinal surgery of back Spinal surgery of neck Bladder tack Past Family History: Throat cancer Skin cancer Lung disease. Rheumatoid arthritis Stroke Kidney disease. Osteoporosis. Peptic ulcer disease. Heart disease Seizures Acid reflux. REVIEW OF SYSTEMS: Complete ten system review was performed and noted to be positive for the following: General: Negative. Respiratory: Asthma. Neurological: Headaches, numbness and tingling. Gastrointestinal: Constipation, acid reflux. Musculoskeletal: Joint pain, stiffness, neck pain, back pain, muscle weakness, muscle aches and pains. Cardiovascular: Negative. Psychiatric: Negative. HEENT: Negative. Endocrine: Negative. Hematology: Negative. Skin: Negative. Genitourinary: Negative. VITAL SIGNS: Vital signs are reviewed. BP 115/71, heart rate 80, respiratory rate 16, O2 SATs 95%, height 5???6?? , weight 190 lbs PHYSICAL EXAMINATION: Constitutional: The patient is freely conversant, no acute distress. Integumentary: Deferred. HEENT: Deferred. Neck: Deferred. Chest and Lung: Deferred. Cardiovascular: Deferred. Abdomen: Deferred. Peripheral Vascular: Deferred Neurologic: Deferred. Psychiatric: Alert and oriented x 3 with normal mood and affect. She scored a 2 on the depression questionnaire. Musculoskeletal: Deferred. Established patient exam is deferred. DIAGNOSTIC STUDIES: Not present MEDICAL DECISION MAKING: The patient's KARSON has been reviewed and is appropriate. Patient's medications are reviewed and are listed in the patient's file. ASSESSMENT: Stable. 1. Chronic pain syndrome. 2. Post laminectomy pain syndrome lumbar spine. 3. Lumbar spondylosis. 4. Lumbar facet arthropathy. 5. Lumbar radiculitis bilateral lower extremities. 6. Lumbar degenerative disc disease. 7. Opioid induced constipation. PROCEDURE/TEST ORDERED: Not present. CURRENT PLAN: I am going to continue Ms. Browne on her current medications of [place] 7.5 mg q 6 h, Baclofen 10 mg q 12 h, Neurontin 300 mg q 8 h, Lidocaine patch 5%, 12 h on and 12 h off, Ambien 10 mg q h.s.. She takes Dulcolax PRN. She is in agreement with the above plan. We will see her back in follow-up in two months. Kerry Coelho M.D. SOFYA/unique Electronically signed by Quan Arshad Conversion Electronics Maintenance Technician Cerner at 02/14/2023 11:42 AM CDT documented in this encounter Plan of Treatment Not on file documented as of this encounter Visit Diagnoses Not on filedocumented in this encounter
--- OUTSIDE RECORDS SUMMARY | 2025-06-23 14:55 | XMS_ITS | Encounter Summary ---
Author Organization Healthcare Address [address] [place] [address] Care Team Providers Care Healthcare Risk Control Consultant Name Role Phone Janes Lopez Primary Care Provider [phone] Encounter Details Date Type Department Care Team ([facility] st Contact Info) Description 01/05/2025 Orders Only External Location [address] [place] [address] Provider, External Social History Tobacco Use Types [...] Diagnosis Comments US BREAST OUTSIDE IMAGES 01/05/2025 9:49 AM EDT documented in this encounter Results * US BREAST OUTSIDE IMAGES (01/05/2025 9:49 AM EDT) Anatomical Region Laterality Modality Breast Mammography 01/05/2025 9:49 AM EDT us External Provider IMG BI [...] documented as of this encounter Care Teams Healthcare Risk Control Consultant Relationship Specialty Start Date End Date Janes Lopez PA [address] [place] [address] PCP - General 03/10/21 documented as of this encounter
--- OUTSIDE RECORDS SUMMARY | 2025-06-23 14:55 | XMS_ITS | Clinical Summary ---
Author Organization [employer] ([place], [place], [place], [place]) Address [address] [place] [address] Care Team Providers Care Skirt Maker Name Role Phone Unavailable Primary Care Provider Unavailabl e Social History Tobacco Use Types Packs/Day Years Used Date Smoking Tobacco: Never Assessed Comments Unknown Sex and Gender Information Value Date Recorded Sex Assigned at Not on file Legal Sex Female 2:08 PM CDT Gender Identity Not on file Sexual Orientation Not on file Plan of Treatment Not on file
--- OUTSIDE RECORDS SUMMARY | 2025-06-23 14:55 | XMS_ITS | Encounter Summary ---
Author Organization [employer] ([place], [place], [place], [place]) Address [address] [place] [address] Care Team Providers Care Roofer Gypsum Name Role Phone Unavailable Primary Care Provider Unavailabl e Encounter Details Date Type Department Care Team (Late st Contact Info) Description 05/18/2020 Transcribed Document [facility] Family Medicine Replaced by [facility] [place] [place] [address] ProviderIlya MD [address] [place] [address] Social History Tobacco Use Types Packs/Day Years Used Date Smoking Tobacco: Never Assessed Comments Unknown Sex and Gender Information Value Date Recorded Sex Assigned at Not on file Legal Sex Female 2:08 PM CDT Gender Identity Not on file Sexual Orientation Not on file documented as of this encounter Miscellaneous Notes * Cerner Conversion Note - Ilya Garcia MD - 05/18/2020 10:16 AM CDT Patient: GERDA RUDD Age: 65 Years Sex: Female : 1955 FOLLOW-UP DATE OF SERVICE: 05/02/2020 CHIEF COMPLAINT: Low back pain, leg and feet pain. HISTORY OF PRESENT ILLNESS: The patient is a 65 y/o female who returns to the clinic for follow-up on her 22 year history of low back pain that radiates to her bilateral legs and feet, left greater than right with numbness and tingling. She rates her pain as 5/10 on the pain scale. Quality is aching, burning, radiating, numbness, tingling, dull and constant. She gets 75% relief with her current medication. Her pain is increased with activity and decreased with rest and medication. Fall risk info sheet has been provided. SOCIAL HISTORY: Allergies: No known drug allergies. Marital status: The patient is . Current work status: Not answered. Illicit drug use: Denies. Alcohol use: Denies. Current tobacco use: Denies. Caffeine use: Not answered. Past Medical History: Anemia. Arthritis. Asthma. Chickenpox. Heartburn and GERD. High cholesterol. Thyroid disease. Past Surgical History: Hysterectomy. Sinus surgery. Spinal surgery of the back. Spinal surgery of the neck. Bladder tack. Past Family History: Throat cancer. Skin cancer. Lung disease. Rheumatoid arthritis. Thyroid disease. Stroke. Kidney disease. Peptic ulcer. Heart disease. Seizures. Acid reflux. REVIEW OF SYSTEMS: Complete ten system review was performed and noted to be positive for the following: General: Negative. Respiratory: Asthma. Neurological: Headache, numbness and tingling. Gastrointestinal: Constipation, acid reflux. Musculoskeletal: Joint pain, stiffness, neck pain, back pain, muscle weakness, muscle aches and pains. Cardiovascular: Negative. Psychiatric: Negative. HEENT: Negative. Endocrine: Negative. Hematology: Easy bruising. VITAL SIGNS: Vital signs are reviewed. BP 109/69, heart rate 68, respiratory rate 20, O2 SATs 95%, height 5???6?? , weight 185 lbs. PHYSICAL EXAMINATION: Constitutional: The patient is [...] has been reviewed and is appropriate. Patient's tox screen was appropriate for gabapentin, negative for Ambien, positive for Christine active but no metabolite. Patient's medications are reviewed and are listed in the patient's file. ASSESSMENT: Stable. 1. Chronic pain syndrome. 2. Lumbar degenerative disc disease. 3. 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 4. Lumbar spondylosis. 5. Lumbar facet arthropathy. 6. Lumbar radiculitis, bilateral lower extremities. 7. Opioid induced constipation. PROCEDURE/TEST ORDERED: Not present. CURRENT PLAN: We will continue Ms. Rudd on her current medications of Christine 7.5 mg every 6 hours, baclofen 10 mg every 12 hours, Neurontin 300 mg every 8 hours, lidocaine patches 5% 12 hours on and 12 hours off, Ambien 10 mg q.h.s. She takes senna. She is in agreement with the above plan. We will see her back in follow-up in two months. Kerry Coelho M.D. SOFYA/salina Electronically signed by Pavithra [facility] Conversion Fudge Candy Maker Cerner at 02/14/2023 11:36 AM CDT documented in this encounter Plan of Treatment Not on file documented as of this encounter Visit Diagnoses Not on filedocumented in this encounter
--- OUTSIDE RECORDS SUMMARY | 2025-06-23 14:55 | XMS_ITS | Encounter Summary ---
Author Organization [facility] Address [address] [place] [address] Care Team Providers Care Signal Worker Helper Name Role Phone Riccardo Varner MD Primary Care Provider [phone] None, None Primary Care Provider UnavailJanes Quick Primary Care Provider [phone] Vadim Rico PA-C Unavailable [phone] Nigel Kwon MD Unavailable [phone] Encounter Details Date Type Department Care Team (Late st Contact Info) Description 06/05/2013 Abstract [facility] Physicians - Urogynecology, [facility] [address] [place] [address] [place] [id number] Kerry Butt PA [address] [place] [address] [address] [place] [address] Social History Tobacco Use Types [...] on filedocumented in this encounter Care Teams Signal Worker Helper Relationship Specialty Start Date End Date Riccardo Varner MD [address] [place] [address] PCP - General Bakery Assistant 05/22/13 07/04/17 None, None [address] [place] [address] PCP - General 07/05/17 01/19/20 Janes Clay PA [address] [place] [address] PCP - General 01/20/20 Vadim Rico PA-C [address] [facility] [place] [address] Physician Oakes Machine Operator Physician Oakes Machine Operator, Surgical 03/02/21 Nigel Kwon MD [address] [facility] [place] [address] Female Pelvic Medicine and Reconstructive Surgery 11/04/22 documented as of this encounter
--- OUTSIDE RECORDS SUMMARY | 2025-06-23 14:55 | XMS_ITS | Encounter Summary ---
Author Organization [facility] Address [address] [place] [address] Care Team Providers Care Pickling Drum Operator Name Role Phone Janes Lopez Primary Care Provider Reason for Referral * Consultation (Routine) - Closed Specialty Diagnoses / Procedures Referred By Contjeane t Referred To Contact Hematology and Oncology Diagnoses Disorder of breast Jayden Atkinson MD [address] [place] [id number] Phone: tel: fax: [facility] [address] [place] [address] Phone: tel: fax: Referral ID Status Reason Start Date Expiration Date V isits Requested Visits Authorized [id number] Closed Specialty Services Required 01/18/2025 07/20/2026 1 1 Encounter Details Date Type Department Care Team (Late st Contact Info) Description 01/18/2025 [facility] [address] [place] [address] Jayden Atkinson MD [address] [place] [id number] Disorder of breast (Primary Dx) Social History Tobacco Use Types Packs/Day Years [...] as of this encounter Plan of Treatment Scheduled Referrals Name Type Priority Associated Diagnoses Order Schedule Ambulatory Referral to Breast Care Center Outpatient Referral Routine Disorder of breast Expected: 01/18/2025 (Approximate), Expires: 07/21/2026 documented as of this encounter Visit Diagnoses Diagnosis Disorder of breast- Primary Unspecified breast disorder documented in this encounter Additional Health Concerns Assessment Noted Time A fall risk assessment has been complete d for the patient 09/30/2024 9:02 AM EST A Body Mass Index follow-up plan has been documented for the patient 10/03/2024 5:52 PM EST documented as of this encounter Care Teams Pickling Drum Operator Relationship Specialty Start Date End Date Janes Lopez [place] [address] PCP - General 03/10/21 documented as of this encounter
--- OUTSIDE RECORDS SUMMARY | 2025-06-23 14:55 | XMS_ITS | Encounter Summary ---
Author Organization [employer] ([place], [place], [place], [place]) Address [address] [place] [address] Care Team Providers Care Lead Medical Technologist Name Role Phone Unavailable Primary Care Provider Unavailabl e Encounter Details Date Type Department Care Team (Late st Contact Info) Description 09/12/2019 Transcribed Document [facility] [place] Family Medicine [facility] [place] [address] ProviderIlya MD [address] [place] [address] Social History Tobacco Use Types Packs/Day Years Used Date Smoking Tobacco: Never Assessed Comments Unknown Sex and Gender Information Value Date Recorded Sex Assigned at Not on file Legal Sex Female 2:08 PM CDT Gender Identity Not on file Sexual Orientation Not on file documented as of this encounter Miscellaneous Notes * Cerner Conversion Note - Ilya Garcia MD - 09/12/2019 12:56 PM GAS TURBINE ASSEMBLER Patient: GERDA BROWNE Age: 64 Years Sex: Female : 1955 FOLLOWUP DATE OF SERVICE: 09/10/2019 CHIEF COMPLAINT: Low back pain, feet and leg with numbness and burning. HISTORY OF PRESENT ILLNESS: The patient is a 64-year-old female who returns to the clinic for followup on her low back pain that radiates into her bilateral lower extremities with numbness/tingling. She rates her pain as 5/10 on the pain scale. Quality is aching, burning, radiating, numbness/tingling and dull. Her pain is constant. She has tried heat therapy. She has had her pain for 20 years. She has increased pain with standing, sitting too long and decreased pain with heat and rest. She gets 75% relief with her current medication. Fall risk information sheet has been provided. HISTORY: Allergies: No known drug allergies. SOCIAL HISTORY: Marital status: . Current work status: She reports she is disabled. Current tobacco use: Denies. Illicit drug use: Denies. Alcohol use: Denies. Caffeine use: Not answered. Past Medical History: Anemia. Arthritis. Asthma. Heartburn/GERD. High cholesterol. Thyroid disease. Past Surgical History: Hysterectomy. Sinus. Spinal surgery of the back Spinal surgery of the neck. Bladder tack. Past Family History: Throat cancer. Skin cancer. Lung disease. Rheumatoid arthritis. Stroke. Kidney disease. Peptic ulcer disease. Heart disease. Seizures. Acid-reflux. REVIEW OF SYSTEMS: The patient's ten system Review of Systems was reviewed. General: Negative. Respiratory: Asthma. Neurological: Headaches, numbness/tingling. Gastrointestinal: Constipation, acid-reflux. Musculoskeletal: Joint pain/stiffness, neck pain, back pain, muscle weakness, muscle aches and pains. Cardiovascular: Negative. Psychiatric: Negative. HEENT: Negative. Endocrine: Negative. Hematology: Negative. Skin: Negative. Genitourinary: Negative. VITAL SIGNS: Vital signs are reviewed. BP 124/74, heart rate 78, respiratory rate 18, O2 SATs 96%, height 5'7 , weight 180 lb. PHYSICAL EXAMINATION: Constitutional: Freely conversant and in no acute distress. Integumentary: Deferred. HEENT: Deferred. Neck: Deferred. Chest and Lung: Deferred. Cardiovascular: Deferred. Abdomen: Deferred. Peripheral Vascular: Deferred Neurologic: Deferred. Neuropsychiatric: Alert and oriented x3. Normal mood and affect. She scored a 1 on her depression questionnaire that was completed today. Musculoskeletal: Negative. MEDICAL DECISION MAKING: KARSON is reviewed and is appropriate. Patient???s medications are reviewed. See list in patient???s file. ASSESSMENT: Stable. 1. Chronic pain syndrome. 2. 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 3. Lumbar spondylosis. 4. Lumbar facet arthropathy. 5. Lumbar radiculitis to the bilateral lower extremities. 6. Lumbar degenerative disc disease. 7. Opioid-induced constipation. PROCEDURE/TEST ORDERED: Not present. CURRENT PLAN: We will continue Ms. Browne on her current medication of [place] 7.5 mg q.6h, Neurontin 300 mg q.8h, Ambien 10 mg one p.o. q.h.s., Baclofen 10 mg one p.o. q.12h, Lidocaine Patch 5% 12 hours on and 12 hours off. She takes a stool softener. She is in agreement with the above plan. We will see her back in followup in two months. Kerry Coelho M.D. Rich[place] Electronically signed by Slade Arshad Conversion Catalyst Manufacturing Operator Cerner at 02/14/2023 11:41 AM CDT documented in this encounter Plan of Treatment Not on file documented as of this encounter Visit Diagnoses Not on filedocumented in this encounter
--- OUTSIDE RECORDS SUMMARY | 2025-06-23 14:55 | XMS_ITS | Encounter Summary ---
Author Organization [employer] ([place], [place], [place], [place]) Address [address] [place] [address] Care Team Providers Care Steam Press Operator Name Role Phone Unavailable Primary Care Provider Unavailabl e Encounter Details Date Type Department Care Team (Late st Contact Info) Description 07/15/2019 Transcribed Document [facility] [facility] [place] [address] ProviderIlya MD [address] [place] [address] Social History Tobacco Use Types Packs/Day Years Used Date Smoking Tobacco: Never Assessed Comments Unknown Sex and Gender Information Value Date Recorded Sex Assigned at Not on file Legal Sex Female 2:08 PM CDT Gender Identity Not on file Sexual Orientation Not on file documented as of this encounter Miscellaneous Notes * Cerner Conversion Note - Ilya Garcia MD - 07/15/2019 3:10 PM CDT Patient: GERDA RUDD Age: 64 Years Sex: Female : 1955 FOLLOW-UP Date of Service: 07/15/2019 CHIEF COMPLAINT: Low back pain. HISTORY OF PRESENT ILLNESS: The patient is a 64 y/o female who returns to the Clinic today with a 20 year history significant for low back pain which radiates into bilateral lower extremities being equal in severity. She describes her pain level today as a 6/10 on the numerical pain scale rating. She describes the pain as being worse with prolonged standing and walking. She does get relief with the application of heat as well as resting. Her pain is improved by 65% with [place] 7.5/325 mg four times daily dosing, Neurontin 300 mg three times daily dosing, Ambien 10 mg one at bedtime, Baclofen 10 mg twice daily dosing, Lidocaine patches 5% that she applies one patch on for 12 hours and off for 12 hours. Nursing intake was reviewed and noted on today's visit. VITAL SIGNS: Vital signs are reviewed today. Height 5???6?? , weight 179 lbs HISTORY: Allergies: This individual reports none. Social History: Marital status: The patient is currently . Current work status: The patient is disabled. Current tobacco use: Denies. Illicit drug use: Denies. Alcohol use: Denies. Caffeine use: Not reported. Past Medical History: Osteoarthritis. Asthma. Heartburn. Hyperlipidemia. Thyroid disease. Past Surgical History: Complete hysterectomy. Sinus surgery. Spinal surgery, both lumbar and cervical spine. Bladder tack procedure. Past Family History: Cancer. Lung disease. Rheumatoid arthritis. Thyroid disease. Strokes. Kidney disease. Peptic ulcer disease. Heart disease. Seizure activity. Acid reflux disease. REVIEW OF SYSTEMS: The patient's ten system review of systems was reviewed and on today's visit this individual complains of the following: General: Negative. Respiratory: Asthma. Neurological: Headaches, numbness and tingling. Gastrointestinal: Constipation. Acid reflux. Musculoskeletal: Joint pain, stiffness, neck pain, back pain, muscle weakness, muscle aches and pains. Cardiovascular: Leg pain with walking. Psychiatric: Negative. HEENT: Negative. Endocrine: Negative. Hematology: [...] affect on today's visit and there is no evidence of depression on the depression questionnaire that was completed today. DIAGNOSTIC STUDIES: Not present MEDICAL DECISION MAKING: Stable. ASSESSMENT: 1. Chronic pain syndrome. 2. Post laminectomy pain syndrome lumbar spine. 3. Lumbar spondylosis. 4. Lumbar facet arthropathy. 5. Lumbar radiculitis involving the bilateral lower extremities. 6. Lumbar degenerative disc disease. 7. Opioid induced constipation. PROCEDURE/TEST ORDERED: Not present. CURRENT PLAN: I am going to continue Ms. Rudd on her current medication regimen from our facility at this time. Her KARSON report was appropriate upon review today. She is undergoing a urine tox screen today to confirm compliance with medication management from our facility. We will see the patient back in the Clinic in two months for a follow-up appointment. The patient has an understanding and agrees with the above plans. LORI Chris/unique Electronically signed by Pavithra [facility] Conversion Tree Wrapper Cerner at 02/14/2023 11:45 AM CDT documented in this encounter Plan of Treatment Not on file documented as of this encounter Visit Diagnoses Not on filedocumented in this encounter
--- OUTSIDE RECORDS SUMMARY | 2025-06-23 14:55 | XMS_ITS | Encounter Summary ---
Author Organization [facility] Address [address] [place] [address] Care Team Providers Care Supervisor Boiler Repair Name Role Phone None, None Primary Care Provider UnavailRiccardo Hall MD Primary Care Provider None, None Primary Care Provider Janes Acuña Primary Care Provider [phone] Vadim Rico PA-C Unavailable [phone] Nigel Kwon MD Unavailable [phone] Reason for Visit * Reason Comments Medications Refill Encounter Details Date Type Department Care Team (Late st Contact Info) Description 01/04/2011 Refill [facility] [address] [place] [address] [address] [place] [id number] Nigel Kwon MD [address] [place] [address] [address] [place], [place] [id number] Medications Refill Social History Tobacco Use Types Packs/Day Years [...] Orientation Straight 01/20/2020 11 :50 AM EDT documented as of this encounter Plan of Treatment Not on file documented as of this encounter Visit Diagnoses Not on filedocumented in this encounter Care Teams Supervisor Boiler Repair Relationship Specialty Start Date End Date None, None [address] [place] [place] [address] PCP - General 02/25/09 05/21/13 Riccardo Varner MD [address] [place] [address] PCP - General Vice President Of Academic Affairs 05/22/13 07/04/17 None, None [address] [place] [address] PCP - General 07/05/17 01/19/20 Janes Clay PA [address] [place] [address] PCP - General 01/20/20 Vadim Rico PA-C [address] [facility] [place] [address] Physician Solar Energy Consultant And Designer Physician Solar Energy Consultant And Designer, Surgical 03/02/21 Nigel Kwon MD [address] [facility] [address] [place] [address] Female Pelvic Medicine and Reconstructive Surgery 11/04/22 documented as of this encounter
--- OUTSIDE RECORDS SUMMARY | 2025-06-23 14:55 | XMS_ITS | Encounter Summary ---
Author Organization [employer] ([place], [place], [place], [place]) Address [address] [place] [address] Care Team Providers Care Advisory Software Engineer Name Role Phone Unavailable Primary Care Provider Unavailabl e Encounter Details Date Type Department Care Team (Late st Contact Info) Description 11/12/2019 Transcribed Document [facility] [place] Family Medicine [facility] [place] [address] ProviderIlya MD [address] [place] [address] Social History Tobacco Use Types Packs/Day Years Used Date Smoking Tobacco: Never Assessed Comments Unknown Sex and Gender Information Value Date Recorded Sex Assigned at Not on file Legal Sex Female 2:08 PM CDT Gender Identity Not on file Sexual Orientation Not on file documented as of this encounter Miscellaneous Notes * Cerner Conversion Note - Ilya Garcia MD - 11/12/2019 7:32 AM ANSWERING SERVICE AGENT Patient: GERDA RUDD Age: 64 Years Sex: Female : 1955 DATE OF SERVICE: 11/09/2019. CHIEF COMPLAINT: Low back pain, bilateral leg pain. HISTORY OF PRESENT ILLNESS: The patient is a 64 year old female who returns to the clinic today with a 20 year history significant for low back pain as well as bilateral lower extremity pain which is aggravated with standing for long durations of time, sitting for long durations of time. The patient does get relief with recumbency as well as the application of heat and medication use from our facility. The patient is reporting 75% pain relief at this time with the use of [place] 7.5/325 mg. q.i.d., Neurontin 300 mg. one pill t.i.d., Ambien 10 mg. at bedtime for sleep hygiene, Baclofen 10 mg. b.i.d., Lidocaine Patches 5% apply one patch on for 12 hours, off for 12 hours. Nursing intake was reviewed. On today's visit this individual is currently 5'6 and weighs 195 lbs. HISTORY: ALLERGIES TO MEDICATION: THIS INDIVIDUAL REPORTS NONE. SOCIAL HISTORY: Marital status: . Current work status: Does not list. Current tobacco use: Nor reported. Illicit drug use: Denied. Alcohol use: Not reported. Caffeine use: Daily. PAST MEDICAL HISTORY: Anemia. Osteoarthritis. Asthma. Heartburn. Hyperlipidemia. Thyroid disease. PAST SURGICAL HISTORY: Complete hysterectomy. Sinus surgery. Spinal surgery to lumbar spine. Spinal surgery to cervical spine. Bladder tack procedure. PAST FAMILY HISTORY: Cancer. Lung disease. Rheumatoid arthritis. Thyroid disease. Strokes. Kidney disease. Peptic ulcer disease. Heart disease. Seizure activity. Acid reflux disease. REVIEW OF SYSTEMS: The patient's Ten System Review of Systems was reviewed and on today's visit this individual complains of the following: General: Negative. Respiratory: Asthma. Neurological: Headaches. Numbness and tingling. Gastrointestinal: Constipation. Acid reflux. Musculoskeletal: Joint pain and stiffness, neck pain, back pain, muscle weakness, muscle aches and pains. Cardiovascular: Negative. Psychiatric: Negative. HEENT: Negative. Endocrine: Negative. Hematology: Negative. Skin: Negative. Genitourinary: Negative. All other systems reviewed were found to be negative. PHYSICAL EXAMINATION: Vital signs reviewed today. Constitutional: Conversant, well-nourished. General: Deferred. Integumentary: Deferred. HEENT: Deferred. Neck: Deferred. Chest and Lung: Deferred. Cardiovascular: Deferred. Abdomen: Deferred. Peripheral Vascular: Deferred. Neurologic: Deferred. Musculoskeletal: Deferred. Psychiatric: The patient is alert and oriented to self, time, and place today. The patient has normal mood and affect at today's visit and there is minimal evidence of depression on the depression questionnaire completed today. Physical examination was deferred. DIAGNOSTIC STUDIES: Not present. MEDICAL DECISION MAKING: Stable. ASSESSMENT: 1. Chronic pain syndrome. 2. Post laminectomy pain syndrome of lumbar spine. 3. Lumbar spondylosis. 4. Lumbar facet arthropathy. 5. Lumbar radiculitis involving the bilateral lower extremities. 6. Lumbar degenerative disc disease. 7. Opioid induced constipation. PROCEDURE/TEST ORDERED: Not present. CURRENT PLAN: I am going to continue this individual on her current medication regimen from our facility at this time. KARSON report was appropriate upon review today. We are going to see the patient back in the clinic in two months for a follow-up appointment. The patient is understanding and agrees with the above plans. LORI Chris:zane Electronically signed by Pavithra [facility] Conversion Spareribs Trimmer Cerner at 02/14/2023 11:37 AM CDT documented in this encounter Plan of Treatment Not on file documented as of this encounter Visit Diagnoses Not on filedocumented in this encounter
--- OUTSIDE RECORDS SUMMARY | 2025-06-23 14:55 | XMS_ITS | Encounter Summary ---
Author Organization [facility] Address [address] [place] [address] Care Team Providers Care Facility Worker Name Role Phone Janes Lopez Primary Care Provider Encounter Details Date Type Department Care Team ([facility] st Contact Info) Description 01/05/2025 Orders Only External Location [address] [place] [address] Parisa Elizondo, WORLD TRAVEL COUNSELOR [address] [place] [address] Social History Tobacco Use Types Packs/Day Years [...] Date/Time Associated Diagnosis Comments MAMMOGRAPHY OUTSIDE IMAGES UPLOAD 01/05/2025 9:22 AM EDT documented in this encounter Results * Mammography Outside Images Upload (01/05/2025 9:22 AM EDT) Anatomical Region Laterality Modality Mammography 01/05/2025 9:22 AM EDT Parisa Elizondo WORLD TRAVEL COUNSELOR IMG BI PROCEDURES Final Result documented in this encounter Visit Diagnoses Not on filedocumented in this encounter Additional Health Concerns Assessment Noted Time A fall risk assessment has been complete d for the patient 09/30/2024 9:02 AM EST A Body Mass Index follow-up plan has been documented for the patient 10/03/2024 5:52 PM EST documented as of this encounter Care Teams Facility Worker Relationship Specialty Start Date End Date Janes Lopez PA [address] [place] [address] PCP - General 03/10/21 documented as of this encounter
--- OUTSIDE RECORDS SUMMARY | 2025-06-23 14:56 | XMS_ITS | Encounter Summary ---
Author Organization [facility] Address [address] [place] [address] Care Team Providers Care Billing Clinician Name Role Phone Janes Lopez Primary Care Provider [phone] Encounter Details Date Type Department Care Team ([facility] Contact Info) Description 11/01/2014 Orders Only External Location [address] [place] [address] Provider, External Social History Tobacco Use Types [...] Date/Time Associated Diagnosis Comments MAMMOGRAPHY OUTSIDE IMAGES 11/01/2014 1:04 PM EST documented in this encounter Results * MAMMOGRAPHY OUTSIDE IMAGES (11/01/2014 1:04 PM EST) Anatomical Region Laterality Modality Breast Mammography 11/01/2014 1:04 PM EST us External Provider IMG BI PROCEDURES Final Result documented in this encounter Visit Diagnoses Not on filedocumented in this encounter Care Teams Billing Clinician Relationship Specialty Start Date End Date Janes Lopez PA [address] [place] [address] PCP - General 03/10/21 documented as of this encounter
--- OUTSIDE RECORDS SUMMARY | 2025-06-23 14:56 | XMS_ITS | Encounter Summary ---
Author Organization [facility] Address [address] [place] [address] Care Team Providers Care Bail Attacher Name Role Phone Janes Lopez Primary Care Provider Encounter Details Date Type Department Care Team ([facility] st Contact Info) Description 03/27/2018 Orders Only External Location [address] [place] [address] Provider, External Social History Tobacco Use Types [...] Date/Time Associated Diagnosis Comments MAMMOGRAPHY OUTSIDE IMAGES 03/27/2018 1:32 PM EDT documented in this encounter Results * MAMMOGRAPHY OUTSIDE IMAGES (03/27/2018 1:32 PM EDT) Anatomical Region Laterality Modality Breast Mammography 03/27/2018 1:32 PM EDT us External Provider IMG BI PROCEDURES Final Result documented in this encounter Visit Diagnoses Not on filedocumented in this encounter Care Teams Bail Attacher Relationship Specialty Start Date End Date Janes Lopez PA [address] [place] [address] PCP - General 5/14/21 documented as of this encounter
--- OUTSIDE RECORDS SUMMARY | 2025-06-23 14:56 | XMS_ITS | Encounter Summary ---
Author Organization [facility] Address [address] [place] [address] Care Team Providers Care Surgical Scheduler Name Role Phone Janes Lopez Primary Care Provider [phone] Encounter Details Date Type Department Care Team ([facility] st Contact Info) Description 04/14/2019 Orders Only External Location [address] [place] [address] Provider, External Social History Tobacco Use Types [...] Date/Time Associated Diagnosis Comments MAMMOGRAPHY OUTSIDE IMAGES 04/14/2019 11:28 AM EDT documented in this encounter Results * MAMMOGRAPHY OUTSIDE IMAGES (04/14/2019 11:28 AM EDT) Anatomical Region Laterality Modality Breast Mammography 04/14/2019 11:2 8 AM EDT us External Provider IMG BI PROCEDURES Final Result documented in this encounter Visit Diagnoses Not on filedocumented in this encounter Care Teams Surgical Scheduler Relationship Specialty Start Date End Date Janes Lopez PA [address] [place] [address] PCP - General 03/10/21 documented as of this encounter
--- OUTSIDE RECORDS SUMMARY | 2025-06-23 14:56 | XMS_ITS | Encounter Summary ---
Author Organization [facility] Address [address] [place] [address] Care Team Providers Care Bobbin Fixer Name Role Phone Janes Lopez Primary Care Provider [phone] Encounter Details Date Type Department Care Team ([facility] Contact Info) Description 09/07/2015 Orders Only External Location [address] [place] [address] Provider, External Social History Tobacco Use Types [...] Procedure Name Priority Date/Time Associated Diagnosis Comments XR MSK OUTSIDE IMAGES 09/07/2015 10:51 AM EST documented in this encounter Results * XR MSK OUTSIDE IMAGES (09/07/2015 10:51 AM EST) Anatomical Region Laterality Modality Radiographic Ariane ging 09/07/2015 10:5 1 AM EST us External Provider IMG XR PROCEDURES Final Result documented in this encounter Visit Diagnoses Not on filedocumented in this encounter Care Teams Bobbin Fixer Relationship Specialty Start Date End Date Janes Lopez PA [address] [place] [address] PCP - General 03/10/21 documented as of this encounter
--- OUTSIDE RECORDS SUMMARY | 2025-06-23 14:56 | XMS_ITS | Encounter Summary ---
Author Organization Healthcare Address [address] [place] [address] Care Team Providers Care Customer Technical Services Manager Name Role Phone Janes Lopez Primary Care Provider [phone] Encounter Details Date Type Department Care Team ([facility] st Contact Info) Description 02/21/2024 Orders Only External Location [address] [place] [address] Provider, External Social History Tobacco Use Types Packs/Day Years Used Date Smoking Tobacco: Never Smokeless Tobacco: Never Alcohol Use Standard Drinks/Week Comments No 0 (1 standard drink = 0.6 oz pur e alcohol) Comments Unknown Sex and Gender Information Value Date Recorded Sex Assigned at Not on file Legal Sex Female 8:29 PM EDT Gender Identity Not on file Sexual Orientation Not on file documented as of this encounter Plan of Treatment Not on file documented as of this encounter Procedures Procedure Name Priority Date/Time Associated Diagnosis Comments MR NEURO OUTSIDE IMAGES 02/21/2024 2:31 PM EDT documented in this encounter Results * MR NEURO OUTSIDE IMAGES (02/21/2024 2:31 PM EDT) Anatomical Region Laterality Modality Magnetic Resonan ce 02/21/2024 2:31 PM EDT us External Provider IMG MRI PROCEDURES Final Resul t documented in this encounter Visit Diagnoses Not on filedocumented in this encounter Care Teams Customer Technical Services Manager Relationship Specialty Start Date End Date Janes Lopez PA [address] [place] [address] PCP - General 03/10/21 documented as of this encounter
--- OUTSIDE RECORDS SUMMARY | 2025-06-23 14:56 | XMS_ITS | Encounter Summary ---
Author Organization Healthcare Address [address] [place] [address] Care Team Providers Care Staff Developer Name Role Phone Janes Lopez Primary Care Provider Encounter Details Date Type Department Care Team ([facility] st Contact Info) Description 07/06/2020 Orders Only External Location [address] [place] [address] Provider, External Social History Tobacco Use Types [...] Associated Diagnosis Comments MAMMOGRAPHY OUTSIDE IMAGES UPLOAD 07/06/2020 2:29 PM EDT documented in this encounter Results * Mammography Outside Images Upload (07/06/2020 2:29 PM EDT) Anatomical Region Laterality Modality Mammography 07/06/2020 2:29 PM EDT us External Provider IMG BI PROCEDURES Final Result documented in this encounter Visit Diagnoses Not on filedocumented in this encounter Care Teams Staff Developer Relationship Specialty Start Date End Date Janes Lopez PA [address] [place] [address] PCP - General 03/10/21 documented as of this encounter
--- OUTSIDE RECORDS SUMMARY | 2025-06-23 14:56 | XMS_ITS | Referral Summary ---
Author Organization [employer] ([place], [place], [place], [place]) Address [address] [place] [address] Care Team Providers Care Oil Recovery Unit Operator Name Role Phone Unavailable Primary Care [...]
--- OUTSIDE RECORDS SUMMARY | 2025-06-23 14:56 | XMS_ITS | Encounter Summary ---
Author Organization Healthcare Address [address] [place] [address] Care Team Providers Care Foundry Hand Name Role Phone Janes Lopez Primary Care Provider Encounter Details Date Type Department Care Team ([facility] st Contact Info) Description 02/02/2023 Orders Only External Location [address] [place] [address] Provider, External Social History Tobacco Use Types [...] Name Priority Date/Time Associated Diagnosis Comments MR OUTSIDE IMAGES 02/02/2023 10:25 AM EDT documented in this encounter Results * MR transfer of outside films (02/02/2023 10:25 AM EDT) Anatomical Region Laterality Modality Magnetic Resonan ce 02/02/2023 10:2 5 AM EDT us External Provider IMG MRI PROCEDURES Final Resul t documented in this encounter Visit Diagnoses Not on filedocumented in this encounter Care Teams Foundry Hand Relationship Specialty Start Date End Date Janes Lopez [place] [address] PCP - General 03/10/21 documented as of this encounter
--- OUTSIDE RECORDS SUMMARY | 2025-06-23 14:56 | XMS_ITS | Clinical Summary ---
Author Organization Healthcare Address [address] [place] [address] Care Team Providers Care Manager Of Transportation Name Role Phone Janes Lopez Primary Care Provider Allergies No known active allergies Medications albuterol (Proventil) (2.5 MG/3ML) 0.083% nebulizer solution Take or use exactly as directed.Obtai n advice for OTCs.For inhalation. 3 Active albuterol 108 (90 Base) MCG/ACT inhaler Take or use exactly as directed.Obtai n advice for OTCs.Shake well.For inhalation. 3 Active azelastine (Astelin) 0.1 % nasal spray Azelastine HCl 0.1% Nasal Solution QTY: 90 Days: 90 Refills: 0 Written: 03/11/24 Patient Instructions: 4 Active baclofen (Lioresal) 10 MG tablet Three times a day 0 Active aspirin 81 MG EC tablet 4 Active bisacodyl (Dulcolax) 5 MG EC tablet Take 1 tablet (5 mg) by mouth. 0 Active cholecalciferol (Vitamin D-3) 1.25 MG (78997 UT) capsule Take 1 capsule (50,000 Units) by mouth 1 (one) time per week. 4 Active ergocalciferol 1.25 MG (40000 UT) capsule 4 Active fluticasone (Flonase) 50 MCG/ACT nasal spray Take or use exactly as directed.For the nose. 4 Active HYDROcodone-acetam inophen ([place]) 7.5-325 MG tablet 0 Active ibuprofen 800 MG tablet Take 1 tablet (800 mg) by mouth 3 (three) times a day. 0 Active levocetirizine (Xyzal) 5 MG tablet Take 1 tablet (5 mg) by mouth Daily. 0 Active Synthroid 50 MCG tablet Take on empty stomach.Take with plenty of water.Be careful if taking OTCs.Take or use exactly as directed. 0 Active Kqnf-Vzjymgmmm-Zbz -Methyl Craig 0.5-0.035-5-20 % patch lidocaine 0.5 %-me.salicyl 20 %-capsai 0.035 %-menth 5 % topical patch Active metoprolol succinate XL (Toprol-XL) 50 MG 24 hr tablet Be careful if taking OTCs.Take with food/milk.Take or use exactly as directed.May impair driving.Swallo w whole.May cause drowsiness/diz ziness. 4 Active montelukast (Singulair) 10 MG tablet Take 1 tablet (10 mg) by mouth Daily. 4 Active ondansetron ODT (Zofran-ODT) 4 MG disintegrating tablet Take 1 tablet (4 mg) by mouth 3 (three) times a day if needed. 4 Active pantoprazole (Protonix) 40 MG EC tablet Take 1 tablet (40 mg) by mouth Daily. 0 Active fluticasone-salmet gretel (Advair HFA) 230-21 MCG/ACT inhaler Inhale 2 puffs 2 (two) times a day. Rinse mouth with water after use to reduce aftertaste and incidence of candidiasis. Do not swallow. Active gabapentin (Neurontin) 300 MG capsule Take 1 capsule (300 mg) by mouth. Active ondansetron ODT (Zofran-ODT) 4 MG disintegrating tablet 1 tablet (4 mg). 4 025 Active lidocaine (Lidoderm) 5 % patch PLACE 1 PATCH ONTO THE SKIN FOR 12HRS AND REMOVE FOR 12HRS 4 Active nystatin (Mycostatin) 791347 UNIT/ML suspension 4 Active ofloxacin (Floxin) 0.3 % otic solution INSTILL 10 DROPS TO AFFECTED EAR EVERY DAY 4 Active Fluticasone Furoate-Vilanterol 50-25 MCG/ACT aerosol powder 2 puffs. 4 Active Alirocumab 75 MG/ML solution auto-injector 75 mg. 4 Active Premarin 0.625 MG tablet 4 Active Active Problems No known active problems Family History Medical History Relation Name Comments Alzheimer's disease Father COPD Father Heart failure Father Hypertension Father Other cancer Father Stroke Father Asthma Mother Heart failure Mother Hypertension Mother Alzheimer's disease Other 1 Asthma Other 2 COPD Other 3 Heart failure Other 4 Hypertension Other 5 Other cancer Other 6 Stroke Other 7 Relation Name Status Comments Father Mother Other 1 Other 2 Other 3 Other 4 Other 5 Other 6 Other 7 Social History Tobacco Use Types Packs/Day Years Used Date Smoking Tobacco: Never Smokeless Tobacco: Never Tobacco Cessation:Counseling Given: Not Answered Alcohol Use Standard Drinks/Week Comments No 0 (1 standard drink = 0.6 oz pur e alcohol) PHQ-2 Answer Date Recorded Patient Health Questionnaire-2 Score 0 08/26/2024 Comments No Sex and Gender Information Value Date Recorded Sex Assigned at Not on file Legal Sex Female 8:29 PM EDT Gender Identity Not on file Sexual Orientation Not on file Last Filed Vital Signs Vital Sign Reading Time Taken Comments Blood Pressure 123/54 09/30/2024 9:02 AM EST Pulse 60 09/30/2024 9:02 AM EST Temperature 36.4 C (97.6 F) 09/30/2024 9:02 AM EST Respiratory Rate 18 09/30/2024 9:02 AM EST Oxygen Saturation 95% 09/30/2024 9:02 AM EST Inhaled Oxygen Concentration - - Weight 86.2 kg (190 lb) 03/04/2025 9:09 AM EDT Height 167.6 cm (5' 6 ) 03/04/2025 9:09 AM EDT Body Mass Index 30.67 03/04/2025 9:09 AM EDT Plan of Treatment Health Maintenance Due Date Last Done Comments [facility]-Bone Density Scan 1955 [facility]-Hepatitis C Screening 1955 [facility]-Infant/Child/Adol SDOH Screenings 1955 [facility]- SDOH Screenings 1973 [facility]-Adult SDOH Screenings 1973 CT Colonography 02/12/2000 FIT-DNA 02/12/2000 FIT 02/12/2000 FOBT 02/12/2000 Sigmoidoscopy 02/12/2000 [facility]-Zoster Vaccines (1 of 2) 02/21/2017 09/04/2018, 12/27/2016 [facility]-Medicare Annual Wellness (AWV) 03/07/2021 03/07/2020, 03/04/2019, 02/27/2018 Colonoscopy 04/16/2021 04/16/2011 [facility]-Colorectal Cancer Screening 04/16/2021 [id number]-60 Vaccine ( season) 2024 09/26/2021, 01/18/2021, 12/28/2020 [facility]-Influenza Vaccine (#1) 06/28/202509/17, 09/06/2021, 09/01/2019, Additional history exists [facility]-Depression Screening 08/26/2025 08/26/2024 [facility]-DTaP,Tdap,and Td Vaccines (2 - Td or Tdap) 11/13/2026 11/13/2016 [facility]-Breast Cancer Screening 03/04/2027 050 05/2025, 11/25/2024, 11/25/2024, Additional history exists [facility]-RSV Vaccine: 60+ Years or (1 - 1-dose 75+ series) 2030 [facility]-Hepatitis A Vaccines Aged Out 11/03/2018, 01/2019 No longer eligible based on patient's age to complete this topic [facility]-Pneumococcal Vaccine: 50+ Years Completed 03/07/2020, 09/04/2018 [facility]-Obesity Intervention Completed 09/30/2024, 07/30 HPV Vaccines Aged Out No longer eligi ble based on patient's age to complete this topic [facility]-HIB Vaccines Aged Out No longer e ligible based on patient's age to complete this topic [facility]-IPV Vaccines Aged Out No longer e ligible based on patient's age to complete this topic [facility]-Rotavirus Vaccines Aged Out No lo nger eligible based on patient's age to complete this topic Procedures Procedure Name Priority Date/Time Associated Diagnosis Comments MAMMOGRAPHY BREAST DIAGNOSTIC TOMOSYNTHESIS BILATERAL Routine 03/04/2025 10:02 AM EDT Abnormal findings on diagnostic imaging of breast COLONOSCOPY 04/16/2011 from Last 3 Months or Most Recently Relevant to Health Maintenance Results * Mammography Breast Diagnostic Tomosynthesis Bilateral (03/04/2025 10:02 AM EDT) Anatomical Region Laterality Modality Breast Bilateral Mammography Impressions 03/04/2025 11:33 AM EDT Right Breast BI-RADS Code: BI-RADS 3, Probably benign finding. Left Breast BI-RADS Code: BI-RADS 2, Benign finding. RECOMMENDATIONS: Right Breast Recommendations: Diagnostic Mammogram in 6 Months Breast Ultrasound 6 Months Left Breast Recommendations: Diagnostic Mammogram in 1 Year CRITICAL RESULT: No. COMMUNICATION: The results and recommendations were discussed with the patient and a printed lay language version of the imaging report was given to the patient at the time of the visit. The mammogram was read with the assistance of CAD and tomosynthesis. By electronically signing this report, I, the attending physician, attest that I have personally reviewed the images/data for the above examination(s) and agree with the final edited report. Drafted by Tk Pugh MD on 03/04/2025 9:24 AM Final report signed by Piedad Reddy MD on 03/04/2025 11:33 AM Narrative 03/04/2025 11:33 AM EDT CLINICAL INDICATION: Second opinion for BI-RADS 4 finding in the right breast and BI-RADS 3 finding in the left breast. TECHNIQUE: Bilateral diagnostic mammogram was performed. Computer assisted detection was used in the interpretation of this study. Tomosynthesis was used in the interpretation of this study. Multiplanar, sinclair scale directed ultrasound of bilateral breasts with limited Doppler vascular ultrasound was performed. Elastography was performed. COMPARISON: Mammography, 01/05/2025, 11/25/2024, 07/06/2020. Ultrasounds, 01/05/2025. Bilateral Breast Density: There are scattered areas of fibroglandular density. FINDINGS: Right breast: Finding 1: There is a 9 mm asymmetry in the lateral right breast on the craniocaudal view, 3.5 cm from the nipple. This appears mammographically stable dating back to 07/06/2020 when allowing for differences in mammographic technique. This resolves on spot compression imaging, compatible with summation. Ultrasound was performed for further evaluation. Directed ultrasound was performed of the right breast at the 11:00 position, 2 cm from the nipple to evaluate the previously seen ultrasound finding of concern. There is a 13 x 5 x 10 mm heterogeneous area which is most compatible with normal dense breast tissue. This appears contiguous with similar appearing breast tissue on the cine images. There is no internal vascularity. This area is soft on elastography. This likely correlates with the mammographic abnormality of concern. BI-RADS 3 Left breast: There are no suspicious masses, calcifications, or areas of architectural distortion in the left breast. Finding 2: Directed ultrasound was performed of the left breast to follow-up the findings seen on outside facility ultrasound at 11:00, 4 cm from the nipple. There is a 2 mm cyst at 11:00, 4 cm from the nipple. There is no internal vascularity. This is soft on elastography. BI-RADS 2 Procedure Note Piedad Reddy MD - 03/04/2025 CLINICAL INDICATION: Second opinion for BI-RADS 4 finding in the right breast and BI-RADS 3finding in the left breast. TECHNIQUE: Bilateral diagnostic mammogram was performed. Computer assisted detection was used in the interpretation of this study.Tomosynthesis was used in the interpretation of this study. Multiplanar, sinclair scale directed ultrasound of bilateral breasts withlimited Doppler vascular ultrasound was performed. Elastography wasperformed. COMPARISON: Mammography, 01/05/2025, 11/25/2024, 07/06/2020. Ultrasounds, 01/05/2025. Bilateral Breast Density: There are scattered areas of fibroglandulardensity. FINDINGS: Right breast: Finding 1: There is a 9 mm asymmetry in the lateral right breast on thecraniocaudal view, 3.5 cm from the nipple. This appears mammographicallystable dating back to 07/06/2020 when allowing for differences inmammographic technique. This resolves on spot compression imaging,compatible with summation. Ultrasound was performed for furtherevaluation. Directed ultrasound was performed of the right breast at the 11:00position, 2 cm from the nipple to evaluate the previously seen ultrasoundfinding of concern. There is a 13 x 5 x 10 mm heterogeneous area which ismost compatible with normal dense breast tissue. This appears contiguouswith similar appearing breast tissue on the cine images. There is nointernal vascularity. This area is soft on elastography. This likelycorrelates with the mammographic abnormality of concern. BI-RADS 3 Left breast: There are no suspicious masses, calcifications, or areas of architecturaldistortion in the left breast. Finding 2: Directed ultrasound was performed of the left breast tofollow-up the findings seen on outside facility ultrasound at 11:00, 4 cmfrom the nipple. There is a 2 mm cyst at 11:00, 4 cm from the nipple.There is no internal vascularity. This is soft on elastography. BI-RADS2 IMPRESSION: Right Breast BI-RADS Code: BI-RADS 3, Probably benign finding. Left Breast BI-RADS Code: BI-RADS 2, Benign finding. RECOMMENDATIONS: Right Breast Recommendations: Diagnostic Mammogram in 6 Months BreastUltrasound 6 Months Left Breast Recommendations: Diagnostic Mammogram in 1 Year CRITICAL RESULT: No. COMMUNICATION: The results and recommendations were discussed with the patient and aprinted lay language version of the imaging report was given to thepatient at the time of the visit. The mammogram was read with theassistance of CAD and tomosynthesis. By electronically signing this report, I, the attending physician, attmehdiat I have personally reviewed the images/data for the aboveexamination(s) and agree with the final edited report. Drafted by Tk Pugh MD on 03/04/2025 9:24 AM Final report signed by Piedad Reddy MD on 03/04/2025 11:33 AM Jayden Atkinson MD IMG BI PROCEDURES Final Result * COLONOSCOPY (04/16/2011) Anatomical Region Laterality Modality Endoscopy Narrative 04/16/2011 Ordered by an unspecified provider. us Historical Provider GI PROCEDURE ORDERABLES Margoth l Result from Last 3 Months or Most Recently Relevant to Health Maintenance Insurance MEDICARE [employer] MEDICARE Member Subscriber Plan / Payer (Ef fective 2001-Present) Name:Gerda Browne Member ID:[id number] Relation to Subscriber:Self Name:Gerda Browne Subscriber ID:[id number] Payer ID:MEDICARE Group ID:Not on file Type:Medicare Address: [place] [phone] Care Teams Manager Of Transportation Relationship Specialty Start Date End Date Janes Lopez PA [address] [place] [address] PCP - General 03/10/21
--- OUTSIDE RECORDS SUMMARY | 2025-06-23 14:56 | XMS_ITS | Encounter Summary ---
Author Organization Healthcare Address [address] [place] [address] Care Team Providers Care Sterile Technician Name Role Phone Janes Lopez Primary Care Provider [phone] Encounter Details Date Type Department Care Team ([facility] st Contact Info) Description 02/21/2016 Orders Only External Location [address] [place] [address] Provider, External Social History Tobacco Use Types [...] Date/Time Associated Diagnosis Comments MAMMOGRAPHY OUTSIDE IMAGES 02/21/2016 12:58 PM EDT documented in this encounter Results * MAMMOGRAPHY OUTSIDE IMAGES (02/21/2016 12:58 PM EDT) Anatomical Region Laterality Modality Breast Mammography 02/21/2016 12:5 8 PM EDT us External Provider IMG BI PROCEDURES Final Result documented in this encounter Visit Diagnoses Not on filedocumented in this encounter Care Teams Sterile Technician Relationship Specialty Start Date End Date Janes Lopez PA [address] [place] [address] PCP - General 03/10/21 documented as of this encounter
--- OUTSIDE RECORDS SUMMARY | 2025-06-23 14:56 | XMS_ITS | Encounter Summary ---
Author Organization Healthcare Address [address] [place] [address] Care Team Providers Care Pick And Shovel Man Name Role Phone Janes Lopez Primary Care Provider Reason for Referral * Consultation (Routine) - Closed Specialty Diagnoses / Procedures Referred By Ila sawyer Referred To Contact Neurosurgery Diagnoses Cervical disc disorder, unspecified, unspecified cervical region Piyush Herrera MD [address] [place] [address] Phone: tel: fax: Referral ID Status Reason Start Date Expiration Date V isits Requested Visits Authorized [id number] Closed Specialty Services Required 08/10/2024 02/09/2026 1 1 Encounter Details Date Type Department Care Team (Late st Contact Info) Description 08/10/2024 Community Orders Community Practice [address] [place] [address] Piyush Herrera MD [facility] [place] [address] Cervical disc disorder, unspecified, unspecified cervical region (Primary Dx) Social History Tobacco Use Types [...] Scheduled Referrals Name Type Priority Associated Diagnoses Orde r Schedule Ambulatory Referral to Neurosurgery Outpatient Referral Routine Cervical disc disorder, unspecified, unspecified cervical region Expected: 09/10/2024, Expires: 02/08/2026 documented as of this encounter Visit Diagnoses Diagnosis Cervical disc disorder, unspecified, unspecified cervical region- Primary documented in this encounter Care Teams Pick And Shovel Man Relationship Specialty Start Date End Date Janes Lopez PA [address] [place] [address] PCP - General 03/10/21 documented as of this encounter
--- OUTSIDE RECORDS SUMMARY | 2025-06-23 14:56 | XMS_ITS | Encounter Summary ---
Author Organization Healthcare Address [address] [place] [address] Care Team Providers Care Boat Rental Clerk Name Role Phone Janes Lopez Primary Care Provider Encounter Details Date Type Department Care Team ([facility] st Contact Info) Description 01/29/2024 Orders Only External Location [address] [place] [address] Provider, External Social History Tobacco Use Types [...] Associated Diagnosis Comments MR NEURO OUTSIDE IMAGES 01/29/2024 2:45 PM EDT documented in this encounter Results * MR NEURO OUTSIDE IMAGES (01/29/2024 2:45 PM EDT) Anatomical Region Laterality Modality Magnetic Resonan ce 01/29/2024 2:45 PM EDT us External Provider IMG MRI PROCEDURES Final Resul t documented in this encounter Visit Diagnoses Not on filedocumented in this encounter Care Teams Boat Rental Clerk Relationship Specialty Start Date End Date Janes Lopez PA [address] [place] [address] PCP - General 03/10/21 documented as of this encounter
--- OUTSIDE RECORDS SUMMARY | 2025-06-23 14:56 | XMS_ITS | Encounter Summary ---
Author Organization Healthcare Address [address] [place] [address] Care Team Providers Care Warehouse Manager Name Role Phone Janes Lopez Primary Care Provider Encounter Details Date Type Department Care Team ([facility] st Contact Info) Description 02/27/2017 Orders Only External Location [address] [place] [address] Provider, External Social History Tobacco Use Types [...] Date/Time Associated Diagnosis Comments MAMMOGRAPHY OUTSIDE IMAGES 02/27/2017 12:55 PM EDT documented in this encounter Results * MAMMOGRAPHY OUTSIDE IMAGES (02/27/2017 12:55 PM EDT) Anatomical Region Laterality Modality Breast Mammography 02/27/2017 12:5 5 PM EDT us External Provider IMG BI PROCEDURES Final Result documented in this encounter Visit Diagnoses Not on filedocumented in this encounter Care Teams Warehouse Manager Relationship Specialty Start Date End Date Janes Lopez PA [address] [place] [address] PCP - General 03/10/21 documented as of this encounter
[2025-06-23 16:07] LABS: Coronavirus 19, PCR Detected (NotDetected)
[2025-06-23 17:58] LABS: Chloride 94 mmol/L (98-107); Potassium 5.2 mmoL/L (3.5-5.1); Sodium 133 mmol/L (136-145)
[2025-06-23 18:01] LABS: Blood Urea Nitrogen 12 mg/dl (7-17); Creatinine,Serum 0.60 mg/dl (0.52-1.04); Estimated Glomerular Filt Rate 99 ml/min (>60); GFR (African American) 120 ML/MIN (>60)
[2025-06-23 18:02] LABS: Anion Gap 15.2 mEq/L (5-15); Calcium 9.0 mg/dl (8.4-10.2); Carbon Dioxide 29 mmol/L (22.0-30.0); Glucose 130 mg/dl (74-100)
== END 2025-06-23 23:59 | disposition home or self-care (01) ==
LOC: LAB 14:52
PROVIDERS: PCP Nurse Practitioner; Visit Provider Nurse Practitioner
DX: U07.1 COVID-19 (principal); J06.9 Acute upper respiratory infection, unspecified
CPT/HCPCS: 36415; 80048; 87636

== ENCOUNTER 2025-08-19 11:09 | Outpatient (CLI) | payer MEDICARE, OTHER, SELFPAY ==
--- OUTSIDE RECORDS SUMMARY | 2025-08-19 11:31 | XMS_ITS | Clinical Summary ---
Author Organization [facility] Address [address] [place] [address] Phone Care Team Providers Care Bag Bleacher Name Role Phone Babatunde CLARK, Dior Reynaga [ ] Conditions or Problems Problem Name Problem Code Onset Date Status Entry Date Provider Comment Standard Description Annotate Lumbar disc disease with myelopathy 43798646 (SNOMED CT) 12/10 Active 12/11 Dior Fine MD Intervertebral disc disorder of lumbar region with myelopathy Cystitis, chronic interstitial 661705069 (SNOMED CT) 12/10 Active 12/11 Dior Fine MD Chronic interstitial cystitis Hypothyroidism 62755806 (SNOMED CT) 12/10 Active 12/10 Dior Fine MD Hypothyroidism Asthma 631603718 (SNOMED CT) 12/10 Active 12/10 Dior Fine MD Asthma (History of) E. coli infection B96.29 (ICD-10-CM ) 12/09 Active 12/09 Maris Mora Other Escherichia coli [E. coli] as the cause of diseases classified elsewhere UTI 44470587 (SNOMED CT) 12/09 Active 12/09 Maris Mora Urinary tract infectious disease Medications Medication Instructions Start Date Stop Date Generic Name [facility] Provider TERAZOL 7 0.4 % VAGINAL CREAM TERCONAZOLE 74817393110 Shameka Corona ZOCOR 20 MG TABS SIMVASTATIN 37299087978 Shameka Corona PYRIDIUM 200 MG TABS PHENAZOPYRIDINE HCL 01859862558 Shameka Corona ELMIRON 100 MG CAPS PENTOSAN POLYSULFATE SODIUM 84979609323 Shameka Corona PROTONIX 40 MG PACK PANTOPRAZOLE SODIUM 66044093955 Shameka Corona NYSTATIN 332669 UNIT/GM OINT NYSTATIN 21805871617 Shameka Corona NITROFURANTOIN MACROCRYSTAL 100 MG CAPS NITROFURANTOIN MACROCRYSTAL 01502313455 Shameka Corona SINGULAIR 10 MG TABS MONTELUKAST SODIUM 13895701437 Shameka Corona ANECREAM5 5 % CREA LIDOCAINE (ANORECTAL) 97616592455 Shameka Corona ANUCORT-HC 25 MG SUPP HYDROCORTISONE ACETATE 76142632436 Shameka Corona NORCO 7.5-325 MG ORAL TABLET HYDROCODONE-ACETAM INOPHEN 27165109135 Shameka Corona SYMBICORT 160-4.5 MCG/ACT AERO BUDESONIDE-FORMOTE ROL FUMARATE 60258686498 Shameka Corona DULCOLAX 5 MG TBEC BISACODYL 99788952142 Shameka Corona BIOTIN 5000 MCG TABS BIOTIN 63101622928 Shameka Corona BACLOFEN 10 MG TABS BACLOFEN 87058282043 Shameka Corona PROVENTIL HFA 108 (90 BASE) MCG/ACT INHALATION AEROSOL SOLUTION ALBUTEROL SULFATE 87969088867 Shameka Corona Medications Administered No information available. Allergies, Adverse Reactions, Alerts Observed no known allergies at Results Date Name Value Unit Range Flag Description Office Visit: rm #10 MEDS REVIEW Done Documenta tion of current medications (procedure) SMOK STATUS Never smoker Toba senior accounting specialist smoking status Lab Report: URINALYSIS, MICR OSCOPIC [...] Procedures Code Procedure Name Date Entry Date CPT-62452 Urinalysis with microscopic exam CPT-48054 Urine Culture & Sensitivity Vital Signs Date [...]
--- OUTSIDE RECORDS SUMMARY | 2025-08-19 11:31 | XMS_ITS | Encounter Summary ---
Author Organization [employer] ([place], [place], [place], [place]) Address [address] [place] [address] Care Team Providers Care Seismology Teacher Name Role Phone Unavailable Primary Care Provider Unavailabl e Encounter Details Date Type Department Care Team (Late st Contact Info) Description 05/15/2019 Transcribed Document [facility] Family Medicine [address] [place] [address] ProviderIlya MD [address] [place] [address] Social History Tobacco Use Types [...] with her current medication. We currently prescribed [place] 7.5 / 325 1 p.o. q 6 [...] her current medication in the form of [place] 7.5 / 325 1 p.o. q 6 [...] and complete. Kelsey Alvarez/guanaco/unique Electronically signed by [facility] Conversion Escort Car Driver Cerner at 02/14/2023 11:45 AM CDT documented in this encounter Plan of Treatment Not on file documented as of this encounter Visit Diagnoses Not on filedocumented in this encounter
--- OUTSIDE RECORDS SUMMARY | 2025-08-19 11:31 | XMS_ITS | Continuity of Care Document ---
Author Organization [place] [facility] Address [address] [facility] [address] [place] [address] Assessment Encounter Date Assessment Date Assessment LastModified by Organization Details LastModified Time 08/04/2025 08/04/2025 discussed dx and tx options with pt. suspect otitis media given hx of ear health and use of abx improving condition along with pt reports of similar pain occurring at this time. thoroughly educated pt on following up with ENT on current condition and seeking second opinion if she feels the need. informed pt referral can be given if needed to call back at her convenience. MUST get yogurt and probiotics for GI health and supporting a healthy gut biome as frequent abx use may cause c. diff. follow up right away if diarrhea or belly pain becomes a symptom. [email or web address] Not available 08/04/2025 16:10:23 Plan of Treatment Reminders Order Date Submit Date Provider Last Modified By Organization Details Last Modified Time Details Appointments None recorded. Lab None recorded. Referral None recorded. Procedures None recorded. Surgeries None recorded. Imaging None recorded. Medication Orders cefdinir 300 mg capsule 2024 025 [email or web address] [id number], [address] [facility], [place], [address], 16:10:47 Patient TargetsNo targets recorded. Patient InstructionsNo instructions recorded. Reason for Referral None Reported. Medical Equipment None Reported. Allergies No known drug allergies Medications Name Sig Start Date Stop Date Status Note LastModified by Organization Details LastModified Time prednisone 10 mg tablet TAKE 1 TABLET BY MOUTH TWICE DAILY FOR 5 DAYS active Not Available Not Available No t Available azithromyci n 250 mg tablet TAKE 2 TABLETS BY MOUTH NOW THEN 1 TABLET DAILY FOR 4 DAYS 07/19 completed Not Available Not Available Not Available fluconazole 150 mg tablet TAKE 1 TABLET DAILY FOR 3 DAYS NEEDED active Not Available Not Available No t Available prednisone 20 mg tablet TAKE 1 TABLET BY MOUTH WITH FOOD TWICE DAILY FOR 5 DAYS THEN 1 TABLET DAILY FOR 5 DAYS active Not Available Not Available No t Available ciprofloxac in 500 mg tablet TAKE 1 TABLET BY MOUTH EVERY 12 HOURS FOR 10 DAYS 07/19 completed Not Available Not Available Not Available ofloxacin 0.3 % ear drops INSTILL 4 DROPS INTO EACH EAR TWICE DAILY NEEDED FOR EAR PAIN active Not Available Not Available No t Available amoxicillin 875 mg tablet Take 1 tablet every 12 hours by oral route for 10 days. 08/05 completed Not Available Not Available Not Available hydrocodone 7.5 mg-acetamin ophen 325 mg tablet TAKE 1 TABLET BY MOUTH EVERY 6 HOURS active Not Available Not Available No t Available nystatin 100,000 unit/gram topical cream APPLY TOPICALLY TO THE AFFECTED AREA TWICE DAILY active Not Available Not Available No t Available dexamethaso ne 4 mg tablet TAKE 1 TABLET BY MOUTH TWICE DAILY active Not Available Not Available No t Available lidocaine 5 % topical patch PLACE ONE PATCH ON SKIN FOR 12 HRS AND REMOVE FOR 12 HOURS active Not Available Not Available No t Available gabapentin 300 mg capsule TAKE 1 CAPSULE BY MOUTH EVERY 8 HOURS active Not Available Not Available No t Available methylpredn isolone 4 mg tablets in a dose pack FOLLOW PACKAGE DIRECTION S active Not Available Not Available No t Available cefdinir 300 mg capsule TAKE 1 CAPSULE BY MOUTH EVERY 12 HOURS FOR 10 DAYS active Not Available Not Available No t Available fluticasone propionate 50 mcg/actuati on nasal spray,suspe nsion SHAKE LIQUID AND USE 1 SPRAY IN EACH NOSTRIL DAILY active Not Available Not Available No t Available amoxicillin 875 mg-potassiu m clavulanate 125 mg tablet TAKE 1 TABLET BY MOUTH TWICE DAILY FOR 10 DAYS 07/19 completed Not Available Not Available Not Available ciprofloxac in 0.3 %-dexametha sone 0.1 % ear drops,suspe nsion SHAKE LIQUID AND INSTILL 4 DROPPERFU L TO AFFECTED EAR TWICE DAILY FOR 7 DAYS 07/19 completed Not Available Not Available Not Available Paxlovid 150 mg-100 mg tablets in a dose pack (Moderate Renal Dose) TAKE BY MOUTH DIRECTED ON PACKAGE active Not Available Not Available No t Available Vitals Date Recorded Body weight Oxygen saturation Oxygen saturation in Arterial blood by Pulse oximetry Heart rate Systolic And Diastolic Provider Name and Address Organization Details Last Updated DateTime 5 32762.1 8 g 97 % 97 % 65 /min 128/72 mm[Hg] Corazon Locke [facility] [place] 5 15:15:39 Social History None recorded. Functional Status None recorded. Mental Status None recorded. Family History Nothing Reported. Medical History No medical history recorded. Gynecological HistoryNo gynecological history recorded. Obstetrics History GPAL:G 0 P 0 0 0 0 Immunizations Vaccine Type Date Status Note Provider Nam e and Address Organization Details Recorded Time Hep B, unspecified formulation 6 completed Not Available [facility] 08/04/2025 15:01:56 Hep B, adult 6 completed Not Available [facility] 08/04/2025 15:01:56 Hep B, adult 9 completed Not Available [facility] 08/04/2025 15:01:56 zoster live 7 completed Not Available [facility] 08/04/2025 15:01:56 Influenza, split virus, quadrivalent, PF 7 completed Not Available [facility] 08/04/2025 15:01:56 Pneumococcal conjugate PCV 13 8 completed Not Available [facility] 08/04/2025 15:01:56 zoster, unspecified formulation 8 completed Not Available [facility] 08/04/2025 15:01:56 Hep A, unspecified formulation 9 completed Not Available [facility] 08/04/2025 15:01:56 Influenza, recombinant, quadrivalent, PF 9 completed Not Available [facility] 08/04/2025 15:01:56 pneumococcal polysaccharide PPV23 0 completed Not Available [facility] 08/04/2025 15:01:56 COVID-19, mRNA, LNP-S, PF, 30 mcg/0.3 mL dose 1 completed Not Available [facility] 08/04/2025 15:01:56 COVID-19, mRNA, LNP-S, PF, 30 mcg/0.3 mL dose 1 completed Not Available [facility] 08/04/2025 15:01:56 Influenza, high-dose, trivalent, PF 1 completed Not Available [facility] 08/04/2025 15:01:56 COVID-19, mRNA, LNP-S, PF, 100 mcg/0.5mL dose or 50 mcg/0.25mL dose 1 completed Not Available [facility] 08/04/2025 15:01:56 Influenza, high-dose, trivalent, PF 4 completed Not Available [facility] 08/04/2025 15:01:56 Past Encounters Encounter ID Performer Location Encounter Start Date Encounter Closed Date Diagnosis/Indication Diagnosis SNOMED-CT Code Diagnosis ICD10 Code Diagnosis IMO Codes Diagnosis Note [id number] Mino Pennington MD [facility] [address] [facility] [address] [place] [address] 07/19/2025 13:46:35 07/19/2025 14:36:44 Acute bilateral otitis media 648075092 H66.93 0228569 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 T36.95XA 84615407 [id number] Mino Pennington MD [facility] [address] [facility] [address] [place] [address] 08/04/2025 14:59:58 08/04/2025 16:02:20 Acute bilateral otitis media 042237881 H66.93 7765265 Bilateral earache 339725 003 H92.03 8550044 Health Concerns Section Related Observation LastModified by Organization Detai ls LastModified Time None Recorded Concern Status LastModified by Organization Details LastModified Time None Recorded Payers Encounter Date Sequence Insurance Name Policy Number Policy Hsu Covered Member ID Hsu Member ID Guarantor Name 08/04/2025 1 [place] Gerda Browne [id number] 08/04/2025 2 FOR LIFE ( - MEDICARE SUPPLEMENT) Gerda Browne [id number] Notes Date Note Type Note Provider Name and Address Organization Details Recorded Time 5 text/html Upper Respiratory SymptomsReported by PatientUpper Respiratory SymptomsFor associated symptoms, patient reportsheadachebut reportsno chest pain,no sputum production,no shortness of breath,no wheezing,no cyanosis,no fatigue,no change in number of pillows needed to sleep at night,no sweats,no fever,no morning cough,no sore throat,no vomiting,no diarrhea,no rash,no nausea,no chills,no malaise, andno conjunctivitis(bilatera l ear pain). For location, patient reportsheadandears. For severity, patient reportsno pain. For duration, patient reportscannot identify. For onset/timing, patient reportsgradual(symptoms began approx 1 week ago). For context, patient reportsno sick contacts,no foreign travel, andnon-smoker. For alleviating factors, (none).pt states she has chronic complications from otitis media infections and her ENT placed TM tubes bilaterally. pt admits multiple follow ups and yet continues to have ear pain that is relieved by abx temporarily. pt states headaches accompany ear pain and are also relieved when abx are utilized. pt confirms approx 3-4 rounds of abx prescribed in the past 3 months alone. pt confirms she has not notified her ENT of recent complications stating she has not seen her ENT for approx 6 months now. pt currently administering levofloxacin ear drops per another providers orders.ROS as noted in the HPI ERNESTO THOMPSON, JYOTI [address] [facility], [place], [address], [place] [facility] [place] [facility] [place] 08/04/2025 16:10:50 OBGyn Episode No OBEpisode recorded.
--- OUTSIDE RECORDS SUMMARY | 2025-08-19 11:31 | XMS_ITS | Encounter Summary ---
Author Organization [employer] ([place], [place], [place], [place]) Address [address] [place] [address] Care Team Providers Care Professor Of Forestry Name Role Phone Unavailable Primary Care Provider Unavailabl e Encounter Details Date Type Department Care Team (Late st Contact Info) Description 07/15/2019 Transcribed Document [facility] Family Medicine [facility] [place] [address] ProviderIlya MD [address] [place] [address] Social History Tobacco Use Types [...] Her pain is improved by 65% with [place] 7.5/325 mg four times daily dosing, Neurontin [...] from our facility at this time. Her KASRON report was appropriate upon review today. She is undergoing a urine tox screen today to confirm compliance with medication management from our facility. We will see the patient back in the Clinic in two months for a follow-up appointment. The patient has an understanding and agrees with the above plans. LORI Chris/unique Electronically signed by [facility] Conversion Liturgical Music Director Cerner at 02/14/2023 11:45 AM CDT documented in this encounter Plan of Treatment Not on file documented as of this encounter Visit Diagnoses Not on filedocumented in this encounter
--- OUTSIDE RECORDS SUMMARY | 2025-08-19 11:31 | XMS_ITS | Encounter Summary ---
Author Organization [employer] ([place], [place], [place], [place]) Address [address] [place] [address] Care Team Providers Care Deckhand Engineer Name Role Phone Unavailable Primary Care Provider Unavailabl e Encounter Details Date Type Department Care Team (Late st Contact Info) Description 11/12/2019 Transcribed Document [facility] Family Medicine [facility] [place] [address] ProviderIlya MD [address] [place] [address] Social History Tobacco Use Types [...] Ilya Garcia MD - 11/12/2019 7:32 AM CONTENT STRATEGY LEAD Patient: GERDA RUDD Age: 64 Years Sex: [...] at this time with the use of [place] 7.5/325 mg. q.i.d., Neurontin 300 mg. one [...] agrees with the above plans. LORI Chris:zane documented in this encounter Plan of Treatment Not on file documented as of this encounter Visit Diagnoses Not on filedocumented in this encounter
--- OUTSIDE RECORDS SUMMARY | 2025-08-19 11:31 | XMS_ITS | Clinical Summary ---
Author Organization [facility] Address [address] [facility] [address] [place] [address] Care Team Providers Care Certified Pathology Assistant Name Role Phone Chapincito Espinoza NP Primary Care Provider [phone] Jay Patino MD Unavailable [phone] Allergies No known active allergies Medications [...] 5 MG tablet 1 Active HYDROcodone-clotilde taminophen ([place]) 7.5-325 MG tablet every 6 (six) hours. [...] 2005 Diabetes Screening 03/07/2021 03/07/2020, 10/29/2019, 03/04/2019 Depression Risk Screening 10/28/2024 Fall Risk Screening 10/28/2024 SDOH Screening 10/28/2024 COVID-19 Vaccine (2024-2 6 season) 2025 09/26/2021, 01/18/2021, 12/28/2020 Influenza Vaccine (#1) 2025 , 09/01/2019, 09/02/2017 [...] age to complete this topic Insurance MEDICARE [facility] Care Teams Certified Pathology Assistant Relationship Specialty Start Date End Date Chapincito Espinoza NP [address] [address] PCP - General Family Medicine 06/30/21 Jay Patino MD [address] [facility] [place] [address] Consulting Physician Orthopaedic Surgery 05/10/22
--- OUTSIDE RECORDS SUMMARY | 2025-08-19 11:31 | XMS_ITS | Encounter Summary ---
Author Organization [employer] ([place], [place], [place], [place]) Address [address] [place] [address] Care Team Providers Care Timing Inspector Name Role Phone Unavailable Primary Care Provider Unavailabl e Encounter Details Date Type Department Care Team (Late st Contact Info) Description 09/12/2019 Transcribed Document [facility] Family Medicine [facility] [place] [address] ProviderIlya MD [address] [place] [address] Social History Tobacco Use Types [...] Ilya Garcia MD - 09/12/2019 12:56 PM UNARMED SECURITY OFFICER Patient: GERDA BROWNE Age: 64 Years Sex: [...] Ms. Browne on her current medication of [place] 7.5 mg q.6h, Neurontin 300 mg q.8h, Ambien 10 mg one p.o. q.h.s., Baclofen 10 mg one p.o. q.12h, Lidocaine Patch 5% 12 hours on and 12 hours off. She takes a stool softener. She is in agreement with the above plan. We will see her back in followup in two months. Kerry Coelho M.D. Richar documented in this encounter Plan of Treatment Not on file documented as of this encounter Visit Diagnoses Not on filedocumented in this encounter
--- OUTSIDE RECORDS SUMMARY | 2025-08-19 11:31 | XMS_ITS | Encounter Summary ---
Author Organization [facility] Address [address] [place] [address] Care Team Providers Care Heavy Media Operator Name Role Phone Melvi Caballero APRN Primary Care Provider Encounter Details Date Type Department Care Team (Late st Contact Info) Description 01/22/2020 Telephone [facility] FAMILY MEDICINE [address] [place] [address] Janes Lopze PA [address] [place] [address] Social History Tobacco Use Types [...] Sexually Abused No 11/28/2018 Social Connection and Isolation Panel Answer Date Recorded Frequency of Communication w ith Friends and Family More than three times a week 11/28/2018 Frequency of Social Gatherin gs with Friends and Family Twice a week 11/28/2018 Attends Pentecostalism Services More than 4 times per year 11/28/2018 Active Member of Clubs or Organizations No 11/28/2018 Attends Club or Organization Meetings Never 11/28/2018 Marital Status 11/28/2018 Overall Financial Resource Strain (CARDIA) Answe r Date Recorded Difficulty of Paying Living Expenses Not very [address] 11/28/2018 PHQ-2 Answer Date Recorded PHQ-2 Score 0 03/05/2019 [facility] of Occupat ional Health - Occupational Stress [...] documented as of this encounter Care Teams Heavy Media Operator Relationship Specialty Start Date End Date Melvi Caballero, TUBING MACHINE OPERATOR [address] [place] [address] PCP - General Family Medicine 01/09/22 documented as of this encounter
--- OUTSIDE RECORDS SUMMARY | 2025-08-19 11:31 | XMS_ITS | Encounter Summary ---
Author Organization [employer] ([place], [place], [place], [place]) Address [address] [place] [address] Care Team Providers Care Printer Repair Technician Name Role Phone Unavailable Primary Care Provider Unavailabl e Encounter Details Date Type Department Care Team (Late st Contact Info) Description 01/15/2020 Transcribed Document [facility] [place] [address] [place] [address] ProviderIlya MD [address] [place] [address] Social History Tobacco Use Types [...] Ms. Browne on her current medications of [place] 7.5 mg q 6 h, Baclofen 10 mg q 12 h, Neurontin 300 mg q 8 h, Lidocaine patch 5%, 12 h on and 12 h off, Ambien 10 mg q h.s.. She takes Dulcolax PRN. She is in agreement with the above plan. We will see her back in follow-up in two months. Kerry Coelho M.D. SOFYA/unique documented in this encounter Plan of Treatment Not on file documented as of this encounter Visit Diagnoses Not on filedocumented in this encounter
--- OUTSIDE RECORDS SUMMARY | 2025-08-19 11:32 | XMS_ITS | Encounter Summary ---
Author Organization [facility] Address [address] [place] [address] Care Team Providers Care Chha Name Role Phone Janes Lopez Primary Care Provider Encounter Details Date Type Department Care Team ([facility] st Contact Info) Description 01/05/2025 Orders Only External Location [address] [place] [address] Provider, External Social History Tobacco Use Types [...] documented as of this encounter Care Teams Chha Relationship Specialty Start Date End Date Janes Lopez PA [address] [place] [address] PCP - General 03/10/21 documented as of this encounter
--- OUTSIDE RECORDS SUMMARY | 2025-08-19 11:32 | XMS_ITS | Clinical Summary ---
Author Organization [facility] Address [address] [place] [address] Care Team Providers Care Button Facing Machine Operator Name Role Phone Janes Clay Primary Care Provider [phone] Vadim Rico PA-C Unavailable Nigel Kwon MD Unavailable [phone] Allergies No known active allergies Medications PHENAZOPYRIDINE [...] mg by mouth daily. Active Mth-Me Blue-Sod Lqdw-XwMdu-Oqz (URIBEL) 118-10-40.8-36 mg Capsule Take 1 Cap [...] Fall Risk Assessment 02/12/2020 Osteoporosis Screening 02/12/2020 Advance Care Planning 10/28/2024 Depression Screening 10/28/2024 COVID-19 Vaccine ( - 2023- season) 2025 Influenza Vaccination (#1) 2025 Tetanus Vaccination (Every 10 Years) 11/13/202610/28 RSV Vaccines (1 - 1-dose 75+ series) 2030 Medical Devices Implanted Type Area End Maker Device Identifier Shelf Expiration Date Model / Serial / Lot Elevate System With Intepro Lite Implanted:Qty: 1 on 02/25/2009 at [facility] 8 OR N/A: Vagina * AMS [id number] / / [id number] Insurance FOR LIFE SUPPLEMENT MEDICARE MEDICARE FOR LIFE SUPPLEMENT FOR LIFE SUPPLEMENT MEDICARE Care Teams Button Facing Machine Operator Relationship Specialty Start Date End Date Janes Clay PA [facility] [place] [address] PCP - General 01/20/20 Vadim Rico PA-C [address] [place] [address] Physician Peanut Separator Physician Peanut Separator, Surgical 03/02/21 [place] [address] [place] [address] [address] [place] [address] Female Pelvic Medicine and Reconstructive Surgery 11/04/22
--- OUTSIDE RECORDS SUMMARY | 2025-08-19 11:32 | XMS_ITS | Clinical Summary ---
Author Organization [facility] Address [address] [place] [address] Care Team Providers Care Cte Teacher Name Role Phone Melvi Caballero APRN Primary Care Provider Allergies No known active allergies Medications HYDROcodone-acet [...] PO HS 11/11/19 20 Active nystatin (MYCOSTATIN) 625774 UNIT/ML suspension Swish and swallow 5 mL [...] levothyroxine (SYNTHROID, LEVOTHROID) 50 MCG tabletIndication s:Acquired hypothyroidism,[facility] annual wellness visit, subsequent TAKE 1 TABLET [...] Immunizations Immunization Administration Dates Next Due COVID-19 ([place]) Purple Cap Monovalent 01/19/20 21,12/28/2020 Flu Vaccine [...] and Family Twice a week 11/28/2018 Attends Evangelical Services More than 4 times per year 11/28/2018 Active Member of Clubs or Organizations No 11/28/2018 Attends Club or Organization Meetings Never 11/28/2018 Marital Status 11/28/2018 Overall Financial Resource Strain (CARDIA) Answe r Date Recorded Difficulty of Paying Living Expenses Not very murry [address] 11/28/2018 PHQ-2 Answer Date Recorded Retired Total Score 0 03/07/2020 [facility] of Occupat ional Health - Occupational Stress [...] 01/25/2023 01/25/2022, 04/27, 03/07/2020, Additional history exists INFLUENZA VACCINE 05/28/2025 09/17/2024, , 10/16/2022, Additional history exists COVID-19 Vaccine (2024-11 6 season) 2025 09/26/2021, 01/18/2021, 12/28/2020 TDAP/TD VACCINES (2 - Td or Tdap) [...] - 03/09/2020 4:09 PM EDT Performed at: [address] [place] [id number] Business Machine Operator: David Varela MD, Phone: [phone] Patient Fasting: Y Janes STORY LAB BLOOD ORDERABLES Final Res ult [facility] ([facility]) [address] [place] [address], [place] [phone] [facility] [address] [place] [address], [place] [phone] * (ABNORMAL) Lipid Panel (03/07/2020 10:02 AM [...] 03/09/2020 4:09 PM EDT Performed at: [address] [id number] Business Machine Operator: David Varela MD, Phone: [phone] Patient Fasting: Y Janes STORY LAB BLOOD ORDERABLES Final Res ult [facility] [address] [place] [address], [facility] [address] [place] [address], * Hepatitis C Antibody (09/02/2017 10:05 AM EST) [facility] Hep C Virus Ab <0.1 0.0 - 0.9 s/co ratio [facility] Comment: Negative: < 0.8 Indeterminate: 0.8 - 0.9 Positive: > 0.9 The CDC recommends that a positive HCV antibody result be followed up with a HCV Nucleic Acid Amplification test (797409). Blood 09/02/2017 10:0 5 AM EST 09/02/2017 Narrative [facility] ([facility]) - 09/03/2017 5:10 AM EST Performed at: 02 [facility] [address] [place], [place] [id number] Business Machine Operator: Mickey Hartman PhD, Phone: [phone] Patient Fasting: N Janes STORY LAB BLOOD ORDERABLES Final Res ult Performing Organization Address City/[facility]/ZIP Co de Phone Number [facility] [address] [place] [address], [facility] [address] [place] [address], from Last 3 Months or Most Recently Relevant to Health Maintenance Insurance MEDICARE A & B Member Subscriber Plan / Payer (Ef fective 2000-Present) Name:Gerda Browne Member ID:[id number] Relation to Subscriber:Self Name:Gerda Browne Subscriber ID:[id number] Payer ID:[id number] Group ID:Not on file Type:Not on file Address: [facility] [id number] Care Teams Cte Teacher Relationship Specialty Start Date End Date Melvi Caballero APRN [address] [place] [address] PCP - General Family Medicine 01/09/22
--- OUTSIDE RECORDS SUMMARY | 2025-08-19 11:32 | XMS_ITS | Encounter Summary ---
Author Organization [facility] Address [address] [place] [address] Care Team Providers Care Produce Department Supervisor Name Role Phone Melvi Caballero APRN Primary Care Provider [phone] Encounter Details Date Type Department Care Team (Late st Contact Info) Description 05/25/2015 External CPT II PRIMER WATERPROOFING MACHINE OPERATOR - [facility] Social History Tobacco Use [...] documented as of this encounter Care Teams Produce Department Supervisor Relationship Specialty Start Date End Date Melvi Caballero APRN [address] [place], [place] [id number] PCP - General Family Medicine 01/09/22 documented as of this encounter
--- OUTSIDE RECORDS SUMMARY | 2025-08-19 11:32 | XMS_ITS | Encounter Summary ---
Author Organization Healthcare Address [address] [place] [address] Care Team Providers Care Derrick Man Name Role Phone Janes Lopez Primary Care Provider Encounter Details Date Type Department Care Team ([facility] st Contact Info) Description 01/05/2025 Orders Only External Location [address] [place] [address] Provider, External Social History Tobacco Use Types [...] documented as of this encounter Care Teams Derrick Man Relationship Specialty Start Date End Date Janes Lopez PA [address] [place] [address] PCP - General 03/10/21 documented as of this encounter
--- OUTSIDE RECORDS SUMMARY | 2025-08-19 11:32 | XMS_ITS | Encounter Summary ---
Author Organization [facility] Address [address] [place] [address] Care Team Providers Care Bank Operations Officer Name Role Phone Janes Lopez Primary Care Provider [phone] Reason for Referral * Consultation (Routine) - Closed Specialty Diagnoses / Procedures Referred By Contjeane t Referred To Contact Hematology and Oncology Diagnoses Disorder of breast Jayden Atkinson MD [address] [place] [address] Phone: tel: fax: [facility] [address] [facility], [address] [place] [address] Phone: tel: fax: Referral ID Status Reason Start Date Expiration Date V isits Requested Visits Authorized [id number] Closed Specialty Services Required 01/18/2025 07/20/2026 1 1 Encounter Details Date Type Department Care Team (Late st Contact Info) Description 01/18/2025 Community [facility] [address] [place] [address] Jayden Atkinson MD [address] [place] [phone] Disorder of breast (Primary Dx) Social History [...] documented as of this encounter Care Teams Bank Operations Officer Relationship Specialty Start Date End Date Janes [place] [address] PCP - General 03/10/21 documented as of this encounter
--- OUTSIDE RECORDS SUMMARY | 2025-08-19 11:32 | XMS_ITS | Encounter Summary ---
Author Organization Healthcare Address [address] [place] [address] Care Team Providers Care Cleaning Specialist Name Role Phone Janes Lopez Primary Care Provider Encounter Details Date Type Department Care Team ([facility] Contact Info) Description 11/25/2024 Orders Only External Location [address] [place] [address] Provider, External Social History Tobacco Use Types [...] documented as of this encounter Care Teams Cleaning Specialist Relationship Specialty Start Date End Date Janes Lopez PA [address] [place] [address] PCP - General 03/10/21 documented as of this encounter
--- OUTSIDE RECORDS SUMMARY | 2025-08-19 11:32 | XMS_ITS | Encounter Summary ---
Author Organization Healthcare Address [address] [place] [address] Care Team Providers Care Mobility Developer Name Role Phone Janes Lopez Primary Care Provider Encounter Details Date Type Department Care Team ([facility] st Contact Info) Description 01/05/2025 Orders Only External Location [address] [place] [address] Parisa Elizondo, VETERINARY POULTRY INSPECTOR [address] [place] [address] Social History Tobacco Use Types Packs/Day Years [...] Mammography 01/05/2025 9:22 AM EDT Parisa Elizondo VETERINARY POULTRY INSPECTOR IMG BI PROCEDURES Final Result documented in this encounter Visit Diagnoses Not on filedocumented in this encounter Additional Health Concerns Assessment Noted Time A fall risk assessment has been complete d for the patient 09/30/2024 9:02 AM EST A Body Mass Index follow-up plan has been documented for the patient 10/03/2024 5:52 PM EST documented as of this encounter Care Teams Mobility Developer Relationship Specialty Start Date End Date Janes Lopez PA [address] [place] [address] PCP - General 03/10/21 documented as of this encounter
--- OUTSIDE RECORDS SUMMARY | 2025-08-19 11:32 | XMS_ITS | Data Portability ---
Author Organization [facility] Address [address] [place] [address] Assessment Encounter Date Assessment Date Assessment LastModified [...] Modified Time Details Appointments None recorded. Lab urinalysis, dipstick 2024 025 [email or web address] [facility], [address], [place], [address], Ph [phone] 15:37:18 culture, urine 2024 025 TREVOR [facility], [address], [place], [address], 17:08:42 Referral None recorded. Procedures None recorded. Surgeries None recorded. Imaging None recorded. Medication Orders cefdinir 300 mg capsule 2024 025 [email or web address] [id number], [address] [facility], [place], [address], 16:10:47 fluconazole 150 mg tablet 2024 025 [facility], [address] [place] [address], [id number], 5 14:33:22 amoxicillin 875 mg tablet 2024 025 [facility], [address] [place] [address], [id number], 05:01:36 Cipro 500 mg tablet 2024 025 [facility], [address] [place] [address], [id number], 5 05:01:09 fluconazole 150 mg tablet 2024 025 [facility], [address] [place] [address], [id number], 5 15:47:01 nystatin 100,000 unit/gram topical cream 2024 025 [facility], [address] [place] [address], [id number], 15:47:02 Patient TargetsNo targets recorded. Patient InstructionsNo instructions recorded. Reason for Referral None Reported. Results Created Date Observation Date Name Description Value Unit Range Abnormal Flag Note LastModifiedBy Organization Detail LastModifiedTime 06/09/2006/13/2025 URINE CULTU RE, SUNNY NE urine culture, routine FINAL REPORT abnormal Not Available [facility] ([facility]) [address] [facility], [place], [address], 06/13/2025 17:08:42 06/09/20 25 06/13/2025 URINE CULTU RE, ROUTI NE result 1 CITROB ACTER KOSERI abnormal Great er than 100,0 00 colon y formi ng units per mL Not Available [facility] ([facility]) [address] [facility], [place], [address], 06/13/2025 17:08:42 06/09/20 25 06/13/2025 URINE CULTU RE, ROUTI NE antimicrobia l susceptibili ty COMMEN T S = Susce ptibl e; I = Inter media te; R = Resis tant P = Posit juan antonio; N = Negat juan antonio MICS are expre ssed in micro grams per mL Antib iotic RSLT# 1 RSLT# 2 RSLT# 3 RSLT# 4 Amoxi cilli n/Cla vulan ic Acid S Cefep ander S Cefox itin S Cefpo doxim e S Ceftr iaxon e S Cipro floxa laura I Ertap enem S Genta micin S Levof loxac in S Merop enem S Nitro furan toin S Piper acill in/Ta zobac thorpe S Tetra cycli ne S Tobra mycin S Not Available [facility] ([facility]) [address] [facility], [place], [address], 06/13/2025 17:08:42 06/09/20 25 06/09/2025 urina lysis , dipst ick Leukocytes (reference range) large Not Available [facility] [address], [place], [address], Ph [phone] 06/09/2025 15:28:07 06/09/20 25 06/09/2025 urina lysis , dipst ick Nitrite (reference range:) positi ve Not Available [facility] [address], [place], [address], Ph [phone] 06/09/2025 15:28:07 06/09/20 25 06/09/2025 urina lysis , dipst ick Urobilinogen (reference range) 0.2 Not Available [facility] [address] [facility] [address], [place], [address], Ph [phone] 06/09/2025 15:28:07 06/09/20 25 06/09/2025 urina lysis , dipst ick Protein (reference range) negati ve Not Available [facility] [address] [facility] [address], [place], [address], Ph [phone] 06/09/2025 15:28:07 06/09/20 25 06/09/2025 urina lysis , dipst ick pH (reference range 5-8.5) 6.0 Not Available [facility] [address] [facility] [address], [place], [address], Ph [phone] 06/09/2025 15:28:07 06/09/20 25 06/09/2025 urina lysis , dipst ick Blood (reference range:) small Not Available [facility] [address] [facility] [address], [place], [address], Ph [phone] 06/09/2025 15:28:07 06/09/20 25 06/09/2025 urina lysis , dipst ick Specific [place] (reference range) 1.015 Not Available [facility] [address] [facility] [address], [place], [address], Ph [phone] 06/09/2025 15:28:07 06/09/20 25 06/09/2025 urina lysis , dipst ick Ketone (reference range) negati ve Not Available [facility] [address], [place], [address], Ph [phone] 06/09/2025 15:28:07 06/09/20 25 06/09/2025 urina lysis , dipst ick Bilirubin (reference range) negati ve Not Available [facility] [address], [place], [address], Ph [phone] 06/09/2025 15:28:07 06/09/20 25 06/09/2025 urina lysis , dipst ick Glucose (reference range) negati ve Not Available [facility] [address], [place], [address], Ph [phone] 06/09/2025 15:28:07 06/09/20 25 06/09/2025 urina lysis , dipst ick Color (reference range: yellow-brown ) Yellow Not Available [facility] [address] [facility] [address], [place], [address], Ph [phone] 06/09/2025 15:28:07 Result Notes None recorded. Medical Equipment None Reported. Allergies No known [...] t Available Vitals Date Recorded Body weight Body temperature Provider N brynn and Address Organization Details Last Updated DateTime 06/09/2025 22270.65 g 97.3 [degF] [facility] [place] 06/09/2025 15:19:36 Date Recorded Body weight Oxygen saturation Oxygen saturation in Arterial blood by Pulse oximetry Heart rate Body temperature Systolic And Diastolic Provider Name and Address Organization Details Last Updated DateTime 5 88539.7 4 g 96 % 96 % 63 /min 96.7 [degF] 126/74 mm[Hg] [facility] [place] 14:08:48 Date Recorded Body weight Oxygen saturation Oxygen saturation in Arterial blood by Pulse oximetry Heart rate Systolic And Diastolic Provider Name and Address Organization Details Last Updated DateTime 5 93035.1 8 g 97 % 97 % 65 /min 128/72 mm[Hg] [facility] [place] 15:15:39 Social History None recorded. Functional Status None recorded. Mental Status None recorded. Family History Nothing Reported. Medical History No medical history recorded. Gynecological HistoryNo gynecological history recorded. Obstetrics History GPAL:G 0 P 0 0 0 0 Immunizations Vaccine Type Date Status Note Provider Nam e and Address Organization Details Recorded Time Hep B, unspecified formulation 6 completed Not Available [facility] 08/04/2025 15:01:56 Hep B, adult 6 completed Not Available [facility] 08/04/2025 15:01:56 Hep B, adult 9 completed Not Available [facility] 08/04/2025 15:01:56 zoster live 7 completed Not Available [facility] 08/04/2025 15:01:56 Influenza, split virus, quadrivalent, PF 7 completed Not Available [facility] 08/04/2025 15:01:56 Pneumococcal conjugate PCV 13 8 completed Not Available [facility] 08/04/2025 15:01:56 zoster, unspecified formulation 8 completed Not Available [facility] 08/04/2025 15:01:56 Hep A, unspecified formulation 9 completed Not Available [facility] 08/04/2025 15:01:56 Influenza, recombinant, quadrivalent, PF 9 completed Not Available [facility] 08/04/2025 15:01:56 pneumococcal polysaccharide PPV23 0 completed Not Available [facility] 08/04/2025 15:01:56 COVID-19, mRNA, LNP-S, PF, 30 mcg/0.3 mL dose 1 completed Not Available [facility] 08/04/2025 15:01:56 COVID-19, mRNA, LNP-S, PF, 30 mcg/0.3 mL dose 1 completed Not Available [facility] 08/04/2025 15:01:56 Influenza, high-dose, trivalent, PF 1 completed Not Available [facility] 08/04/2025 15:01:56 COVID-19, mRNA, LNP-S, PF, 100 mcg/0.5mL dose or 50 mcg/0.25mL dose 1 completed Not Available [facility] 08/04/2025 15:01:56 Influenza, high-dose, trivalent, PF 4 completed Not Available [facility] 08/04/2025 15:01:56 Past Encounters Encounter ID Performer Location Encounter Start Date Encounter Closed Date Diagnosis/Indication Diagnosis SNOMED-CT Code Diagnosis ICD10 Code Diagnosis IMO Codes Diagnosis Note [id number] Mino Pennington MD [facility] [address] [facility] [address] [address] 06/09/2025 15:08:08 06/09/2025 15:43:04 Acute urinary tract infection 981026985 N39.0 277976 Candidiasis of vagina 72 944516 B37.31 [id number] Mino Pennington MD [facility] [address] [facility] [address] [address] 07/19/2025 13:46:35 07/19/2025 14:36:44 Acute bilateral otitis media 379957293 H66.93 1930476 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 T36.95XA [id number] Mino Pennington MD [facility] [address] [facility] [place] [address] 08/04/2025 14:59:58 08/04/2025 16:02:20 Acute bilateral otitis media 713849706 H66.93 6371175 Bilateral earache 261458 003 H92.03 0755141 Health Concerns Section Related Observation LastModified by Organization Detai ls LastModified Time None Recorded Concern Status LastModified by Organization Details LastModified Time None Recorded Advance Directives Directive None Recorded Payers Insurance Date Sequence Insurance Name Policy Number Policy Hsu Covered Member ID Hsu Member ID Guarantor Name 06/09/2025 2 FOR LIFE ( - MEDICARE SUPPLEMENT) Gerda Browne [id number] 06/09/2025 3 FOR LIFE () [employer] [id number] 07/19/2025 2 [facility] () Parker Browne [id number] 08/04/2025 2 FOR LIFE ( - MEDICARE SUPPLEMENT) Gerda Browne [id number] 08/04/2025 1 [place] Gerda Browne [id number] 06/09/2025 2 FOR LIFE ( - MEDICARE SUPPLEMENT) Gerda Browne [id number] Notes Date Note Type Note Provider Name and Address Organization Details Recorded Time 5 text/html ROS as noted in the HPI Pt with frequent yeast infections after using her asthma meds, has been broke out with irritation and itching in genital area for couple weeks, some improvement with OTC treatment but still bothersome, also now one week of dysuria, frequency and incomplete emptying. Mino Pennington MD [address], [place], [address] [place] 06/09/2025 16:00:18 5 text/html ROS as noted in the HPI About a week and a half of bilateral ear pain. No fever. Mino Pennington MD [address], [place], [address] [place] 07/19/2025 14:33:40 5 text/html Upper Respiratory SymptomsReported by PatientUpper [...] noted in the HPI ERNESTO THOMPSON, JYOTI [address], [place], [address], [facility] [place] [facility] [place] 08/04/2025 16:10:50 OBGyn Episode No OBEpisode recorded.
--- OUTSIDE RECORDS SUMMARY | 2025-08-19 11:33 | XMS_ITS | Encounter Summary ---
Author Organization [facility] Address [address] [place] [address] Care Team Providers Care Clam Treader Name Role Phone Riccardo Varner MD Primary Care Provider [phone] None, None Primary Care Provider UnavailJanes Quick Primary Care Provider [phone] Vadim Rico PA-C Unavailable Nigel Kwon MD Unavailable [phone] Encounter Details Date Type Department Care Team (Late st Contact Info) Description 06/08/2013 Abstract [facility] Physicians - Urogynecology, [place] [address] [place] [address] Kerry Butt PA [address] [facility] [address] [place] [address] Social History Tobacco Use Types [...] on filedocumented in this encounter Care Teams Clam Treader Relationship Specialty Start Date End Date Riccardo Varner MD [address] [place] [address] PCP - General Volunteer Services Manager 05/22/13 07/04/17 None, None [address] [place] [address] PCP - General 07/05/17 01/19/20 Janes Clay PA [address] [place] [address] PCP - General 01/20/20 Vadim Rico PA-C [address] [facility] [place] [address] Physician Platform Operations Director Physician Platform Operations Director, Surgical 03/02/21 Nigel Kwon MD [address] [facility] [place] [address] Female Pelvic Medicine and Reconstructive Surgery 11/04/22 documented as of this encounter
--- OUTSIDE RECORDS SUMMARY | 2025-08-19 11:33 | XMS_ITS | Clinical Summary ---
Author Organization [employer] ([place], [place], [place], [place]) Address [address] [place] [address] Care Team Providers Care Front Desk Clerk Name Role Phone Unavailable Primary Care Provider [...]
--- OUTSIDE RECORDS SUMMARY | 2025-08-19 11:33 | XMS_ITS | Encounter Summary ---
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 She does get relief with resting as well as the application of heat. Her pain level today is a 5/10 on the numerical pain scale rating. She is reporting 50% pain relief at this time with Bosler 7.5/325 mg four times daily dosing, Baclofen [...] months for a follow-up appointment. LORI Chris/unique Electronically signed by Pavithra [facility] Conversion Residence Life Director Cerner at 02/14/2023 11:43 AM CDT documented in this encounter Plan of Treatment Not on file documented as of this encounter Visit Diagnoses Not on filedocumented in this encounter
--- OUTSIDE RECORDS SUMMARY | 2025-08-19 11:33 | XMS_ITS | Encounter Summary ---
Author Organization [employer] ([place], [place], [place], [place]) Address [address] [place] [address] Care Team Providers Care Ethnoarchaeologist Name Role Phone Unavailable Primary Care Provider Unavailabl e Encounter Details Date Type Department Care Team (Late st Contact Info) Description 09/13/2020 Transcribed Document [facility] Family Medicine [address] [place] [address] ProviderIlya MD [address] [place] [address] Social History Tobacco Use Types [...] Ilya Garcia MD - 09/13/2020 2:03 PM SYSTEMS INTEGRATOR Patient: GERDA RUDD Age: 65 Years Sex: [...] Ms. Rudd on her current medication of Mcqueeney 7.5 mg q.6h, Baclofen 10 mg q.12h, [...]
--- OUTSIDE RECORDS SUMMARY | 2025-08-19 11:33 | XMS_ITS | Encounter Summary ---
Author Organization [employer] ([place], [place], [place], [place]) Address [address] [place] [address] Care Team Providers Care Principal Examiner Name Role Phone Unavailable Primary Care Provider Unavailabl e Encounter Details Date Type Department Care Team (Late st Contact Info) Description 05/18/2020 Transcribed Document [facility] Family Medicine [facility] [place] [address] ProviderIlya MD [address] [place] [address] Social History Tobacco Use Types [...] for gabapentin, negative for Ambien, positive for [place] active but no metabolite. Patient's medications are [...] Ms. Rudd on her current medications of [place] 7.5 mg every 6 hours, baclofen 10 mg every 12 hours, Neurontin 300 mg every 8 hours, lidocaine patches 5% 12 hours on and 12 hours off, Ambien 10 mg q.h.s. She takes senna. She is in agreement with the above plan. We will see her back in follow-up in two months. Kerry Coelho M.D. SOFYA/salina Electronically signed by Pavithra [facility] Conversion Cutting Pressman Cerner at 02/14/2023 11:36 AM CDT documented in this encounter Plan of Treatment Not on file documented as of this encounter Visit Diagnoses Not on filedocumented in this encounter
--- OUTSIDE RECORDS SUMMARY | 2025-08-19 11:33 | XMS_ITS | Encounter Summary ---
Author Organization [employer] ([place], [place], [place], [place]) Address [address] [place] [address] Care Team Providers Care Assembling Inspector Name Role Phone Unavailable Primary Care Provider Unavailabl e Encounter Details Date Type Department Care Team (Late st Contact Info) Description 07/12/2020 Transcribed Document [facility] Family Medicine [address] [place] [address] ProviderIlya MD [address] [place] [address] Social History Tobacco Use Types [...] from our facility in the form of [place] 7.5/325 mg 4 times daily dosing along [...] plans. LORI Chris/salina Electronically signed by Pavithra [facility] Conversion Branch Assistant Gayle at 02/14/2023 11:39 AM CDT documented in this encounter Plan of Treatment Not on file documented as of this encounter Visit Diagnoses Not on filedocumented in this encounter
--- OUTSIDE RECORDS SUMMARY | 2025-08-19 11:33 | XMS_ITS | Encounter Summary ---
Author Organization [employer] ([place], [place], [place], [place]) Address [address] [place] [address] Care Team Providers Care Remote Encoding Center Manager Name Role Phone Unavailable Primary Care Provider Unavailabl e Encounter Details Date Type Department Care Team (Late st Contact Info) Description 11/07/2020 Transcribed Document [facility] [place] Family [place] [address] ProviderIlya MD [address] [place] [address] Social History Tobacco Use Types [...] Ilya Garcia MD - 11/07/2020 4:07 PM LOADER ENGINEER Patient: GERDA RUDD Age: 65 Years Sex: [...] at this time with the use of [place] 7.5/325 mg four times daily dosing, Baclofen [...] with medication management from our facility. LORI Crhis/garo Electronically signed by Pavithra [facility] Conversion Debt And Budget Counselor Cerner at 02/14/2023 11:33 AM CDT documented in this encounter Plan of Treatment Not on file documented as of this encounter Visit Diagnoses Not on filedocumented in this encounter
--- OUTSIDE RECORDS SUMMARY | 2025-08-19 11:33 | XMS_ITS | Encounter Summary ---
Author Organization [employer] ([place], [place], [place]) Address [address] [place] [address] Care Team Providers Care Director Medical Affairs Name Role Phone Unavailable Primary Care Provider Unavailabl e Encounter Details Date Type Department Care Team (Late st Contact Info) Description 01/09/2021 Transcribed Document [facility] [place] [address] ProviderIlya MD [address] [place] [address] Social History Tobacco Use Types [...] 75% relief with her current medication of [place] 7.5 mg every 6 hours, baclofen 10 [...]
--- OUTSIDE RECORDS SUMMARY | 2025-08-19 11:33 | XMS_ITS | Encounter Summary ---
Author Organization [facility] Address [address] [place] [address] Care Team Providers Care Nanny Caregiver Name Role Phone Riccardo Varner MD Primary Care Provider [phone] None, None Primary Care Provider UnavailJanes Quick Primary Care Provider [phone] Vadim Rico PA-C Unavailable Nigel Kwon MD Unavailable [phone] Encounter Details Date Type Department Care Team (Late st Contact Info) Description 06/05/2013 Abstract [facility] Physicians - Urogynecology, [facility] [address] [place] [address] [place] [phone] Kerry Butt PA [address] [place] [address] [address] [place] [address] Social History Tobacco Use Types [...] on filedocumented in this encounter Care Teams Nanny Caregiver Relationship Specialty Start Date End Date Riccardo Varner MD [address] [place] [address] PCP - General Assembler Seat 05/22/13 07/04/17 None, None [address] [place] [address] PCP - General 07/05/17 01/19/20 Janes Clay PA [address] [place] [address] PCP - General 01/20/20 Vadim Rico PA-C [address] [facility] [place] [address] Physician Firer Boiler Physician Firer Boiler, Surgical 03/02/21 Nigel Kwon MD [address] [facility]. [address] [place] [address] Female Pelvic Medicine and Reconstructive Surgery 11/04/22 documented as of this encounter
--- OUTSIDE RECORDS SUMMARY | 2025-08-19 11:33 | XMS_ITS | Encounter Summary ---
Author Organization [facility] Address [address] [place] [address] Care Team Providers Care Aluminum Pool Installer Name Role Phone None, None Primary Care Provider UnavailRiccardo Hall MD Primary Care Provider None, None Primary Care Provider UnavailJanes Quick Primary Care Provider [phone] Vadim Rico PA-C Unavailable [phone] Nigel Kwon MD Unavailable [phone] Reason for Visit * Reason Comments Medications Refill Encounter Details Date Type Department Care Team (Late st Contact Info) Description 01/04/2011 Refill [facility] Pel[facility] Floor [facility] [address] [place] [address] Medical Office Building [address] [place] [address] Nigel Kwon MD [address] [place] [address]. [address] [place], [place] [address] Medications Refill Social History Tobacco Use Types [...] on filedocumented in this encounter Care Teams Aluminum Pool Installer Relationship Specialty Start Date End Date None, None [address] [place] [address] PCP - General 02/25/09 05/21/13 Riccardo Varner MD [address] [place] [address] PCP - General Funeral Attendant 05/22/13 07/04/17 None, None [address] [place] [address] PCP - General 07/05/17 01/19/20 Janes Clay PA [address] [place] [address] PCP - General 01/20/20 Vadim Rico PA-C [address] [facility] [place] [address] Physician Conference Manager Physician Conference Manager, Surgical 03/02/21 Nigel Kwon MD [address] [facility] [address] [place] [address] Female Pelvic Medicine and Reconstructive Surgery 11/04/22 documented as of this encounter
--- OUTSIDE RECORDS SUMMARY | 2025-08-19 11:34 | XMS_ITS | Encounter Summary ---
Author Organization Healthcare Address [address] [place] [address] Care Team Providers Care Beautician Apprentice Name Role Phone Janes Lopez Primary Care Provider Encounter Details Date Type Department Care Team ([facility] st Contact Info) Description 07/06/2020 Orders Only External Location [address] [place] [address] Provider, External Social History Tobacco Use Types [...] on filedocumented in this encounter Care Teams Beautician Apprentice Relationship Specialty Start Date End Date Janes Lopez PA [address] [place] [address] PCP - General 03/10/21 documented as of this encounter
--- OUTSIDE RECORDS SUMMARY | 2025-08-19 11:34 | XMS_ITS | Encounter Summary ---
Author Organization Healthcare Address [address] [place] [address] Care Team Providers Care Risk Management Professional Name Role Phone Janes Lopez Primary Care Provider Encounter Details Date Type Department Care Team ([facility] st Contact Info) Description 04/14/2019 Orders Only External Location [address] [place] [address] Provider, External Social History Tobacco Use Types [...] on filedocumented in this encounter Care Teams Risk Management Professional Relationship Specialty Start Date End Date Janes Lopez PA [address] [place] [address] PCP - General 03/10/21 documented as of this encounter
--- OUTSIDE RECORDS SUMMARY | 2025-08-19 11:34 | XMS_ITS | Encounter Summary ---
Author Organization Healthcare Address [address] [place] [address] Care Team Providers Care Obiee Consultant Name Role Phone Janes Lopez Primary Care Provider Encounter Details Date Type Department Care Team ([facility] st Contact Info) Description 02/21/2024 Orders Only External Location [address] [place] [address] Provider, External Social History Tobacco Use Types [...] on filedocumented in this encounter Care Teams Obiee Consultant Relationship Specialty Start Date End Date Janes Lopez PA [address] [place] [address] PCP - General 03/10/21 documented as of this encounter
--- OUTSIDE RECORDS SUMMARY | 2025-08-19 11:34 | XMS_ITS | Encounter Summary ---
Author Organization Healthcare Address [address] [place] [address] Care Team Providers Care Metal Fabricating Supervisor Name Role Phone Janes Lopez Primary Care Provider Encounter Details Date Type Department Care Team ([facility] st Contact Info) Description 01/29/2024 Orders Only External Location [address] [place] [address] Provider, External Social History Tobacco Use Types [...] on filedocumented in this encounter Care Teams Metal Fabricating Supervisor Relationship Specialty Start Date End Date Janes Lopez PA [address] [place] [address] PCP - General 03/10/21 documented as of this encounter
--- OUTSIDE RECORDS SUMMARY | 2025-08-19 11:34 | XMS_ITS | Encounter Summary ---
Author Organization Healthcare Address [address] [place] [address] Care Team Providers Care Senior Front End Web Developer Name Role Phone Janes Lopez Primary Care Provider Reason for Referral * Consultation (Routine) - Closed Specialty Diagnoses / Procedures Referred By Ila sawyer Referred To Contact Neurosurgery Diagnoses Cervical disc disorder, unspecified, unspecified cervical region Piyush Herrera MD [address] [place] [address] Phone: tel: fax: Referral ID Status Reason Start Date Expiration Date V isits Requested Visits Authorized [id number] Closed Specialty Services Required 08/10/2024 02/09/2026 1 1 Encounter Details Date Type Department Care Team (Late st Contact Info) Description 08/10/2024 Community Orders Community Practice [address] [place] [address] Piyush Herrera MD [facility] [place] [address] Cervical disc disorder, unspecified, unspecified cervical region [...] Primary documented in this encounter Care Teams Senior Front End Web Developer Relationship Specialty Start Date End Date Janes Lopez PA [address] [place] [address] PCP - General 03/10/21 documented as of this encounter
--- OUTSIDE RECORDS SUMMARY | 2025-08-19 11:34 | XMS_ITS | Encounter Summary ---
Author Organization Healthcare Address [address] [place] [address] Care Team Providers Care Sheet Rock Hanger Name Role Phone Janes Lopez Primary Care Provider [phone] Encounter Details Date Type Department Care Team ([facility] Contact Info) Description 09/07/2015 Orders Only External Location [address] [place] [address] Provider, External Social History Tobacco Use Types [...] on filedocumented in this encounter Care Teams Sheet Rock Hanger Relationship Specialty Start Date End Date Janes Lopez PA [address] [place] [address] PCP - General 03/10/21 documented as of this encounter
--- OUTSIDE RECORDS SUMMARY | 2025-08-19 11:34 | XMS_ITS | Encounter Summary ---
Author Organization Healthcare Address [address] [place] [address] Care Team Providers Care Subeditor Name Role Phone Janes Lopez Primary Care Provider Encounter Details Date Type Department Care Team ([facility] st Contact Info) Description 02/21/2016 Orders Only External Location [address] [place] [address] Provider, External Social History Tobacco Use Types [...] on filedocumented in this encounter Care Teams Subeditor Relationship Specialty Start Date End Date Janes Lopez PA [address] [place] [address] PCP - General 03/10/21 documented as of this encounter
--- OUTSIDE RECORDS SUMMARY | 2025-08-19 11:34 | XMS_ITS | Encounter Summary ---
Author Organization Healthcare Address [address] [place] [address] Care Team Providers Care Analyst Name Role Phone Janes Lopez Primary Care Provider Encounter Details Date Type Department Care Team ([facility] st Contact Info) Description 02/02/2023 Orders Only External Location [address] [place] [address] Provider, External Social History Tobacco Use Types [...] on filedocumented in this encounter Care Teams Analyst Relationship Specialty Start Date End Date Janes Lopez PA [address] [place] [address] PCP - General 03/10/21 documented as of this encounter
--- OUTSIDE RECORDS SUMMARY | 2025-08-19 11:34 | XMS_ITS | Encounter Summary ---
Author Organization Healthcare Address [address] [place] [address] Care Team Providers Care Tactical Air Control Party Name Role Phone Janes Lopez Primary Care Provider Encounter Details Date Type Department Care Team ([facility] st Contact Info) Description 03/27/2018 Orders Only External Location [address] [place] [address] Provider, External Social History Tobacco Use Types [...] on filedocumented in this encounter Care Teams Tactical Air Control Party Relationship Specialty Start Date End Date Janes Lopez PA [address] [place] [address] PCP - General 5/14/21 documented as of this encounter
--- OUTSIDE RECORDS SUMMARY | 2025-08-19 11:34 | XMS_ITS | Referral Summary ---
Author Organization [employer] ([place], [place], [place], [place]) Address [address] [place] [address] Care Team Providers Care Oil Spot Washer Name Role Phone Unavailable Primary Care Provider [...]
--- OUTSIDE RECORDS SUMMARY | 2025-08-19 11:34 | XMS_ITS | Encounter Summary ---
Author Organization Healthcare Address [address] [place] [address] Care Team Providers Care Outside Sales Account Executive Name Role Phone Janes Lopez Primary Care Provider Encounter Details Date Type Department Care Team ([facility] Contact Info) Description 11/01/2014 Orders Only External Location [address] [place] [address] Provider, External Social History Tobacco Use Types [...] on filedocumented in this encounter Care Teams Outside Sales Account Executive Relationship Specialty Start Date End Date Janes Lopez PA [address] [place] [address] PCP - General 03/10/21 documented as of this encounter
--- OUTSIDE RECORDS SUMMARY | 2025-08-19 11:34 | XMS_ITS | Clinical Summary ---
Author Organization Healthcare Address [address] [place] [address] Care Team Providers Care Treasury Manager Name Role Phone Janes Lopez Primary [...] 0 Active cholecalciferol (Vitamin D-3) 1.25 MG (46722 UT) capsule Take 1 capsule (50,000 Units) by mouth 1 (one) time per week. 4 Active ergocalciferol 1.25 MG (07413 UT) capsule 4 Active fluticasone (Flonase) 50 MCG/ACT nasal spray Take or use exactly as directed.For the nose. 4 Active HYDROcodone-acetam inophen (Tigrett) 7.5-325 MG tablet 0 Active ibuprofen 800 MG tablet Take 1 tablet (800 mg) by mouth 3 (three) times a day. 0 Active levocetirizine (Xyzal) 5 MG tablet Take 1 tablet (5 mg) by mouth Daily. 0 Active Synthroid 50 MCG tablet Take on empty stomach.Take with plenty of water.Be careful if taking OTCs.Take or use exactly as directed. 0 Active Izfc-Kfujmijwm-Mmo -Methyl Craig 0.5-0.035-5-20 % patch lidocaine 0.5 [...] REMOVE FOR 12HRS 4 Active nystatin (Mycostatin) 026828 UNIT/ML suspension 4 Active ofloxacin (Floxin) 0.3 [...] Colonoscopy 04/16/2021 04/16/2011 [facility]-Colorectal Cancer Screening 04/16/2021 QEU-IBCUB-12 Vaccine ( season) 2025 09/26/2021, 01/18/2021, 12/28/2020 [facility]-Influenza Vaccine (#1) 06/28/202509/17, [...] Payer (Ef fective 2001-Present) Name:Gerda Browne Member ID:[id number] Relation to Subscriber:Self Name:Gerda Browne Subscriber ID:[id number] Payer ID:MEDICARE Group ID:Not on file Type:Medicare Address: [place] [phone] Care Teams Treasury Manager Relationship Specialty Start Date End Date Janes Lopez PA [address] [place] [address] PCP - General 03/10/21
--- OUTSIDE RECORDS SUMMARY | 2025-08-19 11:34 | XMS_ITS | Encounter Summary ---
Author Organization Healthcare Address [address] [place] [address] Care Team Providers Care Rolls Mill Operator Name Role Phone Janes Lopez Primary Care Provider Encounter Details Date Type Department Care Team ([facility] st Contact Info) Description 02/27/2017 Orders Only External Location [address] [place] [address] Provider, External Social History Tobacco Use Types [...] on filedocumented in this encounter Care Teams Rolls Mill Operator Relationship Specialty Start Date End Date Janes Lopez PA [address] [place] [address] PCP - General 03/10/21 documented as of this encounter
--- OUTSIDE RECORDS SUMMARY | 2025-08-19 11:34 | XMS_ITS | Continuity of Care Document ---
Author Organization [facility] Address [address] [facility] [address] [place] [address] Assessment No assessment recorded. Plan of Treatment Reminders Order Date Submit Date Provider Last Modified By Organization Details Last Modified Time Details Appointments None recorded. Lab None recorded. Referral None recorded. Procedures None recorded. Surgeries None recorded. Imaging None recorded. Medication Orders fluconazole 150 mg tablet 2024 025 [id number], [address] [place] [address], [id number], 5 14:33:22 amoxicillin 875 mg tablet 2024 025 [facility] #[id number], [address] [place] [address], [id number], 05:01:36 Patient TargetsNo targets recorded. Patient InstructionsNo instructions [...] Address Organization Details Last Updated DateTime 5 12965.7 4 g 96 % 96 % 63 /min 96.7 [degF] 126/74 mm[Hg] Corazon Locke [facility] & [place] 5 14:08:48 Social History None recorded. Functional Status None recorded. Mental Status None recorded. Family History Nothing Reported. Medical History No medical history recorded. Gynecological HistoryNo gynecological history recorded. Obstetrics History GPAL:G 0 P 0 0 0 0 Immunizations Vaccine Type Date Status Note Provider Nam e and Address Organization Details Recorded Time Hep B, unspecified formulation 6 completed Not Available [facility] 08/04/2025 15:01:56 Hep B, adult 6 completed Not Available [facility] 08/04/2025 15:01:56 Hep B, adult 9 completed Not Available [facility] 08/04/2025 15:01:56 zoster live 7 completed Not Available [facility] 08/04/2025 15:01:56 Influenza, split virus, quadrivalent, PF 7 completed Not Available [facility] 08/04/2025 15:01:56 Pneumococcal conjugate PCV 13 8 completed Not Available [facility] 08/04/2025 15:01:56 zoster, unspecified formulation 8 completed Not Available [facility] 08/04/2025 15:01:56 Hep A, unspecified formulation 9 completed Not Available [facility] 08/04/2025 15:01:56 Influenza, recombinant, quadrivalent, PF 9 completed Not Available [facility] 08/04/2025 15:01:56 pneumococcal polysaccharide PPV23 0 completed Not Available [facility] 08/04/2025 15:01:56 COVID-19, mRNA, LNP-S, PF, 30 mcg/0.3 mL dose 1 completed Not Available [facility] 08/04/2025 15:01:56 COVID-19, mRNA, LNP-S, PF, 30 mcg/0.3 mL dose 1 completed Not Available [facility] 08/04/2025 15:01:56 Influenza, high-dose, trivalent, PF 1 completed Not Available [facility] 08/04/2025 15:01:56 COVID-19, mRNA, LNP-S, PF, 100 mcg/0.5mL dose or 50 mcg/0.25mL dose 1 completed Not Available [facility] 08/04/2025 15:01:56 Influenza, high-dose, trivalent, PF 4 completed Not Available [facility] 08/04/2025 15:01:56 Past Encounters Encounter ID Performer Location Encounter Start Date Encounter Closed Date Diagnosis/Indication Diagnosis SNOMED-CT Code Diagnosis ICD10 Code Diagnosis IMO Codes Diagnosis Note [id number] MD ZAIRE Gill [facility] [address] [place] [address] 07/19/2025 13:46:35 07/19/2025 14:36:44 Acute bilateral otitis media 381963734 H66.93 [id number] 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 [id number] Health Concerns Section Related Observation LastModified by Organization Detai ls LastModified Time None Recorded Concern Status LastModified by Organization Details LastModified Time None Recorded Payers Encounter Date Sequence Insurance Name Policy Number Policy Hsu Covered Member ID Hsu Member ID Guarantor Name 07/19/2025 1 [place] Gerda Browne [id number] 07/19/2025 2 FOR LIFE ( - MEDICARE SUPPLEMENT) Gerda Browne [id number] Notes Date Note Type Note Provider Name and Address Organization Details Recorded Time 07/19/2025 text/html ROS as noted in the HPI About a week and a half of bilateral ear pain. No fever. Mino Pennington MD [address], [place], [address], [facility] - [place] & [place] 07/19/2025 14:33:40 OBGyn Episode No OBEpisode recorded.
[2025-08-19 12:31] LABS: Albumin Level 3.9 g/dl (3.5-5.0); Chloride 100 mmol/L (98-107)
[2025-08-19 12:32] LABS: Potassium 4.4 mmoL/L (3.5-5.1); Sodium 138 mmol/L (136-145)
[2025-08-19 12:34] LABS: Alanine Aminotransferase 23 U/L (12-78); Albumin/Globulin Ratio 1.3 (1.1-1.8); Alkaline Phosphatase 77 U/L (38-126); Anion Gap 9.4 mEq/L (5-15); Aspartate Amino Transferase 38 U/L (14-36); Bilirubin,Total 0.3 mg/dl (0.2-1.3); Blood Urea Nitrogen 9 mg/dl (7-17); Carbon Dioxide 33 mmol/L (22.0-30.0); Cholesterol 178 mg/dl (140-200); Creatinine,Serum 0.70 mg/dl (0.52-1.04); Estimated Glomerular Filt Rate 83 ml/min (>60); GFR (African American) 100 ML/MIN (>60); Globulin 3.1 g/dL (1.3-3.2); Total Protein,Serum 7.0 g/dl (6.3-8.2); Triglycerides 151 mg/dl (30-150)
[2025-08-19 12:35] LABS: Calcium 8.9 mg/dl (8.4-10.2); Glucose 92 mg/dl (74-100); HDL Cholesterol 60 mg/dl (40-60)
[2025-08-19 12:51] LABS: Thyroid Stimulating Hormone 2.06 uIU/mL (0.465-4.68)
[2025-08-19 13:07] LABS: 25-OH Vitamin D, Total 33.8 ng/mL (30-100)
== END 2025-08-19 23:59 | disposition home or self-care (01) ==
LOC: LAB 11:11
PROVIDERS: PCP Family Medicine; Visit Provider Family Medicine
DX: E55.9 Vitamin D deficiency, unspecified (principal); I10 Essential (primary) hypertension; E78.5 Hyperlipidemia, unspecified; E03.9 Hypothyroidism, unspecified
CPT/HCPCS: 36415; 80053; 80061; 82306; 84443